=== PATIENT | female | born 1945 | race Caucasian/White ===

== ENCOUNTER → 2019-09-08 | Outpatient (CLI) | payer MEDICARE | END | disposition home or self-care (01) | LOC: PREOP 05:50 | PROVIDERS: ATTEND Specialist | DX: Z01.818 Encounter for other preprocedural examination (principal) ==

== ENCOUNTER 2019-11-08 09:44 | Outpatient (RCR) | payer MEDICARE ==
[~2019-11-08] VITALS: Ht 160 cm; Wt 72.0 kg
[~2019-11-08 09:44] MED LIST: ATOR10TA66 PO; BUDE10.2 IH; CITA10TA7 PO; RT-ALBUINH IH
== END 2019-11-08 15:09 | disposition home or self-care (01) ==
LOC: PREOP 09:44
PROVIDERS: ATTEND Specialist
DX: Z01.818 Encounter for other preprocedural examination (principal); Z11.59 Encounter for screening for other viral diseases
CPT/HCPCS: 87635

== ENCOUNTER → 2019-11-12 | Day surgery (SDC) | payer MEDICARE ==
[~2019-11-12] VITALS: Ht 160 cm; Wt 72.0 kg
[~2019-11-12] MED LIST changes: +LIDOCAINE PF 1% 2 ML VIAL IR PRN; +MIDAZOLAM 2 MG/2 ML (VERSED) VIAL ONE; +MOXIFLOXACIN OPHTH SOLN 5 MG/ML 0.3 ML SYRINGE OP ONE; +POVIDONE (BETADINE) OPHTH SOLN 5% 30 ML OP ONE; +TIMOLOL MALEATE 0.5% 5 ML (TIMOPTIC) BTL OU PRN; +acetaZOLAMIDE ER 500 MG CAP (DIAMOX SEQUELS) PO ONE
[2019-11-12] MEDS: TETRACAINE 0.5% OPHTH SOLN 4 ML BTL (SINGLE DOSE ONLY) OU PRN ×4 (09:20→09:46)
[2019-11-12 09:25] VITALS: BP 146/89
[2019-11-12] MEDS: CYCLOPENTOLATE 1% (CYCLOGYL) 2 ML DROPS OP SCH ×3 (09:33→09:49)
[2019-11-12] MEDS: PHENYLEPHRINE 10% OPHTH (NEO-SYN) 5 ML BTL OU SCH ×3 (09:33→09:49)
--- OUTSIDE RECORDS SUMMARY | 2019-11-12 09:59 | XMS REPORT | Continuity of Care Document ---
Author Organization Unknown Address Unknown Phone Unavailable Allergies Active Description Code Type Severity Reaction Onset Reported/Identified Relationship to Patient Clinical Status Yes PENICILLINS SEVERE DERMATOLOGICAL - HIV Yes PENICILLINS SEVERE SEVERE Yes Penicillins [id number] Drug Aller gy Mild HIVES 11/05/2019 Medications Medication Packaging Start Date St op Date Route Dosage Sig ALBUTEROL SVN 2.5MG/3CC LIQ 2.5 MG (PROVENTIL SHERRY 2.5MG/3CC) MG 08/07/2018 08/07/2018 ONCE&1055 METHYLPREDNISOLONE VIAL INJ 125 MG/2CC (SOLU-MEDROL VIAL) MG 08/07/2018 08/07/2018 ONCE&1055 CEFTRIAXONE PREMIX IV BAG IV 1 GM/50CC (ROCEPHIN PREMIX IV BAG) GM 08/07/2018 08/13/2018 Daily&1300 ALBUTEROL SVN 2.5MG/3CC LIQ 2.5 MG (PROVENTIL SHERRY 2.5MG/3CC) MG 08/07/2018 08/17/2018 PRN Q4H ALBUTEROL SVN 2.5MG/3CC LIQ 2.5 MG (PROVENTIL SHERRY 2.5MG/3CC) MG 08/07/2018 08/17/2018 QID&0600,1100,1600,2100 GUAIFENESIN TAB 600 MG (MUCINEX) MG 08/07/2018 08/14/2018 Q12H&0600,1800 BUDESONIDE/FORMOTEROL INH 16 0 /4.5MCG (SYMBICORT) PUFF 08/07/2018 08/14/2018 BID&0800,2000 PANTOPRAZOLE VIAL INJ 40 MG (PROTONIX IV) MG 08/07/2018 08/16/2018 Daily&2000 METHYLPREDNISOLONE VIAL INJ 125 MG/2CC (SOLU-MEDROL VIAL) MG 08/07/2018 08/12/2018 Q8H&0600,1400,2200 IPRATROPIUM/ALBUTEROL INH SO LN (DUO-NEB INH SOLN) MLS 08/08/2018 08/15/2018 QID&0600,1100,1600,2100 PREDNISONE TAB 20 MG (DELTASONE) MG 08/09/2018 08/09/2018 ONCE&1100 KETOROLAC VIAL INJ 15 MG/CC (TORADOL VIAL) MG 09/24/2018 09/24/2018 ONCE&2043 LORAZEPAM 1CC VIAL INJ 2 MG/CC (ATIVAN VIA L) MG 09/24/2018 09/24/2018 PRN ONCE Problems Date Dx Coded Attending Type Code Diagnosis Diagnosed By 05/22/1508 YAQUELIN MCKEON MD Ot Z01.818 ENCOUNTER FOR OTHER PREPROCEDURAL EXAMIN 05/22/1508 YAQUELIN MCKEON MD Ot Z11.59 ENCOUNTER FOR SCREENING FOR OTHER VIRAL 01/30/2017 Abi Crenshaw W 272.8 OTHER DISORDERS OF LIPOID METABOLISM 01/30/2017 Abi Crenshaw 311 DEPRESSIVE DISORDER, NOT ELSEWHERE CLASSIFIED 01/30/2017 Abi Crenshaw W 493 ASTHMA 01/30/2017 Abi Crenshaw E78.5 HYPERLIPIDEMIA, UNSPECIFIED 01/30/2017 Abi Crenshaw W F33.9 MAJOR DEPRESSIVE DISORDER, RECURRENT, UNSPECIFIED 01/30/2017 Abi Crenshaw W J45.909 UNSPECIFIED ASTHMA, UNCOMPLICATED 01/30/2017 W 272.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 01/30/2017 W 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, NOT ELSEWHERE CLASSIFIED 01/30/2017 W 493 ASTHMA 01/30/2017 W E78.5 HYPE RLIPIDEMIA, UNSPECIFIED 01/30/2017 W F33.9 VLAD R DEPRESSIVE DISORDER, RECURRENT, UNSPECIFIED 01/30/2017 W J45.909 UN SPECIFIED ASTHMA, UNCOMPLICATED 07/31/2017 Abi Crenshaw W 272.8 OTHER DISORDERS OF LIPOID METABOLISM 07/31/2017 Abi Crenshaw W 311 DEPRESSIVE DISORDER, NOT ELSEWHERE CLASSIFIED 07/31/2017 Abi Crenshaw E78.5 HYPERLIPIDEMIA, UNSPECIFIED 07/31/2017 Abi Crenshaw W F32.9 MAJOR DEPRESSIVE DISORDER, SINGLE EPISODE, UNSPECIFIED 07/31/2017 Abi Crenshaw W 272.8 OTHER DISORDERS OF LIPOID METABOLISM 07/31/2017 Abi Crenshaw W 305.1 07/31/2017 Abi Crenshaw W 311 DEPRESSIVE DISORDER, NOT ELSEWHERE CLASSIFIED 07/31/2017 Flower, Abi W 477.8 ALLERGIC RHINITIS DUE TO OTHER ALLERGEN 07/31/2017 Flower, Abi W 786.05 SHORTNESS OF BREATH 07/31/2017 Flower, Abi W E78.5 HYPERLIPIDEMIA, UNSPECIFIED 07/31/2017 Flower, Abi W F32.9 MAJOR DEPRESSIVE DISORDER, SINGLE EPISODE, UNSPECIFIED 07/31/2017 Flower, Abi W J30.2 OTHER SEASONAL ALLERGIC RHINITIS 07/31/2017 Flower, Abi W R06.02 SHORTNESS OF BREATH 07/31/2017 Flower, Abi W Z72.0 TOBACCO USE 07/31/2017 Flower, Abi W 272.8 OTHER DISORDERS OF LIPOID METABOLISM 07/31/2017 Flower, Abi W 305.1 07/31/2017 Flower, Abi W 311 DEPRESSIVE DISORDER, NOT ELSEWHERE CLASSIFIED 07/31/2017 Flower, Abi W 477.8 ALLERGIC RHINITIS DUE TO OTHER ALLERGEN 07/31/2017 Flower, Abi W 786.05 SHORTNESS OF BREATH 07/31/2017 Flower, Abi W E78.5 HYPERLIPIDEMIA, UNSPECIFIED 07/31/2017 Flower, Abi W F32.9 MAJOR DEPRESSIVE DISORDER, SINGLE EPISODE, UNSPECIFIED 07/31/2017 Flower, Abi W J30.2 OTHER SEASONAL ALLERGIC RHINITIS 07/31/2017 Flower, Abi W R06.02 SHORTNESS OF BREATH 07/31/2017 Flower, Abi W Z72.0 TOBACCO USE 07/31/2017 W 272.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 07/31/2017 W 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 07/31/2017 W 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, NOT ELSEWHERE CLASSIFIED 07/31/2017 W 477.8 STEVEN RGIC RHINITIS DUE TO OTHER ALLERGEN 07/31/2017 W 786.05 YARON RTNESS OF BREATH 07/31/2017 W E78.5 HYPE RLIPIDEMIA, UNSPECIFIED 07/31/2017 W F32.9 VLAD R DEPRESSIVE DISORDER, SINGLE EPISODE, UNSPECIFIED 07/31/2017 W J30.2 OTHE R SEASONAL ALLERGIC RHINITIS 07/31/2017 W R06.02 YARON RTNESS OF BREATH 07/31/2017 W Z72.0 TOBA C PYTHON DEVELOPER USE 09/18/2017 W 272.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 09/18/2017 W 296.30 MERCEDES OR DEPRESSIVE DISORDER, RECURRENT EPISODE, UNSPECIFIED DEGREE 09/18/2017 W 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 09/18/2017 W 496 CHRONI C AIRWAY OBSTRUCTION, NOT ELSEWHERE CLASSIFIED 09/18/2017 W 786.09 OTH ER DYSPNEA AND RESPIRATORY ABNORMALITY 09/18/2017 W E78.5 HYPE RLIPIDEMIA, UNSPECIFIED 09/18/2017 W F33.9 VLAD R DEPRESSIVE DISORDER, RECURRENT, UNSPECIFIED 09/18/2017 W J44.9 LAST CHALKER ANAHI OBSTRUCTIVE PULMONARY DISEASE, UNSPECIFIED 09/18/2017 W R06.02 YARON RTNESS OF BREATH 09/18/2017 W Z72.0 TOBA C PYTHON DEVELOPER USE 12/18/2017 Flower, Abi W 272.8 OTHER DISORDERS OF LIPOID METABOLISM 12/18/2017 Flower, Abi W 311 DEPRESSIVE DISORDER, NOT ELSEWHERE CLASSIFIED 12/18/2017 Flower, Abi W 496 CHRONIC AIRWAY OBSTRUCTION, NOT ELSEWHERE CLASSIFIED 12/18/2017 Flower, Abi W E78.5 HYPERLIPIDEMIA, UNSPECIFIED 12/18/2017 Flower, Abi W F32.9 MAJOR DEPRESSIVE DISORDER, SINGLE EPISODE, UNSPECIFIED 12/18/2017 Flower, Abi W J44.9 CHRONIC OBSTRUCTIVE PULMONARY DISEASE, UNSPECIFIED 12/18/2017 Flower, Abi W 272.8 OTHER DISORDERS OF LIPOID METABOLISM 12/18/2017 Flower, Abi W 278.00 OBESITY, UNSPECIFIED 12/18/2017 Flower, Abi W 305.1 TOBACCO USE DISORDER 12/18/2017 Flower, Abi W 311 DEPRESSIVE DISORDER, NOT ELSEWHERE CLASSIFIED 12/18/2017 Flower, Abi W 496 CHRONIC AIRWAY OBSTRUCTION, NOT ELSEWHERE CLASSIFIED 12/18/2017 Flower, Abi W E66.9 OBESITY, UNSPECIFIED 12/18/2017 Flower, Abi W E78.5 HYPERLIPIDEMIA, UNSPECIFIED 12/18/2017 Flower, Abi W F32.9 MAJOR DEPRESSIVE DISORDER, SINGLE EPISODE, UNSPECIFIED 12/18/2017 Folwer, Abi W J44.9 CHRONIC OBSTRUCTIVE PULMONARY DISEASE, UNSPECIFIED 12/18/2017 Flower, Abi W Z72.0 TOBACCO USE 12/18/2017 W 272.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 12/18/2017 W 278.00 OBE SITY, UNSPECIFIED 12/18/2017 W 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 12/18/2017 W 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, NOT ELSEWHERE CLASSIFIED 12/18/2017 W 496 CHRONI C AIRWAY OBSTRUCTION, NOT ELSEWHERE CLASSIFIED 12/18/2017 W E66.9 OBES ITY, UNSPECIFIED 12/18/2017 W E78.5 HYPE RLIPIDEMIA, UNSPECIFIED 12/18/2017 W F32.9 VLAD R DEPRESSIVE DISORDER, SINGLE EPISODE, UNSPECIFIED 12/18/2017 W J44.9 LAST CHALKER ANAHI OBSTRUCTIVE PULMONARY DISEASE, UNSPECIFIED 12/18/2017 W Z72.0 TOBA C PYTHON DEVELOPER USE 03/19/2018 W 272.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 03/19/2018 W 296.30 MERCEDES OR DEPRESSIVE DISORDER, RECURRENT EPISODE, UNSPECIFIED DEGREE 03/19/2018 W 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 03/19/2018 W 496 CHRONI C AIRWAY OBSTRUCTION, NOT ELSEWHERE CLASSIFIED 03/19/2018 W 786.09 OTH ER DYSPNEA AND RESPIRATORY ABNORMALITY 03/19/2018 W E78.5 HYPE RLIPIDEMIA, UNSPECIFIED 03/19/2018 W F33.9 VLAD R DEPRESSIVE DISORDER, RECURRENT, UNSPECIFIED 03/19/2018 W J44.9 LAST CHALKER ANAHI OBSTRUCTIVE PULMONARY DISEASE, UNSPECIFIED 03/19/2018 W R06.02 YARON RTNESS OF BREATH 03/19/2018 W Z72.0 TOBA C PYTHON DEVELOPER USE 07/02/2018 Flower Abi W 272.8 OTHER DISORDERS OF LIPOID METABOLISM 07/02/2018 Flower Abi W 296.30 MAJOR DEPRESSIVE DISORDER, RECURRENT EPISODE, UNSPECIFIED DEGREE 07/02/2018 Flower Abi W 496 CHRONIC AIRWAY OBSTRUCTION, NOT ELSEWHERE CLASSIFIED 07/02/2018 Flower Abi W 786.05 SHORTNESS OF BREATH 07/02/2018 Flower, Abi W E78.5 HYPERLIPIDEMIA, UNSPECIFIED 07/02/2018 Flower, Abi W F33.9 MAJOR DEPRESSIVE DISORDER, RECURRENT, UNSPECIFIED 07/02/2018 Flower Abi W J44.9 CHRONIC OBSTRUCTIVE PULMONARY DISEASE, UNSPECIFIED 07/02/2018 Flower Abi W R06.02 SHORTNESS OF BREATH 07/02/2018 Flower, Abi W 272.8 OTHER DISORDERS OF LIPOID METABOLISM 07/02/2018 Flower Abi W 296.30 MAJOR DEPRESSIVE DISORDER, RECURRENT EPISODE, UNSPECIFIED DEGREE 07/02/2018 Flower Abi W 496 CHRONIC AIRWAY OBSTRUCTION, NOT ELSEWHERE CLASSIFIED 07/02/2018 Abi Crenshaw W 786.05 SHORTNESS OF BREATH 07/02/2018 Abi Crenshaw W E78.5 HYPERLIPIDEMIA, UNSPECIFIED 07/02/2018 Abi Crenshaw W F33.9 MAJOR DEPRESSIVE DISORDER, RECURRENT, UNSPECIFIED 07/02/2018 Abi Crenshaw W J44.9 CHRONIC OBSTRUCTIVE PULMONARY DISEASE, UNSPECIFIED 07/02/2018 Abi Crenshaw W R06.02 SHORTNESS OF BREATH 07/02/2018 Abi Crenshaw W V69.8 OTHER PROBLEMS RELATED TO LIFESTYLE 07/02/2018 Abi Crenshaw W Z72.0 TOBACCO USE 07/02/2018 W 272.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 07/02/2018 W 296.30 MERCEDES OR DEPRESSIVE DISORDER, RECURRENT EPISODE, UNSPECIFIED DEGREE 07/02/2018 W 496 CHRONI C AIRWAY OBSTRUCTION, NOT ELSEWHERE CLASSIFIED 07/02/2018 W 786.05 YARON RTNESS OF BREATH 07/02/2018 W E78.5 HYPE RLIPIDEMIA, UNSPECIFIED 07/02/2018 W F33.9 VLAD R DEPRESSIVE DISORDER, RECURRENT, UNSPECIFIED 07/02/2018 W J44.9 LAST CHALKER ANAHI OBSTRUCTIVE PULMONARY DISEASE, UNSPECIFIED 07/02/2018 W R06.02 YARON RTNESS OF BREATH 07/02/2018 W V03.82 NEE D FOR PROPHYLACTIC VACCINATION AGAINST STREPTOCOCCUS PNEUMONIAE [PNEUMOCOCCUS] 07/02/2018 W V69.8 OTHE R PROBLEMS RELATED TO LIFESTYLE 07/02/[address] Z[address] E[address]OUN [address] FOR IMMUNIZATION 07/02/2018 W Z72.0 TOBA C PYTHON DEVELOPER USE 08/07/2018 Chris Dahl W 491.21 OBSTRUCTIVE CHRONIC BRONCHITIS WITH (ACUTE) EXACERBATION 08/07/2018 Chris Dahl W J44.1 CHRONIC OBSTRUCTIVE PULMONARY DISEASE WITH (ACUTE) EXACERBATION 08/07/2018 Chris Dahl W 491.21 OBSTRUCTIVE CHRONIC BRONCHITIS WITH (ACUTE) EXACERBATION 08/07/2018 Chris Dahl W 799.02 HYPOXEMIA 08/07/2018 Chris Dahl W J44.1 CHRONIC OBSTRUCTIVE PULMONARY DISEASE WITH (ACUTE) EXACERBATION 08/07/2018 Chris Dahl W R09.02 HYPOXEMIA 08/07/2018 W 491.21 OBS TRUCTIVE CHRONIC BRONCHITIS WITH (ACUTE) EXACERBATION 08/07/2018 W 780.79 OTH ER MALAISE AND FATIGUE 08/07/2018 W 786.05 YARON RTNESS OF BREATH 08/07/2018 W 787.91 STANLEY RRHEA 08/07/2018 W J44.1 LAST CHALKER ANAHI OBSTRUCTIVE PULMONARY DISEASE WITH (ACUTE) EXACERBATION 08/07/2018 W R06.02 YARON RTNESS OF BREATH 08/07/2018 W R19.7 DIAR LIAM, UNSPECIFIED 08/07/2018 W R53.1 WEAKNESS 08/09/2018 Brown, Chris W 491.21 OBSTRUCTIVE CHRONIC BRONCHITIS WITH (ACUTE) EXACERBATION 08/09/2018 Brown, Chris W 799.02 HYPOXEMIA 08/09/2018 Brown, Chris W J44.1 CHRONIC OBSTRUCTIVE PULMONARY DISEASE WITH (ACUTE) EXACERBATION 08/09/2018 Brown, Chris W R09.02 HYPOXEMIA 08/18/2018 W 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 08/18/2018 W 401.0 THOMPSON GNANT ESSENTIAL HYPERTENSION 08/18/2018 W 491.21 OBS TRUCTIVE CHRONIC BRONCHITIS WITH (ACUTE) EXACERBATION 08/18/2018 W 786.05 YARON RTNESS OF BREATH 08/18/2018 W I10 ESSENT IAL (PRIMARY) HYPERTENSION 08/18/2018 W J44.0 LAST CHALKER ANAHI OBSTRUCTIVE PULMONARY DISEASE WITH ACUTE LOWER RESPIRATORY INFECTION 08/18/2018 W R06.02 YARON RTNESS OF BREATH 08/18/2018 W Z72.0 TOBA C PYTHON DEVELOPER USE 09/24/2018 LEISURE, LYNIETA W 300.00 ANXIETY STATE, UNSPECIFIED 09/24/2018 LEISURE, LYNIETA W F41.9 ANXIETY DISORDER, UNSPECIFIED 09/24/2018 LEISURE, LYNIETA W 300.00 ANXIETY STATE, UNSPECIFIED 09/24/2018 LEISURE, LYNIETA W F41.9 ANXIETY DISORDER, UNSPECIFIED 09/24/2018 LEISURE, LYNIETA W 300.00 ANXIETY STATE, UNSPECIFIED 09/24/2018 LEISURE, LYNIETA W 786.59 OTHER CHEST PAIN 09/24/2018 LEISURE, LYNIETA W F41.9 ANXIETY DISORDER, UNSPECIFIED 09/24/2018 LEISURE, LYNIETA W R07.89 OTHER CHEST PAIN 09/24/2018 LEISURE, LYNIETA W 300.00 ANXIETY STATE, UNSPECIFIED 09/24/2018 LEISURE, LYNIETA W 786.59 OTHER CHEST PAIN 09/24/2018 LEISURE, LYNIETA W F41.9 ANXIETY DISORDER, UNSPECIFIED 09/24/2018 LEISURE, MIGUEL W R07.89 OTHER CHEST PAIN 10/01/2018 Flower, Abi W 272.4 OTHER AND UNSPECIFIED HYPERLIPIDEMIA 10/01/2018 Flower, Abi W 296.30 MAJOR DEPRESSIVE DISORDER, RECURRENT EPISODE, UNSPECIFIED DEGREE 10/01/2018 Flower, Abi W 491.20 OBSTRUCTIVE CHRONIC BRONCHITIS, WITHOUT EXACERBATION 10/01/2018 Flower, Abi W 786.05 SHORTNESS OF BREATH 10/01/2018 Flower, Abi W E78.5 HYPERLIPIDEMIA, UNSPECIFIED 10/01/2018 Flower, Abi W F33.9 MAJOR DEPRESSIVE DISORDER, RECURRENT, UNSPECIFIED 10/01/2018 Flower, Abi W J44.9 CHRONIC OBSTRUCTIVE PULMONARY DISEASE, UNSPECIFIED 10/01/2018 Flower, Abi W R06.02 SHORTNESS OF BREATH 10/01/2018 Flower, Abi W V69.8 OTHER PROBLEMS RELATED TO LIFESTYLE 10/01/2018 Abi Crenshaw W Z72.0 TOBACCO USE 10/01/2018 W 272.4 OTHE R AND UNSPECIFIED HYPERLIPIDEMIA 10/01/2018 W 296.30 MERCEDES OR DEPRESSIVE DISORDER, RECURRENT EPISODE, UNSPECIFIED DEGREE 10/01/2018 W 300.00 ANX IETY STATE, UNSPECIFIED 10/01/2018 W 491.20 OBS TRUCTIVE CHRONIC BRONCHITIS, WITHOUT EXACERBATION 10/01/2018 W 786.05 YARON RTNESS OF BREATH 10/01/2018 W E78.5 HYPE RLIPIDEMIA, UNSPECIFIED 10/01/2018 W F33.9 VLAD R DEPRESSIVE DISORDER, RECURRENT, UNSPECIFIED 10/01/2018 W F41.9 ANXI ETY DISORDER, UNSPECIFIED 10/01/2018 W J44.9 LAST CHALKER ANAHI OBSTRUCTIVE PULMONARY DISEASE, UNSPECIFIED 10/01/2018 W R06.02 YARON RTNESS OF BREATH 10/01/2018 W V69.8 OTHE R PROBLEMS RELATED TO LIFESTYLE 10/01/2018 W Z72.0 TOBA C PYTHON DEVELOPER USE 11/03/2018 W 300.00 ANX IETY STATE, UNSPECIFIED 11/03/2018 W 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, NOT ELSEWHERE CLASSIFIED 11/03/2018 W 496 CHRONI C AIRWAY OBSTRUCTION, NOT ELSEWHERE CLASSIFIED 11/03/2018 W F32.9 VLAD R DEPRESSIVE DISORDER, SINGLE EPISODE, UNSPECIFIED 11/03/2018 W F41.9 ANXI ETY DISORDER, UNSPECIFIED 11/03/2018 W J44.9 LAST CHALKER ANAHI OBSTRUCTIVE PULMONARY DISEASE, UNSPECIFIED 02/16/2019 Flower, Abi W 401.0 MALIGNANT ESSENTIAL HYPERTENSION 02/16/2019 Flower, Abi W I10 ESSENTIAL (PRIMARY) HYPERTENSION 02/16/2019 Flower, Abi W 272.4 OTHER AND UNSPECIFIED HYPERLIPIDEMIA 02/16/2019 Flower, Abi W 401.0 MALIGNANT ESSENTIAL HYPERTENSION 02/16/2019 Flower, Abi W 496 CHRONIC AIRWAY OBSTRUCTION, NOT ELSEWHERE CLASSIFIED 02/16/2019 Flower, Abi W E78.5 HYPERLIPIDEMIA, UNSPECIFIED 02/16/2019 Flower, Abi W I10 ESSENTIAL (PRIMARY) HYPERTENSION 02/16/2019 Flower, Abi W J44.9 CHRONIC OBSTRUCTIVE PULMONARY DISEASE, UNSPECIFIED 02/16/2019 Flower, Abi W 272.4 OTHER AND UNSPECIFIED HYPERLIPIDEMIA 02/16/2019 Flower, Abi W 296.20 MAJOR DEPRESSIVE DISORDER, SINGLE EPISODE, UNSPECIFIED DEGREE 02/16/2019 Flower, Abi W 401.0 MALIGNANT ESSENTIAL HYPERTENSION 02/16/2019 Flower, Abi W 496 CHRONIC AIRWAY OBSTRUCTION, NOT ELSEWHERE CLASSIFIED 02/16/2019 Flower, Abi W E78.5 HYPERLIPIDEMIA, UNSPECIFIED 02/16/2019 Flower, Abi W F32.9 MAJOR DEPRESSIVE DISORDER, SINGLE EPISODE, UNSPECIFIED 02/16/2019 Flower, Abi W I10 ESSENTIAL (PRIMARY) HYPERTENSION 02/16/2019 Flower, Abi W J44.9 CHRONIC OBSTRUCTIVE PULMONARY DISEASE, UNSPECIFIED 02/16/2019 Flower, Abi W 272.4 OTHER AND UNSPECIFIED HYPERLIPIDEMIA 02/16/2019 Flower, Abi W 296.20 MAJOR DEPRESSIVE DISORDER, SINGLE EPISODE, UNSPECIFIED DEGREE 02/16/2019 Flower, Abi W 300.00 ANXIETY STATE, UNSPECIFIED 02/16/2019 Flower, Abi W 401.0 MALIGNANT ESSENTIAL HYPERTENSION 02/16/2019 Flower, Abi W 496 CHRONIC AIRWAY OBSTRUCTION, NOT ELSEWHERE CLASSIFIED 02/16/2019 Flower, Abi W E78.5 HYPERLIPIDEMIA, UNSPECIFIED 02/16/2019 Flower, Abi W F32.9 MAJOR DEPRESSIVE DISORDER, SINGLE EPISODE, UNSPECIFIED 02/16/2019 Flower, Abi W F41.9 ANXIETY DISORDER, UNSPECIFIED 02/16/2019 Flower, Abi W I10 ESSENTIAL (PRIMARY) HYPERTENSION 02/16/2019 Flower, Abi W J44.9 CHRONIC OBSTRUCTIVE PULMONARY DISEASE, UNSPECIFIED 02/16/2019 Flower, Abi W V69.8 OTHER PROBLEMS RELATED TO LIFESTYLE 02/16/2019 Flower, Abi W Z72.0 TOBACCO USE 02/16/2019 Flower, Abi W 401.0 MALIGNANT ESSENTIAL HYPERTENSION 02/16/2019 Flower, Abi W I10 ESSENTIAL (PRIMARY) HYPERTENSION 02/16/2019 Flower, Abi W 272.4 OTHER AND UNSPECIFIED HYPERLIPIDEMIA 02/16/2019 Flower, Abi W 296.20 MAJOR DEPRESSIVE DISORDER, SINGLE EPISODE, UNSPECIFIED DEGREE 02/16/2019 Flower, Abi W 401.0 MALIGNANT ESSENTIAL HYPERTENSION 02/16/2019 Flower, Abi W 496 CHRONIC AIRWAY OBSTRUCTION, NOT ELSEWHERE CLASSIFIED 02/16/2019 Flower, Abi W E78.5 HYPERLIPIDEMIA, UNSPECIFIED 02/16/2019 Flower, Abi W F32.9 MAJOR DEPRESSIVE DISORDER, SINGLE EPISODE, UNSPECIFIED 02/16/2019 Flower, Abi W I10 ESSENTIAL (PRIMARY) HYPERTENSION 02/16/2019 Flower, Abi W J44.9 CHRONIC OBSTRUCTIVE PULMONARY DISEASE, UNSPECIFIED 02/16/2019 Flower, Abi W 272.4 OTHER AND UNSPECIFIED HYPERLIPIDEMIA 02/16/2019 Flower, Abi W 296.20 MAJOR DEPRESSIVE DISORDER, SINGLE EPISODE, UNSPECIFIED DEGREE 02/16/2019 Flower, Abi W 300.00 ANXIETY STATE, UNSPECIFIED 02/16/2019 Flower, Abi W 401.0 MALIGNANT ESSENTIAL HYPERTENSION 02/16/2019 Flower, Abi W 496 CHRONIC AIRWAY OBSTRUCTION, NOT ELSEWHERE CLASSIFIED 02/16/2019 Flower, Abi W E78.5 HYPERLIPIDEMIA, UNSPECIFIED 02/16/2019 Flower, Abi W F32.9 MAJOR DEPRESSIVE DISORDER, SINGLE EPISODE, UNSPECIFIED 02/16/2019 Flower, Abi W F41.9 ANXIETY DISORDER, UNSPECIFIED 02/16/2019 Flower, Abi W I10 ESSENTIAL (PRIMARY) HYPERTENSION 02/16/2019 Flower, Abi W J44.9 CHRONIC OBSTRUCTIVE PULMONARY DISEASE, UNSPECIFIED 02/16/2019 Flower, Abi W V69.8 OTHER PROBLEMS RELATED TO LIFESTYLE 02/16/2019 Flower, Abi W Z72.0 TOBACCO USE 02/16/2019 Flower, Abi W 272.4 OTHER AND UNSPECIFIED HYPERLIPIDEMIA 02/16/2019 Flower, Abi W 296.20 MAJOR DEPRESSIVE DISORDER, SINGLE EPISODE, UNSPECIFIED DEGREE 02/16/2019 Flower, Abi W 300.00 ANXIETY STATE, UNSPECIFIED 02/16/2019 Flower, Abi W 401.0 MALIGNANT ESSENTIAL HYPERTENSION 02/16/2019 Flower, Abi W 496 CHRONIC AIRWAY OBSTRUCTION, NOT ELSEWHERE CLASSIFIED 02/16/2019 Flower, Abi W E78.5 HYPERLIPIDEMIA, UNSPECIFIED 02/16/2019 Flower, Abi W F32.9 MAJOR DEPRESSIVE DISORDER, SINGLE EPISODE, UNSPECIFIED 02/16/2019 Flower, Abi W F41.9 ANXIETY DISORDER, UNSPECIFIED 02/16/2019 Flower, Abi W I10 ESSENTIAL (PRIMARY) HYPERTENSION 02/16/2019 Flower, Abi W J44.9 CHRONIC OBSTRUCTIVE PULMONARY DISEASE, UNSPECIFIED 02/16/2019 Flower, Abi W V69.8 OTHER PROBLEMS RELATED TO LIFESTYLE 02/16/2019 Flower, Abi W Z72.0 TOBACCO USE 02/16/2019 Flower, Abi W 272.4 OTHER AND UNSPECIFIED HYPERLIPIDEMIA 02/16/2019 Flower, Abi W 296.20 MAJOR DEPRESSIVE DISORDER, SINGLE EPISODE, UNSPECIFIED DEGREE 02/16/2019 Flower, Abi W 300.00 ANXIETY STATE, UNSPECIFIED 02/16/2019 Flower, Abi W 401.0 MALIGNANT ESSENTIAL HYPERTENSION 02/16/2019 Flower, Abi W 496 CHRONIC AIRWAY OBSTRUCTION, NOT ELSEWHERE CLASSIFIED 02/16/2019 Flower, Abi W E78.5 HYPERLIPIDEMIA, UNSPECIFIED 02/16/2019 Flower, Abi W F32.9 MAJOR DEPRESSIVE DISORDER, SINGLE EPISODE, UNSPECIFIED 02/16/2019 Flower, Abi W F41.9 ANXIETY DISORDER, UNSPECIFIED 02/16/2019 Flower, Abi W I10 ESSENTIAL (PRIMARY) HYPERTENSION 02/16/2019 Flower, Abi W J44.9 CHRONIC OBSTRUCTIVE PULMONARY DISEASE, UNSPECIFIED 02/16/2019 Flower, Abi W V69.8 OTHER PROBLEMS RELATED TO LIFESTYLE 02/16/2019 Flower, Abi W Z72.0 TOBACCO USE 03/17/2019 Flower, Abi W 477.8 ALLERGIC RHINITIS DUE TO OTHER ALLERGEN 03/17/2019 Flower, Abi W J30.2 OTHER SEASONAL ALLERGIC RHINITIS 03/17/2019 Flower, Abi W 477.8 ALLERGIC RHINITIS DUE TO OTHER ALLERGEN 03/17/2019 Flower, Abi W J30.2 OTHER SEASONAL ALLERGIC RHINITIS 03/17/2019 Flower, Abi W 477.8 ALLERGIC RHINITIS DUE TO OTHER ALLERGEN 03/17/2019 Flower, Abi W 478.19 OTHER DISEASE OF NASAL CAVITY AND SINUSES 03/17/2019 Flower, Abi W J30.2 OTHER SEASONAL ALLERGIC RHINITIS 03/17/2019 Flower, Abi W R09.81 NASAL CONGESTION 03/17/2019 Flower, Abi W 477.8 ALLERGIC RHINITIS DUE TO OTHER ALLERGEN 03/17/2019 Flower, Abi W 478.19 OTHER DISEASE OF NASAL CAVITY AND SINUSES 03/17/2019 Flower, Abi W 786.2 COUGH 03/17/2019 Flower, Abi W J30.2 OTHER SEASONAL ALLERGIC RHINITIS 03/17/2019 Flower, Abi W R05 COUGH 03/17/2019 Flower, Abi W R09.81 NASAL CONGESTION 03/17/2019 Flower, Abi W 477.8 ALLERGIC RHINITIS DUE TO OTHER ALLERGEN 03/17/2019 Flower, Abi W 478.19 OTHER DISEASE OF NASAL CAVITY AND SINUSES 03/17/2019 Flower, Abi W 786.2 COUGH 03/17/2019 Flower, Abi W J30.2 OTHER SEASONAL ALLERGIC RHINITIS 03/17/2019 Flower, Abi W R05 COUGH 03/17/2019 Flower, Abi W R09.81 NASAL CONGESTION 03/17/2019 Flower, Abi W 477.8 ALLERGIC RHINITIS DUE TO OTHER ALLERGEN 03/17/2019 Flower, Abi W 478.19 OTHER DISEASE OF NASAL CAVITY AND SINUSES 03/17/2019 Flower, Abi W 786.2 COUGH 03/17/2019 Flower, Abi W J30.2 OTHER SEASONAL ALLERGIC RHINITIS 03/17/2019 Flower, Abi W R05 COUGH 03/17/2019 Flower, Abi W R09.81 NASAL CONGESTION 09/10/2019 YQAUELIN MCKEON MD L Ot Z01.818 ENCOUNTER FOR OTHER PREPROCEDURAL EXAMIN 11/08/2019 YAQUELIN MCKEON MD L Ot Z01.818 ENCOUNTER FOR OTHER PREPROCEDURAL EXAMIN 11/08/2019 YAQUELIN MCKEON MD L Ot Z11.59 ENCOUNTER FOR SCREENING FOR OTHER VIRAL 11/12/2019 YAQUELIN MCKEON MD L Ot Z01.818 ENCOUNTER FOR OTHER PREPROCEDURAL EXAMIN Procedures There is no data. Results Test Result Range Mycoplasma - 05/29/16 10:42 Mycoplasma Negative Negative Lipid Panel - 07/31/16 09:00 C/HDL 4.5 3.7-6.7 Cholesterol 292 mg/dL 100-240 HDL 65 mg/dL 30 LDL-Calculated 176 mg/dL 0-100 Trig 253 mg/dL 35-160 VLDL 51 mg/dL 0-42 Comprehensive Metabolic Panel - 01/30/17 09:45 Albumin 4.6 g/dL 3.6-5.1 ALP 126 U/L 35-130 ALT 12 U/L 6-45 Anion Gap 18 6-14 AST 20 U/L 2-40 BUN 8 mg/dL 5-25 Calcium 10.0 mg/dL 8.3-10.4 Chloride 104 mmol/L 95-114 CO2 24 mEq/L 22-33 Creat 0.82 mg/dL 0.50-1.50 eGFR 69 mL/min/1.73m2 >59 Globulin 3.1 g/dL 2.3-3.5 Glucose 104 mg/dL 70-110 Osmo 290 280-295 Potassium 4.6 mmol/L 3.5-5.3 Sodium 141 mmol/L 134-148 TBil 0.6 mg/dL 0.2-1.2 TP 7.7 g/dL 6.0-8.3 Lipid Panel - 01/30/17 09:45 C/HDL 3.2 3.7-6.7 Cholesterol 225 mg/dL 100-240 HDL 70 mg/dL LDL-Calculated 121 mg/dL 0-100 Trig 171 mg/dL 35-160 VLDL 34 mg/dL 0-42 Thyroid Stimulating Hormone - 07/31/17 0 9:15 TSH 1.59 mIU/mL 0.32-5.00 Lipid Panel - 12/18/17 09:05 C/HDL 2.6 3.7-6.7 Cholesterol 193 mg/dL 100-240 HDL 73 mg/dL 85 LDL-Calculated 104 mg/dL 0-100 Trig 82 mg/dL 35-160 VLDL 16 mg/dL 0-42 Lipid Panel - 07/02/18 09:15 C/HDL 2.7 3.7-6.7 Cholesterol 193 mg/dL 100-240 HDL 71 mg/dL LDL-Calculated 86 mg/dL 0-100 Trig 180 mg/dL 35-160 VLDL 36 mg/dL 0-42 Arterial Blood Gas - 08/07/18 10:41 Base -1.00 mmol/L 1.80-4.20 HCO3 24 mmol/L 20-31 O2 Sat 89 room air % 95-100 pCO2 43 mm/Hg 35-45 pH 7.36 7.35-7.45 PO2 59 mm/Hg 80-95 Comprehensive Metabolic Panel - 08/07/18 10:46 Albumin 4.3 g/dL 3.6-5.1 ALP 91 U/L 35-130 ALT 14 U/L 6-45 Anion Gap 17 6-14 AST 36 U/L 2-40 BUN 9 mg/dL 5-25 Calcium 9.1 mg/dL 8.3-10.4 Chloride 99 mmol/L 95-114 CO2 23 mEq/L 22-33 Creat 0.77 mg/dL 0.50-1.50 eGFR 73 mL/min/1.73m2 >59 Globulin 3.0 g/dL 2.3-3.5 Glucose 138 mg/dL 70-110 Osmo 280 280-295 Potassium 3.7 mmol/L 3.5-5.3 Sodium 135 mmol/L 134-148 TBil 0.4 mg/dL 0.2-1.2 TP 7.3 g/dL 6.0-8.3 BMP - 08/09/18 07:00 Anion Gap 16 6-14 BUN 14 mg/dL 5-25 Calcium 9.2 mg/dL 8.3-10.4 Chloride 99 mmol/L 95-114 CO2 26 mEq/L 22-33 Creat 0.73 mg/dL 0.50-1.50 eGFR 78 mL/min/1.73m2 >59 Glucose 125 mg/dL 70-110 Osmo 285 280-295 Potassium 3.9 mmol/L 3.5-5.3 Sodium 137 mmol/L 134-148 Troponin I - 09/24/18 20:37 Troponin <0.020 ng/mL 0.0-0.4 Lipase - 09/24/18 20:37 Lipase 8 U/L 7-59 Free T3 - 10/01/18 09:00 Free T3 3.00 pg/ml 1.45-3.48 Lipid Panel - 02/16/19 09:35 C/HDL 3.1 3.7-6.7 Cholesterol 166 mg/dL 100-240 HDL 54 mg/dL 30-85 LDL-Calculated 87 mg/dL 0-100 Trig 126 mg/dL 35-160 VLDL 25 mg/dL 0-42 Comprehensive Metabolic Panel - 08/16/19 08:38 Albumin 4.7 g/dL 3.6-5.1 ALP 119 U/L 35-130 ALT 14 U/L 6-45 Anion Gap 15 6-14 AST 18 U/L 2-40 BUN 9 mg/dL 5-25 Calcium 9.6 mg/dL 8.3-10.4 Chloride 103 mmol/L 95-114 CO2 26 mEq/L 22-33 Creat 0.83 mg/dL 0.50-1.50 eGFR 67 mL/min/1.73m2 >59 Globulin 2.8 g/dL 2.3-3.5 Glucose 104 mg/dL 70-110 Osmo 288 280-295 Potassium 4.3 mmol/L 3.5-5.3 Sodium 140 mmol/L 134-148 TBil 0.5 mg/dL 0.2-1.2 TP 7.5 g/dL 6.0-8.3 Lipid Panel - 08/16/19 08:38 C/HDL 2.5 3.7-6.7 Cholesterol 201 mg/dL 100-240 HDL 81 mg/dL 30-85 LDL-Calculated 100 mg/dL 0-100 Trig 101 mg/dL 35-160 VLDL 20 mg/dL 0-42 Coronavirus SARS-CoV-2 SO 2018 0 13:35 Coronavirus Ab [Units/volume] in Serum Negative Negative Encounters ACCT No. Visit Date/Time Discharge Status Pt. Type Provider Facility Loc./Unit Complaint [id number] 08/16/2019 09:30:00 08/16/2019 23:59 :00 DIS Outpatient Flower Abi [id number] 08/16/2019 08:03:00 08/16/2019 23:59 :00 DIS Outpatient Abi Crenshaw [id number] 03/17/2019 14:37:00 03/17/2019 23:59: 00 DIS Outpatient bAi Crenshaw [id number] 02/16/2019 11:14:00 02/16/2019 23:59: 00 DIS Outpatient Abi Crenshaw [id number] 02/16/2019 08:52:00 02/16/2019 23:59: 00 DIS Outpatient Abi Crenshaw [id number] 10/01/2018 09:56:00 10/01/2018 23:59: 00 DIS Outpatient Flower, Abi [id number] 09/24/2018 20:28:00 09/24/2018 21:35: 00 DIS Outpatient LEISURE, MIGUEL Kelsea [facility] [id number] 08/07/2018 10:33:00 08/09/2018 10:55: 00 DIS Outpatient Chris Dahl [facility] MED-SURG [id number] 07/02/2018 10:48:00 07/02/2018 23:59: 00 DIS Outpatient Flower, Abi [id number] 12/18/2017 09:20:00 12/18/2017 23:59: 00 DIS Outpatient Flower, Abi [id number] 08/20/2017 12:23:00 08/20/2017 23:59: 00 DIS Outpatient Flower, Abi [id number] 07/31/2017 11:49:00 07/31/2017 23:59: 00 DIS Outpatient Flower, Abi [id number] 01/30/2017 10:25:00 01/30/2017 23:59: 00 DIS Outpatient Flower, Abi [id number] 07/31/2016 09:24:00 07/31/2016 23:59: 00 DIS Outpatient Flower, Abi [id number] 05/29/2016 10:48:00 05/29/2016 23:59: 00 DIS Outpatient Chris Dahl [id number] 11/03/2018 09:39:00 Document Registration [id number] 10/01/2018 08:13:00 Document Registration [id number] 08/18/2018 09:25:00 Document Registration [id number] 08/07/2018 10:57:06 Document Registration [id number] 08/07/2018 08:42:00 Document Registration [id number] 07/02/2018 08:46:00 Document Registration [id number] 03/19/2018 08:07:00 Document Registration [id number] 12/18/2017 08:25:00 Document Registration [id number] 09/18/2017 11:01:00 Document Registration [id number] 07/31/2017 08:24:00 Document Registration [id number] 01/30/2017 08:39:00 Document Registration [id number] 12/18/2017 09:20:00 Document Registration [id number] 11/08/2019 09:44:00 020 15:09:00 DIS Outpatient YAQUELIN MCKEON MD Via [facility] PREOP CATARACT RIGHT EYE [id number] 09/10/2019 12:45:00 23:59:59 CLS YAQUELIN Mcfadden MD Via [facility] CATARACT RIGHT EYE [id number] 09/08/2019 05:50:00 23:59:59 CLS Outpatient YAQUELIN MCKEON MD Via [facility] PREOP CATARACT RIGHT EYE [id number] 11/19/2019 08:30:00 P EN YAQUELIN Mcfadden MD Via [facility] CATARACT LEFT EYE [id number] 11/12/2019 08:10:[address] Outpatient YAQUELIN MCKEON MD Via [facility] RIGHT CATARACT
--- NOTE | 2019-11-12 10:15 | Ophthalmologist Pre-Op Note ---
Pre-Operative Progress Note H&P Reviewed The H&P was reviewed, patient examined and no changes noted. Date H&P Reviewed: November 12, 2019 Time H&P Reviewed: 10:14 Pre-Op Dx Cataract, Right Eye YAQUELIN MCKEON MD November 12, 2019 10:15
--- NOTE | 2019-11-12 10:39 | Ophthalmology Operative Report ---
Cataract removal/placement IOL PREOPERATIVE DIAGNOSIS: Cataract Right Eye POSTOPERATIVE DIAGNOSIS: Cataract Right Eye PROCEDURE: Cataract removal and placement of posterior chamber implant, right eye SURGEON: Alejandro Mckeon ANESTHESIA: Topical with sedation COMPLICATIONS: None ESTIMATED BLOOD LOSS: Minimal DESCRIPTION OF PROCEDURE: After proper informed consent was obtained, the patient, a 74 female, was taken to the Operating Room and the right eye was anesthetized with tetracaine. The right eye was then prepped and draped in the usual manner. A wire lid speculum was placed. A paracentesis was made at the left hand position. Preservative free lidocaine was injected into the anterior chamber followed by viscoelastic. A clear corneal incision was made in the temporal position. A capsulorrhexis was preformed and the central nuclear and cortical material were removed. The posterior capsule was polished and Doug 22.0 [id number] IOL was placed into the capsular bag. The residual viscoelastic was aspirated and balanced saline solution was injected into the anterior chamber. Moxifloxacin was injected into the anterior chamber. The wound was checked and found to be water tight. The patient tolerated the procedure well without complications. ALEJANDRO MCKEON MD November 12, 2019 10:39
[2019-11-12 10:47] VITALS: BP 142/86
--- NOTE | 2019-11-12 11:24 | Anesthesia-General Post-Op ---
MAC Patient Condition Mental Status/LOC: Same as Preop Cardiovascular: Satisfactory Nausea/Vomiting: Absent Respiratory: Satisfactory Pain: Controlled Complications: Absent Post Op Complications Complications None Follow Up Care/Instructions Patient Instructions None needed. Anesthesiology Discharge Order Discharge Order Patient is doing well, no complaints, stable vital signs, no apparent adverse anesthesia problems. No complications reported per nursing. MARIANO COTTON CRNA November 12, 2019 11:24
== END ==
LOC: SDC 08:10
PROVIDERS: ATTEND Specialist
DX: H25.11 Age-related nuclear cataract, right eye (principal); J44.9 Chronic obstructive pulmonary disease, unspecified; E78.5 Hyperlipidemia, unspecified; E78.00 Pure hypercholesterolemia, unspecified; M19.90 Unspecified osteoarthritis, unspecified site; F41.9 Anxiety disorder, unspecified; F17.200 Nicotine dependence, unspecified, uncomplicated; Z88.0 Allergy status to penicillin; Z90.710 Acquired absence of both cervix and uterus; Z79.899 Other long term (current) drug therapy; Z82.49 Family history of ischemic heart disease and other diseases of the circulatory system

== ENCOUNTER 2019-11-19 06:54 | Day surgery (SDC) | payer MEDICARE ==
[~2019-11-19] VITALS: Ht 160 cm; Wt 72.0 kg
[~2019-11-19 06:54] MED LIST changes: -LIDOCAINE PF 1% 2 ML VIAL IR PRN; -MIDAZOLAM 2 MG/2 ML (VERSED) VIAL ONE; -MOXIFLOXACIN OPHTH SOLN 5 MG/ML 0.3 ML SYRINGE OP ONE; -POVIDONE (BETADINE) OPHTH SOLN 5% 30 ML OP ONE; -TIMOLOL MALEATE 0.5% 5 ML (TIMOPTIC) BTL OU PRN; -acetaZOLAMIDE ER 500 MG CAP (DIAMOX SEQUELS) PO ONE
[2019-11-19 07:00] VITALS: BP 111/83
[2019-11-19] MEDS ORDERED: MOXIFLOXACIN OPHTH SOLN 5 MG/ML 0.3 ML SYRINGE OP ONE (07:00)
[2019-11-19] MEDS ORDERED: LIDOCAINE PF 1% 2 ML VIAL IR PRN (07:00)
[2019-11-19] MEDS ORDERED: POVIDONE (BETADINE) OPHTH SOLN 5% 30 ML OP ONE (07:00)
[2019-11-19] MEDS ORDERED: TIMOLOL MALEATE 0.5% 5 ML (TIMOPTIC) BTL OU PRN (07:00)
[2019-11-19] MEDS: TETRACAINE 0.5% OPHTH SOLN 4 ML BTL (SINGLE DOSE ONLY) OU PRN ×4 (07:07→07:26)
[2019-11-19] MEDS: CYCLOPENTOLATE 1% (CYCLOGYL) 2 ML DROPS OP SCH ×3 (07:16→07:26)
[2019-11-19] MEDS: PHENYLEPHRINE 10% OPHTH (NEO-SYN) 5 ML BTL OU SCH ×3 (07:16→07:26)
[2019-11-19] MEDS ORDERED: MIDAZOLAM 2 MG/2 ML (VERSED) VIAL ONE (08:09)
--- NOTE | 2019-11-19 08:22 | Ophthalmologist Pre-Op Note ---
Pre-Operative Progress Note H&P Reviewed The H&P was reviewed, patient examined and no changes noted. Date H&P Reviewed: November 19, 2019 Time H&P Reviewed: 08:22 Pre-Op Dx Cataract, Left Eye YAQUELIN MCKEON MD November 19, 2019 08:22
--- OUTSIDE RECORDS SUMMARY | 2019-11-19 08:43 | XMS REPORT | Continuity of Care Document ---
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, NOT ELSEWHERE CLASSIFIED 07/31/2017 W 477.8 STEVEN RGIC RHINITIS DUE TO OTHER ALLERGEN 07/31/2017 W 786.05 YARON RTNESS OF BREATH 07/31/2017 W E78.5 HYPE RLIPIDEMIA, UNSPECIFIED 07/31/2017 W F32.9 VLAD R DEPRESSIVE DISORDER, SINGLE EPISODE, UNSPECIFIED 07/31/2017 W J30.2 OTHE R SEASONAL ALLERGIC RHINITIS 07/31/2017 W R06.02 YARON RTNESS OF BREATH 07/31/2017 W Z72.0 TOBA PAD EXTRACTOR TENDER USE 09/18/2017 W 272.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 09/18/2017 W 296.30 MERCEDES OR DEPRESSIVE DISORDER, RECURRENT EPISODE, UNSPECIFIED DEGREE 09/18/2017 W 305.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 09/18/2017 W 496 CHRONI C AIRWAY OBSTRUCTION, NOT ELSEWHERE CLASSIFIED 09/18/2017 W 786.09 OTH ER DYSPNEA AND RESPIRATORY ABNORMALITY 09/18/2017 W E78.5 HYPE RLIPIDEMIA, UNSPECIFIED 09/18/2017 W F33.9 VLAD R DEPRESSIVE DISORDER, RECURRENT, UNSPECIFIED 09/18/2017 W J44.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, UNSPECIFIED 09/18/2017 W R06.02 YARON RTNESS OF BREATH 09/18/2017 W Z72.0 TOBA PAD EXTRACTOR TENDER USE 12/18/2017 Flower, Abi W 272.8 OTHER [...] OBE SITY, UNSPECIFIED 12/18/2017 W 305.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 12/18/2017 W 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, NOT ELSEWHERE CLASSIFIED 12/18/2017 W 496 CHRONI C AIRWAY OBSTRUCTION, NOT ELSEWHERE CLASSIFIED 12/18/2017 W E66.9 OBES ITY, UNSPECIFIED 12/18/2017 W E78.5 HYPE RLIPIDEMIA, UNSPECIFIED 12/18/2017 W F32.9 VLAD R DEPRESSIVE DISORDER, SINGLE EPISODE, UNSPECIFIED 12/18/2017 W J44.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, UNSPECIFIED 12/18/2017 W Z72.0 TOBA PAD EXTRACTOR TENDER USE 03/19/2018 W 272.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8 OTHER [...] DEPRESSIVE DISORDER, RECURRENT, UNSPECIFIED 07/02/2018 W J44.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, UNSPECIFIED 07/02/2018 W R06.02 YARON RTNESS OF BREATH 07/02/2018 W V03.82 NEE D FOR PROPHYLACTIC VACCINATION AGAINST STREPTOCOCCUS PNEUMONIAE [PNEUMOCOCCUS] 07/02/2018 W V69.8 OTHE R PROBLEMS RELATED TO LIFESTYLE 07/02/2018 W Z23 ENCOUN TER FOR IMMUNIZATION 07/02/2018 W Z72.0 TOBA PAD EXTRACTOR TENDER USE 08/07/2018 Chris Dahl W 491.21 OBSTRUCTIVE [...] W 787.91 STANLEY RRHEA 08/07/2018 W J44.1 TRIAL MGR ANAHI OBSTRUCTIVE PULMONARY DISEASE WITH (ACUTE) EXACERBATION 08/07/2018 W R06.02 YARON RTNESS OF BREATH 08/07/2018 W R19.7 DIAR LIAM, UNSPECIFIED 08/07/2018 W R53.1 WEAKNESS 08/09/2018 Brown, Chris W 491.21 OBSTRUCTIVE CHRONIC BRONCHITIS WITH (ACUTE) EXACERBATION 08/09/2018 Brown, Chris W 799.02 HYPOXEMIA 08/09/2018 Brown, Chris W J44.1 CHRONIC OBSTRUCTIVE PULMONARY DISEASE WITH (ACUTE) EXACERBATION 08/09/2018 Brown, Chris W R09.02 HYPOXEMIA 08/18/2018 W 305.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 08/18/2018 W 401.0 THOMPSON GNANT ESSENTIAL HYPERTENSION 08/18/2018 W 491.21 OBS TRUCTIVE CHRONIC BRONCHITIS WITH (ACUTE) EXACERBATION 08/18/2018 W 786.05 YARON RTNESS OF BREATH 08/18/2018 W I10 ESSENT IAL (PRIMARY) HYPERTENSION 08/18/2018 W J44.0 TRIAL MGR ANAHI OBSTRUCTIVE PULMONARY DISEASE WITH ACUTE LOWER RESPIRATORY INFECTION 08/18/2018 W R06.02 YARON RTNESS OF BREATH 08/18/2018 W Z72.0 TOBA PAD EXTRACTOR TENDER USE 09/24/2018 LEISURE, LYNIETA W 300.00 ANXIETY [...] ANXI ETY DISORDER, UNSPECIFIED 10/01/2018 W J44.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, UNSPECIFIED 10/01/2018 W R06.02 YARON RTNESS OF BREATH 10/01/2018 W V69.8 OTHE R PROBLEMS RELATED TO LIFESTYLE 10/01/2018 W Z72.0 TOBA PAD EXTRACTOR TENDER USE 11/03/2018 W 300.00 ANX IETY STATE, UNSPECIFIED 11/03/2018 W 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, NOT ELSEWHERE CLASSIFIED 11/03/2018 W 496 CHRONI C AIRWAY OBSTRUCTION, NOT ELSEWHERE CLASSIFIED 11/03/2018 W F32.9 VLAD R DEPRESSIVE DISORDER, SINGLE EPISODE, UNSPECIFIED 11/03/2018 W F41.9 ANXI ETY DISORDER, UNSPECIFIED 11/03/2018 W J44.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, UNSPECIFIED 02/16/2019 Flower, [...] Abi W 300.00 ANXIETY STATE, UNSPECIFIED 02/16/2019 Flwoer, Abi W 401.0 MALIGNANT ESSENTIAL HYPERTENSION 02/16/2019 [...] Flower, Abi W R09.81 NASAL CONGESTION 09/10/2019 YAQUELIN MCKEON MD L Ot Z01.818 ENCOUNTER FOR OTHER PREPROCEDURAL EXAMIN 11/08/2019 YAQUELIN MCKEON MD L Ot Z01.818 ENCOUNTER FOR OTHER PREPROCEDURAL EXAMIN 11/08/2019 YAQUELIN MCKEON MD L Ot Z11.59 ENCOUNTER FOR SCREENING FOR OTHER VIRAL 11/12/2019 YAQUELIN MCKEON MD L Ot Z01.818 ENCOUNTER FOR OTHER PREPROCEDURAL EXAMIN 11/17/2019 YAQUELIN MCKEON MD L Ot E78.00 PURE HYPERCHOLESTEROLEMIA, UNSPECIFIED 11/17/2019 YAQUELIN MCKEON MD Ot E78 .5 HYPERLIPIDEMIA, UNSPECIFIED 11/17/2019 YAQUELIN MCKEON MD Ot F17.200 NICOTINE DEPENDENCE, UNSPECIFIED, UNCOMP 11/17/2019 YAQUELIN MCKEON MD, Ot F41 .9 ANXIETY DISORDER, UNSPECIFIED 11/17/2019 YAQUELIN MCKEON MD Ot H25.11 AGE-RELATED NUCLEAR CATARACT, RIGHT EYE 11/17/2019 YAQUELIN MCKEON MD, Ot J44 .9 CHRONIC OBSTRUCTIVE PULMONARY DISEASE, U 11/17/2019 YAQUELIN MCKEON MD, Ot M19.90 UNSPECIFIED OSTEOARTHRITIS, UNSPECIFIED 11/17/2019 YAQUELIN MCKEON MD, Ot Z79.899 OTHER [facility] (CURRENT) DRUG THERAPY 11/17/2019 YAQUELIN MCKEON MD, Ot Z82.49 FAMILY HX OF ISCHEM HEART DIS AND OTH DI 11/17/2019 YAQUELIN MCKEON MD, Ot Z88 .0 ALLERGY STATUS TO PENICILLIN 11/17/2019 YAQUELIN MCKEON MD, Ot Z90.710 ACQUIRED ABSENCE OF BOTH CERVIX AND UTER Procedures There is no data. Results Test Result Range Mycoplasma - 05/29/16 10:42 Mycoplasma Negative Negative Lipid Panel - 07/31/16 09:00 C/HDL 4.5 3.7-6.7 Cholesterol 292 mg/dL 100-240 HDL 65 mg/dL 30-85 LDL-Calculated 176 mg/dL 0-100 Trig 253 mg/dL [...] Cholesterol 225 mg/dL 100-240 HDL 70 mg/dL -85 LDL-Calculated 121 mg/dL 0-100 Trig 171 mg/dL 35-160 VLDL 34 mg/dL 0-42 Thyroid Stimulating Hormone - 07/31/17 0 9:15 TSH 1.59 mIU/mL 0.32-5.00 Lipid Panel - 12/18/17 09:05 C/HDL 2.6 3.7-6.7 Cholesterol 193 mg/dL 100-240 HDL 73 mg/dL LDL-Calculated 104 mg/dL 0-100 Trig 82 mg/dL [...] 20 mg/dL 0-42 Coronavirus SARS-CoV-2 SO 2018 - 0 13:35 Coronavirus Ab [Units/volume] in Serum Negative Negative Encounters ACCT No. Visit Date/Time Discharge Status Pt. Type Provider Facility Loc./Unit Complaint [id number] 08/16/2019 09:30:00 08/16/2019 23:59 :00 DIS Outpatient Flower, Abi [id number] 08/16/2019 08:03:00 08/16/2019 23:59 :00 DIS Outpatient Flower, Abi [id number] 03/17/2019 14:37:00 03/17/2019 23:59: 00 DIS Outpatient Flower, Abi [id number] 02/16/2019 11:14:00 02/16/2019 23:59: 00 DIS Outpatient Flower, Abi [id number] 02/16/2019 08:52:00 02/16/2019 23:59: 00 DIS Outpatient Flower, Abi [id number] 10/01/2018 09:56:00 10/01/2018 23:59: 00 DIS Outpatient Flower, Abi [id number] 09/24/2018 20:28:00 09/24/2018 21:35: 00 [id number] 08/07/2018 10:33:00 08/09/2018 10:55: 00 DIS Outpatient Hesham [facility] MED-SURG [id number] 07/02/2018 10:48:00 07/02/2018 23:59: 00 DIS Outpatient Flower, Abi [id number] 12/18/2017 09:20:00 12/18/2017 23:59: 00 DIS Outpatient Flower, Abi [id number] 08/20/2017 12:23:00 08/20/2017 23:59: 00 DIS Outpatient Flower, Abi [id number] 07/31/2017 11:49:00 07/31/2017 23:59: 00 DIS Outpatient Flower, Abi [id number] 01/30/2017 10:25:00 01/30/2017 23:59: 00 DIS Outpatient Flower, Abi [id number] 07/31/2016 09:24:00 07/31/2016 23:59: 00 DIS Outpatient Abi Crenshaw [id number] 05/29/2016 10:48:00 05/29/2016 23:59: 00 DIS Outpatient Chris Dahl [id number] 11/03/2018 09:39:00 Document Registration [id number] 10/01/2018 08:13:00 Document Registration [id number] 08/18/2018 09:25:00 Document Registration [id number] 08/07/2018 10:57:06 Document Registration [id number] 08/07/2018 08:42:00 Document Registration [id number] 07/02/2018 08:46:00 Document Registration [id number] 03/19/2018 08:07:00 Document Registration [id number] 12/18/2017 08:25:00 Document Registration [id number] 09/18/2017 11:01:00 Document Registration [id number] 07/31/2017 08:24:00 Document Registration [id number] 01/30/2017 08:39:00 Document Registration [id number] 12/18/2017 09:20:00 Document Registration [id number] 11/12/2019 08:10:00 23:59:59 CLS Outpatient YAQUELIN MCKEON MD Via [facility] RIGHT CATARACT [id number] 11/08/2019 09:44:00 15:09:00 DIS Outpatient YAQUELIN MCKEON MD Via [facility] PREOP CATARACT RIGHT EYE [id number] 09/10/2019 12:45:00 23:59:59 CLS Preadmit YAQUELIN MCKEON MD Via [facility] CATARACT RIGHT EYE [id number] 09/08/2019 05:50:00 23:59:59 CLS Outpatient YAQUELIN MCKEON MD Via [facility] PREOP CATARACT RIGHT EYE [id number] 11/19/2019 08:30:00 P EN YAQUELIN Mcfadden MD Via [facility] CATARACT LEFT EYE
--- NOTE | 2019-11-19 08:47 | Ophthalmology Operative Report ---
Cataract removal/placement IOL PREOPERATIVE DIAGNOSIS: Cataract Left Eye POSTOPERATIVE DIAGNOSIS: Cataract Left Eye PROCEDURE: Cataract removal and placement of posterior chamber implant, left eye SURGEON: Alejandro Mckeon ANESTHESIA: Topical with sedation COMPLICATIONS: None ESTIMATED BLOOD LOSS: Minimal DESCRIPTION OF PROCEDURE: After proper informed consent was obtained, the patient, a 74 female, was taken to the Operating Room and the left eye was anesthetized with tetracaine. The left eye was then prepped and draped in the usual manner. A wire lid speculum was placed. A paracentesis was made at the left hand position. Preservative free lidocaine was injected into the anterior chamber followed by viscoelastic. A clear corneal incision was made in the temporal position. A capsulorrhexis was preformed and the central nuclear and cortical material were removed. The posterior capsule was polished and an Doug 22.0 [id number] was placed into the capsular bag. The residual viscoelastic was aspirated and balanced saline solution was injected into the anterior chamber. Moxifloxacin was injected into the anterior chamber. The wound was checked and found to be water tight. The patient tolerated the procedure well without complications. ALEJANDRO MCKEON MD November 19, 2019 08:47
[2019-11-19 08:50] VITALS: BP 121/73
[2019-11-19] MEDS ORDERED: acetaZOLAMIDE ER 500 MG CAP (DIAMOX SEQUELS) PO ONE (09:30)
--- NOTE | 2019-11-19 12:38 | Anesthesia-General Post-Op ---
MAC Patient Condition Mental Status/LOC: Same as Preop Cardiovascular: Satisfactory Nausea/Vomiting: Absent Respiratory: Satisfactory Pain: Controlled Complications: Absent Post Op Complications Complications None Follow Up Care/Instructions Patient Instructions None needed. Anesthesiology Discharge Order Discharge Order Patient is doing well, no complaints, stable vital signs, no apparent adverse anesthesia problems. No complications reported per nursing. DAY STEVE CRNA November 19, 2019 12:38
== END 2019-11-19 08:50 | disposition home or self-care (01) ==
LOC: SDC 06:54
PROVIDERS: ATTEND Specialist
DX: H25.12 Age-related nuclear cataract, left eye (principal); E78.5 Hyperlipidemia, unspecified; J44.9 Chronic obstructive pulmonary disease, unspecified; M19.90 Unspecified osteoarthritis, unspecified site; E78.00 Pure hypercholesterolemia, unspecified; F32.9 Major depressive disorder, single episode, unspecified; F17.200 Nicotine dependence, unspecified, uncomplicated; Z90.710 Acquired absence of both cervix and uterus; Z88.0 Allergy status to penicillin; Z79.899 Other long term (current) drug therapy; Z82.49 Family history of ischemic heart disease and other diseases of the circulatory system

== ENCOUNTER 2021-05-07 18:14 | Inpatient (IN) | payer MEDICARE ==
[~2021-05-07] VITALS: Ht 162 cm; Wt 53.2 kg
[~2021-05-07 18:14] MED LIST changes: -CITA10TA7 PO; +CITA10TA9 PO
--- NOTE | 2021-05-07 18:50 | History & Physical ---
History of Present Illness HPI/Chief Complaint CC: Acute respiratory failure intubated in ER at [facility] HPI: This is a 75yoWF clinic patient of Abi Crenshaw NP at [facility] who presented to the ER after son found her down at home. Labs were essentially stable except Mycoplasma was +. Patient has been falling at home a lot. Failure to thrive was the diagnosis and patient was prepared for admit and given Cefepime 1 gram IV and when only 10cc were given she abruptly decompensated and required intubation. CT scans revealed widespread metastatic lesions. Son aware of the presumptive dx of widespread cancer. To note she had iron deficiency recently corrected with iron infusions set up in ER. Seen at [facility] ER Date Seen 05/07/21 Time Seen by a Provider: 19:00 Attending Physician Racquel Herbert DO PCP Referring Physician Date of Admission Home Medications & Allergies Home Medications Reviewed patient Home Medication Reconciliation performed by pharmacy medication reconciliations planning technician and/or nursing. Patients Allergies have been reviewed. Allergies Allergies Coded Allergies Penicillins (Verified Allergy, Mild, HIVES, 11/05/19) Past Orqlxfc-Fvzhtg-Ukslwh Hx Past Med/Social Hx: Reviewed Nursing Past Med/Soc Hx, Reviewed and Corrections made Patient Social History Marrital Status: single Employed/Student: retired Review of Systems ROS-Unable to Obtain: Intubation Constitutional: see HPI Physical Exam Physical Exam Vital Signs Vital Signs - First Documented 05/07/21 05/07/21 05/07/21 23:19 23:30 23:38 Temp 36.3 Pulse 79 Resp 16 Pulse Ox 100 O2 Delivery Mechanical Ventilator O2 Flow Rate 30.00 FiO2 30 Capillary Refill : Height, Weight, BMI Height: '" Weight: lbs. oz. kg; BMI Method: General Appearance: No Apparent Distress, WD/WN, Chronically ill, Thin, Other (Sedated and intubated) Respiratory: Lungs Clear, Normal Breath Sounds, Decreased Breath Sounds Cardiovascular: Regular Rate, Rhythm Results Results/Procedures Labs Laboratory Tests 05/08/21 00:15 05/08/21 04:30 Patient resulted labs reviewed. Assessment/Plan Admission Diagnosis Assessment: Acute respiratory failure of uncertain origin CT scan showing multiple metastatic lesions Found down on floor Mycoplasma positive Plan: Vent management Supportive care Needs tissue biopsy Admission Status: Inpatient Order (span 2 midnights) Reason for Inpatient Admission: Respiratory failure RACQUEL HERBERT DO May 07, 2021 18:50
[2021-05-07 23:19] VITALS: BP 180/78
[2021-05-07] MEDS ORDERED: LORazepam INJECTION FOR DRIP 20 MG in NS (IVPB) 90 ML IV SCH (23:30)
[2021-05-07] MEDS ORDERED: fentaNYL DRIP PRE-MIX 250 ML IV SCH (23:30)
[2021-05-08] VITALS (7 sets, daily range): BP systolic 96–111; BP diastolic 55–83
[2021-05-08] MEDS: PROPOFOL DRIP (ICU) 100 ML IV SCH ×2 (00:01→13:26)
[2021-05-08] MEDS: NS IV 1000 ML 1,000 ML IV SCH ×3 (00:01→22:11)
--- NOTE | 2021-05-08 00:04 | Tele-ICU Consult ---
History of Present Illness History of Present Illness Date Seen by Provider: May 07, 2021 Time Seen by Provider: 23:19 Date of Admission This virtual visit was conducted using real time audio/video. Thank you for asking us to see this patient for respiratory insufficiency due to anaphylactic reaction to Cefipime. Pt intubated and per RN has a UTI. CT scans reportedly consistent w met cancer. Recent falls at home. PMH: Fe deficiency. SH: smoking history unknown. FH: Unknown. ROS: limited by patient's clinical condition. PE: VSS. HR 85 NSR 170/80 O2 sat 97% sedated on vent. HEENT: No obvious masses, adenopathy or JVD. Chest: clear to auscultation. CV: RRR S1 S2 No murmur or added sounds. Abd: Non-tender. Bowel sounds Y. : Unremarkable. Maria Y. BODS DEVELOPER/psychiatric: Grossly intact. No obvious focal findings. Extremities: edema. Capillary refill < 3 seconds. Skin: unremarkable. Results: Covid neg. All others pending. Available chart/ vitals / labs / images reviewed. Video assessment done using teleICU camera, rest of exam as per RN. A/P: Respiratory insufficiency: Continue present management with Propofol, fentanyl. Monitor for increasing oxygenation needs. Reassess for extubation later this AM. Critical Care: critically ill patient. Cont. Lovenox, PPI, PRN steroids/epi/benadryl. Discussed with MINDY Armenta. Asked RN to reach out to eICU if any questions or concerns later. Time spent with patient/coordination of care with other health professionals (mins): 25 Allergies and Home Medications Allergies Coded Allergies: Penicillins (Verified Allergy, Mild, HIVES, 11/05/19) Home Medications Albuterol Sulfate 1 Puff Puff, 2 PUFF IH Q4H PRN for COUGH, (Reported) 1 PUFF = 90 MCG Atorvastatin Calcium 10 Mg Tablet, 10 MG PO HS, (Reported) Budesonide/Formoterol Fumarate 10.2 Gm Hfa.aer.ad, 2 PUFF IH BID, (Reported) Citalopram Hydrobromide 10 Mg Tablet, 10 MG PO DAILY, (Reported) Review of Systems Constitutional: see HPI EENTM: see HPI Respiratory: see HPI Cardiovascular: see HPI Genitourinary: see HPI Musculoskeletal: see HPI Skin: see HPI Psychiatric/Neurological: See HPI All Other Systems Reviewed Negative Unless Noted: Yes Sepsis Event Evaluation Height, Weight, BMI Height: '" Weight: lbs. oz. kg; BMI Method: Exam Exam Patient acknowledged, consented, and participated in this virtual visit which was conducted using real time audio/video Vital Signs Date Time Temp Pulse Resp B/P (MAP) Pulse Ox O2 Delivery O2 Flow Rate FiO2 05/07/21 23:38 81 16 100 Mechanical Ventilator 30.00 05/07/21 23:36 92 Height & Weight Height: '" Weight: lbs. oz. kg; BMI Method: General Appearance: Chronically ill, Cachetic Peripheral Pulses: 1+ Dorsalis Pedis (R), 1+ Left Dors-Pedis (L) Assessment/Plan Assessment/Plan See free text. Critical Care: Ventilator Management LOULOU RODAS MD May 08, 2021 00:04
[2021-05-08] MEDS ORDERED: RT-ALBUTEROL/IPRATROPIUM 3 ML (DUONEB) VIAL INH PRN (00:15)
[2021-05-08 00:27] LABS: BASOPHILS % (AUTO) 0 % (0-10); EOSINOPHILS % (AUTO) 0 % (0-10); HEMATOCRIT 42 % (35-52); LYMPHOCYTES # (AUTO) 0.4 10^3/uL (1.0-4.0); LYMPHOCYTES % (AUTO) 3 % (12-44); MEAN CORPUSCULAR HEMOGLOBIN 28 pg (25-34); MEAN CORPUSCULAR HGB CONC 33 g/dL (32-36); MEAN CORPUSCULAR VOLUME 84 fL (80-99); MEAN PLATELET VOLUME 10.9 fL (9.0-12.2); MONOCYTES # (AUTO) 0.2 10^3/uL (0.0-1.0); MONOCYTES % (AUTO) 2 % (0-12); NEUTROPHILS # (AUTO) 12.1 10^3/uL (1.8-7.8); NEUTROPHILS % (AUTO) 95 % (42-75); PLATELET COUNT 210 10^3/uL (130-400); WHITE BLOOD COUNT 12.7 10^3/uL (4.3-11.0)
[2021-05-08 00:42] LABS: ALBUMIN 3.3 GM/DL (3.2-4.5); POTASSIUM 3.4 MMOL/L (3.6-5.0)
[2021-05-08 00:44] LABS: CALCIUM 8.3 MG/DL (8.5-10.1)
[2021-05-08 00:45] LABS: TOTAL PROTEIN 6.3 GM/DL (6.4-8.2)
[2021-05-08 00:47] LABS: BILIRUBIN,TOTAL 0.9 MG/DL (0.1-1.0)
[2021-05-08 00:48] LABS: CREATININE SERUM 0.74 MG/DL (0.60-1.30)
[2021-05-08 01:05] LABS: BAND NEUTROPHILS 3 %; LYMPHOCYTES % (MANUAL) 2 %; MONOCYTES % (MANUAL) 2 %; NEUTROPHILS % (MANUAL) 93 %; RBC MORPH NORMAL
[2021-05-08] MEDS: RT-ALBUTEROL/IPRATROPIUM 3 ML (DUONEB) VIAL INH SCH ×6 (02:29→21:55)
[2021-05-08 04:41] LABS: BASOPHILS % (AUTO) 0 % (0-10); EOSINOPHILS % (AUTO) 0 % (0-10); HEMATOCRIT 41 % (35-52); HEMOGLOBIN 13.5 g/dL (11.5-16.0); LYMPHOCYTES # (AUTO) 0.5 10^3/uL (1.0-4.0); LYMPHOCYTES % (AUTO) 6 % (12-44); MEAN CORPUSCULAR HEMOGLOBIN 28 pg (25-34); MEAN CORPUSCULAR HGB CONC 33 g/dL (32-36); MEAN CORPUSCULAR VOLUME 84 fL (80-99); MEAN PLATELET VOLUME 11.3 fL (9.0-12.2); MONOCYTES # (AUTO) 0.2 10^3/uL (0.0-1.0); MONOCYTES % (AUTO) 3 % (0-12); NEUTROPHILS # (AUTO) 7.9 10^3/uL (1.8-7.8); NEUTROPHILS % (AUTO) 91 % (42-75); PLATELET COUNT 189 10^3/uL (130-400); WHITE BLOOD COUNT 8.6 10^3/uL (4.3-11.0)
[2021-05-08 04:42] LABS: ABG BASE EXCESS -1.8 MMOL/L (-2.5-2.5); ABG OXYGEN SATURATION 97 % (94-100); ABG PCO2 37 MMHG (35-45); ABG PH 7.39 (7.37-7.43); ABG PO2 88 MMHG (79-93); ABG TCO2 23.6 MMOL/L (21.0-31.0)
[2021-05-08 04:43] LABS: ALLENS TEST YES-POS; INSPIRED O2 30%; PATIENT TEMP 36.6; VENTILATOR YES
[2021-05-08 04:50] LABS: ALBUMIN 3.2 GM/DL (3.2-4.5); POTASSIUM 3.5 MMOL/L (3.6-5.0)
[2021-05-08 04:51] LABS: CALCIUM 8.4 MG/DL (8.5-10.1)
[2021-05-08 04:52] LABS: TOTAL PROTEIN 6.1 GM/DL (6.4-8.2)
[2021-05-08 04:54] LABS: BILIRUBIN,TOTAL 0.6 MG/DL (0.1-1.0)
[2021-05-08 04:56] LABS: CREATININE SERUM 0.73 MG/DL (0.60-1.30)
[2021-05-08 04:59] LABS: MAGNESIUM 1.7 MG/DL (1.6-2.4)
--- NOTE | 2021-05-08 06:26 | Diagnostic Imaging Report ---
INDICATION: Mechanical ventilation. TECHNIQUE: Single view chest 12:24 AM. CORRELATION STUDY: None FINDINGS: Endotracheal tube tip projects over the trachea approximately the level of the aortic arch. Gastric tube passes below the left hemidiaphragm with tip in the body of the stomach. Right IJ central line tip at the low SVC. Heart size and mediastinum are within normal limits. No consolidating infiltrate. Mildly prominent interstitial markings. No significant effusion or pneumothorax. IMPRESSION: 1. Support lines and tubes appearing to be in satisfactory position. Dictated by: Dictated on workstation # [id number]
[2021-05-08] MEDS ORDERED: POTASSIUM CL 10MEQ/50ML IVPB 100 ML IV ONE (06:42)
--- NOTE | 2021-05-08 06:44 | Occ Therapy Progress Note ---
Therapy Progress Note Pt currently intubated. OT will continue to monitor pt's status and initiate treatment when pt is medically stable and able to actively participate in skilled therapy. CAT PHILLIPS May 08, 2021 06:44
[2021-05-08] MEDS: POTASSIUM CL 10MEQ/50ML IVPB 50 ML IV SCH ×2 (06:53→08:39)
--- NOTE | 2021-05-08 07:19 | Physical Therapy Progress Note ---
Therapy Progress Note Patient currently sedated and intubated. PT will monitor patient status and initiate treatment when patient is medically stable and able to actively participate with skilled PT. LLOYD FLOYD PT May 08, 2021 07:19
[2021-05-08] MEDS: PANTOPRAZOLE 40 MG (PROTONIX) VIAL IV SCH (08:38)
[2021-05-08] MEDS ORDERED: ENOXAPARIN 40 MG/0.4 ML (LOVENOX) SYR SC SCH (09:00)
[2021-05-08] MEDS: methylPREDNISolone 40 MG/ML (Solu-MEDROL) VIAL IV SCH ×2 (09:45→17:45)
--- NOTE | 2021-05-08 09:49 | Tele-ICU Progress Note ---
Subjective Date Seen by a Provider: May 08, 2021 Time Seen by a Provider: 09:49 Sepsis Event Evaluation Height, Weight, BMI Height: '" Weight: lbs. oz. kg; 22.13 BMI Method: Exam Exam Patient acknowledged, consented, and participated in this virtual visit which was conducted using real time audio/video Vital Signs Date Time Temp Pulse Resp B/P (MAP) Pulse Ox O2 Delivery O2 Flow Rate FiO2 05/08/21 09:42 93 17 92 05/08/21 08:36 36.4 05/08/21 08:00 87 13 103/83 93 Mechanical Ventilator 30.00 05/08/21 07:45 80 16 92 05/08/21 07:30 74 16 94 05/08/21 07:20 95 Mechanical Ventilator 30 05/08/21 07:15 77 16 93 05/08/21 07:00 77 05/08/21 07:00 74 16 93 Mechanical Ventilator 30.00 05/08/21 06:46 75 16 93 30 05/08/21 06:45 75 16 93 05/08/21 06:30 74 16 93 05/08/21 06:15 74 16 93 05/08/21 06:00 78 16 93 Mechanical Ventilator 30.00 05/08/21 05:12 86 22 93 05/08/21 05:00 79 16 93 Mechanical Ventilator 30.00 05/08/21 04:00 77 16 93 Mechanical Ventilator 30.00 05/08/21 03:30 95 Mechanical Ventilator 30 05/08/21 03:00 78 16 92 Mechanical Ventilator 30.00 05/08/21 02:47 36.5 Mechanical Ventilator 30.00 05/08/21 02:29 72 16 96 30 05/08/21 02:00 73 6 96 Mechanical Ventilator 30.00 05/08/21 01:07 78 05/08/21 01:00 79 13 94 Mechanical Ventilator 30.00 05/08/21 00:09 81 100 30 05/08/21 00:01 84 05/08/21 00:00 85 28 97 Mechanical Ventilator 30.00 05/07/21 23:38 81 16 100 Mechanical Ventilator 30.00 05/07/21 23:36 92 05/07/21 23:30 96 Mechanical Ventilator 30 05/07/21 23:30 36.3 05/07/21 23:19 79 16 100 30 I & O 05/08/21 07:00 Intake Total 200 ml Output Total 650 ml Balance -450 ml Height & Weight Height: '" Weight: lbs. oz. kg; 22.13 BMI Method: General Appearance: No Apparent Distress, WD/WN, Chronically ill, Thin, Other (Sedated and intubated) Respiratory: Lungs Clear, Normal Breath Sounds, Decreased Breath Sounds Cardiovascular: Regular Rate, Rhythm Capillary Refill: Less Than 3 Seconds Peripheral Pulses: 1+ Dorsalis Pedis (R), 1+ Left Dors-Pedis (L) Results Lab Laboratory Tests 05/08/21 00:15 05/08/21 04:30 Assessment/Plan Assessment/Plan (Tele-ICU Physician , Progress Note ) Available chart/ vitals / labs / Images reviewed Video assessment done using teleICU camera, rest of exam as per RN Discussed with RN , EXAM PER RN Events overnight : Afebrile FiO2 - I/O = pos 200 Drips: Pressors: , hemodynamically stable Sedation gtt: ( RASS -1 ) -propofol 35 VENT SETTINGS and ABG reviewed Not candidate for SBT today REVIEWED Cardiovascular Stability / Sedation Score / FI02/PEEP / ABG / CXR Consultants: Hospital course: 05/07- intubated after cefepime started 05/08- NO CUFF LEAK - ETT #8 AC 16 30% =5 450 A/P Acute resp failure after receiving ABX - suspected anaphylaxis - no visual evidence of edema , but NO cuff leak today ( observed by me with RT via camera ) - may be due to laryngeal edema, stenosis, or just a large ETT within a relatively small larynx. 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 potental allergy - as per PCP - cx and UA in [place] ? CT scan showing multiple metastatic lesions as per notes - no records here - as per PCP s/p falls at home - as per PCP Lines : (Central Line Necessity Reviewed) Maria: + OG: + Nutrition: to start if not etubated Analgesia: Anxiety/ delirium VTE Prophylaxis: loven 40 Stress Ulcer Prophylaxis: ppi Glycemic Control: Plans in collaboration with bedside consultants and IM MDs. Discussed with RN to reach out if any questions or concerns A total of 40 minutes of critical care time was devoted to this patient today, required to treat and/or prevent further deterioration of critical care condition ( as above) . KRIS RAGLAND MD May 08, 2021 09:49
--- NOTE | 2021-05-08 10:00 | Progress Note ---
Subjective Date Seen by a Provider: May 08, 2021 Time Seen by a Provider: 09:30 Subjective/Events-last exam Pt still intubated Awake and alert Family at the bedside CT will be clouded for Dr. Herron to review for biopsy Solumedrol was started CPAP trial to try to extubate Objective Exam Last Set of Vital Signs Vital Signs Date Time Temp Pulse Resp B/P (MAP) Pulse Ox O2 Delivery O2 Flow Rate FiO2 05/08/21 09:42 93 17 92 05/08/21 08:36 36.4 05/08/21 08:00 103/83 Mechanical Ventilator 30.00 05/08/21 07:20 30 Capillary Refill : Less Than 3 Seconds I&O Intake and Output 05/08/21 00:00 Intake Total 200 ml Balance 200 ml IV Total 200 ml General: Alert, Other (Still intubated) Lungs: Clear to Auscultation, Normal Air Movement Heart: Regular Rate Results Lab Laboratory Tests 05/08/21 00:15: White Blood Count 12.7H, Red Blood Count 5.01, Hemoglobin 14.0, Hematocrit 42, Mean Corpuscular Volume 84, Mean Corpuscular Hemoglobin 28, Mean Corpuscular Hemoglobin Concent 33, Red Cell Distribution Width 13.9, Platelet Count 210, Mean Platelet Volume 10.9, Immature Granulocyte % (Auto) 1, Neutrophils (%) (Auto) 95H, Lymphocytes (%) (Auto) 3L, Monocytes (%) (Auto) 2, Eosinophils (%) (Auto) 0, Basophils (%) (Auto) 0, Neutrophils # (Auto) 12.1H, Lymphocytes # (Auto) 0.4L, Monocytes # (Auto) 0.2, Eosinophils # (Auto) 0.0, Basophils # (Auto) 0.0, Immature Granulocyte # (Auto) 0.1, Neutrophils % (Manual) 93, Lymphocytes % (Manual) 2, Monocytes % (Manual) 2, Band Neutrophils 3, Blood Morphology Comment NORMAL, Sodium Level 133L, Potassium Level 3.4L, Chloride Level 100, Carbon Dioxide Level 16L, Anion Gap 17H, Blood Urea Nitrogen 13, Creatinine 0.74, Estimat Glomerular Filtration Rate 77, BUN/Creatinine Ratio 18, Glucose Level 190H, Calcium Level 8.3L, Corrected Calcium 8.9, Total Bilirubin 0.9, Aspartate Amino Transf (AST/SGOT) 53H, Alanine Aminotransferase (ALT/SGPT) 43, Alkaline Phosphatase 138H, Total Protein 6.3L, Albumin 3.3 05/08/21 04:30: White Blood Count 8.6, Red Blood Count 4.82, Hemoglobin 13.5, Hematocrit 41, Mean Corpuscular Volume 84, Mean Corpuscular Hemoglobin 28, Mean Corpuscular Hemoglobin Concent 33, Red Cell Distribution Width 13.9, Platelet Count 189, Mean Platelet Volume 11.3, Immature Granulocyte % (Auto) 0, Neutrophils (%) (Auto) 91H, Lymphocytes (%) (Auto) 6L, Monocytes (%) (Auto) 3, Eosinophils (%) (Auto) 0, Basophils (%) (Auto) 0, Neutrophils # (Auto) 7.9H, Lymphocytes # (Auto) 0.5L, Monocytes # (Auto) 0.2, Eosinophils # (Auto) 0.0, Basophils # (Auto) 0.0, Immature Granulocyte # (Auto) 0.0, Sodium Level 135, Potassium Level 3.5L, Chloride Level 100, Carbon Dioxide Level 18L, Anion Gap 17H, Blood Urea Nitrogen 12, Creatinine 0.73, Estimat Glomerular Filtration Rate 78, BUN/Creatinine Ratio 16, Glucose Level 169H, Calcium Level 8.4L, Corrected Calcium 9.0, Total Bilirubin 0.6, Aspartate Amino Transf (AST/SGOT) 50H, Alanine Aminotransferase (ALT/SGPT) 40, Alkaline Phosphatase 131, Total Protein 6.1L, Albumin 3.2, Blood Gas Puncture Site RIGHT RADIAL, Blood Gas Patient Temperature 36.6, Arterial Blood pH 7.39, Arterial Blood Partial Pressure CO2 37, Arterial Blood Partial Pressure O2 88, Arterial Blood HCO3 23, Arterial Blood Total CO2 23.6, Arterial Blood Oxygen Saturation 97, Arterial Blood Base Excess -1.8, Keith Test YES-POS, Blood Gas Ventilator Setting YES, Blood Gas Inspired Oxygen 30%, Magnesium Level 1.7 Assessment/Plan Assessment/Plan Assess & Plan/Chief Complaint Assessment: Acute respiratory failure of uncertain origin CT scan showing multiple metastatic lesions Found down on floor Mycoplasma positive Plan: Vent management Supportive care Needs tissue biopsy 05/08/2021: eICU appreciated for vent management IV steroids Dr. Herron to perform biopsy tomorrow KATHERINE CHICAS DO May 08, 2021 10:00
[2021-05-08] MEDS ORDERED: guaiFENesin/DM (ROBITUSSIN DM) 10 ML UDC PO PRN (13:45)
[2021-05-08] MEDS ORDERED: RT-ALBUTEROL/IPRATROPIUM 3 ML (DUONEB) VIAL INH SCH (14:00)
[2021-05-08] MEDS ORDERED: LORazepam INJ 2 MG/ML (ATIVAN) VIAL IVP PRN (15:15)
[2021-05-08] MEDS ORDERED: ATOR40TA70 PO (15:30)
[2021-05-08] MEDS ORDERED: FAMO20TA3 PO (15:30)
[2021-05-08] MEDS ORDERED: FERR-84 PO (15:30)
[2021-05-08] MEDS ORDERED: NS (IVPB) 250 ML IV ONE (18:00)
[2021-05-08 18:43] LABS: CALCIUM 8.3 MG/DL (8.5-10.1)
[2021-05-08 18:47] LABS: CREATININE SERUM 0.69 MG/DL (0.60-1.30)
[2021-05-08] MEDS ORDERED: NS IV 1000 ML 1,000 ML IV SCH (19:15)
[2021-05-09 02:33] VITALS: BP 106/42
[2021-05-09] MEDS: RT-ALBUTEROL/IPRATROPIUM 3 ML (DUONEB) VIAL INH SCH ×6 (02:33→22:29)
[2021-05-09] MEDS: methylPREDNISolone 40 MG/ML (Solu-MEDROL) VIAL IV SCH ×3 (02:38→17:22)
--- NOTE | 2021-05-09 03:08 | Progress Note ---
Standard Progress Note Progress Notes/Assess & Plan Date Seen by a Provider: May 09, 2021 Time Seen by a Provider: 03:07 Final Diagnosis called for oliguria 75 mL over last 4 hours, will give fluid bolus and repeat if needed Focused Exam Lactate Level 05/08/21 18:15: Lactic Acid Level 2.48*H 05/08/21 21:50: Lactic Acid Level 1.58 MAHSA DUNN MD May 09, 2021 03:08
[2021-05-09] MEDS: NS IV 500 ML 500 ML IV SCH ×2 (03:57→05:13)
[2021-05-09 04:10] LABS: ABG BASE EXCESS -1.3 MMOL/L (-2.5-2.5); ABG OXYGEN SATURATION 97 % (94-100); ABG PCO2 40 MMHG (35-45); ABG PH 7.38 (7.37-7.43); ABG PO2 94 MMHG (79-93); ABG TCO2 24.4 MMOL/L (21.0-31.0); BASOPHILS % (AUTO) 0 % (0-10); EOSINOPHILS % (AUTO) 0 % (0-10); HEMATOCRIT 34 % (35-52); HEMOGLOBIN 11.1 g/dL (11.5-16.0); LYMPHOCYTES # (AUTO) 0.4 10^3/uL (1.0-4.0); LYMPHOCYTES % (AUTO) 3 % (12-44); MEAN CORPUSCULAR HEMOGLOBIN 28 pg (25-34); MEAN CORPUSCULAR HGB CONC 33 g/dL (32-36); MEAN CORPUSCULAR VOLUME 85 fL (80-99); MEAN PLATELET VOLUME 11.3 fL (9.0-12.2); MONOCYTES # (AUTO) 0.9 10^3/uL (0.0-1.0); MONOCYTES % (AUTO) 7 % (0-12); NEUTROPHILS # (AUTO) 11.1 10^3/uL (1.8-7.8); NEUTROPHILS % (AUTO) 89 % (42-75); PLATELET COUNT 151 10^3/uL (130-400); WHITE BLOOD COUNT 12.5 10^3/uL (4.3-11.0)
[2021-05-09 04:11] LABS: ALLENS TEST ART LINE; INSPIRED O2 30%; PATIENT TEMP 36.6; VENTILATOR YES
[2021-05-09 04:20] LABS: INR 1.1 (0.8-1.4); PROTHROMBIN TIME PATIENT 14.3 SEC (12.2-14.7)
[2021-05-09 04:21] LABS: POTASSIUM 2.6 MMOL/L (3.6-5.0)
[2021-05-09 04:22] LABS: CALCIUM 7.9 MG/DL (8.5-10.1)
[2021-05-09 04:26] LABS: CREATININE SERUM 0.61 MG/DL (0.60-1.30); PHOSPHORUS 1.8 MG/DL (2.3-4.7)
[2021-05-09 04:29] LABS: MAGNESIUM 1.5 MG/DL (1.6-2.4)
[2021-05-09] MEDS: MAGNESIUM 1 GM/100 ML IVPB 100 ML IV SCH ×3 (05:00→05:27)
[2021-05-09] MEDS: POTASSIUM CL 10MEQ/50ML IVPB 50 ML IV SCH ×8 (05:00→12:45)
[2021-05-09] MEDS: KCL 20 MEQ TAB (K-DUR) PO SCH (05:00)
[2021-05-09] MEDS ORDERED: POTASSIUM CL 10MEQ/50ML IVPB 50 ML IV SCH (05:00)
[2021-05-09] MEDS: PROPOFOL DRIP (ICU) 100 ML IV SCH (05:13)
[2021-05-09 06:49] VITALS: BP 89/71
--- NOTE | 2021-05-09 06:49 | Occ Therapy Progress Note ---
Therapy Progress Note Pt currently intubated. OT will continue to monitor pt's status and initiate treatment when pt is medically stable and able to actively participate in skilled therapy. CAT PHILLIPS May 09, 2021 06:49
--- NOTE | 2021-05-09 07:12 | Diagnostic Imaging Report ---
Indication: Intubation Portable chest shows normal heart size and vascularity. There is an abnormal density seen in the left upper lobe lateral to the hilum which is a change from 05/08/2021 study. This most likely represents artifact on the patient rather than a cavitary lesion. The lungs are otherwise clear. The ET tube is in good position. An OG tube is in the stomach. IJ line tip is in the SVC. IMPRESSION: Probable artifact in the left midlung otherwise stable chest compared to 05/08/2021. Dictated by: Dictated on workstation # [id number]
[2021-05-09] MEDS: PANTOPRAZOLE 40 MG (PROTONIX) VIAL IV SCH (08:55)
[2021-05-09] MEDS ORDERED: LIDOCAINE 1% INJ 20 ML 20 ML VIAL INJ ONE (09:00)
[2021-05-09] MEDS ORDERED: fentaNYL INJ 100 MCG/2 ML AMP IVP ONE (09:00)
[2021-05-09] MEDS ORDERED: MIDAZOLAM 2 MG/2 ML (VERSED) VIAL IVP ONE (09:00)
[2021-05-09 09:32] VITALS: BP 113/53
--- NOTE | 2021-05-09 09:42 | Progress Note - Hospitalist ---
Subjective HPI/CC On Admission Date Seen by Provider: May 09, 2021 Time Seen by Provider: 09:40 CC: Acute respiratory failure intubated in ER at [facility] HPI: This is a 75yoWF clinic patient of Abi Crenshaw NP at [facility] who presented to the ER after son found her down at home. Labs were essentially stable except Mycoplasma was +. Patient has been falling at home a lot. Failure to thrive was the diagnosis and patient was prepared for admit and given Cefepime 1 gram IV and when only 10cc were given she abruptly decompensated and required intubation. CT scans revealed widespread metastatic lesions. Son aware of the presumptive dx of widespread cancer. To note she had iron deficiency recently corrected with iron infusions set up in ER. Seen at [facility] ER Subjective/Events-last exam Pt still intubated CT guided biopsy will be performed by Dr. Herron Extubation this afternoon Updated family at bedside She will go home with them Review of Systems General: Fatigue Focused Exam Lactate Level 05/08/21 18:15: Lactic Acid Level 2.48*H 05/08/21 21:50: Lactic Acid Level 1.58 Objective Exam Vital Signs Vital Signs Date Time Temp Pulse Resp B/P (MAP) Pulse Ox O2 Delivery O2 Flow Rate FiO2 05/10/21 02:23 96 High Flow N/C 3.00 05/10/21 01:00 80 05/10/21 00:00 13 124/72 05/09/21 19:51 36.9 05/09/21 13:47 30 Capillary Refill : Less Than 3 Seconds General Appearance: No Apparent Distress, WD/WN, Chronically ill, Thin, Other (Intubated) Respiratory: No Accessory Muscle Use, Accessory Muscle Use, Decreased Breath Sounds Cardiovascular: Regular Rate, Rhythm Neurologic/Psychiatric: Alert Results/Procedures Lab Laboratory Tests 05/09/21 10:22 Patient resulted labs reviewed. Assessment/Plan Assessment and Plan Assess & Plan/Chief Complaint Assessment: Acute respiratory failure of uncertain origin CT scan showing multiple metastatic lesions Found down on floor Mycoplasma positive Plan: Vent management Supportive care Needs tissue biopsy 05/08/2021: eICU appreciated for vent management IV steroids Dr. Herron to perform biopsy tomorrow 05/09/2021: CT-guided biopsy tomorrow of liver lesion Extubation tomorrow afternoon Critical Care Ventilator Management KATHERINE CHICAS DO May 09, 2021 09:42
--- NOTE | 2021-05-09 10:03 | Tele-ICU Progress Note ---
Subjective Date Seen by a Provider: May 09, 2021 Time Seen by a Provider: 10:02 Sepsis Event Evaluation Height, Weight, BMI Height: '" Weight: lbs. oz. kg; 22.13 BMI Method: Focused Exam Lactate Level 05/08/21 18:15: Lactic Acid Level 2.48*H 05/08/21 21:50: Lactic Acid Level 1.58 Exam Exam Patient acknowledged, consented, and participated in this virtual visit which was conducted using real time audio/video Vital Signs Date Time Temp Pulse Resp B/P (MAP) Pulse Ox O2 Delivery O2 Flow Rate FiO2 05/09/21 09:32 93 17 90 30 05/09/21 08:00 92 15 119/69 93 Mechanical Ventilator 35.00 05/09/21 07:49 36.4 05/09/21 07:45 93 16 93 05/09/21 07:30 86 16 93 05/09/21 07:20 92 Mechanical Ventilator 30 05/09/21 07:15 87 16 92 05/09/21 07:00 89 05/09/21 07:00 89 16 92 Mechanical Ventilator 35.00 05/09/21 06:49 92 17 93 30 05/09/21 06:45 87 16 92 05/09/21 06:30 92 15 92 05/09/21 06:00 98 16 123/69 93 Mechanical Ventilator 35.00 05/09/21 05:13 105 105/67 05/09/21 05:00 94 16 92 Mechanical Ventilator 35.00 05/09/21 04:00 96 23 117/67 97 Mechanical Ventilator 35.00 05/09/21 03:20 92 Mechanical Ventilator 30 05/09/21 03:00 96 16 93 Mechanical Ventilator 35.00 05/09/21 02:33 99 18 94 35 05/09/21 02:00 118 16 117/63 93 Mechanical Ventilator 35.00 05/09/21 01:00 93 05/09/21 01:00 93 16 106/66 92 Mechanical Ventilator 35.00 05/09/21 00:00 92 Mechanical Ventilator 30 05/09/21 00:00 99 16 106/66 92 Mechanical Ventilator 35.00 05/08/21 23:00 100 16 92 Mechanical Ventilator 35.00 05/08/21 22:00 80 16 102/64 91 Mechanical Ventilator 35.00 05/08/21 21:54 85 24 91 35 05/08/21 21:00 86 16 92 Mechanical Ventilator 35.00 05/08/21 20:00 96 16 97/59 89 Mechanical Ventilator 35.00 05/08/21 20:00 36.8 05/08/21 20:00 92 Mechanical Ventilator 30 05/08/21 19:08 100 05/08/21 19:00 95 17 90 Mechanical Ventilator 35.00 05/08/21 18:39 93 22 92 35 05/08/21 18:00 102 18 99/62 89 Mechanical Ventilator 35.00 05/08/21 17:45 104 19 88 05/08/21 17:40 Mechanical Ventilator 35.00 05/08/21 17:30 105 32 85/62 88 05/08/21 17:15 100 23 91 05/08/21 17:00 97 13 95 Mechanical Ventilator 30.00 05/08/21 16:45 97 31 93 05/08/21 16:30 99 15 93 05/08/21 16:15 98 15 93 05/08/21 16:00 98 17 91/63 94 Mechanical Ventilator 30.00 05/08/21 16:00 36.2 05/08/21 15:45 96 16 93 05/08/21 15:30 98 12 93 05/08/21 15:20 95 Mechanical Ventilator 30 05/08/21 15:15 103 36 92 05/08/21 15:00 105 18 94 Mechanical Ventilator 30.00 05/08/21 14:45 97 18 94 05/08/21 14:30 89 16 92 05/08/21 14:15 92 16 93 05/08/21 14:02 90 16 93 30 05/08/21 14:00 87 16 99/58 93 Mechanical Ventilator 30.00 05/08/21 13:45 91 16 92 05/08/21 13:30 90 16 94 05/08/21 13:26 90 105/51 05/08/21 13:15 95 16 93 05/08/21 13:00 101 16 93 Mechanical Ventilator 30.00 05/08/21 12:23 108 05/08/21 12:00 108 17 104/63 92 Mechanical Ventilator 30.00 05/08/21 11:45 107 19 91 05/08/21 11:40 36.5 05/08/21 11:30 107 22 92 05/08/21 11:20 95 Mechanical Ventilator 30 05/08/21 11:15 109 14 92 05/08/21 11:00 108 18 91 Mechanical Ventilator 30.00 05/08/21 10:45 102 21 94 05/08/21 10:30 101 15 94 05/08/21 10:20 91 19 94 30 05/08/21 10:15 94 15 93 I & O 05/09/21 07:00 Intake Total 1600 ml Output Total 595 ml Balance 1005 ml Height & Weight Height: '" Weight: lbs. oz. kg; 22.13 BMI Method: General Appearance: No Apparent Distress, WD/WN, Chronically ill, Thin, Other (Sedated and intubated) Respiratory: Lungs Clear, Normal Breath Sounds, Decreased Breath Sounds Cardiovascular: Regular Rate, Rhythm Capillary Refill: Less Than 3 Seconds Peripheral Pulses: 1+ Dorsalis Pedis (R), 1+ Left Dors-Pedis (L) Results Lab Laboratory Tests 05/08/21 00:15 05/08/21 04:30 05/08/21 18:15 05/09/21 04:02 Assessment/Plan Assessment/Plan (Tele-ICU Physician , Progress Note ) Available chart/ vitals / labs / Images reviewed Video assessment done using teleICU camera, rest of exam as per RN Discussed with RN , EXAM PER RN Events overnight : Afebrile FiO2 - I/O = pos 200 Drips: Pressors: , hemodynamically stable Sedation gtt: ( RASS -1 ) -propofol 35 VENT SETTINGS and ABG reviewed Not candidate for SBT today REVIEWED Cardiovascular Stability / Sedation Score / FI02/PEEP / ABG / CXR Consultants: Hospital course: 05/07- intubated after cefepime started 05/08- NO CUFF LEAK - ETT #8 AC 16 30% =5 450 - steroids started , levofloxcin started 05/09- cuff leak is intermittent , little less then 100 cc A/P Acute resp failure after receiving ABX - suspected anaphylaxis - no visual evidence of edema -cuff leak is intermittent , little less then 100 cc ( observed by me with RT via camera ) - may be due to laryngeal edema, stenosis, or just a large ETT within a relatively small larynx --> She is @ increased risk for postextubation stridor - will cont steroids for possible edema tody -- SBT today -discussed with anaestesiology plans for possible extubation/exchange ETT for smaller one latter today -plan with anaestesiology for potential difficulty with reintubation- will need appropriate equipment and personnel available 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 potental allergy - HYPOTENSIVE and elev lactate 05/08 - levofloxacin started -- cx and UA in [place] ? CT scan showing multiple metastatic lesions as per notes - no records here , plans for liver Bx today s/p falls at home - as per PCP Lines : (Central Line Necessity Reviewed) Maria: + OG: + Nutrition: to start if not etubated Analgesia: Anxiety/ delirium VTE Prophylaxis: loven 40 Stress Ulcer Prophylaxis: ppi Glycemic Control: Plans in collaboration with bedside consultants and IM MDs. Discussed with RN to reach out if any questions or concerns A total of 40 minutes of critical care time was devoted to this patient today, required to treat and/or prevent further deterioration of critical care condition ( as above) . KRIS RAGLAND MD May 09, 2021 10:02
--- NOTE | 2021-05-09 10:08 | Physical Therapy Progress Note ---
Therapy Progress Note Patient currently sedated and intubated. PT will monitor patient status and initiate treatment when patient is medically stable and able to actively participate with skilled PT. ELINA JOHNSON PT May 09, 2021 10:08
[2021-05-09] MEDS: NS IV 1000 ML 1,000 ML IV SCH ×2 (10:28→21:07)
[2021-05-09 10:43] LABS: POTASSIUM 3.4 MMOL/L (3.6-5.0)
[2021-05-09 10:48] LABS: CREATININE SERUM 0.6 MG/DL (0.60-1.30)
[2021-05-09] MEDS ORDERED: fentaNYL INJ 100 MCG/2 ML AMP ONE (11:24)
[2021-05-09] MEDS ORDERED: MIDAZOLAM 2 MG/2 ML (VERSED) VIAL ONE (11:24)
--- NOTE | 2021-05-09 13:23 | Diagnostic Imaging Report ---
INDICATION: Liver lesions. TECHNIQUE: All CT scans use one or more of the following dose optimizing techniques: automated exposure control, MA and/or KvP adjustment based on patient size and exam type or iterative reconstruction. DETAILS OF THE PROCEDURE: The patient was brought to the CT suite and placed on the table in the supine position. Axial imaging through the abdomen was performed to evaluate for an appropriate entry site. The right abdomen was prepped and draped in the usual sterile fashion. A small amount of 1% lidocaine was utilized for local anesthesia. The procedure was performed with Respiratory Therapy and Radiology nursing present. The patient's ICU nurse was present as well. An 18-gauge coaxial Temno needle was advanced into the area of low density in the anterior right lobe of the liver. Three core biopsies were obtained. A blood patch was injected during needle removal. Followup imaging shows no complicating features. IMPRESSION: Successful CT-guided core biopsy of a right lobe liver mass. Pathology results are currently pending. Dictated by: Dictated on workstation # [id number]
--- NOTE | 2021-05-09 15:07 | ST Dysphagia Evaluation ---
Speech Evaluation-General Medical Diagnosis Metastatic CA, Failure to Thrive Onset Date: May 09, 2021 Therapy Diagnosis Therapy Diagnosis: Oropharyngeal Dysphagia Precautions Precautions: Aspiration Referral Referring Physician: Dr. Herbert Medical History Reviewed History: Yes Speech PLF/Current-Dysphagia Prior Level of Function Patient independent with most of her daily needs with family support as needed. Subjective Patient was pleasant and cooperative with the Bedside Dysphagia Evaluation. Oral Motor Skills Dentition: Natural, Tumbled Oral Expression Ability: No Impairment Voice Voice Phonatory-Based Quality: Normal Voice Pitch: Normal Voice Loudness: Normal Face Facial Symmetry: Symmetrical Oral-Facial Assessment Oral-Facial Dentition: Normal Labial Seal Description: Normal Smile: Normal Lingual Protrusion: Normal Lingual ROM: Normal Lingual Strength: Normal Pharynx Velopharyngeal Move.: Normal Volitional Dry Swallow: Yes Voluntary Cough: Yes Can Clear Throat Volitionally: Yes Dysphagia Evaluation Consistencies Presented: Regular, Thin Liquid, Mechanical Soft, Pureed Oral phase is within normal range of function for all consistencies. Pharyngeal phase is within normal range of function for all consistencies. Dietary Recommendations: Regular Liquid Recommendations: Thin Swallowing Precautions: Alternate Liquids/Solids, Liquids from Cup, Liquids from Straw, Small Bites and Sips, Sitting Upright 90 Degrees, Sitting 90 Degrees 30 Post Intake Dysphagia Evaluation Summary Patient is a pleasant 75 y/o female who was admitted to the hospital after being found at home by her son. She is reported to have been having multiple falls at home. She currently has metastatic cancer and is debilitated. The patient decompensated post medication administration and immediately was intubated. She was extubated this afternoon with BDE ordered. BDE was completed with presentations of thin liquids at 1/2 tsp x2 and small sips via straw x2 without difficulty. The patient was presented 1/2 tsp of puree, mechanical soft and regular without difficulty noted. The patient is recommended for a regular diet consistency and thin liquids. This information was provided to her nurse. Barriers to Learning Patient's failure to thrive and current health situation Speech-Plan Patient/Family Goals Patient/Family Goals: Patient's discharge plan is unknown at this time. Treatment Plan Speech Therapy Treatment Plan: Discontinue ST Treatment Duration: May 09, 2021 Frequency: 1 time per week Estimated Hrs Per Day: .25 hour per day Rehab Potential: Fair Barriers to Learning: Patient's failure to thrive and current health situation Pt/Family Agrees to Plan: Yes Safety Risks/Education Teaching Recipient: Patient, Family Teaching Methods: Demonstration, Discussion Response to Teaching: Verbalize Understanding, Return Demonstration Education Topics Provided: Safety strategies for oral intake, diet level Time Speech Therapy Time In: 14:45 Speech Therapy Time Out: 15:00 Total Billed Time: 15 Billed Treatment Time 1, CHAVO THOMPSON [address] May 09, 2021 15:07
--- NOTE | 2021-05-09 15:23 | Tele-ICU Progress Note ---
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 oz. kg; 22.13 BMI Method: KRIS RAGLAND MD May 09, 2021 15:22
--- NOTE | 2021-05-09 15:40 | Pre-Procedure Progress Note ---
Pre-Procedure Progress Note H&P Reviewed The H&P was reviewed, patient examined and no changes noted. Date H&P Reviewed: May 09, 2021 Time H&P Reviewed: 11:00 Pre-Procedure Diagnosis: liver mass MEY GUILLERMO MD May 09, 2021 15:40
[2021-05-10] MEDS: RT-ALBUTEROL/IPRATROPIUM 3 ML (DUONEB) VIAL INH SCH ×5 (02:23→22:37)
[2021-05-10] MEDS: methylPREDNISolone 40 MG/ML (Solu-MEDROL) VIAL IV SCH ×2 (02:38→08:11)
[2021-05-10 05:31] LABS: BASOPHILS % (AUTO) 0 % (0-10); EOSINOPHILS % (AUTO) 0 % (0-10); HEMATOCRIT 36 % (35-52); HEMOGLOBIN 11.6 g/dL (11.5-16.0); LYMPHOCYTES # (AUTO) 0.3 10^3/uL (1.0-4.0); LYMPHOCYTES % (AUTO) 2 % (12-44); MEAN CORPUSCULAR HEMOGLOBIN 28 pg (25-34); MEAN CORPUSCULAR HGB CONC 32 g/dL (32-36); MEAN CORPUSCULAR VOLUME 86 fL (80-99); MEAN PLATELET VOLUME 12.3 fL (9.0-12.2); MONOCYTES # (AUTO) 0.8 10^3/uL (0.0-1.0); MONOCYTES % (AUTO) 5 % (0-12); NEUTROPHILS # (AUTO) 12.7 10^3/uL (1.8-7.8); NEUTROPHILS % (AUTO) 91 % (42-75); PLATELET COUNT 151 10^3/uL (130-400); WHITE BLOOD COUNT 13.9 10^3/uL (4.3-11.0)
[2021-05-10 05:39] LABS: POTASSIUM 3.5 MMOL/L (3.6-5.0)
[2021-05-10 05:44] LABS: PHOSPHORUS 1.8 MG/DL (2.3-4.7)
[2021-05-10 05:45] LABS: CREATININE SERUM 0.63 MG/DL (0.60-1.30)
[2021-05-10 05:47] LABS: MAGNESIUM 1.9 MG/DL (1.6-2.4)
[2021-05-10] MEDS: MAGNESIUM 1 GM/100 ML IVPB 100 ML IV SCH (06:33)
[2021-05-10] MEDS: KCL 20 MEQ TAB (K-DUR) PO SCH (06:33)
[2021-05-10] MEDS: POTASSIUM CL 10MEQ/50ML IVPB 50 ML IV SCH (06:33)
--- NOTE | 2021-05-10 06:39 | Diagnostic Imaging Report ---
Indication: Respiratory failure. Comparisons: 05/09/2021 FINDINGS: Single frontal radiograph view the chest was obtained and demonstrates interval extubation and removal of gastric tube. Right internal jugular central venous catheter is again seen with tip in the low SVC. Lungs show interval increase in patchy and hazy opacities in the left base partially obscuring the left hemidiaphragm. Right lung is relatively clear. There is no large effusion on the right. No pneumothorax is seen on either side. Cardiac silhouette and pulmonary vasculature are within normal limits. Osseous structures show no gross acute abnormalities. IMPRESSION: 1. New patchy and hazy opacity within the left base suspicious for enlarging effusion with associated atelectasis and/or infiltrate. 2. Lines and tubes as above. Dictated by: Dictated on workstation # [id number]
[2021-05-10] MEDS: PANTOPRAZOLE 40 MG (PROTONIX) VIAL IV SCH (08:11)
[2021-05-10] MEDS: NS IV 1000 ML 1,000 ML IV SCH (08:32)
[2021-05-10] MEDS ORDERED: LIDOCAINE 1% INJ 20 ML 20 ML VIAL INJ ONE (08:45)
[2021-05-10] MEDS ORDERED: KCL 20 MEQ TAB (K-DUR) PO ONE (09:00)
--- NOTE | 2021-05-10 10:19 | Tele-ICU Progress Note ---
Subjective Date Seen by a Provider: May 10, 2021 Time Seen by a Provider: 10:19 Sepsis Event Evaluation Height, Weight, BMI Height: '" Weight: lbs. oz. kg; 22.13 BMI Method: Focused Exam Lactate Level 05/08/21 18:15: Lactic Acid Level 2.48*H 05/08/21 21:50: Lactic Acid Level 1.58 Exam Exam Patient acknowledged, consented, and participated in this virtual visit which was conducted using real time audio/video Vital Signs Date Time Temp Pulse Resp B/P (MAP) Pulse Ox O2 Delivery O2 Flow Rate FiO2 05/10/21 09:00 93 18 135/80 94 Nasal Cannula 3.00 05/10/21 08:25 36.3 05/10/21 08:20 High Flow N/C 3.00 05/10/21 08:00 92 19 124/74 92 Nasal Cannula 3.00 05/10/21 07:23 95 High Flow N/C 3.00 05/10/21 07:00 74 13 143/79 93 Nasal Cannula 3.00 05/10/21 07:00 74 05/10/21 06:00 68 12 159/82 94 Nasal Cannula 3.00 05/10/21 05:00 73 12 140/83 93 Nasal Cannula 3.00 05/10/21 04:00 79 15 118/77 92 Nasal Cannula 3.00 05/10/21 03:20 High Flow N/C 3.00 05/10/21 03:00 89 20 120/79 90 Nasal Cannula 3.00 05/10/21 02:23 96 High Flow N/C 3.00 05/10/21 02:00 75 12 139/76 96 Nasal Cannula 3.00 05/10/21 01:00 80 12 123/71 94 Nasal Cannula 3.00 05/10/21 01:00 80 05/10/21 00:00 87 13 124/72 96 Nasal Cannula 3.00 05/09/21 23:23 High Flow N/C 3.00 05/09/21 23:00 89 19 118/65 94 Nasal Cannula 3.00 05/09/21 22:30 95 High Flow N/C 3.00 05/09/21 22:00 83 15 125/69 94 Nasal Cannula 3.00 05/09/21 21:00 88 18 116/70 94 Nasal Cannula 3.00 05/09/21 20:00 95 23 123/74 94 Nasal Cannula 3.00 05/09/21 19:51 36.9 05/09/21 19:20 High Flow N/C 3.00 05/09/21 19:00 89 18 98 Nasal Cannula 3.00 05/09/21 19:00 89 05/09/21 18:58 96 High Flow N/C 3.00 05/09/21 17:00 90 16 122/71 95 Nasal Cannula 3.00 05/09/21 16:00 94 15 121/80 93 Nasal Cannula 3.00 05/09/21 16:00 37.1 05/09/21 15:20 High Flow N/C 3.00 05/09/21 15:00 101 32 129/81 94 Nasal Cannula 3.00 05/09/21 14:02 Nasal Cannula 3.00 05/09/21 14:00 116 22 92 Nasal Cannula 3.00 05/09/21 13:47 13 94 30 05/09/21 13:30 94 22 93 Mechanical Ventilator 35.00 05/09/21 13:15 101 14 92 Mechanical Ventilator 35.00 05/09/21 13:05 13 94 30 05/09/21 13:00 101 14 Mechanical Ventilator 35.00 05/09/21 13:00 96 05/09/21 12:25 104 16 95 Mechanical Ventilator 35.00 05/09/21 12:20 105 20 95 Mechanical Ventilator 35.00 05/09/21 12:15 105 14 93 Mechanical Ventilator 35.00 05/09/21 11:56 92 Mechanical Ventilator 30 05/09/21 11:00 105 21 91 Mechanical Ventilator 35.00 05/09/21 10:45 98 21 93 05/09/21 10:30 92 28 92 I & O 05/10/21 07:00 Intake Total 2240 ml Output Total 865 ml Balance 1375 ml Height & Weight Height: '" Weight: lbs. oz. kg; 22.13 BMI Method: General Appearance: No Apparent Distress, WD/WN, Chronically ill, Thin, Other (Intubated) Respiratory: No Accessory Muscle Use, Accessory Muscle Use, Decreased Breath Sounds Cardiovascular: Regular Rate, Rhythm Capillary Refill: Less Than 3 Seconds Peripheral Pulses: 1+ Dorsalis Pedis (R), 1+ Left Dors-Pedis (L) Neurologic/Psychiatric: Alert Results Lab Laboratory Tests 11/16/21 18:15 05/09/21 04:02 05/09/21 10:22 05/10/21 05:28 Assessment/Plan Assessment/Plan (Tele-ICU Physician , Progress Note ) Available chart/ vitals / labs / Images reviewed Video assessment done using teleICU camera, rest of exam as per RN Discussed with RN , EXAM PER RN Events overnight : Afebrile FiO2 - 3l I/O = pos 1700 Drips: Hospital course: 05/07- intubated after cefepime started 05/08- NO CUFF LEAK - ETT #8 AC 16 30% =5 450 - steroids started , levofloxcin started 05/09- cuff leak is intermittent , little less then 100 cc - EXTUBATED , no stidor or edema - steroids stopped 05/10 05/09 - liver bx A/P Acute resp failure after receiving ABX - suspected anaphylaxis - 05/09 -EXTUBATED , no stidor or edema - steroids stopped 05/10 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 potental allergy - HYPOTENSIVE and elev lactate 05/08 - levofloxacin started -- cx and UA in [place] ? CT scan showing multiple metastatic lesions as per notes - no records here , plans for liver Bx 05/09 s/p falls at home - as per PCP swallow eval Lines : (Central Line Necessity Reviewed) Maria: + - to remove today OG: + Nutrition: to start if not etubated Analgesia: Anxiety/ delirium VTE Prophylaxis: loven 40 - resume today Stress Ulcer Prophylaxis: ppi Glycemic Control: Plans in collaboration with bedside consultants and IM MDs. Discussed with RN to reach out if any questions or concerns A total of 32 minutes of critical care time was devoted to this patient today, required to treat and/or prevent further deterioration of critical care condition ( as above) . KRIS RAGLAND MD May 10, 2021 10:19
[2021-05-10] MEDS ORDERED: HYDROcodone/APAP 5 MG/325 MG (LORTAB) TAB PO PRN (11:45)
[2021-05-10] MEDS ORDERED: CALCIUM CARBONATE 500 MG (TUMS) TAB.CHEW PO PRN (11:45)
[2021-05-10] MEDS ORDERED: MELATONIN 3 MG TABLET PO PRN (11:45)
[2021-05-10] MEDS ORDERED: diphenhydrAMINE 25 MG TAB (BENADRYL) PO PRN (11:45)
[2021-05-10] MEDS ORDERED: LOPERAMIDE 2 MG (IMODIUM) TABLET PO PRN (11:45)
[2021-05-10] MEDS ORDERED: DOCUSATE SODIUM 100 MG (COLACE) CAP PO PRN (11:45)
[2021-05-10] MEDS ORDERED: RT-ALBUTEROL SULF 2.5 MG/3 ML PRE-MIX VIAL IH PRN (11:45)
[2021-05-10] MEDS ORDERED: ACETAMINOPHEN 325 MG TABLET PO PRN (12:00)
--- NOTE | 2021-05-10 12:01 | Physical Therapy Evaluation ---
PT Evaluation-General Medical Diagnosis Admission Date May 07, 2021 at 23:19 Medical Diagnosis: Metastatic CA, Failure to Thrive Onset Date: May 09, 2021 Therapy Diagnosis Therapy Diagnosis: generalized weakness/debility Precautions Precautions/Isolations: Fall Prevention, Standard Precautions Referral Physician: Piedad Reason for Referral: Evaluation/Treatment Medical History Additional Medical History metastatic cancer Current [place] [facility] [place]son found patient on floor unresponsive Reviewed History: Yes Social History Home: Single Level Prior Prior Level of Function SCALE: Activities may be completed with or without assistive devices. 5-Shqkpwdgob-bnrlrwr completes the activity by him/herself with no assistance from a helper. 5-Set-up or Clean-up Assistance-helper sets up or cleans up; patient completes activity. [place] assists only prior to or following the activity. 4-Supervision or Touching Assistance-helper provides verbal cues and/or touching/steadying and/or contact guard assistance as patient completes activity. Assistance may be provided throughout the activity or intermittently. 3-Partial/Moderate Assistance-helper does LESS THAN HALF the effort. [place] lifts, holds or supports trunk or limbs, but provides less than half the effort. 2-Substantial/Maximal Assistance-helper does MORE THAN HALF the effort. [place] lifts or holds trunk or limbs and provides more than half the effort. 8-Fsyxmciud-vckgrx does ALL the effort. Patient does none of the effort to complete the activity. Or, the assistance of 2 or more helpers is required for the patient to complete the activity. If activity was not attempted, code reason: 7-Patient Refused. 9-Not Applicable-not attempted and the patient did not perform the activity be fore the current illness, exacerbation or injury. 10-Not Attempted due to Environmental Limitations-(lack of equipment, weather restraints, etc.). 88-Not Attempted due to Medical Conditions or Safety Concerns. Bed Mobility: 6 Transfers (B,C,W/C): 6 Gait: 6 Indoor Mobility (Ambulation): Independent Prior Devices Use: None PT Evaluation-Current Subjective Patient in bed with family present. AGrees to PT. Noted left lean in supine. Objective Patient Orientation: Confused Attachments: Oxygen, Maria Catheter, IV ROM/Strength ROM Lower Extremities bilateral LE WFL Strength Lower Extremities 3-/5 grossly bilateral LE with no formal testing due to patient confusion Integumentary/Posture Bowel Incontinence: Yes Bladder Incontinence: Maria Cath Posture WFL Neuromuscular (Tone, Coordination, Reflexes) severely diminished coordination with noted left lean in supine, sit and stand with PT correct Sensory Vision: Functional Hearing: Functional Transfers Roll Left to Right (QC): 2 Sit to Lying (QC): 2 Lying to Sitting/Side of Bed(Q: 2 Sit to Stand (QC): 2 Chair/Ijw-kf-Whhzm Xfer(QC): 2 sit to stand to FWW x 2 sets max assist with patient able to stand and look side to side/mild retropulsion due to weakness Gait Does the Patient Walk?: No and Walking Goal IS indicated Balance Sitting Static: Fair Sitting Dynamic: Fair Standing Static: Poor Standing Dynamic: Poor Assessment/Needs 75 y.o. female, will benefit from skilled PT to address functional strength and mobility to improve current LOF. Patient presents with mild right neglect and left lean. Nursing notified. 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 Time Frame: Jun 02, 2021 Roll Left & Right (QC): 4 Sit to Lying (QC): 4 Lying-Sitting on Side/Bed(QC): 4 Sit to Stand (QC): 4 Chair/Txa-gp-Gefhw Xfer(QC): 4 Toilet Transfer (QC): 4 Walk 10 feet (QC): 4 Walk 50ft with 2 Turns (QC): 4 PT Plan Problem List Problem List: Activity Tolerance, Functional Strength, Safety, Balance, Gait, Transfer, Bed Mobility Treatment/Plan Treatment Plan: Continue Plan of Care Treatment Plan: Bed Mobility, Education, Functional Activity Velasquez, Functional Strength, Gait, Safety, Therapeutic Exercise, Transfers Treatment Duration: Jun 02, 2021 Frequency: 6 times per week Estimated Hrs Per Day: .25 hour per day Patient and/or Family Agrees t: Yes Time/GCodes Time In: 1048 Time Out: 1100 Total Billed Treatment Time: 12 Total Billed Treatment [address] [facility] 12 min LLOYD FLOYD PT May 10, 2021 12:01
--- NOTE | 2021-05-10 13:02 | Occupational Therapy Eval ---
OT Evaluation-General/PLF Medical Diagnosis Admission Date May 07, 2021 at 23:19 Medical Diagnosis: Metastatic CA, Failure to Thrive Onset Date: May 09, 2021 Therapy Diagnosis Therapy Diagnosis: Impaired adls, balance, endurance Precautions Precautions/Isolations: Fall Prevention, Standard Precautions Referral Physician: Piedad Moon Reason: Evaluation/Treatment Medical History Additional Medical History metastatic cancer Current History Per chart, pt's son found her unresponsive on the floor. She has had multiple falls recently. CT showing multiple metastatic lesions. Per patient, she lives alone in a single story home. Her daughter states that she will be discharging to her daughters home (pt's granddaughter) and that she will be coming by aruna schmidt to help. Prior to admission, pt was indep with adls. Her daughter states that no one was doing IADLs and that laundry and cleaning has just piled up within the home. She was receiving meals on wheels and would drive self to convenient store for snacks. She was not using any AD prior to admission. Social History Home: Single Level Current Living Status: Alone ADL-Prior Level of Function SCALE: Activities may be completed with or without assistive devices. 4-Jcvipdmnyb-chgmtje completes the activity by him/herself with no assistance from a helper. 5-Set-up or Clean-up Assistance-helper sets up or cleans up; patient completes activity. [place] assists only prior to or following the activity. 4-Supervision or Touching Assistance-helper provides verbal cues and/or touching/steadying and/or contact guard assistance as patient completes activity. Assistance may be provided throughout the activity or intermittently. 3-Partial/Moderate Assistance-helper does LESS THAN HALF the effort. [place] lifts, holds or supports trunk or limbs, but provides less than half the effort. 2-Substantial/Maximal Assistance-helper does MORE THAN HALF the effort. [place] lifts or holds trunk or limbs and provides more than half the effort. 0-Eihdkrmud-bjintg does ALL the effort. Patient does none of the effort to complete the activity. Or, the assistance of 2 or more helpers is required for the patient to complete the activity. If activity was not attempted, code reason: 7-Patient Refused. 9-Not Applicable-not attempted and the patient did not perform the activity before the current illness, exacerbation or injury. 10-Not Attempted due to Environmental Limitations-(lack of equipment, weather restraints, etc.). 88-Not Attempted due to Medical Conditions or Safety Concerns. Self Care: Independent Functional Cognition: Needed Some Help DME/Equipment: Tub/Shower Drive Self: Yes OT Current Status Subjective Sitting in chair, agreeable to eval. Appearance Left sitting in chair, all needs within reach, daughter in room. Mental Status/Objective Patient Orientation: Person, Confused Attachments: Maria Catheter, IV, Oxygen, Telemetry Current Upper Extremity ROM Impaired R wrist Flexion/extension (baseline). Pt reports history of carpal tunnel surgery. Unable to make fist or complete finger opposition. [facility] ADL-Treatment Lower Body Dressing (QC): 1 On/Off Footwear (QC): 2 Toileting Hygiene (QC): 1 Pt sitting in chair at OT arrival. Slight lateral lean to left. Min a to reposition in chair. Assist needed to don/doff bilateral socks secondary to impaired coordination/ROM of R hand. When bending at waist, pt also demonstrates increased lean to left. MAX A to stand, retropulsive. At this time, pt would require a second person to assist with clothing management and corry care due to impaired balance in standing. Education OT Patient Education: Correct positioning, Progress toward Goal/Update tx plan, Purpose of tx/functional activities, Rehab process, Safety issues, Transfer techniques Teaching Recipient: Patient, Family Teaching Methods: Discussion Response to Teaching: Reinforcement Needed OT Clinical Physician Assistant Goals Half-Way Goals Time Frame: Jun 04, 2021 Oral Hygiene (QC): 4 Toileting Hygiene (QC): 4 Shower/Bathe Self (QC): 4 Upper Body Dressing (QC): 4 Lower Body Dressing (QC): 4 On/Off Footwear (QC): 4 1=Demonstrate adherence to instructed precautions during ADL tasks. 2=Patient will verbalize/demonstrate understanding of assistive devices/modifications for ADL. 3=Patient will improve strength/tolerance for activity to enable patient to perform ADL's. OT Education/Plan Problem List/Assessment Assessment: Decreased Activ Tolerance, Decreased Safety Aware, Decreased UE Strength, Dependent Transfers, Impaired Cognition, Impaired Coordination, Impaired Funct Balance, Impaired I ADL's, Impaired Self-Care Skills, Restricted Funct UE ROM Discharge Recommendations Plan/Recommendations: Continue POC Therapy Discharge Recommendati: Post Acute OT Comment ongoing assessment. Treatment Plan/Plan of Care Treatment,Training & Education: Yes Patient would benefit from OT for education, treatment and training to promote independence in ADL's, mobility, safety and/or upper extremity function for ADL's. Plan of Care: ADL Retraining, Caregiver Training, Functional Mobility, Group Exercise/Act as Ind, UE Funct Exercise/Act Treatment Duration: Jun 04, 2021 Frequency: 4 times per week (4-5 x/week) Rehab Potential: Guarded Time/GCodes Start Time: 11:54 Stop Time: 12:06 Total Time Billed (hr/min): 12 Billed Treatment Time 1, Diamond Pressley OT May 10, 2021 13:02
--- NOTE | 2021-05-10 15:42 | Progress Note - Hospitalist ---
ADIEL ROGERS 05/10/21 1542: Subjective HPI/CC On Admission Date Seen by Provider: May 10, 2021 Time Seen by Provider: 09:59 Subjective/Events-last exam When if visited the pt today she was resting comfortably in bed, just finishing breakfast, with her daughter at bedside. Pt is in good spirits and is having no trouble breathing and reports no significant pain. She states she is tired of being "tied up with all these tubes". Review of Systems General: No Chills, No Night Sweats; Fatigue, Appetite HEENT: No Head Aches, No Visual Changes, No Dysphasia, No Sore Throat Pulmonary: No Dyspnea, No Cough, No Pleuritic Chest Pain Cardiovascular: No: Chest Pain, Palpitations, Edema, Lt Headedness Gastrointestinal: No: Nausea, Vomiting, Abdominal Pain, Diarrhea, Constipation, Melena, Hematochezia Genitourinary: No Dysuria, No Frequency, No Incontinence Musculoskeletal: No: neck pain, shoulder pain, arm pain, back pain, hand pain Neurological: No: Weakness, Numbness, Change in speech, Confusion, Seizures Focused Exam Lactate Level 05/08/21 18:15: Lactic Acid Level 2.48*H 05/08/21 21:50: Lactic Acid Level 1.58 Objective Exam Vital Signs Vital Signs Date Time Temp Pulse Resp B/P (MAP) Pulse Ox O2 Delivery O2 Flow Rate FiO2 05/10/21 12:00 37.6 05/10/21 10:38 95 High Flow N/C 3.00 05/10/21 09:00 93 18 135/80 05/09/21 13:47 30 Capillary Refill : Less Than 3 Seconds General Appearance: No Apparent Distress, WD/WN HEENT: PERRL/EOMI, Pharynx Normal Neck: Full Range of Motion, Non Tender, Supple Respiratory: Chest Non Tender, Normal Breath Sounds, No Accessory Muscle Use, No Respiratory Distress, Crackles ( - Left lower lobe), Expiration, Inspiration Cardiovascular: Regular Rate, Rhythm, No Edema, No Gallop, No Murmur, Normal Peripheral Pulses Gastrointestinal: Normal Bowel Sounds, No Organomegaly, No Pulsatile Mass, Non Tender, Soft Rectal: Deferred Back: No CVA Tenderness, No Vertebral Tenderness Extremity: Normal Capillary Refill, Normal Range of Motion, Non Tender, No Calf Tenderness, No Pedal Edema Neurologic/Psychiatric: Alert, Oriented x3, No Motor/Sensory Deficits, Normal Mood/Affect, burn nurse II-XII Norm as Tested Skin: Normal Color, Warm/Dry Lymphatic: No Adenopathy (cervical and axillary) Results/Procedures Lab Laboratory Tests 05/10/21 05:28 Patient resulted labs reviewed. 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 Herron to perform biopsy tomorrow 05/09/2021: CT-guided biopsy tomorrow of liver lesion Extubation tomorrow afternoon 05/10/2021 Move to medical floor Supportive care PT and OT Bedside ICS RACQUEL CHICAS DO 05/11/21 0556: Subjective Subjective/Events-last exam Patient doing well No pain is reported PT and OT ordered Moved to fourth floor Review of Systems General: Fatigue Objective Exam General Appearance: No Apparent Distress, WD/WN, Chronically ill, Thin Respiratory: Crackles ( - Left lower lobe), Decreased Breath Sounds Cardiovascular: Regular Rate, Rhythm Assessment/Plan Assessment and Plan Assess & Plan/Chief Complaint Moved to fourth floor PT and OT Supervisory-Addendum Brief Verification & Attestation Participated in pt care: history, MDM, physical Personally performed: exam, history, MDM, supervision of care Care discussed with: Medical Student Procedures: n/a Results interpretation: Verified all documentation Verification and Attestation of Medical Student E/M Service A medical student performed and documented this service in my presence. I reviewed and verified all information documented by the medical student and made modifications to such information, when appropriate. I personally performed the physical exam and medical decision making. Racquel Chicas May 11, 2021,05:56 ADIEL ROGERS May 10, 2021 15:42 RACQUEL CHICAS DO May 11, 2021 05:56
[2021-05-10] MEDS: RT--FLUTICASONE/SALMETEROL 232-14 (AIRDUO RespiCLICK) IH SCH (18:30)
[2021-05-10] MEDS: FERROUS SULF 325 MG (IRON) TAB PO SCH (19:52)
[2021-05-10] MEDS: SENNA W/DOCUSATE (SENOKOT S) TABLET PO SCH (19:53)
[2021-05-11] MEDS: RT-ALBUTEROL/IPRATROPIUM 3 ML (DUONEB) VIAL INH SCH ×5 (02:41→21:12)
[2021-05-11 05:55] LABS: MEAN CORPUSCULAR VOLUME 85 fL (80-99); NEUTROPHILS % (AUTO) 76 % (42-75)
[2021-05-11 05:57] LABS: BASOPHILS % (AUTO) 0 % (0-10); EOSINOPHILS % (AUTO) 0 % (0-10); HEMATOCRIT 36 % (35-52); HEMOGLOBIN 11.9 g/dL (11.5-16.0); LYMPHOCYTES # (AUTO) 1.6 10^3/uL (1.0-4.0); LYMPHOCYTES % (AUTO) 14 % (12-44); MEAN CORPUSCULAR HEMOGLOBIN 28 pg (25-34); MEAN CORPUSCULAR HGB CONC 33 g/dL (32-36); MEAN PLATELET VOLUME 12.2 fL (9.0-12.2); MONOCYTES % (AUTO) 9 % (0-12); NEUTROPHILS # (AUTO) 8.9 10^3/uL (1.8-7.8); PLATELET COUNT 137 10^3/uL (130-400); WHITE BLOOD COUNT 11.7 10^3/uL (4.3-11.0)
[2021-05-11 06:14] LABS: ALBUMIN 2.8 GM/DL (3.2-4.5); POTASSIUM 3.3 MMOL/L (3.6-5.0)
[2021-05-11 06:16] LABS: CALCIUM 7.8 MG/DL (8.5-10.1)
[2021-05-11 06:17] LABS: TOTAL PROTEIN 4.9 GM/DL (6.4-8.2)
[2021-05-11 06:18] LABS: BILIRUBIN,TOTAL 0.5 MG/DL (0.1-1.0)
[2021-05-11 06:21] LABS: CREATININE SERUM 0.57 MG/DL (0.60-1.30)
[2021-05-11] MEDS ORDERED: KCL 20 MEQ TAB (K-DUR) PO ONE (07:00)
[2021-05-11] MEDS: RT--FLUTICASONE/SALMETEROL 232-14 (AIRDUO RespiCLICK) IH SCH ×2 (07:37→21:11)
[2021-05-11] MEDS: SENNA W/DOCUSATE (SENOKOT S) TABLET PO SCH ×2 (08:45→20:47)
[2021-05-11] MEDS: FERROUS SULF 325 MG (IRON) TAB PO SCH ×2 (08:45→20:47)
[2021-05-11] MEDS: PANTOPRAZOLE 40 MG (PROTONIX) TAB PO SCH (08:45)
[2021-05-11] MEDS: FAMOTIDINE 20 MG (PEPCID) TABLET PO SCH (08:45)
[2021-05-11] MEDS: ONDANSETRON 4 MG/2 ML (SDV) Z0FRAN IVP PRN (09:06)
[2021-05-11 09:25] VITALS: BP 132/80
--- NOTE | 2021-05-11 10:17 | Physical Therapy Daily Note ---
PT Daily Note-Current Subjective Patient agrees to PT. Family present. Mental Status Patient Orientation: Normal For Age Attachments: Oxygen Transfers SCALE: Activities may be completed with or without assistive devices. 0-Qzpnzkhswi-olspeik completes the activity by him/herself with no assistance from a helper. 5-Set-up or Clean-up Assistance-helper sets up or cleans up; patient completes activity. [place] assists only prior to or following the activity. 4-Supervision or Touching Assistance-helper provides verbal cues and/or touching/steadying and/or contact guard assistance as patient completes activity. Assistance may be provided throughout the activity or intermittently. 3-Partial/Moderate Assistance-helper does LESS THAN HALF the effort. [place] lifts, holds or supports trunk or limbs, but provides less than half the effort. 2-Substantial/Maximal Assistance-helper does MORE THAN HALF the effort. [place] lifts or holds trunk or limbs and provides more than half the effort. 4-Ndtqqivcq-eacaxn does ALL the effort. Patient does none of the effort to complete the activity. Or, the assistance of 2 or more helpers is required for the patient to complete the activity. If activity was not attempted, code reason: 7-Patient Refused. 9-Not Applicable-not attempted and the patient did not perform the activity before the current illness, exacerbation or injury. 10-Not Attempted due to Environmental Limitations-(lack of equipment, weather restraints, etc.). 88-Not Attempted due to Medical Conditions or Safety Concerns. Sit to Stand (QC): 4 (SBA) Gait Training Does the Patient Walk?: Yes Distance: 50' Walk 10 feet (QC): 4 (SBA) Walk 50 ft with 2 Turns(QC): 4 (SBA) Gait Assistive Device: FWW very slow, functional gait sequence with FWW Exercises Seated Therapy Exercises: Ankle pumps, Long arc quads, Hip flexion Seated Reps: 15 Assessment Patient tolerated increase in activity. PT to continue to increase activity as tolerated by patient. PT Usp Goals Cyber Workforce Developer And Manager Goals PT Cyber Workforce Developer And Manager Goals Time Frame: Jun 02, 2021 Roll Left & Right (QC): 4 Sit to Lying (QC): 4 Lying-Sitting on Side/Bed(QC): 4 Sit to Stand (QC): 4 Chair/Mpw-fm-Gxwuo Xfer(QC): 4 Toilet Transfer (QC): 4 Walk 10 feet (QC): 4 Walk 50ft with 2 Turns (QC): 4 PT Plan Treatment/Plan Treatment Plan: Continue Plan of Care Treatment Plan: Bed Mobility, Education, Functional Activity Velasquez, Functional Strength, Gait, Safety, Therapeutic Exercise, Transfers Treatment Duration: Jun 02, 2021 Frequency: 6 times per week Estimated Hrs Per Day: .25 hour per day Patient and/or Family Agrees t: Yes Time/GCodes Time In: 1001 Time Out: 1011 Total Billed Treatment Time: 10 Total Billed Treatment 1 visit FA 10 min LLOYD FLOYD PT May 11, 2021 10:17
[2021-05-11] MEDS: ENOXAPARIN 40 MG/0.4 ML (LOVENOX) SYR SC SCH (11:13)
[2021-05-11 11:45] VITALS: BP 125/67
[2021-05-11] MEDS: methylPREDNISolone 40 MG/ML (Solu-MEDROL) VIAL IV SCH ×2 (11:57→18:31)
--- NOTE | 2021-05-11 13:13 | Progress Note - Hospitalist ---
ADIEL ROGERS 05/11/21 1313: Subjective HPI/CC On Admission Date Seen by Provider: May 11, 2021 Time Seen by Provider: 08:19 Subjective/Events-last exam Today when I visited the Pt she was resting comfortably in the chair. She states that she is feeling much stronger and is able to ambulate to the bathroom. She appears stronger overall and is only on 2L O2, and her lung sounds are improved compared with yesterday. She is currently drinking fluids without issue, but does not have a strong appe tite & having some nausea. Review of Systems General: No Chills, No Night Sweats; Fatigue; No Appetite HEENT: No Visual Changes, No Dysphasia, No Sore Throat Pulmonary: No Dyspnea, No Cough Cardiovascular: No: Chest Pain, Palpitations, Edema, Lt Headedness Gastrointestinal: Nausea; No: Diarrhea, Constipation Genitourinary: No Dysuria, No Frequency, No Incontinence Musculoskeletal: No: neck pain, shoulder pain, back pain, leg pain Neurological: No: Weakness, Numbness, Confusion Focused Exam Lactate Level 05/08/21 18:15: Lactic Acid Level 2.48*H 05/08/21 21:50: Lactic Acid Level 1.58 Objective Exam Vital Signs Vital Signs Date Time Temp Pulse Resp B/P (MAP) Pulse Ox O2 Delivery O2 Flow Rate FiO2 05/11/21 11:45 36.8 82 20 125/67 (86) 93 Room Air 05/11/21 08:00 2.00 05/09/21 13:47 30 Capillary Refill : Less Than 3 Seconds General Appearance: No Apparent Distress, WD/WN, Chronically ill HEENT: PERRL/EOMI, Pharynx Normal Neck: Full Range of Motion, Non Tender, Supple Respiratory: Chest Non Tender, Lungs Clear, Normal Breath Sounds, No Accessory Muscle Use, No Respiratory Distress Cardiovascular: Regular Rate, Rhythm, No Edema, No Gallop, No Murmur, Normal Peripheral Pulses Gastrointestinal: Normal Bowel Sounds, No Organomegaly, No Pulsatile Mass, Non Tender, Soft Rectal: Deferred Extremity: Normal Capillary Refill, Normal Inspection, Normal Range of Motion, Non Tender, No Calf Tenderness Neurologic/Psychiatric: Alert, Oriented x3, No Motor/Sensory Deficits, Normal Mood/Affect, director of audiology II-XII Norm as Tested Skin: Normal Color, Warm/Dry Lymphatic: No Adenopathy (cervical and axillary) Results/Procedures Lab Laboratory Tests 05/11/21 05:32 Patient resulted labs reviewed. 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 Herron to perform biopsy tomorrow 05/09/2021: CT-guided biopsy tomorrow of liver lesion Extubation tomorrow afternoon 05/10/2021 Move to medical floor Supportive care PT and OT Bedside ICS 05/11/2021 Supportive care PT and OT Bedside ICS Restart Lovenox and steroid breathing treatments RACQUEL CHICAS DO 05/11/21 2100: Subjective Subjective/Events-last exam Patient doing better Daughter at bedside Nausea noted PT OT ordered Pathology pending Review of Systems General: Fatigue Gastrointestinal: Nausea Objective Exam General Appearance: No Apparent Distress, WD/WN, Chronically ill Respiratory: Lungs Clear, Decreased Breath Sounds Cardiovascular: Regular Rate, Rhythm Neurologic/Psychiatric: Alert, Oriented x3, No Motor/Sensory Deficits, Normal Mood/Affect Assessment/Plan Assessment and Plan Assess & Plan/Chief Complaint Add Solumedrol Nebs O2 Supervisory-Addendum Brief Verification & Attestation Participated in pt care: history, MDM, physical Personally performed: exam, history, MDM, supervision of care Care discussed with: Medical Student Procedures: n/a Results interpretation: Verified all documentation Verification and Attestation of Medical Student E/M Service A medical student performed and documented this service in my presence. I reviewed and verified all information documented by the medical student and made modifications to such information, when appropriate. I personally performed the physical exam and medical decision making. Racquel Chicas, May 11, 2021,21:00 ADIEL ROGERS May 11, 2021 13:13 RACQUEL CHICAS DO May 11, 2021 21:00
--- NOTE | 2021-05-11 13:43 | Occupational Ther Daily Note ---
OT Current Status-Daily Note Subjective Pt denies pain, reports feeling better today. Appearance Returned to supine, all needs within reach. Mental Status/Objective Attachments: IV, Oxygen ADL-Treatment Therapy Code Descriptions/Definitions Functional [place] Measure: 0=Not Assessed/NA 4=Minimal Assistance 1=Total Assistance 5=Supervision or Setup 2=Maximal Assistance 6=Modified [place] 3=Moderate Assistance 7=Complete IndependenceSCALE: Activities may be completed with or without assistive devices. 6-Asdlocbnnb-xjxkwmo completes the activity by him/herself with no assistance from a helper. 5-Set-up or Clean-up Assistance-helper sets up or cleans up; patient completes activity. [place] assists only prior to or following the activity. 4-Supervision or Touching Assistance-helper provides verbal cues and/or touching/steadying and/or contact guard assistance as patient completes activity. Assistance may be provided throughout the activity or intermittently. 3-Partial/Moderate Assistance-helper does LESS THAN HALF the effort. [place] lifts, holds or supports trunk or limbs, but provides less than half the effort. 2-Substantial/Maximal Assistance-helper does MORE THAN HALF the effort. [place] lifts or holds trunk or limbs and provides more than half the effort. 1-Ntzrnswag-hjqzif does ALL the effort. Patient does none of the effort to complete the activity. Or, the assistance of 2 or more helpers is required for the patient to complete the activity. If activity was not attempted, code reason: 7-Patient Refused. 9-Not Applicable-not attempted and the patient did not perform the activity before the current illness, exacerbation or injury. 10-Not Attempted due to Environmental Limitations-(lack of equipment, weather restraints, etc.). 88-Not Attempted due to Medical Conditions or Safety Concerns. On/Off Footwear: 3 Toileting Hygiene (QC): 4 Toilet Transfer (QC): 3 Pt eating lunch at OT arrival. Able to sit EOB with SBA. Initial listing L but able to self correct this date. Sit<>stand: CGA. She ambulated to/from bathroom with use of walker and CGA. Mild unsteadiness but no significant LOB. Min a for lifting boost from toilet. [place] care completed in standing with steadying assist. No clothing management performed due to only wearing gown. Min cues for walker management within bathroom. She declined sitting in chair to finish meal despite encouragement/education. Returned to sitting upright in bed with SBA. Education OT Patient Education: Correct positioning, Energy conservation, Modified ADL techniques, Progress toward Goal/Update tx plan, Purpose of tx/functional activities, Safety issues, Transfer techniques, Use of adapted equipment Teaching Recipient: Patient Teaching Methods: Demonstration, Discussion Response to Teaching: Verbalize Understanding, Reinforcement Needed OT [facility] Goals Project Lead Goals Time Frame: Jun 04, 2021 Oral Hygiene (QC): 4 Toileting Hygiene (QC): 4 Shower/Bathe Self (QC): 4 Upper Body Dressing (QC): 4 Lower Body Dressing (QC): 4 On/Off Footwear (QC): 4 1=Demonstrate adherence to instructed precautions during ADL tasks. 2=Patient will verbalize/demonstrate understanding of assistive devices/modifications for ADL. 3=Patient will improve strength/tolerance for activity to enable patient to perf orm ADL's. OT Education/Plan Problem List/Assessment Assessment: Decreased Activ Tolerance, Decreased Safety Aware, Decreased UE Strength, Impaired Coordination, Impaired Funct Balance, Impaired I ADL's, Impaired Self-Care Skills, Restricted Funct UE ROM Discharge Recommendations Plan/Recommendations: Continue POC Treatment Plan/Plan of Care Treatment,Training & Education: Yes Patient would benefit from OT for education, treatment and training to promote independence in ADL's, mobility, safety and/or upper extremity function for ADL's. Plan of Care: ADL Retraining, Caregiver Training, Functional Mobility, Group Exercise/Act as Ind, UE Funct Exercise/Act Treatment Duration: Jun 04, 2021 Frequency: 4 times per week (4-5 x/week) Rehab Potential: Guarded Time/GCodes Start Time: 13:12 Stop Time: 13:24 Total Time Billed (hr/min): 12 Billed Treatment Time 1 visit ADL Diamond Ferrell OT May 11, 2021 13:43
[2021-05-11 15:44] VITALS: BP 127/74
[2021-05-11 20:00] VITALS: BP 141/78
[2021-05-12] MEDS: methylPREDNISolone 40 MG/ML (Solu-MEDROL) VIAL IV SCH ×3 (00:06→21:36)
[2021-05-12 00:09] VITALS: BP 130/77
[2021-05-12] MEDS: RT-ALBUTEROL/IPRATROPIUM 3 ML (DUONEB) VIAL INH SCH ×6 (02:54→21:02)
[2021-05-12 03:46] VITALS: BP 133/75
[2021-05-12 06:52] LABS: BASOPHILS % (AUTO) 0 % (0-10); EOSINOPHILS % (AUTO) 0 % (0-10); HEMOGLOBIN 12.8 g/dL (11.5-16.0); MEAN CORPUSCULAR HEMOGLOBIN 28 pg (25-34)
[2021-05-12 06:54] LABS: HEMATOCRIT 39 % (35-52); LYMPHOCYTES # (AUTO) 0.9 10^3/uL (1.0-4.0); LYMPHOCYTES % (AUTO) 10 % (12-44); MEAN CORPUSCULAR HGB CONC 33 g/dL (32-36); MEAN CORPUSCULAR VOLUME 84 fL (80-99); MEAN PLATELET VOLUME 12.4 fL (9.0-12.2); MONOCYTES # (AUTO) 0.5 10^3/uL (0.0-1.0); MONOCYTES % (AUTO) 5 % (0-12); NEUTROPHILS # (AUTO) 7.7 10^3/uL (1.8-7.8); NEUTROPHILS % (AUTO) 83 % (42-75); PLATELET COUNT 136 10^3/uL (130-400); WHITE BLOOD COUNT 9.2 10^3/uL (4.3-11.0)
[2021-05-12 07:02] LABS: POTASSIUM 3.9 MMOL/L (3.6-5.0)
[2021-05-12 07:03] LABS: CALCIUM 8.1 MG/DL (8.5-10.1)
[2021-05-12 07:04] LABS: TOTAL PROTEIN 5.9 GM/DL (6.4-8.2)
[2021-05-12 07:06] LABS: BILIRUBIN,TOTAL 0.6 MG/DL (0.1-1.0)
[2021-05-12 07:08] LABS: CREATININE SERUM 0.57 MG/DL (0.60-1.30)
[2021-05-12 08:00] VITALS: BP 150/75
[2021-05-12] MEDS: ENOXAPARIN 40 MG/0.4 ML (LOVENOX) SYR SC SCH (09:39)
[2021-05-12] MEDS: FAMOTIDINE 20 MG (PEPCID) TABLET PO SCH (09:39)
[2021-05-12] MEDS: PANTOPRAZOLE 40 MG (PROTONIX) TAB PO SCH (09:40)
[2021-05-12] MEDS: SENNA W/DOCUSATE (SENOKOT S) TABLET PO SCH ×3 (09:40→23:25)
[2021-05-12] MEDS: FERROUS SULF 325 MG (IRON) TAB PO SCH ×2 (09:40→23:25)
--- NOTE | 2021-05-12 10:18 | Physical Therapy Progress Note ---
Therapy Progress Note Pt up in chair, declined PT this date. Agreeable to ambulate with nursing later this date. KYLE GRAY DPCesar May 12, 2021 10:18
[2021-05-12] MEDS: RT--FLUTICASONE/SALMETEROL 232-14 (AIRDUO RespiCLICK) IH SCH ×2 (10:28→21:02)
--- NOTE | 2021-05-12 11:01 | Progress Note - Hospitalist ---
Subjective HPI/CC On Admission Date Seen by Provider: May 12, 2021 Time Seen by Provider: 11:00 Subjective/Events-last exam Patient doing much better Just about to get into the shower Breathing much better Adjusting Solu-Medrol down to twice a day No bowels moving yet so will give meds Weaning off oxygen Review of Systems General: Fatigue, Malaise Objective Exam Vital Signs Vital Signs Date Time Temp Pulse Resp B/P (MAP) Pulse Ox O2 Delivery O2 Flow Rate FiO2 05/13/21 03:42 36.2 90 19 131/79 (96) 94 Nasal Cannula 1.00 05/09/21 13:47 30 Capillary Refill : Less Than 3 Seconds General Appearance: No Apparent Distress, WD/WN, Chronically ill Respiratory: Lungs Clear, Normal Breath Sounds, Decreased Breath Sounds Cardiovascular: Regular Rate, Rhythm Neurologic/Psychiatric: Alert, Oriented x3, No Motor/Sensory Deficits, Normal Mood/Affect Results/Procedures Lab Laboratory Tests 05/12/21 06:46 Patient resulted labs reviewed. 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 Herron to perform biopsy tomorrow 05/09/2021: CT-guided biopsy tomorrow of liver lesion Extubation tomorrow afternoon 05/10/2021 Move to medical floor Supportive care PT and OT Bedside ICS 05/11/2021 Supportive care PT and OT Bedside ICS Restart Lovenox and steroid breathing treatments 05/12/2021: Decrease Solu-Medrol Wean oxygen Critical Care Ventilator Management KATHERINE CHICAS DO May 12, 2021 11:01
[2021-05-12 11:05] VITALS: BP 127/69
[2021-05-12] MEDS ORDERED: LACTULOSE SYRUP 10GM/15ML (ENULOSE) 30ML UDC ONE (14:37)
[2021-05-12 15:47] VITALS: BP 111/75
[2021-05-12 20:06] VITALS: BP 141/88
[2021-05-12] MEDS ORDERED: LACTULOSE SYRUP 10GM/15ML (ENULOSE) 30ML UDC PO ONE (21:00)
[2021-05-12] MEDS: ONDANSETRON 4 MG/2 ML (SDV) Z0FRAN IVP PRN (21:36)
[2021-05-13] VITALS (7 sets, daily range): BP systolic 111–135; BP diastolic 64–81
[2021-05-13] MEDS: RT-ALBUTEROL/IPRATROPIUM 3 ML (DUONEB) VIAL INH SCH ×4 (02:17→21:15)
[2021-05-13 07:46] LABS: BASOPHILS % (AUTO) 0 % (0-10); EOSINOPHILS % (AUTO) 0 % (0-10); HEMATOCRIT 44 % (35-52); HEMOGLOBIN 14.8 g/dL (11.5-16.0); LYMPHOCYTES # (AUTO) 1.2 10^3/uL (1.0-4.0); LYMPHOCYTES % (AUTO) 7 % (12-44); MEAN CORPUSCULAR HEMOGLOBIN 28 pg (25-34); MEAN CORPUSCULAR HGB CONC 33 g/dL (32-36); MEAN CORPUSCULAR VOLUME 83 fL (80-99); MEAN PLATELET VOLUME 12.4 fL (9.0-12.2); MONOCYTES # (AUTO) 1.2 10^3/uL (0.0-1.0); MONOCYTES % (AUTO) 7 % (0-12); NEUTROPHILS # (AUTO) 14.1 10^3/uL (1.8-7.8); NEUTROPHILS % (AUTO) 85 % (42-75); PLATELET COUNT 193 10^3/uL (130-400); WHITE BLOOD COUNT 16.6 10^3/uL (4.3-11.0)
[2021-05-13 08:01] LABS: ALBUMIN 3.4 GM/DL (3.2-4.5)
[2021-05-13 08:02] LABS: POTASSIUM 3.8 MMOL/L (3.6-5.0)
[2021-05-13 08:03] LABS: CALCIUM 8.5 MG/DL (8.5-10.1)
[2021-05-13 08:04] LABS: TOTAL PROTEIN 6.2 GM/DL (6.4-8.2)
[2021-05-13 08:06] LABS: BILIRUBIN,TOTAL 0.7 MG/DL (0.1-1.0)
[2021-05-13 08:08] LABS: CREATININE SERUM 0.62 MG/DL (0.60-1.30)
[2021-05-13 08:17] LABS: BAND NEUTROPHILS 0 %; BASOPHILS % (MANUAL) 0 %; EOSINOPHILS % (MANUAL) 0 %; LYMPHOCYTES % (MANUAL) 8 %; MONOCYTES % (MANUAL) 6 %; NEUTROPHILS % (MANUAL) 86 %; RBC MORPH NORMAL
[2021-05-13] MEDS: methylPREDNISolone 40 MG/ML (Solu-MEDROL) VIAL IV SCH ×2 (08:39→20:58)
[2021-05-13] MEDS: PANTOPRAZOLE 40 MG (PROTONIX) TAB PO SCH (08:39)
[2021-05-13] MEDS: FAMOTIDINE 20 MG (PEPCID) TABLET PO SCH (08:39)
[2021-05-13] MEDS: ENOXAPARIN 40 MG/0.4 ML (LOVENOX) SYR SC SCH (08:39)
[2021-05-13] MEDS: FERROUS SULF 325 MG (IRON) TAB PO SCH ×2 (08:39→20:58)
[2021-05-13] MEDS: SENNA W/DOCUSATE (SENOKOT S) TABLET PO SCH ×2 (08:40→20:07)
[2021-05-13] MEDS ORDERED: BISACODYL 10 MG SUPP (DULCOLAX) PR ONE (09:00)
[2021-05-13] MEDS: RT--FLUTICASONE/SALMETEROL 232-14 (AIRDUO RespiCLICK) IH SCH ×2 (10:07→21:15)
--- NOTE | 2021-05-13 11:24 | Progress Note - Hospitalist ---
Subjective HPI/CC On Admission Date Seen by Provider: May 13, 2021 Time Seen by Provider: 11:00 Subjective/Events-last exam Patient having nausea and vomiting Plan for discharge tomorrow with social work care Poor prognosis remains Pathology pending Review of Systems General: Fatigue Objective Exam Vital Signs Vital Signs Date Time Temp Pulse Resp B/P (MAP) Pulse Ox O2 Delivery O2 Flow Rate FiO2 05/13/21 19:25 36.8 95 20 119/72 (88) 92 Nasal Cannula 1.00 05/09/21 13:47 30 Capillary Refill : Less Than 3 Seconds General Appearance: No Apparent Distress, WD/WN, Chronically ill Respiratory: Lungs Clear, Normal Breath Sounds Cardiovascular: Regular Rate, Rhythm Neurologic/Psychiatric: Alert, Oriented x3, No Motor/Sensory Deficits, Normal Mood/Affect Results/Procedures Lab Laboratory Tests 05/13/21 07:30 Patient resulted labs reviewed. 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 Herron to perform biopsy tomorrow 05/09/2021: CT-guided biopsy tomorrow of liver lesion Extubation tomorrow afternoon 05/10/2021 Move to medical floor Supportive care PT and OT Bedside ICS 05/11/2021 Supportive care PT and OT Bedside ICS Restart Lovenox and steroid breathing treatments 05/12/2021: Decrease Solu-Medrol Wean oxygen 05/13/2021: Supportive care Discharge tomorrow Critical Care Ventilator Management KATHERINE CHICAS DO May 13, 2021 11:24
[2021-05-14] MEDS: RT-ALBUTEROL/IPRATROPIUM 3 ML (DUONEB) VIAL INH SCH ×2 (02:57→07:38)
[2021-05-14 04:11] VITALS: BP 124/74
[2021-05-14 06:21] LABS: BASOPHILS % (AUTO) 0 % (0-10); EOSINOPHILS % (AUTO) 0 % (0-10); HEMATOCRIT 41 % (35-52); HEMOGLOBIN 13.3 g/dL (11.5-16.0); LYMPHOCYTES # (AUTO) 0.9 10^3/uL (1.0-4.0); LYMPHOCYTES % (AUTO) 6 % (12-44); MEAN CORPUSCULAR HEMOGLOBIN 28 pg (25-34); MEAN CORPUSCULAR HGB CONC 33 g/dL (32-36); MEAN CORPUSCULAR VOLUME 84 fL (80-99); MEAN PLATELET VOLUME 12.6 fL (9.0-12.2); MONOCYTES # (AUTO) 1.5 10^3/uL (0.0-1.0); MONOCYTES % (AUTO) 11 % (0-12); NEUTROPHILS # (AUTO) 11.7 10^3/uL (1.8-7.8); NEUTROPHILS % (AUTO) 83 % (42-75); PLATELET COUNT 172 10^3/uL (130-400); WHITE BLOOD COUNT 14.2 10^3/uL (4.3-11.0)
[2021-05-14 06:45] LABS: ALBUMIN 2.9 GM/DL (3.2-4.5); BILIRUBIN,TOTAL 0.6 MG/DL (0.1-1.0); CALCIUM 8.3 MG/DL (8.5-10.1); CREATININE SERUM 0.61 MG/DL (0.60-1.30); POTASSIUM 3.4 MMOL/L (3.6-5.0); TOTAL PROTEIN 5.5 GM/DL (6.4-8.2)
[2021-05-14] MEDS: RT--FLUTICASONE/SALMETEROL 232-14 (AIRDUO RespiCLICK) IH SCH (07:38)
[2021-05-14 08:00] VITALS: BP 139/78
--- NOTE | 2021-05-14 08:31 | Occupational Ther Daily Note ---
OT Current Status-Daily Note Subjective Denies pain, agreeable to treatment. Appearance Left sitting in chair, all needs within reach. Mental Status/Objective Attachments: IV, Oxygen ADL-Treatment Therapy Code Descriptions/Definitions Functional [place] Measure: 0=Not Assessed/NA 4=Minimal Assistance 1=Total Assistance 5=Supervision or Setup 2=Maximal Assistance 6=Modified [place] 3=Moderate Assistance 7=Complete IndependenceSCALE: Activities may be completed with or without assistive devices. 1-Qzswvgfalv-sozwsvk completes the activity by him/herself with no assistance from a helper. 5-Set-up or Clean-up Assistance-helper sets up or cleans up; patient completes activity. [place] assists only prior to or following the activity. 4-Supervision or Touching Assistance-helper provides verbal cues and/or touching/steadying and/or contact guard assistance as patient completes activity. Assistance may be provided throughout the activity or intermittently. 3-Partial/Moderate Assistance-helper does LESS THAN HALF the effort. [place] lifts, holds or supports trunk or limbs, but provides less than half the effort. 2-Substantial/Maximal Assistance-helper does MORE THAN HALF the effort. [place] lifts or holds trunk or limbs and provides more than half the effort. 8-Tjheadcmt-zlhkmm does ALL the effort. Patient does none of the effort to complete the activity. Or, the assistance of 2 or more helpers is required for the patient to complete the activity. If activity was not attempted, code reason: 7-Patient Refused. 9-Not Applicable-not attempted and the patient did not perform the activity before the current illness, exacerbation or injury. 10-Not Attempted due to Environmental Limitations-(lack of equipment, weather restraints, etc.). 88-Not Attempted due to Medical Conditions or Safety Concerns. Toileting Hygiene (QC): 4 Toilet Transfer (QC): 4 Pt supine in bed at OT arrival, agreeable to treatment. Supine>sit: SBA. Pt stood and ambulated to/from bathroom with SBA and use of walker. Cues needed for attention/awareness to O2 tubing. Able to perform all steps of toileting with SBA-CGA for safety. She sat in chair to wash face and comb hair with set up only. Fatigues quickly. Education OT Patient Education: Correct positioning, Energy conservation, Progress toward Goal/Update tx plan, Purpose of tx/functional activities, Safety issues Teaching Recipient: Patient Teaching Methods: Discussion Response to Teaching: Verbalize Understanding OT Senior Living Goals Senior Living Goals Time Frame: Jun 04, 2021 Oral Hygiene (QC): 4 Toileting Hygiene (QC): 4 Shower/Bathe Self (QC): 4 Upper Body Dressing (QC): 4 Lower Body Dressing (QC): 4 On/Off Footwear (QC): 4 1=Demonstrate adherence to instructed precautions during ADL tasks. 2=Patient will verbalize/demonstrate understanding of assistive devices/modifications for ADL. 3=Patient will improve strength/tolerance for activity to enable patient to perform ADL's. OT Education/Plan Problem List/Assessment Assessment: Decreased Activ Tolerance, Decreased Safety Aware, Impaired I ADL's, Impaired Self-Care Skills Discharge Recommendations Plan/Recommendations: Continue POC Therapy Discharge Recommendati: Homemaker Support Target Placement Home health with family support. Treatment Plan/Plan of Care Treatment,Training & Education: Yes Patient would benefit from OT for education, treatment and training to promote independence in ADL's, mobility, safety and/or upper extremity function for ADL's. Plan of Care: ADL Retraining, Caregiver Training, Functional Mobility, Group Exercise/Act as Ind, UE Funct Exercise/Act Treatment Duration: Jun 04, 2021 Frequency: 4 times per week (4-5 x/week) Rehab Potential: Guarded Time/GCodes Start Time: 08:04 Stop Time: 08:15 Total Time Billed (hr/min): 11 Billed Treatment Time 1 visit ADL Diamond Ferrell OT May 14, 2021 08:31
[2021-05-14] MEDS: SENNA W/DOCUSATE (SENOKOT S) TABLET PO SCH (09:00)
[2021-05-14] MEDS: FAMOTIDINE 20 MG (PEPCID) TABLET PO SCH (10:24)
[2021-05-14] MEDS: FERROUS SULF 325 MG (IRON) TAB PO SCH (10:24)
[2021-05-14] MEDS: methylPREDNISolone 40 MG/ML (Solu-MEDROL) VIAL IV SCH (10:24)
[2021-05-14] MEDS: ENOXAPARIN 40 MG/0.4 ML (LOVENOX) SYR SC SCH (10:24)
[2021-05-14] MEDS: PANTOPRAZOLE 40 MG (PROTONIX) TAB PO SCH (10:24)
[2021-05-14] MEDS ORDERED: PANT40TA52 PO (10:28)
[2021-05-14] MEDS ORDERED: IPRA3AMP31 INH (10:28)
[2021-05-14] MEDS ORDERED: ACHD5005 PO (10:28)
[2021-05-14] MEDS ORDERED: ONDA8TAB13 PO (10:28)
[2021-05-14] MEDS ORDERED: PRED10TA22 PO (10:28)
--- NOTE | 2021-05-14 10:29 | Discharge Summary ---
Diagnosis/Chief Complaint Date of Admission May 07, 2021 at 23:19 Date of Discharge Discharge Date: May 14, 2021 Discharge Diagnosis Assessment: Acute respiratory failure due to status asthmaticus CT scan showing multiple metastatic lesions Found down on floor Mycoplasma positive Left plural effusion Plan: Vent management Supportive care Needs tissue biopsy 05/08/2021: eICU appreciated for vent management IV steroids Dr. Herron to perform biopsy tomorrow 05/09/2021: CT-guided biopsy tomorrow of liver lesion Extubation tomorrow afternoon 05/10/2021 Move to medical floor Supportive care PT and OT Bedside ICS 05/11/2021 Supportive care PT and OT Bedside ICS Restart Lovenox and steroid breathing treatments 05/12/2021: Decrease Solu-Medrol Wean oxygen 05/13/2021: Supportive care Discharge tomorrow Discharge Summary Discharge Physical Examination Allergies: Coded Allergies: cefepime (Unverified Allergy, Severe, Shortness of Breath, 05/09/21) Patient received medication at [facility], 3 minutes after recieving patient had an impending doom feeling. Penicillins (Verified Allergy, Mild, HIVES, 11/05/19) Vitals & I&Os Vital Signs Date Time Temp Pulse Resp B/P (MAP) Pulse Ox O2 Delivery O2 Flow Rate FiO2 05/14/21 16:45 36.6 93 18 120/73 91 High Flow N/C 1.00 05/09/21 13:47 30 General Appearance: Alert, Oriented X3, Cooperative Respiratory: Clear to Auscultation Cardiovascular: Regular Rate Psych/Mental Status: Mental Status NL Hospital Course Was the Problem List Reviewed?: Yes Hospital course: Patient had a standard hospital course after she was moved from [facility] due to critical illness needing higher level of care with pulmonology after she was intubated. Patient has a history of asthma. After everything resolved and she had status asthmaticus from mycoplasma. Levaquin was initiated by eICU. She was ultimately extubated without event. CT scan at [facility] before intubation revealed multiple nodules and liver consistent with subsequent metastatic cancer. CT-guided liver biopsy performed by Dr. Herron pathology pending. Patient ultimately responded to IV steroids and nebulizer treatments with good results. Patient was deemed stable for discharge. No home oxygen needed. Labs (last 24 hrs) Laboratory Tests 05/08/21 00:15: White Blood Count 12.7H, Red Blood Count 5.01, Hemoglobin 14.0, Hematocrit 42, Mean Corpuscular Volume 84, Mean Corpuscular Hemoglobin 28, Mean Corpuscular Hemoglobin Concent 33, Red Cell Distribution Width 13.9, Platelet Count 210, Mean Platelet Volume 10.9, Immature Granulocyte % (Auto) 1, Neutrophils (%) (Auto) 95H, Lymphocytes (%) (Auto) 3L, Monocytes (%) (Auto) 2, Eosinophils (%) (Auto) 0, Basophils (%) (Auto) 0, Neutrophils # (Auto) 12.1H, Lymphocytes # (Auto) 0.4L, Monocytes # (Auto) 0.2, Eosinophils # (Auto) 0.0, Basophils # (Auto) 0.0, Immature Granulocyte # (Auto) 0.1, Neutrophils % (Manual) 93, Lymphocytes % (Manual) 2, Monocytes % (Manual) 2, Band Neutrophils 3, Blood Morphology Comment NORMAL, Sodium Level 133L, Potassium Level 3.4L, Chloride Level 100, Carbon Dioxide Level 16L, Anion Gap 17H, Blood Urea Nitrogen 13, Creatinine 0.74, Estimat Glomerular Filtration Rate 77, BUN/Creatinine Ratio 18, Glucose Level 190H, Calcium Level 8.3L, Corrected Calcium 8.9, Total Bilirubin 0.9, Aspartate Amino Transf (AST/SGOT) 53H, Alanine Aminotransferase (ALT/SGPT) 43, Alkaline Phosphatase 138H, Total Protein 6.3L, Albumin 3.3 05/08/21 04:30: White Blood Count 8.6, Red Blood Count 4.82, Hemoglobin 13.5, Hematocrit 41, Mean Corpuscular Volume 84, Mean Corpuscular Hemoglobin 28, Mean Corpuscular Hemoglobin Concent 33, Red Cell Distribution Width 13.9, Platelet Count 189, Mean Platelet Volume 11.3, Immature Granulocyte % (Auto) 0, Neutrophils (%) (Auto) 91H, Lymphocytes (%) (Auto) 6L, Monocytes (%) (Auto) 3, Eosinophils (%) (Auto) 0, Basophils (%) (Auto) 0, Neutrophils # (Auto) 7.9H, Lymphocytes # (Auto) 0.5L, Monocytes # (Auto) 0.2, Eosinophils # (Auto) 0.0, Basophils # (Auto) 0.0, Immature Granulocyte # (Auto) 0.0, Sodium Level 135, Potassium Level 3.5L, Chloride Level 100, Carbon Dioxide Level 18L, Anion Gap 17H, Blood Urea Nitrogen 12, Creatinine 0.73, Estimat Glomerular Filtration Rate 78, BUN/Creatinine Ratio 16, Glucose Level 169H, Calcium Level 8.4L, Corrected Calcium 9.0, Total Bilirubin 0.6, Aspartate Amino Transf (AST/SGOT) 50H, Alanine Aminotransferase (ALT/SGPT) 40, Alkaline Phosphatase 131, Total Protein 6.1L, Albumin 3.2, Blood Gas Puncture Site RIGHT RADIAL, Blood Gas Patient Temperature 36.6, Arterial Blood pH 7.39, Arterial Blood Partial Pressure CO2 37, Arterial Blood Partial Pressure O2 88, Arterial Blood HCO3 23, Arterial Blood Total CO2 23.6, Arterial Blood Oxygen Saturation 97, Arterial Blood Base Excess -1.8, Keith Test YES-POS, Blood Gas Ventilator Setting YES, Blood Gas Inspired Oxygen 30%, Magnesium Level 1.7 05/08/21 11:31: Glucometer 157H 05/08/21 11:35: Activated Partial Thromboplast Time 37H 05/08/21 18:04: Glucometer 178H 05/08/21 18:15: Sodium Level 136, Potassium Level 3.0L, Chloride Level 103, Carbon Dioxide Level 20L, Anion Gap 13, Blood Urea Nitrogen 11, Creatinine 0.69, Estimat Glomerular Filtration Rate 83, BUN/Creatinine Ratio 16, Glucose Level 177H, Lactic Acid Level 2.48*H, Calcium Level 8.3L, Procalcitonin 4.08H 05/08/21 21:50: Lactic Acid Level 1.58 05/09/21 02:05: Glucometer 146H 05/09/21 04:02: White Blood Count 12.5H, Red Blood Count 3.97, Hemoglobin 11.1L, Hematocrit 34L, Mean Corpuscular Volume 85, Mean Corpuscular Hemoglobin 28, Mean Corpuscular Hemoglobin Concent 33, Red Cell Distribution Width 14.4, Platelet Count 151, Mean Platelet Volume 11.3, Immature Granulocyte % (Auto) 1, Neutrophils (%) (Auto) 89H, Lymphocytes (%) (Auto) 3L, Monocytes (%) (Auto) 7, Eosinophils (%) (Auto) 0, Basophils (%) (Auto) 0, Neutrophils # (Auto) 11.1H, Lymphocytes # (Auto) 0.4L, Monocytes # (Auto) 0.9, Eosinophils # (Auto) 0.0, Basophils # (Auto) 0.0, Immature Granulocyte # (Auto) 0.1, Prothrombin Time 14.3, INR Comment 1.1, Blood Gas Puncture Site ART LINE, Blood Gas Patient Temperature 36.6, Arterial Blood pH 7.38, Arterial Blood Partial Pressure CO2 40, Arterial Blood Partial Pressure O2 94H, Arterial Blood HCO3 23, Arterial Blood Total CO2 24.4, Arterial Blood Oxygen Saturation 97, Arterial Blood Base Excess -1.3, Keith Test ART LINE, Blood Gas Ventilator Setting YES, Blood Gas Inspired Oxygen 30%, Sodium Level 138, Potassium Level 2.6L, Chloride Level 107, Carbon Dioxide Level 19L, Anion Gap 12, Blood Urea Nitrogen 10, Creatinine 0.61, Estimat Glomerular Filtration Rate 96, BUN/Creatinine Ratio 16, Glucose Level 143H, Calcium Level 7.9L, Phosphorus Level 1.8L, Magnesium Level 1.5L, Total Creatine Kinase 72 05/09/21 10:22: Sodium Level 139, Potassium Level 3.4L, Chloride Level 108H, Carbon Dioxide Level 19L, Anion Gap 12, Blood Urea Nitrogen 9, Creatinine 0.60, Estimat Glomerular Filtration Rate 97, BUN/Creatinine Ratio 15, Glucose Level 128H, Calcium Level 8.0L, Magnesium Level 2.0 05/09/21 11:48: Glucometer 134H 05/09/21 18:18: Glucometer 122H 05/10/21 05:28: White Blood Count 13.9H, Red Blood Count 4.18, Hemoglobin 11.6, Hematocrit 36, Mean Corpuscular Volume 86, Mean Corpuscular Hemoglobin 28, Mean Corpuscular Hemoglobin Concent 32, Red Cell Distribution Width 15.0H, Platelet Count 151, Mean Platelet Volume 12.3H, Immature Granulocyte % (Auto) 1, Neutrophils (%) (Auto) 91H, Lymphocytes (%) (Auto) 2L, Monocytes (%) (Auto) 5, Eosinophils (%) (Auto) 0, Basophils (%) (Auto) 0, Neutrophils # (Auto) 12.7H, Lymphocytes # (Auto) 0.3L, Monocytes # (Auto) 0.8, Eosinophils # (Auto) 0.0, Basophils # (Auto) 0.0, Immature Granulocyte # (Auto) 0.1, Sodium Level 140, Potassium Level 3.5L, Chloride Level 109H, Carbon Dioxide Level 21, Anion Gap 10, Blood Urea Nitrogen 10, Creatinine 0.63, Estimat Glomerular Filtration Rate 92, BUN/Creatinine Ratio 16, Glucose Level 129H, Calcium Level 8.0L, Phosphorus Level 1.8L, Magnesium Level 1.9 05/11/21 05:32: White Blood Count 11.7H, Red Blood Count 4.24, Hemoglobin 11.9, Hematocrit 36, Mean Corpuscular Volume 85, Mean Corpuscular Hemoglobin 28, Mean Corpuscular Hemoglobin Concent 33, Red Cell Distribution Width 15.1H, Platelet Count 137, Mean Platelet Volume 12.2, Immature Granulocyte % (Auto) 1, Neutrophils (%) (Auto) 76H, Lymphocytes (%) (Auto) 14, Monocytes (%) (Auto) 9, Eosinophils (%) (Auto) 0, Basophils (%) (Auto) 0, Neutrophils # (Auto) 8.9H, Lymphocytes # (Auto) 1.6, Monocytes # (Auto) 1.0, Eosinophils # (Auto) 0.0, Basophils # (Auto) 0.0, Immature Granulocyte # (Auto) 0.1, Sodium Level 138, Potassium Level 3.3L, Chloride Level 104, Carbon Dioxide Level 24, Anion Gap 10, Blood Urea Nitrogen 9, Creatinine 0.57L, Estimat Glomerular Filtration Rate 103, BUN/Creatinine Ratio 16, Glucose Level 72, Calcium Level 7.8L, Percent Immature Platelet Fraction 9.7H, Corrected Calcium 8.8, Total Bilirubin 0.5, Aspartate Amino Transf (AST/SGOT) 70H, Alanine Aminotransferase (ALT/SGPT) 52, Alkaline Phosphatase 112, Total Protein 4.9L, Albumin 2.8L 05/12/21 06:46: White Blood Count 9.2, Red Blood Count 4.60, Hemoglobin 12.8, Hematocrit 39, Mean Corpuscular Volume 84, Mean Corpuscular Hemoglobin 28, Mean Corpuscular Hemoglobin Concent 33, Red Cell Distribution Width 14.9H, Platelet Count 136, Mean Platelet Volume 12.4H, Immature Granulocyte % (Auto) 1, Neutrophils (%) (Auto) 83H, Lymphocytes (%) (Auto) 10L, Monocytes (%) (Auto) 5, Eosinophils (%) (Auto) 0, Basophils (%) (Auto) 0, Neutrophils # (Auto) 7.7, Lymphocytes # (Auto) 0.9L, Monocytes # (Auto) 0.5, Eosinophils # (Auto) 0.0, Basophils # (Auto) 0.0, Immature Granulocyte # (Auto) 0.1, Sodium Level 135, Potassium Level 3.9, Chloride Level 98, Carbon Dioxide Level 25, Anion Gap 12, Blood Urea Nitrogen 8, Creatinine 0.57L, Estimat Glomerular Filtration Rate 103, BUN/Creatinine Ratio 14, Glucose Level 138H, Calcium Level 8.1L, Percent Immature Platelet Fraction 9.8H, Corrected Calcium 8.9, Total Bilirubin 0.6, Aspartate Amino Transf (AST/SGOT) 70H, Alanine Aminotransferase (ALT/SGPT) 60H, Alkaline Phosphatase 121, Total Protein 5.9L, Albumin 3.0L 05/13/21 07:30: White Blood Count 16.6H, Red Blood Count 5.33H, Hemoglobin 14.8, Hematocrit 44, Mean Corpuscular Volume 83, Mean Corpuscular Hemoglobin 28, Mean Corpuscular Hemoglobin Concent 33, Red Cell Distribution Width 14.8H, Platelet Count 193, Mean Platelet Volume 12.4H, Immature Granulocyte % (Auto) 1, Neutrophils (%) (Auto) 85H, Lymphocytes (%) (Auto) 7L, Monocytes (%) (Auto) 7, Eosinophils (%) (Auto) 0, Basophils (%) (Auto) 0, Neutrophils # (Auto) 14.1H, Lymphocytes # (Auto) 1.2, Monocytes # (Auto) 1.2H, Eosinophils # (Auto) 0.0, Basophils # (Auto) 0.0, Immature Granulocyte # (Auto) 0.1, Sodium Level 132L, Potassium Level 3.8, Chloride Level 93L, Carbon Dioxide Level 25, Anion Gap 14, Blood Urea Nitrogen 9, Creatinine 0.62, Estimat Glomerular Filtration Rate 94, BUN/Creatinine Ratio 15, Glucose Level 126H, Calcium Level 8.5, Corrected Calcium 9.0, Total Bilirubin 0.7, Aspartate Amino Transf (AST/SGOT) 67H, Alanine Aminotransferase (ALT/SGPT) 61H, Alkaline Phosphatase 151H, Total Protein 6.2L, Albumin 3.4, Neutrophils % (Manual) 86, Lymphocytes % (Manual) 8, Monocytes % (Manual) 6, Eosinophils % (Manual) 0, Basophils % (Manual) 0, Band Neutrophils 0, Blood Morphology Comment NORMAL 05/14/21 05:15: White Blood Count 14.2H, Red Blood Count 4.82, Hemoglobin 13.3, Hematocrit 41, Mean Corpuscular Volume 84, Mean Corpuscular Hemoglobin 28, Mean Corpuscular Hemoglobin Concent 33, Red Cell Distribution Width 15.4H, Platelet Count 172, Mean Platelet Volume 12.6H, Immature Granulocyte % (Auto) 1, Neutrophils (%) (Au to) 83H, Lymphocytes (%) (Auto) 6L, Monocytes (%) (Auto) 11, Eosinophils (%) (Auto) 0, Basophils (%) (Auto) 0, Neutrophils # (Auto) 11.7H, Lymphocytes # (Auto) 0.9L, Monocytes # (Auto) 1.5H, Eosinophils # (Auto) 0.0, Basophils # (Auto) 0.0, Immature Granulocyte # (Auto) 0.1, Sodium Level 135, Potassium Level 3.4L, Chloride Level 94L, Carbon Dioxide Level 27, Anion Gap 14, Blood Urea Nitrogen 11, Creatinine 0.61, Estimat Glomerular Filtration Rate 96, BUN/Creatinine Ratio 18, Glucose Level 92, Calcium Level 8.3L, Corrected Calcium 9.2, Total Bilirubin 0.6, Aspartate Amino Transf (AST/SGOT) 68H, Alanine Aminotransferase (ALT/SGPT) 56H, Alkaline Phosphatase 114, Total Protein 5.5L, Albumin 2.9L Microbiology 05/08/21 Gram Stain - Final, Complete 05/08/21 Sputum Culture - Final, Complete Usual upper respiratory clint Pending Labs Microbiology Date/Time Source Procedure Growth Status 05/08/21 00:21 Sputum Endotracheal Gram Stain - Final Complete 05/08/21 00:21 Sputum Culture - Final Usual upper respiratory clint Complete 05/07/21 23:57 Nasal MRSA Screen - Final MRSA not isolated Complete Laboratory Tests 05/08/21 00:15: White Blood Count 12.7, Red Blood Count 5.01, Hemoglobin 14.0, Hematocrit 42, Mean Corpuscular Volume 84, Mean Corpuscular Hemoglobin 28, Mean Corpuscular Hemoglobin Concent 33, Red Cell Distribution Width 13.9, Platelet Count 210, Mean Platelet Volume 10.9, Immature Granulocyte % (Auto) 1, Neutrophils (%) (Auto) 95, Lymphocytes (%) (Auto) 3, Monocytes (%) (Auto) 2, Eosinophils (%) (Auto) 0, Basophils (%) (Auto) 0, Neutrophils # (Auto) 12.1, Lymphocytes # (Auto) 0.4, Monocytes # (Auto) 0.2, Eosinophils # (Auto) 0.0, Basophils # (Auto) 0.0, Immature Granulocyte # (Auto) 0.1, Neutrophils % (Manual) 93, Lymphocytes % (Manual) 2, Monocytes % (Manual) 2, Band Neutrophils 3, Blood Morphology Comment NORMAL, Sodium Level 133, Potassium Level 3.4, Chloride Level 100, Carbon Dioxide Level 16, Anion Gap 17, Blood Urea Nitrogen 13, Creatinine 0.74, Estimat Glomerular Filtration Rate 77, BUN/Creatinine Ratio 18, Glucose Level 190, C alcium Level 8.3, Corrected Calcium 8.9, Total Bilirubin 0.9, Aspartate Amino Transf (AST/SGOT) 53, Alanine Aminotransferase (ALT/SGPT) 43, Alkaline Phosphatase 138, Total Protein 6.3, Albumin 3.3 05/08/21 04:30: White Blood Count 8.6, Red Blood Count 4.82, Hemoglobin 13.5, Hematocrit 41, Mean Corpuscular Volume 84, Mean Corpuscular Hemoglobin 28, Mean Corpuscular Hemoglobin Concent 33, Red Cell Distribution Width 13.9, Platelet Count 189, Mean Platelet Volume 11.3, Immature Granulocyte % (Auto) 0, Neutrophils (%) (Auto) 91, Lymphocytes (%) (Auto) 6, Monocytes (%) (Auto) 3, Eosinophils (%) (Auto) 0, Basophils (%) (Auto) 0, Neutrophils # (Auto) 7.9, Lymphocytes # (Auto) 0.5, Monocytes # (Auto) 0.2, Eosinophils # (Auto) 0.0, Basophils # (Auto) 0.0, Immature Granulocyte # (Auto) 0.0, Sodium Level 135, Potassium Level 3.5, Chloride Level 100, Carbon Dioxide Level 18, Anion Gap 17, Blood Urea Nitrogen 12, Creatinine 0.73, Estimat Glomerular Filtration Rate 78, BUN/Creatinine Ratio 16, Glucose Level 169, Calcium Level 8.4, Corrected Calcium 9.0, Total Bilirubin 0.6, Aspartate Amino Transf (AST/SGOT) 50, Alanine Aminotransferase (ALT/SGPT) 40, Alkaline Phosphatase 131, Total Protein 6.1, Albumin 3.2, Blood Gas Puncture Site RIGHT RADIAL, Blood Gas Patient Temperature 36.6, Arterial Blood pH 7.39, Arterial Blood Partial Pressure CO2 37, Arterial Blood Partial Pressure O2 88, Arterial Blood HCO3 23, Arterial Blood Total CO2 23.6, Arterial Blood Oxygen Saturation 97, Arterial Blood Base Excess -1.8, Keith Test YES-POS, Blood Gas Ventilator Setting YES, Blood Gas Inspired Oxygen 30%, Magnesium Level 1.7 05/08/21 11:31: Glucometer 157 05/08/21 11:35: Activated Partial Thromboplast Time 37 05/08/21 18:04: Glucometer 178 05/08/21 18:15: Sodium Level 136, Potassium Level 3.0, Chloride Level 103, Carbon Dioxide Level 20, Anion Gap 13, Blood Urea Nitrogen 11, Creatinine 0.69, Estimat Glomerular Filtration Rate 83, BUN/Creatinine Ratio 16, Glucose Level 177, Lactic Acid Level 2.48, Calcium Level 8.3, Procalcitonin 4.08 05/08/21 21:50: Lactic Acid Level 1.58 05/09/21 02:05: Glucometer 146 05/09/21 04:02: White Blood Count 12.5, Red Blood Count 3.97, Hemoglobin 11.1, Hematocrit 34, Mean Corpuscular Volume 85, Mean Corpuscular Hemoglobin 28, Mean Corpuscular Hemoglobin Concent 33, Red Cell Distribution Width 14.4, Platelet Count 151, Mean Platelet Volume 11.3, Immature Granulocyte % (Auto) 1, Neutrophils (%) (Auto) 89, Lymphocytes (%) (Auto) 3, Monocytes (%) (Auto) 7, Eosinophils (%) (Auto) 0, Basophils (%) (Auto) 0, Neutrophils # (Auto) 11.1, Lymphocytes # (Auto) 0.4, Monocytes # (Auto) 0.9, Eosinophils # (Auto) 0.0, Basophils # (Auto) 0.0, Immature Granulocyte # (Auto) 0.1, Prothrombin Time 14.3, INR Comment 1.1, Blood Gas Puncture Site ART LINE, Blood Gas Patient Temperature 36.6, Arterial Blood pH 7.38, Arterial Blood Partial Pressure CO2 40, Arterial Blood Partial Pressure O2 94, Arterial Blood HCO3 23, Arterial Blood Total CO2 24.4, Arterial Blood Oxygen Saturation 97, Arterial Blood Base Excess -1.3, Keith Test ART LINE, Blood Gas Ventilator Setting YES, Blood Gas Inspired Oxygen 30%, Sodium Level 138, Potassium Level 2.6, Chloride Level 107, Carbon Dioxide Level 19, Anion Gap 12, Blood Urea Nitrogen 10, Creatinine 0.61, Estimat Glomerular Filtration Rate 96, BUN/Creatinine Ratio 16, Glucose Level 143, Calcium Level 7.9, Phosphorus Level 1.8, Magnesium Level 1.5, Total Creatine Kinase 72 05/09/21 10:22: Sodium Level 139, Potassium Level 3.4, Chloride Level 108, Carbon Dioxide Level 19, Anion Gap 12, Blood Urea Nitrogen 9, Creatinine 0.60, Estimat Glomerular Filtration Rate 97, BUN/Creatinine Ratio 15, Glucose Level 128, Calcium Level 8.0, Magnesium Level 2.0 05/09/21 11:48: Glucometer 134 05/09/21 18:18: Glucometer 122 05/10/21 05:28: White Blood Count 13.9, Red Blood Count 4.18, Hemoglobin 11.6, Hematocrit 36, Mean Corpuscular Volume 86, Mean Corpuscular Hemoglobin 28, Mean Corpuscular Hemoglobin Concent 32, Red Cell Distribution Width 15.0, Platelet Count 151, Mean Platelet Volume 12.3, Immature Granulocyte % (Auto) 1, Neutrophils (%) (Auto) 91, Lymphocytes (%) (Auto) 2, Monocytes (%) (Auto) 5, Eosinophils (%) (Auto) 0, Basophils (%) (Auto) 0, Neutrophils # (Auto) 12.7, Lymphocytes # (Auto) 0.3, Monocytes # (Auto) 0.8, Eosinophils # (Auto) 0.0, Basophils # (Auto) 0.0, Immature Granulocyte # (Auto) 0.1, Sodium Level 140, Potassium Level 3.5, Chloride Level 109, Carbon Dioxide Level 21, Anion Gap 10, Blood Urea Nitrogen 10, Creatinine 0.63, Estimat Glomerular Filtration Rate 92, BUN/Creatinine Ratio 16, Glucose Level 129, Calcium Level 8.0, Phosphorus Level 1.8, Magnesium Level 1.9 05/11/21 05:32: White Blood Count 11.7, Red Blood Count 4.24, Hemoglobin 11.9, Hematocrit 36, Mean Corpuscular Volume 85, Mean Corpuscular Hemoglobin 28, Mean Corpuscular Hemoglobin Concent 33, Red Cell Distribution Width 15.1, Platelet Count 137, Mean Platelet Volume 12.2, Immature Granulocyte % (Auto) 1, Neutrophils (%) (Auto) 76, Lymphocytes (%) (Auto) 14, Monocytes (%) (Auto) 9, Eosinophils (%) (Auto) 0, Basophils (%) (Auto) 0, Neutrophils # (Auto) 8.9, Lymphocytes # (Auto) 1.6, Monocytes # (Auto) 1.0, Eosinophils # (Auto) 0.0, Basophils # (Auto) 0.0, Immature Granulocyte # (Auto) 0.1, Sodium Level 138, Potassium Level 3.3, Chloride Level 104, Carbon Dioxide Level 24, Anion Gap 10, Blood Urea Nitrogen 9, Creatinine 0.57, Estimat Glomerular Filtration Rate 103, BUN/Creatinine Ratio 16, Glucose Level 72, Calcium Level 7.8, Percent Immature Platelet Fraction 9.7, Corrected Calcium 8.8, Total Bilirubin 0.5, Aspartate Amino Transf (AST/SGOT) 70, Alanine Aminotransferase (ALT/SGPT) 52, Alkaline Phosphatase 112, Total Protein 4.9, Albumin 2.8 05/12/21 06:46: White Blood Count 9.2, Red Blood Count 4.60, Hemoglobin 12.8, Hematocrit 39, Mean Corpuscular Volume 84, Mean Corpuscular Hemoglobin 28, Mean Corpuscular Hemoglobin Concent 33, Red Cell Distribution Width 14.9, Platelet Count 136, Mean Platelet Volume 12.4, Immature Granulocyte % (Auto) 1, Neutrophils (%) (Auto) 83, Lymphocytes (%) (Auto) 10, Monocytes (%) (Auto) 5, Eosinophils (%) (Auto) 0, Basophils (%) (Auto) 0, Neutrophils # (Auto) 7.7, Lymphocytes # (Auto) 0.9, Monocytes # (Auto) 0.5, Eosinophils # (Auto) 0.0, Basophils # (Auto) 0.0, Immature Granulocyte # (Auto) 0.1, Sodium Level 135, Potassium Level 3.9, Chloride Level 98, Carbon Dioxide Level 25, Anion Gap 12, Blood Urea Nitrogen 8, Creatinine 0.57, Estimat Glomerular Filtration Rate 103, BUN/Creatinine Ratio 14, Glucose Level 138, Calcium Level 8.1, Percent Immature Platelet Fraction 9.8, Corrected Calcium 8.9, Total Bilirubin 0.6, Aspartate Amino Transf (AST/SGOT) 70, Alanine Aminotransferase (ALT/SGPT) 60, Alkaline Phosphatase 121, Total Protein 5.9, Albumin 3.0 05/13/21 07:30: White Blood Count 16.6, Red Blood Count 5.33, Hemoglobin 14.8, Hematocrit 44, Mean Corpuscular Volume 83, Mean Corpuscular Hemoglobin 28, Mean Corpuscular Hemoglobin Concent 33, Red Cell Distribution Width 14.8, Platelet Count 193, Mean Platelet Volume 12.4, Immature Granulocyte % (Auto) 1, Neutrophils (%) (Auto) 85, Lymphocytes (%) (Auto) 7, Monocytes (%) (Auto) 7, Eosinophils (%) (Auto) 0, Basophils (%) (Auto) 0, Neutrophils # (Auto) 14.1, Lymphocytes # (Auto) 1.2, Monocytes # (Auto) 1.2, Eosinophils # (Auto) 0.0, Basophils # (Auto) 0.0, Immature Granulocyte # (Auto) 0.1, Sodium Level 132, Potassium Level 3.8, Chloride Level 93, Carbon Dioxide Level 25, Anion Gap 14, Blood Urea Nitrogen 9, Creatinine 0.62, Estimat Glomerular Filtration Rate 94, BUN/Creatinine Ratio 15, Glucose Level 126, Calcium Level 8.5, Corrected Calcium 9.0, Total Bilirubin 0.7, Aspartate Amino Transf (AST/SGOT) 67, Alanine Aminotransferase (ALT/SGPT) 61, Alkaline Phosphatase 151, Total Protein 6.2, Albumin 3.4, Neutrophils % (Manual) 86, Lymphocytes % (Manual) 8, Monocytes % (Manual) 6, Eosinophils % (Manual) 0, Basophils % (Manual) 0, Band Neutrophils 0, Blood Morphology Comment NORMAL 05/14/21 05:15: White Blood Count 14.2, Red Blood Count 4.82, Hemoglobin 13.3, Hematocrit 41, Mean Corpuscular Volume 84, Mean Corpuscular Hemoglobin 28, Mean Corpuscular Hemoglobin Concent 33, Red Cell Distribution Width 15.4, Platelet Count 172, Mean Platelet Volume 12.6, Immature Granulocyte % (Auto) 1, Neutrophils (%) (Auto) 83, Lymphocytes (%) (Auto) 6, Monocytes (%) (Auto) 11, Eosinophils (%) (Auto) 0, Basophils (%) (Auto) 0, Neutrophils # (Auto) 11.7, Lymphocytes # (Auto) 0.9, Monocytes # (Auto) 1.5, Eosinophils # (Auto) 0.0, Basophils # (Auto) 0.0, Immature Granulocyte # (Auto) 0.1, Sodium Level 135, Potassium Level 3.4, Chloride Level 94, Carbon Dioxide Level 27, Anion Gap 14, Blood Urea Nitrogen 11, Creatinine 0.61, Estimat Glomerular Filtration Rate 96, BUN/Creatinine Ratio 18, Glucose Level 92, Calcium Level 8.3, Corrected Calcium 9.2, Total Bilirubin 0.6, Aspartate Amino Transf (AST/SGOT) 68, Alanine Aminotransferase (ALT/SGPT) 56, Alkaline Phosphatase 114, Total Protein 5.5, Albumin 2.9 Discharge Home Medications: Active Scripts Active Ondansetron Odt (Ondansetron) 8 Mg Tab.rapdis 8 Mg PO Q6H Prednisone 10 Mg Tab.ds.pk 10 Mg PO DAILY Take 4 tabs(40mg) once daily,decrease by 1 tab(10MG)daily. Pantoprazole Sodium 40 Mg Tablet.dr 40 Mg PO DAILY HYDROcodone/APAP 5 MG/325 MG TAB (Acetaminophen/Hydrocodone Bitart) 1 Tab Tab 1 Ea PO Q4H PRN Iprat-Albut 0.5-3(2.5) mg/3 ml (Ipratropium/Albuterol Sulfate) 3 Ml Ampul.neb 3 Ml INH [id number] Reported Acid Body Technician (FAMOTIDINE) (Famotidine) 20 Mg Tablet 20 Mg PO DAILY Iron (Ferrous Sulfate) 325 Mg Tablet 325 Mg PO BID Symbicort 160-4.5 Mcg Inhaler (Budesonide/Formoterol Fumarate) 10.2 Gm Hfa.aer.ad 2 Puff IH BID Citalopram HBr (Citalopram Hydrobromide) 10 Mg Tablet 30 Mg PO HS TAKES 1 & (20MG) TABS Proair Hfa (Albuterol Sulfate) 1 Puff Puff 2 Puff IH Q4H PRN Instructions to patient/family Please see electronic discharge instructions given to patient. KATHERINE CHICAS DO May 14, 2021 10:29
--- NOTE | 2021-05-14 10:29 | D/C HH Face to Face Order ---
D/C Face to Face Orders Reconcile Patient Problems Problems Reviewed?: Yes Instructions for Patient [facility], Patient Instructions/FollowUp: PCP 1 week Physician to follow Patient: PCP Discharge Diet for Home: No Restrictions Patient Problems: Abdominal masses Patient Data-Allergies,Ht & Wt Patient Allergies: Coded Allergies: cefepime (Unverified Allergy, Severe, Shortness of Breath, 05/09/21) Patient received medication at [facility], 3 minutes after recieving patient had an impending doom feeling. Penicillins (Verified Allergy, Mild, HIVES, 11/05/19) Home Health Need/Face to Face Date of Face to Face: May 14, 2021 Clinical Findings: Instability, Muscle weakness I have seen Pt [id number]: Yes Discharged To: Home Diagnosis/Conditions: Abdominal masses Patient is Homebound due to: Muscle weakness Homebound Status Due to the above stated illness, injury or surgical procedure (medical condition or diagnosis) and associated clinical findings, the patient is home bound because of his/her inability to leave home except with aid of a supportive device and/or person AND leaving the home requires a considerable and taxing effort or is medically contraindicated. Pt req the following assistanc: [facility] Nursing Orders Home Health Services Order: Nursing Services, [place] [facility]-Evaluate & Treat, Physical Therapy-Evaluate & Treat Home Health Infusion Therapy Line Start Date: May 07, 2021 Certify Stmt I certify that this patient is under my care and that I, a nurse practitioner or a physician; a hospital medical assistant working with me, had a face to face encounter that - meets the physician face to face encounter requirements with this patient as dated. KATHERINE CHICAS DO May 14, 2021 10:29
[2021-05-14 12:00] VITALS: BP 120/73
--- NOTE | 2021-05-14 12:21 | Progress Note ---
ADIEL ROGERS 05/14/21 1221: Progress Note This 75yoWF clinic [place] Abi [place] [facility] [place] on 05/07/2021 after her son found her down at home. Labs were essentially stable except Mycoplasma was +. Patient had been falling at home a lot and failure to thrive was the diagnosis and patient was prepared for admit and given Cefepime 1 gram IV and when only 10cc were given she abruptly decompensated and required intubation. CT scans also revealed widespread metastatic lesions. Son is aware of the presumptive dx of widespread cancer. Additionally she had iron deficiency recently corrected with iron infusions set up in ER. Pt was transported and admited to ICU floor here at [facility] in the evening o f 05/07/2021 for intensive supportive care. Pt improved quickly facilitating extubation late 05/08/2021. Additionally a biopsy of liver mass was taken on 05/09/2021 to further confirm or R/O the presumptive CA dx. Pt was moved to medical floor for on 05/10/2021 for continued supportive therapy including PT&OT. On 05/14/2021 pt was DC to home with family to assist in care. RACQUEL CHICAS DO 05/15/21 0544: Supervisory-Addendum Brief Verification & Attestation Participated in pt care: history, MDM, physical Personally performed: exam, history, MDM, supervision of care Care discussed with: Medical Student Procedures: n/a Results interpretation: Verified all documentation Verification and Attestation of Medical Student E/M Service A medical student performed and documented this service in my presence. I reviewed and verified all information documented by the medical student and made modifications to such information, when appropriate. I personally performed the physical exam and medical decision making. Racquel Chicas, May 15, 2021,05:44 ADIEL ROGERS May 14, 2021 12:21 RACQUEL CHICAS DO May 15, 2021 05:44
[2021-05-14 16:45] VITALS: BP 120/73
--- NOTE | 2021-05-21 09:07 | Physician Query Clarification ---
PQ-Link Path Diagnosis Admission/Discharge Admission Date: May 07, 2021 at 23:19 Discharge Date: May 14, 2021 at 16:10 Dr. 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 CT scan shows lungs show interval increase in patchy and hazy opacities in the left base partially obscuring the left hemidiaphragm. Right lung is relatively clear. Question: Do you agree with the pathology report findings of liver mets with LT lung primary? Please document a response in Progress Notes or Discharge Summary. 1. Agree with pathological diagnosis of liver mets with LT lung primary 2. No - Do not agree with pathology findings of liver mets with LT lung primary. 3. Other, with explanation of the clinical findings. 4. Clinically undetermined, no explanation for the clinical findings. Is is appropriate for a provider to add additional documentation (addenda) to the record to explain the evaluation & care up to 30 days post-discharge. See [facility] and Patient Record Guidelines below. The [facility] Chapter Record of Care, Standard; [id number].01.03.01EP 1: "The hospital has a written policy that required timely entry of information into the medical record." According to [facility] Patient Record Guidelines, ARTICLE XXI. CORRECTIONS AND ADDENDA, Modifications (addenda amendments, corrections and retractions) should be made timely and no later than regulatory requirements for record completion (i.e. 30 days post discharge). Official coding guidelines require coders to query the physician for agreement with pathology findings that occur during the encounter. Coders are not allowed to pull information directly from the path reports. PHYSICIAN RESPONSE Pathology Report Findings: Yes,agree w/path dx as documented Please remember a lack of response to the above will prompt a phone page by CDI/Coding staff. In responding to this query, please exercise your independent professional judgment. The purpose of this communication is to more accurately reflect the complexity of your patients condition. The fact that a question is asked does not imply that any particular answer is desired or expected. Thank you for your timely response to this clarification. Requestors name: Jovita THIS PHYSICIAN QUERY FORM IS A PERMANENT PART OF THE MEDICAL RECORD JOVITA ROBLERO May 21, 2021 09:07 KATHERINE HERBERT DO May 21, 2021 11:31
--- NOTE | 2021-05-21 09:15 | Physician Query Clarification ---
PQ-Further Specificity Admission/Discharge Admission Date: May 07, 2021 at 23:19 Discharge Date: May 14, 2021 at 16:10 Dr. Herbert, The medical record reflects the following clinical scenario: History/Risk Factors: acute respiratory failure, status asthmaticus, mycoplasma + Clinical Findings: lab - mycoplasma + Treatment: IV Solumedrol, IV Levofloxacin, mechanical ventilation, HFNC Question: Can you further specify the underlying condition due to mycoplasma + per the clinical indicators above? Please document a response in the Progress Notes or Discharge Summary. 1. mycoplasma pneumonia 2. mycoplasma acute bronchitis 3. mycoplasma acute bronchiolitis 4. Other, with explanation of the clinical findings. 5. Clinically undetermined, no explanation for the clinical findings. PHYSICIAN RESPONSE Can you specify per above: 1 Please remember a lack of response to the above will prompt a phone page by CDI/Coding staff. In responding to this query, please exercise your independent professional judgment. The purpose of this communication is to more accurately reflect the complexity of your patients condition. The fact that a question is asked does not imply that any particular answer is desired or expected. Thank you for your timely response to this clarification. Requestors name: Jovita THIS PHYSICIAN QUERY FORM IS A PERMANENT PART OF THE MEDICAL RECORD JOVITA ROBLERO May 21, 2021 09:15 KATHERINE HERBERT DO May 21, 2021 11:31
== END 2021-05-14 16:10 | disposition home health service (06) | DRG 208 ==
LOC: ICU 23:19 → 4TH 05-10 14:45
PROVIDERS: ADMIT Internal Medicine; ATTEND Internal Medicine
PROC: 5A1945Z Respiratory Ventilation, 24-96 Consecutive Hours (ICD-10-PCS; principal; 2021-05-07)
PROC: 5A0955A Assistance with Respiratory Ventilation, Greater than 96 Consecutive Hours, High Flow/Velocity Cannula (ICD-10-PCS; 2021-05-09)
PROC: 0FB13ZX Excision of Right Lobe Liver, Percutaneous Approach, Diagnostic (ICD-10-PCS; 2021-05-09)
DX: J96.00 Acute respiratory failure, unspecified whether with hypoxia or hypercapnia (principal); J15.7 Pneumonia due to Mycoplasma pneumoniae; J45.902 Unspecified asthma with status asthmaticus; J90 Pleural effusion, not elsewhere classified; C78.7 Secondary malignant neoplasm of liver and intrahepatic bile duct; C34.92 Malignant neoplasm of unspecified part of left bronchus or lung; R34 Anuria and oliguria; Z91.81 History of falling; Z88.0 Allergy status to penicillin
CPT/HCPCS: 36415; 71045; 77012; 80048; 80053; 82550; 82805; 82947; 83605; 83735; 84100; 84145; 85007; 85025; 85027; 85610; 85730; 87070; 87081; 87205; 88307; 88341; 88342; 88344; 94002; 94003; 94640; 94760; 94761; 94799

== ENCOUNTER 2021-05-21 17:43 | Inpatient (IN) | payer MEDICARE ==
[~2021-05-21] VITALS: Ht 162.6 cm; Wt 57.4 kg
[~2021-05-21 17:43] MED LIST changes: +ACHD5005 PO; +ATOR40TA70 PO; +FAMO20TA3 PO; +FERR-84 PO; +IPRA3AMP31 INH; +ONDA8TAB13 PO; +PANT40TA52 PO; +PRED10TA22 PO
[2021-05-21] MEDS ORDERED: HYDROcodone/APAP 5 MG/325 MG (LORTAB) TAB PO PRN (18:15)
[2021-05-21] MEDS ORDERED: ALPRAZolam 0.25 MG (XANAX) TAB PO PRN (18:15)
[2021-05-21] MEDS ORDERED: morphine INJ 10 MG/ML 1ML (SYR OR VIAL) IVP PRN (18:15)
[2021-05-21] MEDS ORDERED: CALCIUM CARBONATE 500 MG (TUMS) TAB.CHEW PO PRN (18:15)
[2021-05-21] MEDS ORDERED: MELATONIN 3 MG TABLET PO PRN (18:15)
[2021-05-21] MEDS ORDERED: ONDANSETRON 4 MG (ZOFRAN) ORAL DISSOLVE TAB PO PRN (18:15)
[2021-05-21] MEDS ORDERED: LOPERAMIDE 2 MG (IMODIUM) TABLET PO PRN (18:15)
[2021-05-21] MEDS ORDERED: diphenhydrAMINE 25 MG TAB (BENADRYL) PO PRN (18:15)
[2021-05-21] MEDS ORDERED: DOCUSATE SODIUM 100 MG (COLACE) CAP PO PRN (18:15)
[2021-05-21] MEDS ORDERED: ACETAMINOPHEN 325 MG TABLET PO PRN (19:00)
[2021-05-21] MEDS: ENOXAPARIN 40 MG/0.4 ML (LOVENOX) SYR SC SCH (19:45)
[2021-05-21] MEDS: NS IV 1000 ML 1,000 ML IV SCH (19:51)
[2021-05-21 19:57] LABS: BASOPHILS % (AUTO) 0 % (0-10); EOSINOPHILS % (AUTO) 0 % (0-10); HEMATOCRIT 40 % (35-52); HEMOGLOBIN 13.5 g/dL (11.5-16.0); LYMPHOCYTES # (AUTO) 0.8 10^3/uL (1.0-4.0); LYMPHOCYTES % (AUTO) 5 % (12-44); MEAN CORPUSCULAR HEMOGLOBIN 28 pg (25-34); MEAN CORPUSCULAR HGB CONC 33 g/dL (32-36); MEAN CORPUSCULAR VOLUME 84 fL (80-99); MONOCYTES # (AUTO) 1.4 10^3/uL (0.0-1.0); MONOCYTES % (AUTO) 8 % (0-12); NEUTROPHILS # (AUTO) 15.1 10^3/uL (1.8-7.8); NEUTROPHILS % (AUTO) 87 % (42-75); PLATELET COUNT 205 10^3/uL (130-400); WHITE BLOOD COUNT 17.5 10^3/uL (4.3-11.0)
[2021-05-21 20:00] VITALS: BP 107/63
[2021-05-21 20:03] LABS: ALBUMIN 2.9 GM/DL (3.2-4.5)
[2021-05-21 20:05] LABS: CALCIUM 8.7 MG/DL (8.5-10.1)
[2021-05-21 20:06] LABS: TOTAL PROTEIN 5.8 GM/DL (6.4-8.2)
[2021-05-21 20:09] LABS: CREATININE SERUM 0.59 MG/DL (0.60-1.30)
[2021-05-21 20:11] LABS: POTASSIUM 2.4 MMOL/L (3.6-5.0)
[2021-05-21 20:33] LABS: LYMPHOCYTES % (MANUAL) 7 %; MONOCYTES % (MANUAL) 5 %; NEUTROPHILS % (MANUAL) 88 %; RBC MORPH NORMAL
[2021-05-21 20:41] LABS: MAGNESIUM 1.9 MG/DL (1.6-2.4)
--- NOTE | 2021-05-21 20:42 | Diagnostic Imaging Report ---
INDICATION: Weakness, lung cancer EXAM: Portable chest at 8:24 PM FINDINGS: Heart size and pulmonary vascularity are normal. Lungs are clear. There are no effusions or pneumothoraces. IMPRESSION: No acute abnormalities in the chest. Dictated by: Dictated on workstation # [id number]
[2021-05-21] MEDS ORDERED: MAGNESIUM 1 GM/100 ML IVPB 100 ML IV ONE (21:30)
[2021-05-21] MEDS: methylPREDNISolone 40 MG/ML (Solu-MEDROL) VIAL IV SCH (21:39)
[2021-05-21] MEDS: polyethylene glycoL POWDER 17 GM (MIRALAX) PACK PO SCH (21:43)
[2021-05-21] MEDS: SENNA W/DOCUSATE (SENOKOT S) TABLET PO SCH (21:43)
[2021-05-21] MEDS: POTASSIUM CL 10MEQ/50ML IVPB 50 ML IV SCH ×2 (22:43→23:50)
[2021-05-21] MEDS: RT-ALBUTEROL/IPRATROPIUM 3 ML (DUONEB) VIAL INH SCH (23:47)
[2021-05-21] MEDS: ONDANSETRON 4 MG/2 ML (SDV) Z0FRAN IVP PRN (23:56)
[2021-05-22] VITALS: BP 143/82
[2021-05-22] MEDS: POTASSIUM CL 10MEQ/50ML IVPB 50 ML IV SCH ×7 (00:37→07:38)
[2021-05-22] MEDS: RT-ALBUTEROL/IPRATROPIUM 3 ML (DUONEB) VIAL INH SCH ×2 (02:25→09:27)
[2021-05-22] MEDS: NS IV 1000 ML 1,000 ML IV SCH ×4 (02:50→21:15)
[2021-05-22 04:55] VITALS: BP 135/76
[2021-05-22 04:56] LABS: CLARITY,URINE CLEAR; COLOR,URINE YELLOW; GLUCOSE, URINE (UA) TRACE (NEGATIVE); KETONES,URINE 1+ (NEGATIVE); LEUKOCYTE ESTERASE ,URINE NEGATIVE (NEGATIVE); NITRITE,URINE NEGATIVE (NEGATIVE); PH,URINE 6.5 (5-9); PROTEIN,URINE TRACE (NEGATIVE)
[2021-05-22 05:04] LABS: BACTERIA,URINE TRACE /HPF; BILIRUBIN,URINE 1+ (NEGATIVE); RBC,URINE RARE /HPF
--- NOTE | 2021-05-22 06:07 | Diagnostic Imaging Report ---
HISTORY: Pneumonia COMPARISON: 05/21/2021 TECHNIQUE: Frontal view of the chest FINDINGS: Lung volumes are mildly large. No consolidation is seen. There is no pleural effusion or pneumothorax. The cardiac silhouette is normal in size. IMPRESSION: 1. No acute pulmonary abnormality seen. Dictated by: Dictated on workstation # [id number]
[2021-05-22 06:09] LABS: BASOPHILS % (AUTO) 0 % (0-10); EOSINOPHILS % (AUTO) 0 % (0-10); HEMATOCRIT 36 % (35-52); HEMOGLOBIN 12.5 g/dL (11.5-16.0); LYMPHOCYTES # (AUTO) 0.5 10^3/uL (1.0-4.0); LYMPHOCYTES % (AUTO) 4 % (12-44); MEAN CORPUSCULAR HEMOGLOBIN 29 pg (25-34); MEAN CORPUSCULAR HGB CONC 34 g/dL (32-36); MEAN CORPUSCULAR VOLUME 84 fL (80-99); MEAN PLATELET VOLUME 11.2 fL (9.0-12.2); MONOCYTES # (AUTO) 0.9 10^3/uL (0.0-1.0); MONOCYTES % (AUTO) 7 % (0-12); NEUTROPHILS # (AUTO) 11.8 10^3/uL (1.8-7.8); NEUTROPHILS % (AUTO) 89 % (42-75); PLATELET COUNT 169 10^3/uL (130-400); WHITE BLOOD COUNT 13.3 10^3/uL (4.3-11.0)
[2021-05-22 06:21] LABS: ALBUMIN 2.7 GM/DL (3.2-4.5); POTASSIUM 3.7 MMOL/L (3.6-5.0)
[2021-05-22 06:22] LABS: CALCIUM 8.1 MG/DL (8.5-10.1)
[2021-05-22 06:23] LABS: TOTAL PROTEIN 5.4 GM/DL (6.4-8.2)
[2021-05-22 06:25] LABS: BILIRUBIN,TOTAL 0.8 MG/DL (0.1-1.0)
[2021-05-22 06:27] LABS: CREATININE SERUM 0.5 MG/DL (0.60-1.30)
[2021-05-22] MEDS ORDERED: FLU QUAD HIGH DOSE 240 MCG/0.7 ML 2021-22 (FLUZONE) IM ONE (07:15)
[2021-05-22 07:40] VITALS: BP 124/55
[2021-05-22] MEDS: SENNA W/DOCUSATE (SENOKOT S) TABLET PO SCH ×2 (09:00→20:18)
[2021-05-22] MEDS: polyethylene glycoL POWDER 17 GM (MIRALAX) PACK PO SCH ×2 (09:00→20:18)
[2021-05-22] MEDS: methylPREDNISolone 40 MG/ML (Solu-MEDROL) VIAL IV SCH ×2 (10:22→20:47)
[2021-05-22] MEDS ORDERED: PANT40TA52 PO (10:32)
[2021-05-22] MEDS ORDERED: IPRA3AMP31 IH (10:32)
[2021-05-22] MEDS ORDERED: ONDA8TAB13 PO (10:32)
[2021-05-22] MEDS ORDERED: BISA-10 PO (10:32)
[2021-05-22] MEDS ORDERED: IBUP-2473 PO (10:32)
[2021-05-22] MEDS ORDERED: ACHD5005 PO (10:32)
[2021-05-22] MEDS: RT-ALBUTEROL SULF 2.5 MG/3 ML PRE-MIX VIAL INH SCH ×3 (11:43→21:08)
[2021-05-22 11:50] VITALS: BP 140/64
--- NOTE | 2021-05-22 11:52 | Oncology Consultation ---
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 Interval History Ms. Wiggins is a 75 years old white female admitted for pneumonia and respiratory failure. CT scan showed multiple lesions in the lung and liver. 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 Dr. Herbert called me for management. I discussed with patient and her daughter today about the diagnosis, prognosis and treatment options of the chemotherapy. Patient initial response was NO chemotherapy. But she wants to have more time to think about it. She wants to discuss with her family member and then decide if she wants to have chemotherapy and comfort care with hospice. I gave her my card for her to call if she has more questions and also to let me know her decision after discussion with her family. She is off the vent and O2, but she is still quite weak in general. I consulted the patient on: 05/22/21 11:44 Time Seen by Provider: 11:30 Review of Systems Constitutional: see HPI Health Status Allergies Coded Allergies: cefepime (Unverified Allergy, Severe, Shortness of Breath, 05/09/21) Patient received medication at [facility], 3 minutes after recieving patient had an impending doom feeling. Penicillins (Verified Allergy, Mild, HIVES, 11/05/19) Home Medications Bisacodyl (Laxative) 5 Mg Tablet.dr, 5 MG PO BID PRN for CONSTIPATION-4TH LINE, (Reported) Famotidine (Acid Contract Administration Specialist (FAMOTIDINE)) 20 Mg Tablet, 20 MG PO DAILY, (Reported) Ferrous Sulfate (Iron) 325 Mg Tablet, 325 MG PO BID, (Reported) Hydrocodone/Acetaminophen (Hydrocodone-Acetamin 5-325 mg) 1 Each Tablet, 1 EA PO Q4H PRN for PAIN-MODERATE (5-7), (Reported) Ibuprofen (Ibuprofen) 200 Mg Tablet, 400-600 MG PO Q8H PRN for PAIN-MILD (1-4), (Reported) Ipratropium/Albuterol Sulfate (Iprat-Albut 0.5-3(2.5) mg/3 ml) 3 Ml Ampul.neb, 3 ML IH Q6H PRN for SHORTNESS OF BREATH, (Reported) Ondansetron (Ondansetron Odt) 8 Mg Tab.rapdis, 8 MG PO Q6H PRN for NAUSEA/VOMITING-1ST LINE, (Reported) Pantoprazole Sodium (Pantoprazole Sodium) 40 Mg Tablet.dr, 40 MG PO DAILY, (Reported) QFH-Ogpcji-Cxxtwl Hx Patient Social History Smoking Status: Former Smoker Alcohol Use?: No Have you traveled recently?: No Physical Exam Vital Signs Vital Signs - First Documented 05/21/21 05/21/21 19:15 20:00 Temp 36.8 Pulse 93 Resp 18 B/P (MAP) 107/63 (78) Pulse Ox 92 O2 Delivery Room Air Capillary Refill : Height, Weight, BMI Height: '" Weight: lbs. oz. kg; 20.72 BMI Method: General Appearance: No Apparent Distress HEENT: PERRL/EOMI Respiratory: No Accessory Muscle Use, No Respiratory Distress Gastrointestinal: Non Tender, Soft Extremity: Non Tender, No Calf Tenderness, No Pedal Edema Neurologic/Psychiatric: Alert, Oriented x3 Data Review Labs Laboratory Tests 05/23/21 05:20 Laboratory Tests 05/21/21 19:50: White Blood Count 17.5H, Red Cell Distribution Width 15.7H, Neutrophils (%) (Auto) 87H, Lymphocytes (%) (Auto) 5L, Neutrophils # (Auto) 15.1H, Lymphocytes # (Auto) 0.8L, Monocytes # (Auto) 1.4H, Sodium Level 134L, Potassium Level 2.4*L, Chloride Level 91L, Creatinine 0.59L, Glucose Level 144H, Aspartate Amino Transf (AST/SGOT) 70H, Alanine Aminotransferase (ALT/SGPT) 56H, Alkaline Phosphatase 150H, Total Protein 5.8L, Albumin 2.9L, Procalcitonin 6.73H 05/21/21 20:48: 05/22/21 04:40: Urine Specific Goff 1.025H, Urine Protein TRACEH, Urine Glucose (UA) TRACEH, Urine Ketones 1+H, Urine Bilirubin 1+H, Urine Mucus SMALLH 05/22/21 05:51: White Blood Count 13.3H, Red Cell Distribution Width 15.9H, Neutrophils (%) (Auto) 89H, Lymphocytes (%) (Auto) 4L, Neutrophils # (Auto) 11.8H, Lymphocytes # (Auto) 0.5L, Sodium Level 132L, Chloride Level 95L, Creatinine 0.50L, Glucose Level 110H, Aspartate Amino Transf (AST/SGOT) 64H, Alkaline Phosphatase 144H, Total Protein 5.4L, Albumin 2.7L, Procalcitonin 6.27H, Calcium Level 8.1L 05/23/21 05:20: White Blood Count 11.3H, Red Cell Distribution Width 16.5H, Platelet Count 125L, Neutrophils (%) (Auto) 87H, Lymphocytes (%) (Auto) 5L, Neutrophils # (Auto) 9.8H , Lymphocytes # (Auto) 0.6L, Percent Immature Platelet Fraction 10.3H, Sodium Level 134L, Creatinine 0.49L, Glucose Level 109H, Calcium Level 8.2L, Aspartate Amino Transf (AST/SGOT) 68H, Alkaline Phosphatase 158H, Total Protein 5.4L, Albumin 2.6L Impression & Plan Impression & Plan A/P: 1. Small cell lung cancer extensive disease, multiple liver mets. Recent respiratory failure and off vent now. Pt have all the information of the diagnosis, treatment options and prognosis. She will discuss with her family and tell me her decision about the chemotherapy. I would hold off the port placement for now until we know she wants to have chemotherapy. 2. PT and daughter have my number to call. 3. I mentioned the hospice care if she decides not to take chemo. 4. Dr. Herbert to decide the discharge plan. Thank you for the consultation. BRITTANY JOE MD May 22, 2021 11:52
--- NOTE | 2021-05-22 12:00 | History & Physical-Hospitalist ---
SUEADIEL 05/22/21 1200: History of Present Illness HPI/Chief Complaint CC: Debility associated with lung CA HPI: Pt is 75yoWF who is known to this hospital. She presents with weakness and malaise which is likely associated with her small cell carcinoma of the lung and its systemic effects. She denies any nausea or vomiting, urinary and bowel functions are also intact at this time. She also denies any chest pain or difficulty breathing. CXR is currently clear of effusions or infiltrates, however her procalcitonin remains elevated suggesting a likely bacterial infection, although this may also be related to her cancer. She was started on empiric abx. She was also hypokalemic and has received potassium, which has improved her strength somewhat. Her mentation is slightly diminished, as in she does not fully understand the everything that is going on around her, nor the seriousness and frailty of her current condition. Her daughter is also in the room assisting with the hx. Dr. Longoria is expected to visit the pt today and discuss the nature and expected course of her SCC diagnosis. She will likely be a hospice candidate. Source: patient, family Exam Limitations: clinical condition Date Seen 05/22/21 Time Seen by a Provider: 08:21 Attending Physician Racquel Herbert DO PCP No,Local Physician Referring Physician Date of Admission May 21, 2021 at 18:45 Home Medications & Allergies Home Medications Reviewed patient Home Medication Reconciliation performed by pharmacy medication reconciliations non destructive testing technician and/or nursing. Patients Allergies have been reviewed. Allergies Allergies Coded Allergies cefepime (Unverified Allergy, Severe, Shortness of Breath, 05/09/21) Patient received medication at [facility], 3 minutes after recieving patient had an impending doom feeling. Penicillins (Verified Allergy, Mild, HIVES, 11/05/19) Past Cismvwe-Zmeioc-Mchdwt Hx Patient Social History Tobacco Use?: Yes Tobacco type used: Cigarettes Smoking Status: Former Smoker Smokeless Tobacco Frequency: Never a User Use of E-Cig and/or Vaping dev: No Substance use?: No Alcohol Use?: No Pt feels they are or have been: No Current Status status: No status: No Advance Directives: Unable to obtain Advance Directive Location: Family to bring in copy Communicates: Verbally Primary Language: Algerian Preferred Spoken Language: Algerian Is interpretation needed?: No Implanted or Applied Medical D: None Past Medical History COPD, Emphysema Lung (SCC) Family Medical History Heart Disease, COPD Review of Systems Constitutional: No chills, No dizziness, No fever; malaise, weakness EENTM: No hearing loss, No double vision, No vision loss, No hoarseness, No throat pain Respiratory: No cough; dyspnea on exertion; No hemoptysis, No orthopnea, No phlegm, No wheezing Cardiovascular: No chest pain, No edema, No palpitations Gastrointestinal: No diarrhea, No dysphagia, No melena, No nausea, No vomiting Genitourinary: No decreased output, No discharge, No dysuria, No hematuria Musculoskeletal: No back pain, No joint pain, No muscle pain, No neck pain Skin: No change in color, No change in hair/nails, No dryness, No pruritus, No rash Psychiatric/Neurological: Denies Headache, Denies Numbness, Denies Tremors, Denies Weakness Physical Exam Physical Exam Vital Signs Vital Signs - First Documented 05/21/21 05/21/21 19:15 20:00 Temp 36.8 Pulse 93 Resp 18 B/P (MAP) 107/63 (78) Pulse Ox 92 O2 Delivery Room Air Capillary Refill : Height, Weight, BMI Height: '" Weight: lbs. oz. kg; 20.72 BMI Method: General Appearance: No Apparent Distress, WD/WN, Chronically ill Eyes: Bilateral Eye PERRL, Bilateral Eye EOMI HEENT: PERRL/EOMI, Pharynx Normal Neck: Full Range of Motion, Non Tender, Supple Respiratory: Chest Non Tender, Lungs Clear, Normal Breath Sounds, No Accessory Muscle Use, No Respiratory Distress Cardiovascular: Regular Rate, Rhythm, No Edema, No Gallop, No Murmur, Normal Peripheral Pulses Gastrointestinal: Normal Bowel Sounds, No Organomegaly, No Pulsatile Mass, Non Tender, Soft Rectal: Deferred Back: No CVA Tenderness, No Vertebral Tenderness Extremity: Normal Capillary Refill, Normal Range of Motion, Non Tender, No Calf Tenderness, No Pedal Edema Neurologic/Psychiatric: Alert, No Motor/Sensory Deficits, Normal Mood/Affect, registered nurse practitioner II-XII Norm as Tested Skin: Normal Color, Warm/Dry Lymphatic: No Adenopathy (Cervical & axillary) Results Results/Procedures Labs Laboratory Tests 05/21/21 19:50 05/22/21 05:51 Patient resulted labs reviewed. Imaging: Reviewed Imaging Films, Reviewed Imaging Report Assessment/Plan Assessment and Plan Lung CA - SCC Debility Hypokalemia Plan: Potassium Supportive care PT & OT Consult oncology RACQUEL HERBERT DO 05/23/21 0600: History of Present Illness HPI/Chief Complaint CC: Debillity HPI: This is a 75yoWF clinic Pt of mine who I admitted as a direct admission from my office due to dehydration and diarrhea. 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 Longoria will be consulted to build plan. Overall she is very weak and we will continue IV antibiotics empirically for eleven Procalcitonin and elevated WBC but UA and CXR showed no acute abno rmality. Will monitor Pt closely in the meantime. Source: patient, family Exam Limitations: clinical condition Past Tajtzxx-Cgulqz-Giqilo Hx Patient Social History Marrital Status: single Employed/Student: retired Past Medical History Asthma, COPD, Emphysema High Cholesterol, Hypertension Lung (SCC) Did You Recieve Any Treatments: No Review of Systems Constitutional: see HPI EENTM: no symptoms reported Respiratory: dyspnea on exertion, short of breath Cardiovascular: no symptoms reported Gastrointestinal: no symptoms reported Genitourinary: no symptoms reported Musculoskeletal: no symptoms reported Skin: no symptoms reported Psychiatric/Neurological: Depressed All Other Systems Reviewed Negative Unless Noted: Yes Physical Exam Physical Exam General Appearance: No Apparent Distress, Chronically ill, Thin Eyes: Right Eye Normal Inspection, Right Eye PERRL HEENT: PERRL/EOMI, Normal ENT Inspection, Pharynx Normal, Moist Mucous Membranes Neck: Full Range of Motion, Normal Inspection, Non Tender Respiratory: Chest Non Tender, Lungs Clear, No Accessory Muscle Use, No Respiratory Distress, Decreased Breath Sounds Cardiovascular: Regular Rate, Rhythm, No Edema, No Gallop, No JVD, No Murmur, Normal Peripheral Pulses Gastrointestinal: Normal Bowel Sounds, No Organomegaly, No Pulsatile Mass, Non Tender, Soft Back: Normal Inspection, No CVA Tenderness, No Vertebral Tenderness Extremity: Normal Capillary Refill, Normal Inspection, Normal Range of Motion, Non Tender, No Calf Tenderness, No Pedal Edema Neurologic/Psychiatric: Alert, Oriented x3, Abnormal Gait (Unable to ambulate), Depressed Affect, Motor Weakness (Generalized) Skin: Normal Color, Warm/Dry Lymphatic: No Adenopathy Assessment/Plan Admission Diagnosis Assessment: Decline of status unable to ambulate Small cell lung cancer with widespread metastasis Severe hypokalemia Dehydration Recent severe constipation resolution with fecal incontinence Asthma Plan: Replace potassium Oncology consultation In my medical opinion patient needs hospice Admission Status: Inpatient Order (span 2 midnights) Reason for Inpatient Admission: Small cell lung cancer with dehydration and confusion Supervisory-Addendum Brief Verification & Attestation Participated in pt care: history, MDM, physical Personally performed: exam, history, MDM, supervision of care Care discussed with: Medical Student Procedures: n/a Results interpretation: Verified all documentation Verification and Attestation of Medical Student E/M Service A medical student performed and documented this service in my presence. I reviewed and verified all information documented by the medical student and made modifications to such information, when appropriate. I personally performed the physical exam and medical decision making. Racquel Herbert, May 23, 2021,06:00 ADIEL ROGERS May 22, 2021 12:00 RACQUEL HERBERT DO May 23, 2021 06:00
[2021-05-22 15:38] VITALS: BP 120/72
[2021-05-22] MEDS: ENOXAPARIN 40 MG/0.4 ML (LOVENOX) SYR SC SCH (18:43)
[2021-05-22 20:00] VITALS: BP 109/65
[2021-05-23] VITALS: BP 119/67
[2021-05-23 04:06] VITALS: BP 131/76
[2021-05-23 06:33] LABS: BASOPHILS % (AUTO) 0 % (0-10); EOSINOPHILS % (AUTO) 0 % (0-10); HEMOGLOBIN 11.8 g/dL (11.5-16.0)
[2021-05-23 06:34] LABS: HEMATOCRIT 37 % (35-52); LYMPHOCYTES # (AUTO) 0.6 10^3/uL (1.0-4.0); LYMPHOCYTES % (AUTO) 5 % (12-44); MEAN CORPUSCULAR HEMOGLOBIN 28 pg (25-34); MEAN CORPUSCULAR HGB CONC 32 g/dL (32-36); MEAN CORPUSCULAR VOLUME 87 fL (80-99); MEAN PLATELET VOLUME 12.1 fL (9.0-12.2); MONOCYTES # (AUTO) 0.8 10^3/uL (0.0-1.0); MONOCYTES % (AUTO) 7 % (0-12); NEUTROPHILS # (AUTO) 9.8 10^3/uL (1.8-7.8); NEUTROPHILS % (AUTO) 87 % (42-75); PLATELET COUNT 125 10^3/uL (130-400); WHITE BLOOD COUNT 11.3 10^3/uL (4.3-11.0)
[2021-05-23 06:39] LABS: ALBUMIN 2.6 GM/DL (3.2-4.5); POTASSIUM 3.6 MMOL/L (3.6-5.0)
[2021-05-23 06:41] LABS: CALCIUM 8.2 MG/DL (8.5-10.1)
[2021-05-23 06:42] LABS: TOTAL PROTEIN 5.4 GM/DL (6.4-8.2)
[2021-05-23 06:44] LABS: BILIRUBIN,TOTAL 0.7 MG/DL (0.1-1.0)
[2021-05-23 06:45] LABS: CREATININE SERUM 0.49 MG/DL (0.60-1.30)
[2021-05-23] MEDS: RT-ALBUTEROL SULF 2.5 MG/3 ML PRE-MIX VIAL INH SCH (07:50)
[2021-05-23 08:00] VITALS: BP 137/69
[2021-05-23] MEDS: methylPREDNISolone 40 MG/ML (Solu-MEDROL) VIAL IV SCH ×2 (08:25→21:05)
[2021-05-23] MEDS: polyethylene glycoL POWDER 17 GM (MIRALAX) PACK PO SCH ×2 (08:25→20:41)
[2021-05-23] MEDS: SENNA W/DOCUSATE (SENOKOT S) TABLET PO SCH ×2 (08:26→20:42)
[2021-05-23 12:00] VITALS: BP 130/69
--- NOTE | 2021-05-23 12:35 | Progress Note - Hospitalist ---
YIFAN HAAS 05/23/21 1235: Subjective HPI/CC On Admission Date Seen by Provider: May 23, 2021 Time Seen by Provider: 07:35 CC: Debillity HPI: This is a 75yoWF clinic Pt of mine who I admitted as a direct admission from my office due to dehydration and diarrhea. 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 Longoria will be consulted to build plan. Overall she is very weak and we will continue IV antibiotics empirically for eleven Procalcitonin and elevated WBC but UA and CXR showed no acute abnormality. Will monitor Pt closely in the meantime. Subjective/Events-last exam Patient is feeling better today, as far as her dehydration and diarrhea go. She had two episodes of soft, loose stool yesterday and one episode today, but she states this is an improvement. She is also having some N/V when she sits up too quickly and after she takes her albuterol inhaler. Patient is beginning to have more concerns and worries about her cancer diagnosis and her treatment options. She is having conflicting opinions given to her by her kids and it is causing her a lot of stress. She would like to speak to Dr. Longoria again, with her family present, to go over her different treatment options and side effects of said treatments. Dr. Longoria will be in to see them today at 4. Patient otherwise denies SOB, dysuria, fever. Focused Exam Lactate Level 05/21/21 20:48: Lactic Acid Level 1.84 Objective Exam Vital Signs Vital Signs Date Time Temp Pulse Resp B/P (MAP) Pulse Ox O2 Delivery O2 Flow Rate FiO2 05/23/21 08:00 36.2 60 16 137/69 (91) 90 Room Air 05/23/21 08:00 1.00 Capillary Refill : General Appearance: WD/WN, Anxious (concern over cancer diagnosis and tx options) HEENT: PERRL/EOMI, Moist Mucous Membranes Neck: Normal Inspection, Supple Respiratory: Chest Non Tender, No Accessory Muscle Use, No Respiratory Distress Cardiovascular: Regular Rate, Rhythm, No Edema, Normal Peripheral Pulses Gastrointestinal: Non Tender, Soft Rectal: Deferred Extremity: Non Tender, No Calf Tenderness, No Pedal Edema Neurologic/Psychiatric: Alert, Oriented x3, Normal Mood/Affect Results/Procedures Lab Laboratory Tests 05/23/21 05:20 Patient resulted labs reviewed. 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 Longoria will discuss treatment options with patient and family at 1600. RACQUEL CHICAS DO 05/24/21 0556: Subjective Subjective/Events-last exam Pt still nauseated Very weak Bed-bound mostly Will DC nebulizers since that makes her sick Checked meds and labs Dr. Longoria will meet with her and family at 4:00 to make some decisions Objective Exam General Appearance: Anxious (concern over cancer diagnosis and tx options), Chronically ill, Thin Respiratory: Lungs Clear, Normal Breath Sounds Cardiovascular: Regular Rate, Rhythm Assessment/Plan Assessment and Plan Assess & Plan/Chief Complaint Appreciate Oncology Supervisory-Addendum Brief Verification & Attestation Participated in pt care: history, MDM, physical Personally performed: exam, history, MDM, supervision of care Care discussed with: Medical Student Procedures: n/a Results interpretation: Verified all documentation Verification and Attestation of Medical Student E/M Service A medical student performed and documented this service in my presence. I reviewed and verified all information documented by the medical student and made modifications to such information, when appropriate. I personally performed the physical exam and medical decision making. Racquel Chicas, May 24, 2021,05:56 YIFAN HAAS May 23, 2021 12:35 RACQUEL CHICAS DO May 24, 2021 05:56
[2021-05-23] MEDS: NS IV 1000 ML 1,000 ML IV SCH ×2 (12:40→21:05)
[2021-05-23 16:00] VITALS: BP 112/68
--- NOTE | 2021-05-23 17:19 | Oncology Progress Note ---
Subjective Date Seen by a Provider: May 23, 2021 Time Seen by a Provider: 16:00 Subjective/Events-last exam No major changes since last visit. Pt wanted to have a family conference about her chemotherapy. She then decided to go for chemotherapy. Data Review Labs Laboratory Tests 05/24/21 05:21 Laboratory Tests 05/21/21 19:50: White Blood Count 17.5H, Red Cell Distribution Width 15.7H, Neutrophils (%) (Auto) 87H, Lymphocytes (%) (Auto) 5L, Neutrophils # (Auto) 15.1H, Lymphocytes # (Auto) 0.8L, Monocytes # (Auto) 1.4H, Sodium Level 134L, Potassium Level 2.4*L, Chloride Level 91L, Creatinine 0.59L, Glucose Level 144H, Aspartate Amino Transf (AST/SGOT) 70H, Alanine Aminotransferase (ALT/SGPT) 56H, Alkaline Phosphatase 150H, Total Protein 5.8L, Albumin 2.9L, Procalcitonin 6.73H 05/21/21 20:48: 05/22/21 04:40: Urine Specific [place] 1.025H, Urine Protein TRACEH, Urine Glucose (UA) TRACEH, Urine Ketones 1+H, Urine Bilirubin 1+H, Urine Mucus SMALLH 05/22/21 05:51: White Blood Count 13.3H, Red Cell Distribution Width 15.9H, Neutrophils (%) (Auto) 89H, Lymphocytes (%) (Auto) 4L, Neutrophils # (Auto) 11.8H, Lymphocytes # (Auto) 0.5L, Sodium Level 132L, Chloride Level 95L, Creatinine 0.50L, Glucose Level 110H, Aspartate Amino Transf (AST/SGOT) 64H, Alkaline Phosphatase 144H, Total Protein 5.4L, Albumin 2.7L, Procalcitonin 6.27H, Calcium Level 8.1L 05/23/21 05:20: White Blood Count 11.3H, Red Cell Distribution Width 16.5H, Platelet Count 125L, Neutrophils (%) (Auto) 87H, Lymphocytes (%) (Auto) 5L, Neutrophils # (Auto) 9.8H , Lymphocytes # (Auto) 0.6L, Percent Immature Platelet Fraction 10.3H, Sodium Level 134L, Creatinine 0.49L, Glucose Level 109H, Calcium Level 8.2L, Aspartate Amino Transf (AST/SGOT) 68H, Alkaline Phosphatase 158H, Total Protein 5.4L, Albumin 2.6L 05/24/21 05:21: Red Cell Distribution Width 16.6H, Neutrophils (%) (Auto) 87H, Lymphocytes (%) (Auto) 5L, Neutrophils # (Auto) 9.6H, Lymphocytes # (Auto) 0.6L, Creatinine 0.53L, Calcium Level 8.1L, Aspartate Amino Transf (AST/SGOT) 73H, Alkaline Phosphatase 163H, Total Protein 5.3L, Albumin 2.7L, Potassium Level 3.3L Physical Exam Vital Signs Vital Signs - First Documented 05/21/21 05/21/21 19:15 20:00 Temp 36.8 Pulse 93 Resp 18 B/P (MAP) 107/63 (78) Pulse Ox 92 O2 Delivery Room Air Capillary Refill : Height, Weight, BMI Height: '" Weight: lbs. oz. kg; 20.72 BMI Method: General Appearance: No Apparent Distress, Chronically ill Respiratory: No Accessory Muscle Use, No Respiratory Distress Cardiovascular: Regular Rate, Rhythm Gastrointestinal: Non Tender, Soft Neurologic/Psychiatric: Alert, Oriented x3 Focused Exam Lactate Level 05/21/21 20:48: Lactic Acid Level 1.84 Impression & Plan Impression & Plan A/P: 1. Small cell lung cancer extensive disease, multiple liver mets. Recent respiratory failure and off vent now. Pt had all the information of the diagnosis, treatment options and prognosis. We had long discussion again with her and her family members. Pt decided to go for chemotherapy which will be carbo+VP16 day 1-3 and repeat every 3-4 weeks. I would recommend a port placement for chemotherapy and swing bed evaluation to receive the first cycle of chemo since she is still very weak. 2. Patient can stop chemotherapy any time if she does not want to continue. 3. I will set up for chemo teaching tomorrow. BRITTANY JOE MD May 23, 2021 17:19
[2021-05-23] MEDS: ENOXAPARIN 40 MG/0.4 ML (LOVENOX) SYR SC SCH (19:07)
[2021-05-23 20:10] VITALS: BP 140/65
[2021-05-24] VITALS: BP 132/66
[2021-05-24 04:47] VITALS: BP 144/77
[2021-05-24 06:05] LABS: BASOPHILS % (AUTO) 0 % (0-10); EOSINOPHILS % (AUTO) 0 % (0-10); HEMATOCRIT 36 % (35-52); HEMOGLOBIN 11.9 g/dL (11.5-16.0); LYMPHOCYTES # (AUTO) 0.6 10^3/uL (1.0-4.0); LYMPHOCYTES % (AUTO) 5 % (12-44); MEAN CORPUSCULAR HEMOGLOBIN 28 pg (25-34); MEAN CORPUSCULAR HGB CONC 33 g/dL (32-36); MEAN CORPUSCULAR VOLUME 86 fL (80-99); MEAN PLATELET VOLUME 11.4 fL (9.0-12.2); MONOCYTES # (AUTO) 0.8 10^3/uL (0.0-1.0); MONOCYTES % (AUTO) 7 % (0-12); NEUTROPHILS # (AUTO) 9.6 10^3/uL (1.8-7.8); NEUTROPHILS % (AUTO) 87 % (42-75); PLATELET COUNT 185 10^3/uL (130-400)
[2021-05-24 06:21] LABS: ALBUMIN 2.7 GM/DL (3.2-4.5)
[2021-05-24 06:22] LABS: POTASSIUM 3.3 MMOL/L (3.6-5.0)
[2021-05-24 06:23] LABS: CALCIUM 8.1 MG/DL (8.5-10.1)
[2021-05-24 06:24] LABS: TOTAL PROTEIN 5.3 GM/DL (6.4-8.2)
[2021-05-24 06:26] LABS: BILIRUBIN,TOTAL 0.7 MG/DL (0.1-1.0)
[2021-05-24 06:28] LABS: CREATININE SERUM 0.53 MG/DL (0.60-1.30)
[2021-05-24 07:30] VITALS: BP 147/79
[2021-05-24] MEDS: polyethylene glycoL POWDER 17 GM (MIRALAX) PACK PO SCH ×2 (09:07→19:50)
[2021-05-24] MEDS: methylPREDNISolone 40 MG/ML (Solu-MEDROL) VIAL IV SCH ×2 (09:12→20:20)
[2021-05-24] MEDS: SENNA W/DOCUSATE (SENOKOT S) TABLET PO SCH ×2 (09:12→20:21)
--- NOTE | 2021-05-24 10:18 | Oncology Progress Note ---
Subjective Date Seen by a Provider: May 24, 2021 Time Seen by a Provider: 10:10 Subjective/Events-last exam I have set up patient for chemo infusion next Fri05/29/2021 at 1pm. Patient will have chemo teaching by cancer center before the infusion. Please get a port placement and swing bed transfer by next Friday. Data Review Labs Laboratory Tests 05/24/21 05:21 Laboratory Tests 05/21/21 19:50: White Blood Count 17.5H, Red Cell Distribution Width 15.7H, Neutrophils (%) (Auto) 87H, Lymphocytes (%) (Auto) 5L, Neutrophils # (Auto) 15.1H, Lymphocytes # (Auto) 0.8L, Monocytes # (Auto) 1.4H, Sodium Level 134L, Potassium Level 2.4*L, Chloride Level 91L, Creatinine 0.59L, Glucose Level 144H, Aspartate Amino Transf (AST/SGOT) 70H, Alanine Aminotransferase (ALT/SGPT) 56H, Alkaline Phosphatase 1 50H, Total Protein 5.8L, Albumin 2.9L, Procalcitonin 6.73H 05/21/21 20:48: 05/22/21 04:40: Urine Specific [place] 1.025H, Urine Protein TRACEH, Urine Glucose (UA) TRACEH, Urine Ketones 1+H, Urine Bilirubin 1+H, Urine Mucus SMALLH 05/22/21 05:51: White Blood Count 13.3H, Red Cell Distribution Width 15.9H, Neutrophils (%) (Auto) 89H, Lymphocytes (%) (Auto) 4L, Neutrophils # (Auto) 11.8H, Lymphocytes # (Auto) 0.5L, Sodium Level 132L, Chloride Level 95L, Creatinine 0.50L, Glucose Level 110H, Aspartate Amino Transf (AST/SGOT) 64H, Alkaline Phosphatase 144H, Total Protein 5.4L, Albumin 2.7L, Procalcitonin 6.27H, Calcium Level 8.1L 05/23/21 05:20: White Blood Count 11.3H, Red Cell Distribution Width 16.5H, Platelet Count 125L, Neutrophils (%) (Auto) 87H, Lymphocytes (%) (Auto) 5L, Neutrophils # (Auto) 9.8H , Lymphocytes # (Auto) 0.6L, Percent Immature Platelet Fraction 10.3H, Sodium Level 134L, Creatinine 0.49L, Glucose Level 109H, Calcium Level 8.2L, Aspartate Amino Transf (AST/SGOT) 68H, Alkaline Phosphatase 158H, Total Protein 5.4L, Albumin 2.6L 05/24/21 05:21: Red Cell Distribution Width 16.6H, Neutrophils (%) (Auto) 87H, Lymphocytes (%) (Auto) 5L, Neutrophils # (Auto) 9.6H, Lymphocytes # (Auto) 0.6L, Creatinine 0.53L, Calcium Level 8.1L, Aspartate Amino Transf (AST/SGOT) 73H, Alkaline Phosphatase 163H, Total Protein 5.3L, Albumin 2.7L, Potassium Level 3.3L Physical Exam Vital Signs Vital Signs - First Documented 05/21/21 05/21/21 19:15 20:00 Temp 36.8 Pulse 93 Resp 18 B/P (MAP) 107/63 (78) Pulse Ox 92 O2 Delivery Room Air Capillary Refill : Height, Weight, BMI Height: '" Weight: lbs. oz. kg; 20.72 BMI Method: General Appearance: No Apparent Distress Respiratory: No Accessory Muscle Use, No Respiratory Distress Focused Exam Lactate Level 05/21/21 20:48: Lactic Acid Level 1.84 Impression & Plan Impression & Plan A/P: 1. Small cell lung cancer extensive disease, multiple liver mets. Recent respiratory failure and off vent now. Pt had all the information of the diagnosis, treatment options and prognosis. We had long discussion again with her and her family members. Pt decided to go for chemotherapy which will be carbo+VP16 day 1-3 and repeat every 3-4 weeks. Pt needs port placement for chemotherapy and swing bed evaluation to receive the first cycle of chemo since she is still very weak. 2. Patient can stop chemotherapy any time if she does not want to continue. 3. I will set up for chemo teaching before the chemo infusion. 4. She will need MRI of the head at some point but this can be done as out-pt. BRITTANY JOE MD May 24, 2021 10:18
[2021-05-24 12:05] VITALS: BP 150/74
--- NOTE | 2021-05-24 13:56 | Progress Note - Hospitalist ---
YIFAN HAAS 05/24/21 1356: Subjective HPI/CC On Admission Date Seen by Provider: May 24, 2021 Time Seen by Provider: 08:30 CC: Debillity HPI: This is a 75yoWF clinic Pt of mine who I admitted as a direct admission from my office due to dehydration and diarrhea. 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 Longoria will be consulted to build plan. Overall she is very weak and we will continue IV antibiotics empirically for eleven Procalcitonin and elevated WBC but UA and CXR showed no acute abnormality. Will monitor Pt closely in the meantime. Subjective/Events-last exam Patient states she is feeling a little bit better today, but still has overall weakness. Patient did have a freeman with some emesis in it at bedside. Does still have some N/V, but states her diarrhea is better. Patient decided to move forward with chemotherapy after meeting with Dr. Longoria and family. Dr. Mendes will be inserting a port. Dr. Longoria has scheduled patient to start chemotherapy next 06/18/2021. Patient will have a chemotherapy teaching session tomorrow. Dr. Longoria recommends a swing bed evaluation for patient during first cycle of chemo due to patient's weakness. Focused Exam Lactate Level 05/21/21 20:48: Lactic Acid Level 1.84 Objective Exam Vital Signs Vital Signs Date Time Temp Pulse Resp B/P (MAP) Pulse Ox O2 Delivery O2 Flow Rate FiO2 05/24/21 12:05 36.5 67 22 150/74 (99) 94 Room Air 05/23/21 20:34 1.00 Capillary Refill : General Appearance: No Apparent Distress, WD/WN HEENT: PERRL/EOMI, Moist Mucous Membranes Respiratory: Chest Non Tender, Lungs Clear, Normal Breath Sounds, No Accessory Muscle Use, No Respiratory Distress Cardiovascular: Regular Rate, Rhythm, No Murmur, Normal Peripheral Pulses Gastrointestinal: Non Tender, Soft Rectal: Deferred Extremity: No Calf Tenderness, No Pedal Edema Neurologic/Psychiatric: Alert, Oriented x3, Normal Mood/Affect Skin: Normal Color, Warm/Dry Results/Procedures Lab Laboratory Tests 05/24/21 05:21 Patient resulted labs reviewed. 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 Longoria will discuss treatment options with patient and family at 1600. RACQUEL CHICAS DO 05/25/21 0517: Subjective Subjective/Events-last exam Pt doing well Needs a Groshong port Dr. Mendes will place Chemotherapy will be started on Friday Very weak Emesis is frequent Review of Systems General: Fatigue, Malaise Objective Exam General Appearance: No Apparent Distress, WD/WN, Chronically ill, Thin Respiratory: Lungs Clear, Normal Breath Sounds Cardiovascular: Regular Rate, Rhythm Neurologic/Psychiatric: Alert, Oriented x3 Assessment/Plan Assessment and Plan Assess & Plan/Chief Complaint Port placement Supervisory-Addendum Brief Verification & Attestation Participated in pt care: history, MDM, physical Personally performed: exam, history, MDM, supervision of care Care discussed with: Medical Student Procedures: n/a Results interpretation: Verified all documentation Verification and Attestation of Medical Student E/M Service A medical student performed and documented this service in my presence. I reviewed and verified all information documented by the medical student and made modifications to such information, when appropriate. I personally performed the physical exam and medical decision making. Racquel Chicas May 25, 2021,05:16 YIFAN HAAS May 24, 2021 13:56 RACQUEL CHICAS DO May 25, 2021 05:17
[2021-05-24 15:50] VITALS: BP 163/85
--- NOTE | 2021-05-24 16:01 | Progress Note-Pre Operative ---
Pre-Operative Progress Note H&P Reviewed The H&P was reviewed, patient examined and no changes noted. Date Seen by Provider: May 24, 2021 Time Seen by Provider: 16:00 Date H&P Reviewed: May 24, 2021 Time H&P Reviewed: 16:00 Pre-Operative Diagnosis: metastatic small cell lung ca NOHEMI BROOKS MD May 24, 2021 16:01
[2021-05-24] MEDS: ENOXAPARIN 40 MG/0.4 ML (LOVENOX) SYR SC SCH (18:45)
[2021-05-24] MEDS: NS IV 1000 ML 1,000 ML IV SCH (18:45)
--- NOTE | 2021-05-24 19:19 | CONSULTATION REPORT ---
DATE OF SERVICE: ATTENDING PRIMARY CARE PHYSICIAN: Racquel Herbert DO HISTORY OF PRESENT ILLNESS: The patient is a 75-year-old female who was recently diagnosed with metastatic small cell carcinoma of the lung. She reports she was recently in the hospital at [facility] for what sounds to be pneumonia, which had progressed to respiratory failure. She reports that during that time, she did undergo a CT scan and reports that there were multiple lesions of the lung and liver noted. She then underwent a CT-guided liver biopsy and the pathology was consistent with small cell carcinoma of lung origin. She was then seen by oncology and it was decided that she would want to proceed with chemotherapy and will need a port and thus, we were consulted. PAST MEDICAL HISTORY: COPD, emphysema, small cell lung cancer, gastroesophageal reflux disease. PAST SURGICAL HISTORY: Complete hysterectomy, bilateral carpal tunnel release. ALLERGIES: PENICILLIN, CEFEPIME. MEDICATIONS: Bisacodyl 5 mg b.i.d. p.r.n., famotidine 20 mg daily, ferrous sulfate 325 mg b.i.d., hydrocodone 5/325 mg 1 q.4 hours p.r.n., ibuprofen 200 mg 2 to 3 tablets by mouth q.8 hours p.r.n., ipratropium-albuterol nebulizer solution 3 mL q.6 hours p.r.n., Zofran 8 mg q.6 hours p.r.n., Protonix 40 mg daily. VITAL SIGNS: Blood pressure is 150/74, respirations 22, pulse 67, pulse ox 94% on room air, temperature 36.5 degrees Celsius. REVIEW OF SYSTEMS: This is a well-nourished female, in no acute distress. She is not experiencing any shortness of breath or difficulty breathing. No chest pain, palpitations or diaphoresis. No nausea, vomiting or abdominal pain. No diarrhea, but does report history of constipation. No red blood per rectum. No dark tarry stools. No fever or chills. No recent inadvertent weight loss. All other review of systems negative. PHYSICAL EXAMINATION: CHEST: Clear. Good breath sounds bilaterally. HEART: Regular, no murmurs. EXTREMITIES: No lower extremity edema. Negative Homans sign. HEENT: No scleral icterus. NECK: No cervical lymphadenopathy. ABDOMEN: Soft, nontender, nondistended. SKIN: Warm, dry and pink. NEUROLOGIC: She is awake, alert and oriented x3. SOCIAL HISTORY: Previous for tobacco smoke 1 pack per day for 60 years. Negative for alcohol. FAMILY HISTORY: Noncontributory. ASSESSMENT AND PLAN: A 75-year-old female with metastatic small cell lung carcinoma. At this time, she has elected to undergo chemotherapy and thus, will need a Groshong implantable port, which we will proceed with scheduling in the operating room. Risks and benefits of the procedure as well as the procedure and home care instructions were explained to the patient. She verbalized understanding of instructions and agrees to proceed as planned. At this time, we will proceed with scheduling her for placement of a Groshong implantable port. Job ID: [id number] DocumentID: [id number] Dictated Date: 05/24/2021 15:34:07 Berry Picker Date: 05/24/2021 17:25:32 Dictated By: GREGG CHOI APRN
[2021-05-24 19:35] VITALS: BP 128/61
[2021-05-25] VITALS (8 sets, daily range): BP systolic 74–148; BP diastolic 55–74
[2021-05-25] MEDS: ONDANSETRON 4 MG/2 ML (SDV) Z0FRAN IVP PRN (05:10)
[2021-05-25 06:39] LABS: BASOPHILS % (AUTO) 0 % (0-10); EOSINOPHILS % (AUTO) 0 % (0-10); HEMATOCRIT 39 % (35-52); HEMOGLOBIN 12.9 g/dL (11.5-16.0); LYMPHOCYTES % (AUTO) 8 % (12-44); MEAN CORPUSCULAR HEMOGLOBIN 28 pg (25-34); MEAN CORPUSCULAR HGB CONC 33 g/dL (32-36); MEAN CORPUSCULAR VOLUME 85 fL (80-99); MEAN PLATELET VOLUME 11.3 fL (9.0-12.2); MONOCYTES % (AUTO) 8 % (0-12); NEUTROPHILS % (AUTO) 84 % (42-75); PLATELET COUNT 197 10^3/uL (130-400)
[2021-05-25 06:53] LABS: ALBUMIN 2.7 GM/DL (3.2-4.5); POTASSIUM 2.8 MMOL/L (3.6-5.0)
[2021-05-25 06:55] LABS: TOTAL PROTEIN 5.4 GM/DL (6.4-8.2)
[2021-05-25 06:57] LABS: BILIRUBIN,TOTAL 0.7 MG/DL (0.1-1.0)
[2021-05-25 06:59] LABS: CREATININE SERUM 0.49 MG/DL (0.60-1.30)
[2021-05-25] MEDS: methylPREDNISolone 40 MG/ML (Solu-MEDROL) VIAL IV SCH ×2 (08:27→19:53)
[2021-05-25] MEDS: SENNA W/DOCUSATE (SENOKOT S) TABLET PO SCH ×2 (08:29→19:54)
[2021-05-25] MEDS: polyethylene glycoL POWDER 17 GM (MIRALAX) PACK PO SCH ×2 (08:29→19:54)
[2021-05-25] MEDS: NS IV 1000 ML 1,000 ML IV SCH (08:30)
[2021-05-25] MEDS ORDERED: LIDOCAINE/EPI 1%-1:100,000 (XYLOCAINE) 20ML ONE (08:38)
[2021-05-25] MEDS ORDERED: HEParin (CENTRAL IV FLUSH) 500 UNIT/5 ML SYR ONE (08:38)
[2021-05-25] MEDS ORDERED: 0.9% SODIUM CHLORIDE PF INJ 20 ML VIAL ONE (08:43)
[2021-05-25] MEDS ORDERED: CLINDAMYCIN 600 MG/50 ML IVPB 50 ML IV ONE (10:15)
[2021-05-25] MEDS ORDERED: CLINDAMYCIN 600 MG/4ML (CLEOCIN) VIAL ONE (10:16)
[2021-05-25] MEDS ORDERED: NS (IVPB) 50 ML ONE (10:18)
[2021-05-25] MEDS ORDERED: LACTATED RINGERS 1,000 ML IV PRN (10:30)
--- NOTE | 2021-05-25 10:48 | Progress Note-Post Operative ---
Post-Operative Progess Note Surgeon (s)/Electric Blanket Wirer (s) Surgeon NOHEMI BROOKS MD Electric Blanket Wirer: none Pre-Operative Diagnosis metastatic small cell lung ca Post-Operative Diagnosis same Procedure & Operative Findings Date of Procedure 05/25/21 Procedure Performed/Findings left subclavian groshong catheter under flouroscopy. Anesthesia Type mac with local Estimated Blood Loss Estimated blood loss (mL): minimal Specimens/Packing Specimens Removed none NOHEMI BROOKS MD May 25, 2021 10:48
--- NOTE | 2021-05-25 10:59 | Anesthesia-General Post-Op ---
MAC Patient Condition Mental Status/LOC: Same as Preop Cardiovascular: Satisfactory Nausea/Vomiting: Absent Respiratory: Satisfactory Pain: Controlled Complications: Absent Post Op Complications Complications None Follow Up Care/Instructions Patient Instructions None needed. Anesthesiology Discharge Order Discharge Order Patient is doing well, no complaints, stable vital signs, no apparent adverse anesthesia problems. No complications reported per nursing. BIA LARIOS CRNA May 25, 2021 10:59
[2021-05-25] MEDS ORDERED: PROMETHAZINE INJ 25 MG/ML (PHENERGAN) AMP IVP ONE (11:00)
[2021-05-25] MEDS ORDERED: MEPERIDINE (DEMEROL) INJ 50 MG/ML IVP ONE (11:00)
[2021-05-25] MEDS ORDERED: ONDANSETRON 4 MG/2 ML (SDV) Z0FRAN IVP PRN (11:00)
[2021-05-25] MEDS ORDERED: fentaNYL INJ 100 MCG/2 ML AMP IVP ONE (11:00)
[2021-05-25] MEDS ORDERED: morphine INJ 10 MG/ML 1ML (SYR OR VIAL) IVP ONE (11:00)
--- NOTE | 2021-05-25 11:16 | Progress Note - Hospitalist ---
Subjective HPI/CC On Admission Date Seen by Provider: May 25, 2021 Time Seen by Provider: 11:00 CC: Debillity HPI: This is a 75yoWF clinic Pt of mine who I admitted as a direct admission from my office due to dehydration and diarrhea. 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 Longoria will be consulted to build plan. Overall she is very weak and we will continue IV antibiotics empirically for eleven Procalcitonin and elevated WBC but UA and CXR showed no acute abnormality. Will monitor Pt closely in the meantime. Subjective/Events-last exam Pt heading down for port placement Claritin and Singulair will be given for congestion PT and OT ordered after she returns Review of Systems General: Fatigue, Malaise Pulmonary: Cough Objective Exam Vital Signs Vital Signs Date Time Temp Pulse Resp B/P (MAP) Pulse Ox O2 Delivery O2 Flow Rate FiO2 05/26/21 04:00 36.5 68 18 138/67 (90) 90 Room Air 05/25/21 11:00 10 Capillary Refill : General Appearance: No Apparent Distress, WD/WN, Chronically ill, Thin Respiratory: No Accessory Muscle Use, No Respiratory Distress, Decreased Breath Sounds Cardiovascular: Regular Rate, Rhythm Neurologic/Psychiatric: Alert, Oriented x3 Results/Procedures Lab Laboratory Tests 05/25/21 06:13 Patient resulted labs reviewed. Imaging: Reviewed Imaging Films, Reviewed Imaging Report Assessment/Plan Assessment and Plan Assess & Plan/Chief Complaint Assessment: Dehydration Bacterial bronchitis Asthma Small cell carcinoma of the lung with widespread metastasis starting chemotherapy on Friday Groshong port placement today Plan: IV fluids Groshong port Chemotherapy on Friday KATHERINE CHICAS DO May 25, 2021 11:16
--- NOTE | 2021-05-25 11:16 | Diagnostic Imaging Report ---
EXAMINATION: Chest 1 view HISTORY: Catheter placement. COMPARISON: 05/22/2021. FINDINGS: A left-sided port is visualized with the tip overlying the cavoatrial juncture. The lung volumes are normal. No focal consolidation is seen. No large pleural effusion or pneumothorax is seen. The cardiomediastinal silhouette is normal in size and contour. There is calcified aortic atherosclerotic plaque. No acute osseous abnormality is seen. IMPRESSION: 1. Interval placement of a left port with the tip overlying the cavoatrial juncture. Dictated by: Dictated on workstation # [id number]
[2021-05-25] MEDS ORDERED: LORATADINE (CLARITIN) 10 MG TAB PO ONE (11:30)
--- NOTE | 2021-05-25 11:31 | Diagnostic Imaging Report ---
INDICATION: Fluoroscopy for port placement. Fluoroscopy was provided in the OR during port placement. 4 seconds of fluoroscopic time was utilized. A signal image was obtained demonstrating left-sided port with tip overlying SVC. IMPRESSION: Fluoroscopy for port placement. Dictated by: Dictated on workstation # [id number]
--- NOTE | 2021-05-25 13:45 | Physical Therapy Progress Note ---
Therapy Progress Note Patient declined PT this p.m. stating she was too tired. PT will attempt in a.m. 1 ref LLOYD FLOYD PT May 25, 2021 13:45
--- NOTE | 2021-05-25 14:18 | Occupational Therapy Eval ---
OT Evaluation-General/PLF Medical Diagnosis Admission Date May 21, 2021 at 18:45 Medical Diagnosis: Lung cancer Onset Date: May 21, 2021 Therapy Diagnosis Therapy Diagnosis: decreased ADL status, weakness Precautions Precautions/Isolations: Standard Precautions Referral Physician: Piedad Moon Reason: Evaluation/Treatment Medical History Pertinent Medical History: COPD, GERD Additional Medical History empysema, small cell lung cancer, Bilateral carpal tunnel. Social History Current Living Status: Other Family ADL-Prior Level of Function SCALE: Activities may be completed with or without assistive devices. 3-Glbrwrouga-leebfcu completes the activity by him/herself with no assistance from a helper. 5-Set-up or Clean-up Assistance-helper sets up or cleans up; patient completes activity. [place] assists only prior to or following the activity. 4-Supervision or Touching Assistance-helper provides verbal cues and/or touching/steadying and/or contact guard assistance as patient completes activity. Assistance may be provided throughout the activity or intermittently. 3-Partial/Moderate Assistance-helper does LESS THAN HALF the effort. [place] lifts, holds or supports trunk or limbs, but provides less than half the effort. 2-Substantial/Maximal Assistance-helper does MORE THAN HALF the effort. [place] lifts or holds trunk or limbs and provides more than half the effort. 5-Ojapvjbcv-faduel does ALL the effort. Patient does none of the effort to complete the activity. Or, the assistance of 2 or more helpers is required for the patient to complete the activity. If activity was not attempted, code reason: 7-Patient Refused. 9-Not Applicable-not attempted and the patient did not perform the activity before the current illness, exacerbation or injury. 10-Not Attempted due to Environmental Limitations-(lack of equipment, weather restraints, etc.). 88-Not Attempted due to Medical Conditions or Safety Concerns. ADL PLOF Comments Pt reports requiring assistance with all ADLs for the past few months as she became sicker/weaker. Prior to initial hospitalizations/sickness, she was independent with all ADLs and functional mobility (~4 months ago). Pt is currently living with her granddaughter, has good family support that assist with bathing/dressing/toileting. The house she is currently in has a tub/shower with sliding glass doors, she has been completing sponge baths as she hasn't been able to get into the tub. Pt's daughter's house has a walk in shower that pt could use once pt is strong enough to get out of the house and into her daughters house. Self Care: Needed Some Help Functional Cognition: Independent DME/Equipment: Tub/Shower DME/Equipment Comments 4[facility] OT Current Status Subjective Pt laying in bed, daughter present. Pt agreeable to OT evaluation, but declines OOB activities on this date. Pt just had a port placed today. Mental Status/Objective Patient Orientation: Person, Place, Situation Current Upper Extremity ROM Unable to formally test due to recent port placement, WFL at el bows/wrists/hands. Upper Extremity Strength not formally tested due to port placement today. Based on clinical judgment, 2/5 BUEs. ADL-Treatment Eating (QC): 3 (Per daughter/pt report, assist with meals today due to port placement and pain. ) Shower/Bathe Self (QC): 88 Upper Body Dressing (QC): 88 Lower Body Dressing (QC): 88 On/Off Footwear (QC): 88 Other Treatments Pt in bed, agreeable to OT evaluation. Pt declined OOB activities on this date as she is tired and just had a port placed today. Pt and daughter provided information about PLOF and home set up, and participated in UE Screen. Pt compl eted x3 reps each of the following BUE exercises: shoulder flexion/extension, wrist flexion/extension and finger flexion/extension. Pt instructed to increase reps as tolerated and incorporate shoulder exercises as pain allows. Pt verbalized understanding. OT edcuated pt on OT POC while she is in the hospital with focus on increasing BUE strength and activity tolerance, and increasing safety and independence with ADLs and functional mobility. Post tx, pt laying in bed, call light in reach and all needs met. Education OT Patient Education: Correct positioning, Modified ADL techniques, Progress toward Goal/Update tx plan, Purpose of tx/functional activities, Rehab process Teaching Recipient: Patient, Family Teaching Methods: Discussion Response to Teaching: Verbalize Understanding OT Longterm Goals Longterm Goals Time Frame: Jun 15, 2021 Eating (QC): 5 Oral Hygiene (QC): 5 Toileting Hygiene (QC): 4 Shower/Bathe Self (QC): 3 Upper Body Dressing (QC): 5 Lower Body Dressing (QC): 3 On/Off Footwear (QC): 3 Additional Goals: 1-Demonstrate ADL Tasks, 2-Verbalize Understanding, 3- ImproveStrength/Velasquez 1=Demonstrate adherence to instructed precautions during ADL tasks. 2=Patient will verbalize/demonstrate understanding of assistive devices/modifications for ADL. 3=Patient will improve strength/tolerance for activity to enable patient to perform ADL's. OT Education/Plan Problem List/Assessment Assessment: Decreased Activ Tolerance, Decreased UE Strength, Impaired Funct Balance, Impaired I ADL's, Impaired Self-Care Skills, Restricted Funct UE ROM Discharge Recommendations Plan/Recommendations: Continue POC Treatment Plan/Plan of Care Patient would benefit from OT for education, treatment and training to promote independence in ADL's, mobility, safety and/or upper extremity function for ADL's. Plan of Care: ADL Retraining, Functional Mobility, UE Funct Exercise/Act Treatment Duration: Jun 15, 2021 Frequency: 3 times per week (3-5 times per week) Estimated Hrs Per Day: .25 hour per day Rehab Potential: Guarded Time/GCodes Start Time: 13:49 Stop Time: 14:00 Total Time Billed (hr/min): 11 Billed Treatment Time 1, MAYRA PERDOMO OT May 25, 2021 14:18
[2021-05-25] MEDS: ENOXAPARIN 40 MG/0.4 ML (LOVENOX) SYR SC SCH (18:33)
[2021-05-25] MEDS: MONTELUKAST 10 MG (SINGULAIR) TAB PO SCH (19:53)
[2021-05-26] VITALS (7 sets, daily range): BP systolic 135–162; BP diastolic 67–82
[2021-05-26 06:37] LABS: BASOPHILS % (AUTO) 0 % (0-10); EOSINOPHILS % (AUTO) 0 % (0-10); HEMATOCRIT 39 % (35-52); HEMOGLOBIN 12.6 g/dL (11.5-16.0); LYMPHOCYTES # (AUTO) 1.2 10^3/uL (1.0-4.0); LYMPHOCYTES % (AUTO) 9 % (12-44); MEAN CORPUSCULAR HEMOGLOBIN 28 pg (25-34); MEAN CORPUSCULAR HGB CONC 33 g/dL (32-36); MEAN CORPUSCULAR VOLUME 87 fL (80-99); MEAN PLATELET VOLUME 10.6 fL (9.0-12.2); MONOCYTES % (AUTO) 8 % (0-12); NEUTROPHILS # (AUTO) 10.8 10^3/uL (1.8-7.8); NEUTROPHILS % (AUTO) 83 % (42-75); PLATELET COUNT 172 10^3/uL (130-400); WHITE BLOOD COUNT 13.1 10^3/uL (4.3-11.0)
[2021-05-26 06:50] LABS: ALBUMIN 2.5 GM/DL (3.2-4.5)
[2021-05-26 06:51] LABS: POTASSIUM 3.1 MMOL/L (3.6-5.0)
[2021-05-26 06:53] LABS: TOTAL PROTEIN 5.1 GM/DL (6.4-8.2)
[2021-05-26 06:55] LABS: BILIRUBIN,TOTAL 0.7 MG/DL (0.1-1.0)
[2021-05-26 06:57] LABS: CREATININE SERUM 0.5 MG/DL (0.60-1.30)
[2021-05-26] MEDS: methylPREDNISolone 40 MG/ML (Solu-MEDROL) VIAL IV SCH ×2 (08:36→19:30)
[2021-05-26] MEDS: LORATADINE (CLARITIN) 10 MG TAB PO SCH (08:37)
[2021-05-26] MEDS: NS IV 1000 ML 1,000 ML IV SCH ×3 (08:56→23:09)
--- NOTE | 2021-05-26 09:10 | Progress Note - Hospitalist ---
Subjective HPI/CC On Admission Date Seen by Provider: May 26, 2021 Time Seen by Provider: 11:00 CC: Debillity HPI: This is a 75yoWF clinic Pt of [employer] who I admitted as a direct admission from my office due to dehydration and diarrhea. 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 Longoria will be consulted to build plan. Overall she is very weak and we will continue IV antibiotics empirically for eleven Procalcitonin and elevated WBC but UA and CXR showed no acute abnormality. Will monitor Pt closely in the meantime. Subjective/Events-last exam Patient doing well Son at bedside Potassium 3.1 giving supplement PT and OT working with her No emesis today Port was placed yesterday and doing well Review of Systems General: Fatigue, Malaise Objective Exam Vital Signs Vital Signs Date Time Temp Pulse Resp B/P (MAP) Pulse Ox O2 Delivery O2 Flow Rate FiO2 05/26/21 23:00 36.6 70 20 162/71 (101) 91 Room Air 05/25/21 11:00 10 Capillary Refill : General Appearance: No Apparent Distress, WD/WN, Chronically ill Respiratory: Lungs Clear, Normal Breath Sounds Cardiovascular: Regular Rate, Rhythm Neurologic/Psychiatric: Alert, Oriented x3 Results/Procedures Lab Laboratory Tests 05/27/21 05:45 Patient resulted labs reviewed. Imaging: Reviewed Imaging Films, Reviewed Imaging Report Assessment/Plan Assessment and Plan Assess & Plan/Chief Complaint Assessment: Dehydration Bacterial bronchitis Asthma Small cell carcinoma of the lung with widespread metastasis starting chemotherapy on Friday Groshong port placement today Plan: IV fluids Groshong port Chemotherapy on Friday05/26/2021: Supportive care Supplement potassium PT and OT KATHERINE CHICAS DO May 26, 2021 09:10
[2021-05-26] MEDS: POTASSIUM CL 10MEQ/50ML IVPB 50 ML IV SCH ×4 (09:41→11:53)
[2021-05-26] MEDS: polyethylene glycoL POWDER 17 GM (MIRALAX) PACK PO SCH ×2 (09:58→19:30)
[2021-05-26] MEDS: SENNA W/DOCUSATE (SENOKOT S) TABLET PO SCH ×2 (09:59→19:30)
--- NOTE | 2021-05-26 10:18 | Physical Therapy Evaluation ---
PT Evaluation-General Medical Diagnosis Admission Date May 21, 2021 at 18:45 Medical Diagnosis: Lung cancer Onset Date: May 21, 2021 Therapy Diagnosis Therapy Diagnosis: generalized weakness/debility Precautions Precautions/Isolations: Fall Prevention, Standard Precautions Referral Physician: Piedad Reason for Referral: Evaluation/Treatment Medical History Pertinent Medical History: COPD, GERD, Smoking Additional Medical History Metastatic lung cancer Current History Admit secondary to weakness/malaise Reviewed History: Yes Social History Current Living Status: Other Family Prior Prior Level of Function SCALE: Activities may be completed with or without assistive devices. 3-Fbshocckds-vyszdln completes the activity by him/herself with no assistance from a helper. 5-Set-up or Clean-up Assistance-helper sets up or cleans up; patient completes activity. [place] assists only prior to or following the activity. 4-Supervision or Touching Assistance-helper provides verbal cues and/or touching/steadying and/or contact guard assistance as patient completes activity. Assistance may be provided throughout the activity or intermittently. 3-Partial/Moderate Assistance-helper does LESS THAN HALF the effort. [place] lifts, holds or supports trunk or limbs, but provides less than half the effort. 2-Substantial/Maximal Assistance-helper does MORE THAN HALF the effort. [place] lifts or holds trunk or limbs and provides more than half the effort. 6-Vcelupluy-mhrghn does ALL the effort. Patient does none of the effort to complete the activity. Or, the assistance of 2 or more helpers is required for the patient to complete the activity. If activity was not attempted, code reason: 7-Patient Refused. 9-Not Applicable-not attempted and the patient did not perform the activity before the current illness, exacerbation or injury. 10-Not Attempted due to Environmental Limitations-(lack of equipment, weather restraints, etc.). 88-Not Attempted due to Medical Conditions or Safety Concerns. Unable to attain due to patient's confusion PT Evaluation-Current Subjective Patient is in bed and reluctantly agrees to PT. Objective Patient Orientation: Confused ROM/Strength ROM Lower Extremities bilateral LE WFL Strength Lower Extremities 2+/5 grossly bilateral LE (unable to formally test due to patient's inability to follow simple direction) Integumentary/Posture Bladder Incontinence: Yes Posture WFL Neuromuscular (Tone, Coordination, Reflexes) severely diminished coordination with lean to left and unable to self correct Sensory Vision: Functional Hearing: Functional Transfers Roll Left to Right (QC): 1 Lying to Sitting/Side of Bed(Q: 1 Sit to Stand (QC): 1 Chair/Ssj-ls-Mdslw Xfer(QC): 1 Patient severely resistive and unable to follow direction to perform task requiring PT to perform dependently Gait Does the Patient Walk?: No and Walking Goal IS indicated Balance Sitting Static: Poor Sitting Dynamic: Poor Standing Static: Poor Standing Dynamic: Poor Assessment/Needs 75 y.o. female, will benefit from skilled PT to address functional strength and mobility to improve current LOF. Noted severe lean to left with inability to self correct. Confusion noted as well. Rehab Potential: Guarded PT Boat Outboard Engine Mechanic Goals Boat Outboard Engine Mechanic Goals PT Boat Outboard Engine Mechanic Goals Time Frame: Jun 16, 2021 Roll Left & Right (QC): 3 Sit to Lying (QC): 3 Lying-Sitting on Side/Bed(QC): 3 Sit to Stand (QC): 3 Chair/Sxb-rz-Pszwv Xfer(QC): 3 Walk 10 feet (QC): 3 PT Plan Problem List Problem List: Activity Tolerance, Functional Strength, Safety, Balance, Gait, Transfer, Bed Mobility Treatment/Plan Treatment Plan: Continue Plan of Care Treatment Plan: Bed Mobility, Education, Functional Activity Velasquez, Functional Strength, Gait, Safety, Therapeutic Exercise, Transfers Treatment Duration: Jun 16, 2021 Frequency: 6 times per week Estimated Hrs Per Day: .25 hour per day Time/GCodes Time In: 855 Time Out: 906 Total Billed Treatment Time: 11 Total Billed Treatment 1 visit [facility] 11 min LLOYD FLOYD PT May 26, 2021 10:18
[2021-05-26] MEDS: ENOXAPARIN 40 MG/0.4 ML (LOVENOX) SYR SC SCH (18:48)
[2021-05-26] MEDS: MONTELUKAST 10 MG (SINGULAIR) TAB PO SCH (19:30)
[2021-05-27] MEDS: ONDANSETRON 4 MG/2 ML (SDV) Z0FRAN IVP PRN (05:12)
[2021-05-27 05:56] LABS: BASOPHILS % (AUTO) 0 % (0-10); EOSINOPHILS % (AUTO) 0 % (0-10); HEMATOCRIT 40 % (35-52); HEMOGLOBIN 13.2 g/dL (11.5-16.0); LYMPHOCYTES # (AUTO) 0.9 10^3/uL (1.0-4.0); LYMPHOCYTES % (AUTO) 8 % (12-44); MEAN CORPUSCULAR HEMOGLOBIN 28 pg (25-34); MEAN CORPUSCULAR HGB CONC 33 g/dL (32-36); MEAN CORPUSCULAR VOLUME 85 fL (80-99); MEAN PLATELET VOLUME 10.7 fL (9.0-12.2); MONOCYTES % (AUTO) 8 % (0-12); NEUTROPHILS # (AUTO) 10.1 10^3/uL (1.8-7.8); NEUTROPHILS % (AUTO) 84 % (42-75); PLATELET COUNT 191 10^3/uL (130-400); WHITE BLOOD COUNT 12.1 10^3/uL (4.3-11.0)
[2021-05-27 06:02] LABS: ALBUMIN 2.7 GM/DL (3.2-4.5); POTASSIUM 3.3 MMOL/L (3.6-5.0)
[2021-05-27 06:03] LABS: CALCIUM 8.1 MG/DL (8.5-10.1)
[2021-05-27 06:05] LABS: TOTAL PROTEIN 5.4 GM/DL (6.4-8.2)
[2021-05-27 06:06] LABS: BILIRUBIN,TOTAL 0.9 MG/DL (0.1-1.0)
[2021-05-27 06:08] LABS: CREATININE SERUM 0.49 MG/DL (0.60-1.30)
[2021-05-27 07:52] VITALS: BP 157/80
[2021-05-27] MEDS: methylPREDNISolone 40 MG/ML (Solu-MEDROL) VIAL IV SCH ×2 (08:15→19:17)
[2021-05-27] MEDS: LORATADINE (CLARITIN) 10 MG TAB PO SCH (08:16)
[2021-05-27] MEDS: POTASSIUM CL 10MEQ/50ML IVPB 50 ML IV SCH ×4 (08:18→11:59)
[2021-05-27] MEDS: SENNA W/DOCUSATE (SENOKOT S) TABLET PO SCH ×2 (09:41→19:09)
[2021-05-27] MEDS: polyethylene glycoL POWDER 17 GM (MIRALAX) PACK PO SCH ×2 (09:41→19:09)
--- NOTE | 2021-05-27 12:14 | Progress Note - Hospitalist ---
Subjective HPI/CC On Admission Date Seen by Provider: May 27, 2021 Time Seen by Provider: 11:00 CC: Debillity HPI: This is a 75yoWF clinic Pt of mine who I admitted as a direct admission from my office due to dehydration and diarrhea. 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 Longoria will be consulted to build plan. Overall she is very weak and we will continue IV antibiotics empirically for eleven Procalcitonin and elevated WBC but UA and CXR showed no acute abnormality. Will monitor Pt closely in the meantime. Subjective/Events-last exam Patient doing really well Sleeping currently Awakens easily Potassium supplement will be ordered Review of Systems General: Fatigue, Malaise Objective Exam Vital Signs Vital Signs Date Time Temp Pulse Resp B/P (MAP) Pulse Ox O2 Delivery O2 Flow Rate FiO2 05/27/21 16:19 36.8 87 20 128/85 (99) 92 Room Air 05/25/21 11:00 10 Capillary Refill : General Appearance: No Apparent Distress, WD/WN, Chronically ill Respiratory: Lungs Clear, Normal Breath Sounds Cardiovascular: Regular Rate, Rhythm Neurologic/Psychiatric: Alert, Oriented x3, No Motor/Sensory Deficits, Normal Mood/Affect Results/Procedures Lab Laboratory Tests 05/27/21 05:45 Patient resulted labs reviewed. Imaging: Reviewed Imaging Films, Reviewed Imaging Report Assessment/Plan Assessment and Plan Assess & Plan/Chief Complaint Assessment: Dehydration Bacterial bronchitis Asthma Small cell carcinoma of the lung with widespread metastasis starting ch emotherapy on Friday Groshong port placement today Plan: IV fluids Gro[place]ong port Chemotherapy on Friday05/26/2021: Supportive care Supplement potassium PT and OT 05/27/2021: Patient ready for chemo on Friday KATHERINE CHICAS DO May 27, 2021 12:14
[2021-05-27 12:18] VITALS: BP 152/84
[2021-05-27] MEDS: NS IV 1000 ML 1,000 ML IV SCH (14:14)
[2021-05-27 16:19] VITALS: BP 128/85
[2021-05-27] MEDS: ENOXAPARIN 40 MG/0.4 ML (LOVENOX) SYR SC SCH (18:38)
[2021-05-27 19:15] VITALS: BP 132/83
[2021-05-27] MEDS: MONTELUKAST 10 MG (SINGULAIR) TAB PO SCH (19:17)
[2021-05-27 23:00] VITALS: BP 136/82
[2021-05-28 06:56] LABS: BASOPHILS % (AUTO) 0 % (0-10); EOSINOPHILS % (AUTO) 0 % (0-10); HEMATOCRIT 40 % (35-52); LYMPHOCYTES # (AUTO) 1.1 10^3/uL (1.0-4.0); LYMPHOCYTES % (AUTO) 10 % (12-44); MEAN CORPUSCULAR HEMOGLOBIN 28 pg (25-34); MEAN CORPUSCULAR HGB CONC 33 g/dL (32-36); MEAN CORPUSCULAR VOLUME 86 fL (80-99); MEAN PLATELET VOLUME 10.4 fL (9.0-12.2); MONOCYTES # (AUTO) 1.1 10^3/uL (0.0-1.0); MONOCYTES % (AUTO) 10 % (0-12); NEUTROPHILS # (AUTO) 8.8 10^3/uL (1.8-7.8); NEUTROPHILS % (AUTO) 80 % (42-75); PLATELET COUNT 188 10^3/uL (130-400)
[2021-05-28 07:00] LABS: ALBUMIN 2.6 GM/DL (3.2-4.5); POTASSIUM 3.6 MMOL/L (3.6-5.0)
[2021-05-28 07:02] LABS: CALCIUM 8.1 MG/DL (8.5-10.1)
[2021-05-28 07:03] LABS: TOTAL PROTEIN 5.2 GM/DL (6.4-8.2)
[2021-05-28 07:05] LABS: BILIRUBIN,TOTAL 0.8 MG/DL (0.1-1.0)
[2021-05-28 07:06] LABS: CREATININE SERUM 0.48 MG/DL (0.60-1.30)
[2021-05-28 07:30] VITALS: BP 157/71
[2021-05-28] MEDS: LORATADINE (CLARITIN) 10 MG TAB PO SCH (07:53)
[2021-05-28] MEDS: SENNA W/DOCUSATE (SENOKOT S) TABLET PO SCH (07:53)
[2021-05-28] MEDS: methylPREDNISolone 40 MG/ML (Solu-MEDROL) VIAL IV SCH (07:55)
[2021-05-28] MEDS: polyethylene glycoL POWDER 17 GM (MIRALAX) PACK PO SCH (09:19)
--- NOTE | 2021-05-28 10:27 | Physical Therapy Daily Note ---
PT Daily Note-Current Subjective Patient reluctantly agrees to PT. Mental Status Patient Orientation: Person, Time, Situation Attachments: IV Transfers SCALE: Activities may be completed with or without assistive devices. 6-Fpxduslgjw-sheefpn completes the activity by him/herself with no assistance from a helper. 5-Set-up or Clean-up Assistance-helper sets up or cleans up; patient completes activity. [place] assists only prior to or following the activity. 4-Supervision or Touching Assistance-helper provides verbal cues and/or touching/steadying and/or contact guard assistance as patient completes activity. Assistance may be provided throughout the activity or intermittently. 3-Partial/Moderate Assistance-helper does LESS THAN HALF the effort. [place] lifts, holds or supports trunk or limbs, but provides less than half the effort. 2-Substantial/Maximal Assistance-helper does MORE THAN HALF the effort. [place] lifts or holds trunk or limbs and provides more than half the effort. 0-Vbvcghebd-maslbq does ALL the effort. Patient does none of the effort to complete the activity. Or, the assistance of 2 or more helpers is required for the patient to complete the activity. If activity was not attempted, code reason: 7-Patient Refused. 9-Not Applicable-not attempted and the patient did not perform the activity before the current illness, exacerbation or injury. 10-Not Attempted due to Environmental Limitations-(lack of equipment, weather restraints, etc.). 88-Not Attempted due to Medical Conditions or Safety Concerns. Sit to Stand (QC): 2 (x 4 sets to FWW) Exercises Supine Ex: Ankle pumps, Quad Set, Heel Slides, Straight leg raise Supine Reps: 10 (AAROM) Seated Therapy Exercises: Ankle pumps, Long arc quads, Hip flexion Seated Reps: 10 Standing: Sit to Stand (x 4 reps) Assessment Patient continues to severely lean to left with VC's to correct. Patient tolerates minimal activity and remains up in recliner. PT Campus Supervisor Goals Campus Supervisor Goals PT Campus Supervisor Goals Time Frame: Jun 16, 2021 Roll Left & Right (QC): 3 Sit to Lying (QC): 3 Lying-Sitting on Side/Bed(QC): 3 Sit to Stand (QC): 3 Chair/Zbd-wl-Dngte Xfer(QC): 3 Walk 10 feet (QC): 3 PT Plan Treatment/Plan Treatment Plan: Continue Plan of Care Treatment Plan: Bed Mobility, Education, Functional Activity Velasquez, Functional Strength, Gait, Safety, Therapeutic Exercise, Transfers Treatment Duration: Jun 16, 2021 Frequency: 6 times per week Estimated Hrs Per Day: .25 hour per day Time/GCodes Time In: 904 Time Out: 921 Total Billed Treatment Time: 17 Total Billed Treatment 1 visit EX 17 min LLOYD FLOYD PT May 28, 2021 10:26
--- NOTE | 2021-05-28 11:06 | Progress Note ---
YIFAN HAAS 05/28/21 1106: Subjective Date Seen by a Provider: May 28, 2021 Time Seen by a Provider: 08:00 Subjective/Events-last exam Patient was sitting up in her chair preparing to eat breakfast when I came in to see her. States she is doing well. She still feels weak and nauseous sometimes, but she is working with PT/OT and is happy to be doing so. She begins chemotherapy tomorrow and is nervous about that. She has her Chemo education session with her family and Dr. Longoria today. No fever, SOB, dizziness, dysuria, constipation, diarrhea. Objective Exam Last Set of Vital Signs Vital Signs Date Time Temp Pulse Resp B/P (MAP) Pulse Ox O2 Delivery O2 Flow Rate FiO2 05/28/21 08:33 Room Air 0.00 05/28/21 07:30 36.8 78 18 157/71 (99) 94 Capillary Refill : I&O Intake and Output 05/28/21 00:00 Intake Total 850 ml Output Total 1500 ml Balance -650 ml Intake Oral 850 ml Output Urine Total 1500 ml # Voids 1 # Bowel Movements 2 General: Alert, Oriented X3, No Acute Distress HEENT: PERRLA, EOMI Neck: Supple Lungs: Clear to Auscultation Heart: Regular Rate, No Murmurs Abdomen: Soft, No Tenderness Extremities: No Edema, Normal Pulses Results Lab Laboratory Tests 05/28/21 06:51: White Blood Count 11.0, Red Blood Count 4.61, Hemoglobin 13.0, Hematocrit 40, Mean Corpuscular Volume 86, Mean Corpuscular Hemoglobin 28, Mean Corpuscular Hemoglobin Concent 33, Red Cell Distribution Width 17.2H, Platelet Count 188, Mean Platelet Volume 10.4, Immature Granulocyte % (Auto) 1, Neutrophils (%) (Auto) 80H, Lymphocytes (%) (Auto) 10L, Monocytes (%) (Auto) 10, Eosinophils (%) (Auto) 0, Basophils (%) (Auto) 0, Neutrophils # (Auto) 8.8H, Lymphocytes # (Auto) 1.1, Monocytes # (Auto) 1.1H, Eosinophils # (Auto) 0.0, Basophils # (Auto) 0.0, Immature Granulocyte # (Auto) 0.1, Sodium Level 138, Potassium Level 3.6, Chloride Level 99, Carbon Dioxide Level 28, Anion Gap 11, Blood Urea Nitrogen 10, Creatinine 0.48L, Estimat Glomerular Filtration Rate 126, BUN/Creatinine Ratio 21, Glucose Level 87, Calcium Level 8.1L, Corrected Calcium 9.2, Total Bilirubin 0.8, Aspartate Amino Transf (AST/SGOT) 78H, Alanine Aminotransferase (ALT/SGPT) 55, Alkaline Phosphatase 184H, Total Protein 5.2L, Albumin 2.6L Microbiology 05/24/21 MRSA Screen - Final, Complete MRSA not isolated 05/21/21 Blood Culture - Final, Complete No growth Assessment/Plan Assessment/Plan Assess & Plan/Chief Complaint Assessment: Dehydration Bacterial bronchitis Asthma Small cell carcinoma of the lung with widespread metastasis starting chemotherapy on Friday post-Groshong port placement Plan: IV fluids Incentive Spirometry Continue medical management Chemotherapy tomorrow RACQUEL CHICAS DO 05/29/21 0526: Subjective Subjective/Events-last exam Pt still pretty weak Overall doing well Checked meds and labs Did peer to peer with insurance medical artist for swing bed status Set for chemotherapy to start tomorrow Review of Systems General: Fatigue, Malaise Objective Exam General: Alert, Oriented X3, Cooperative, No Acute Distress Lungs: Clear to Auscultation Heart: Regular Rate Psych/Mental Status: Mental Status NL, Mood NL Assessment/Plan Assessment/Plan Assess & Plan/Chief Complaint Swing bed Supervisory-Addendum Brief Verification & Attestation Participated in pt care: history, MDM, physical Personally performed: exam, history, MDM, supervision of care Care discussed with: Medical Student Procedures: n/a Results interpretation: Verified all documentation Verification and Attestation of Medical Student E/M Service A medical student performed and documented this service in my presence. I reviewed and verified all information documented by the medical student and made modifications to such information, when appropriate. I personally performed the physical exam and medical decision making. Racquel Chicas May 29, 2021,05:25 YIFAN HAAS May 28, 2021 11:06 RACQUEL CHICAS DO May 29, 2021 05:26
--- NOTE | 2021-05-28 11:19 | Occupational Ther Daily Note ---
OT Current Status-Daily Note Subjective Pt up in recliner, requests OT to return this afternoon as she is very tired. OT educated pt on importance and benefit of OT, pt required moderate encouragement to participate. Mental Status/Objective Patient Orientation: Person, Place, Situation ADL-Treatment Therapy Code Descriptions/Definitions Functional [place] Measure: 0=Not Assessed/NA 4=Minimal Assistance 1=Total Assistance 5=Supervision or Setup 2=Maximal Assistance 6=Modified [place] 3=Moderate Assistance 7=Complete IndependenceSCALE: Activities may be completed with or without assistive devices. 1-Hhurqquggr-zrvrspc completes the activity by him/herself with no assistance from a helper. 5-Set-up or Clean-up Assistance-helper sets up or cleans up; patient completes activity. [place] assists only prior to or following the activity. 4-Supervision or Touching Assistance-helper provides verbal cues and/or touching/steadying and/or contact guard assistance as patient completes activity. Assistance may be provided throughout the activity or intermittently. 3-Partial/Moderate Assistance-helper does LESS THAN HALF the effort. [place] lifts, holds or supports trunk or limbs, but provides less than half the effort. 2-Substantial/Maximal Assistance-helper does MORE THAN HALF the effort. [place] lifts or holds trunk or limbs and provides more than half the effort. 4-Jgtxvguuh-jwxkji does ALL the effort. Patient does none of the effort to complete the activity. Or, the assistance of 2 or more helpers is required for the patient to complete the activity. If activity was not attempted, code reason: 7-Patient Refused. 9-Not Applicable-not attempted and the patient did not perform the activity before the current illness, exacerbation or injury. 10-Not Attempted due to Environmental Limitations-(lack of equipment, weather restraints, etc.). 88-Not Attempted due to Medical Conditions or Safety Concerns. Eating (QC): 3 (Per pt report, assist with feeding as pt fatigues.) Oral Hygiene (QC): 4 (SBA, pt required encouragement to attempt to complete task herself.) Shower/Bathe Self (QC): 88 (not medically appropriate at this time. ) Upper Body Dressing (QC): 7 Lower Body Dressing (QC): 88 (not medically appropriate at this time. ) On/Off Footwear: 88 (not medically appropriate at this time. ) Toileting Hygiene (QC): 7 Toilet Transfer (QC): 7 Other Treatment Pt in recliner, agreeable to OT Tx after encouragement. Pt states she is very tired at this time. Pt agreeable to OT Tx with focus on oral care and face washing. After OT gathers supplies, pt requests for task to be complete after lunch. OT again explained the benefit of OT, and importance of participating in order to gain strength and increase independence with ADLs. Pt agreeable. OT set up oral care supplies at her tray table, and placed toothpaste onto the toothbrush for pt. Pt able to use LUE to brush her teeth. Pt requests for OT to hand her the water cup. OT encouraged pt to reach for the cup with LUE in order to increase independence, pt able to reach forward with L hand, grasp cup, and rinse her mouth. OT handed pt wash cloth, and she washed her face after set up assistance. Pt declined other ADLs at this time. Post tx, pt in recliner, call light in reach and all needs met. Pt tolerated minimal activity on this date. Education OT Patient Education: Correct positioning, Energy conservation, Exercise prog fadumo, Modified ADL techniques, Progress toward Goal/Update tx plan, Purpose of tx/functional activities, Rehab process Teaching Recipient: Patient Teaching Methods: Discussion Response to Teaching: Verbalize Understanding OT Filter Assembler Goals Filter Assembler Goals Time Frame: Jun 15, 2021 Eating (QC): 5 Oral Hygiene (QC): 5 Toileting Hygiene (QC): 4 Shower/Bathe Self (QC): 3 Upper Body Dressing (QC): 5 Lower Body Dressing (QC): 3 On/Off Footwear (QC): 3 Additional Goals: 1-Demonstrate ADL Tasks, 2-Verbalize Understanding, 3- ImproveStrength/[place] 1=Demonstrate adherence to instructed precautions during ADL tasks. 2=Patient will verbalize/demonstrate understanding of assistive devices/modifications for ADL. 3=Patient will improve strength/tolerance for activity to enable patient to perform ADL's. OT Education/Plan Problem List/Assessment Assessment: Decreased Activ Tolerance, Decreased UE Strength, Impaired I ADL's, Impaired Self-Care Skills, Restricted Funct UE ROM Discharge Recommendations Plan/Recommendations: Continue POC Treatment Plan/Plan of Care Patient would benefit from OT for education, treatment and training to promote independence in ADL's, mobility, safety and/or upper extremity function for ADL's. Plan of Care: ADL Retraining, Functional Mobility, UE Funct Exercise/Act Treatment Duration: Jun 15, 2021 Frequency: 3 times per week (3-5 times per week) Estimated Hrs Per Day: .25 hour per day Rehab Potential: Guarded Time/GCodes Start Time: 11:00 Stop Time: 11:10 Total Time Billed (hr/min): 10 Billed Treatment Time 1, ADL MAYRA GUZMAN OT May 28, 2021 11:19
--- NOTE | 2021-05-28 14:40 | Discharge Summary ---
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 Penicillins (Verified Allergy, Mild, HIVES, 11/05/19) Vitals & I&Os Vital Signs Date Time Temp Pulse Resp B/P (MAP) Pulse Ox O2 Delivery O2 Flow Rate FiO2 05/28/21 08:33 Room Air 0.00 05/28/21 07:30 36.8 78 18 157/71 (99) 94 General Appearance: Alert, Oriented X3, Other (Frail, thin) Respiratory: Clear to Auscultation Cardiovascular: Regular Rate Psych/Mental Status: Mental Status NL Hospital Course Was the Problem List Reviewed?: Yes Patient presented to [facility] on 05/22 for direct admit from Dr. 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 Initial CXR and UA were negative, but patient had elevated WBC and procalcitonin so was empirically started on IV antibiotics, fluids, and potassium. Dr. Longoria was also consulted to discuss a plan of care with patient for her cancer status. Patient initially declined chemotherapy, but had second thoughts and decided to talk with Dr. Longoria again and proceed with chemotherapy. Dr. Mendes placed a groshong port on 05/25. Patient is to start chemotherapy on 05/29. On 05/26 patient began working with PT and OT, which she enjoyed. On 05/28 a peer to peer was done with patients insurance to approve swing bed status, this was approved. Patient was discharged to swing bed on 05/28 to begin chemotherapy on 05/29. [facility] (last 24 hrs) Laboratory Tests 05/21/21 19:50: White Blood Count 17.5H, Red Blood Count 4.83, Hemoglobin 13.5, Hematocrit 40, Mean Corpuscular Volume 84, Mean Corpuscular Hemoglobin 28, Mean Corpuscular Hemoglobin Concent 33, Red Cell Distribution Width 15.7H, Platelet Count 205, Mean Platelet Volume 11.0, Immature Granulocyte % (Auto) 1, Neutrophils (%) (Auto) 87H, Lymphocytes (%) (Auto) 5L, Monocytes (%) (Auto) 8, Eosinophils (%) (Auto) 0, Basophils (%) (Auto) 0, Neutrophils # (Auto) 15.1H, Lymphocytes # (Auto) 0.8L, Monocytes # (Auto) 1.4H, Eosinophils # (Auto) 0.0, Basophils # (Auto) 0.0, Immature Granulocyte # (Auto) 0.1, Neutrophils % (Manual) 88, Lym phocytes % (Manual) 7, Monocytes % (Manual) 5, Blood Morphology Comment NORMAL, Sodium Level 134L, Potassium Level 2.4*L, Chloride Level 91L, Carbon Dioxide Level 30, Anion Gap 13, Blood Urea Nitrogen 17, Creatinine 0.59L, Estimat Glomerular Filtration Rate 99, BUN/Creatinine Ratio 29, Glucose Level 144H, Calcium Level 8.7, Corrected Calcium 9.6, Magnesium Level 1.9, Total Bilirubin 1.0, Aspartate Amino Transf (AST/SGOT) 70H, Alanine Aminotransferase (ALT/SGPT) 56H, Alkaline Phosphatase 150H, Total Protein 5.8L, Albumin 2.9L, Procalcitonin 6.73H 05/21/21 20:48: Lactic Acid Level 1.84 05/22/21 04:40: Urine Color YELLOW, Urine Clarity CLEAR, Urine pH 6.5, Urine Specific [place] 1.025H, Urine Protein TRACEH, Urine Glucose (UA) TRACEH, Urine Ketones 1+H, Urine Nitrite NEGATIVE, Urine Bilirubin 1+H, Urine Urobilinogen 2.0, Urine Leukocyte Esterase NEGATIVE, Urine RBC (Auto) NEGATIVE, Urine RBC RARE, Urine WBC NONE, Urine Squamous Epithelial Cells 2-5, Urine Crystals NONE, Urine Bacteria TRACE, Urine Casts NONE, Urine Mucus SMALLH, Urine Culture Indicated NO 05/22/21 05:51: White Blood Count 13.3H, Red Blood Count 4.35, Hemoglobin 12.5, Hematocrit 36, Mean Corpuscular Volume 84, Mean Corpuscular Hemoglobin 29, Mean Corpuscular Hemoglobin Concent 34, Red Cell Distribution Width 15.9H, Platelet Count 169, Mean Platelet Volume 11.2, Immature Granulocyte % (Auto) 1, Neutrophils (%) (Auto) 89H, Lymphocytes (%) (Auto) 4L, Monocytes (%) (Auto) 7, Eosinophils (%) (Auto) 0, Basophils (%) (Auto) 0, Neutrophils # (Auto) 11.8H, Lymphocytes # (A uto) 0.5L, Monocytes # (Auto) 0.9, Eosinophils # (Auto) 0.0, Basophils # (Auto) 0.0, Immature Granulocyte # (Auto) 0.1, Sodium Level 132L, Potassium Level 3.7, Chloride Level 95L, Carbon Dioxide Level 27, Anion Gap 10, Blood Urea Nitrogen 11, Creatinine 0.50L, Estimat Glomerular Filtration Rate 120, BUN/Creatinine Ratio 22, Glucose Level 110H, Calcium Level 8.1L, Corrected Calcium 9.1, Total Bilirubin 0.8, Aspartate Amino Transf (AST/SGOT) 64H, Alanine Aminotransferase (ALT/SGPT) 49, Alkaline Phosphatase 144H, Total Protein 5.4L, Albumin 2.7L, Procalcitonin 6.27H 05/23/21 05:20: White Blood Count 11.3H, Red Blood Count 4.21, Hemoglobin 11.8, Hematocrit 37, Mean Corpuscular Volume 87, Mean Corpuscular Hemoglobin 28, Mean Corpuscular Hemoglobin Concent 32, Red Cell Distribution Width 16.5H, Platelet Count 125L, Mean Platelet Volume 12.1, Immature Granulocyte % (Auto) 1, Neutrophils (%) (Auto) 87H, Lymphocytes (%) (Auto) 5L, Monocytes (%) (Auto) 7, Eosinophils (%) (Auto) 0, Basophils (%) (Auto) 0, Neutrophils # (Auto) 9.8H, Lymphocytes # (Auto) 0.6L, Monocytes # (Auto) 0.8, Eosinophils # (Auto) 0.0, Basophils # (Auto) 0.0, Immature Granulocyte # (Auto) 0.1, Percent Immature Platelet Fraction 10.3H, Sodium Level 134L, Potassium Level 3.6, Chloride Level 99, Ca rbon Dioxide Level 24, Anion Gap 11, Blood Urea Nitrogen 8, Creatinine 0.49L, Estimat Glomerular Filtration Rate 123, BUN/Creatinine Ratio 16, Glucose Level 109H, Calcium Level 8.2L, Corrected Calcium 9.3, Total Bilirubin 0.7, Aspartate Amino Transf (AST/SGOT) 68H, Alanine Aminotransferase (ALT/SGPT) 46, Alkaline Phosphatase 158H, Total Protein 5.4L, Albumin 2.6L 05/24/21 05:21: White Blood Count 11.0, Red Blood Count 4.24, Hemoglobin 11.9, Hematocrit 36, Mean Corpuscular Volume 86, Mean Corpuscular Hemoglobin 28, Mean Corpuscular Hemoglobin Concent 33, Red Cell Distribution Width 16.6H, Platelet Count 185, Mean Platelet Volume 11.4, Immature Granulocyte % (Auto) 1, Neutrophils (%) (Auto) 87H, Lymphocytes (%) (Auto) 5L, Monocytes (%) (Auto) 7, Eosinophils (%) (Auto) 0, Basophils (%) (Auto) 0, Neutrophils # (Auto) 9.6H, Lymphocytes # (Auto) 0.6L, Monocytes # (Auto) 0.8, Eosinophils # (Auto) 0.0, Basophils # (Auto) 0.0, Immature Granulocyte # (Auto) 0.1, Sodium Level 135, Potassium Level 3.3L, Chloride Level 101, Carbon Dioxide Level 24, Anion Gap 10, Blood Urea Nitrogen 8, Creatinine 0.53L, Estimat Glomerular Filtration Rate 112, BUN/Creatinine Ratio 15, Glucose Level 105, Calcium Level 8.1L, Corrected Calcium 9.1, Total Bilirubin 0.7, Aspartate Amino Transf (AST/SGOT) 73H, Alanine Aminotransferase (ALT/SGPT) 54, Alkaline Phosphatase 163H, Total Protein 5.3L, Albumin 2.7L 05/25/21 06:13: White Blood Count 13.0H, Red Blood Count 4.57, Hemoglobin 12.9, Hematocrit 39, Mean Corpuscular Volume 85, Mean Corpuscular Hemoglobin 28, Mean Corpuscular Hemoglobin Concent 33, Red Cell Distribution Width 16.4H, Platelet Count 197, Mean Platelet Volume 11.3, Immature Granulocyte % (Auto) 1, Neutrophils (%) (Auto) 84H, Lymphocytes (%) (Auto) 8L, Monocytes (%) (Auto) 8, Eosinophils (%) (Auto) 0, Basophils (%) (Auto) 0, Neutrophils # (Auto) 11.0H, Lymphocytes # (Auto) 1.0, Monocytes # (Auto) 1.0, Eosinophils # (Auto) 0.0, Basophils # (Auto) 0.0, Immature Granulocyte # (Auto) 0.1, Sodium Level 138, Potassium Level 2.8L, Chloride Level 100, Carbon Dioxide Level 27, Anion Gap 11, Blood Urea Nitrogen 7, Creatinine 0.49L, Estimat Glomerular Filtration Rate 123, BUN/Creatinine Ratio 14, Glucose Level 85, Calcium Level 8.0L, Corrected Calcium 9.0, Total Bi lirubin 0.7, Aspartate Amino Transf (AST/SGOT) 74H, Alanine Aminotransferase (ALT/SGPT) 58H, Alkaline Phosphatase 168H, Total Protein 5.4L, Albumin 2.7L 05/26/21 06:20: White Blood Count 13.1H, Red Blood Count 4.44, Hemoglobin 12.6, Hematocrit 39, Mean Corpuscular Volume 87, Mean Corpuscular Hemoglobin 28, Mean Corpuscular Hemoglobin Concent 33, Red Cell Distribution Width 17.0H, Platelet Count 172, Mean Platelet Volume 10.6, Immature Granulocyte % (Auto) 1, Neutrophils (%) (Auto) 83H, Lymphocytes (%) (Auto) 9L, Monocytes (%) (Auto) 8, Eosinophils (%) (Auto) 0, Basophils (%) (Auto) 0, Neutrophils # (Auto) 10.8H, Lymphocytes # (Auto) 1.2, Monocytes # (Auto) 1.0, Eosinophils # (Auto) 0.0, Basophils # (Auto) 0.0, Immature Granulocyte # (Auto) 0.1, Sodium Level 136, Potassium Level 3.1L, Chloride Level 99, Carbon Dioxide Level 27, Anion Gap 10, Blood Urea Nitrogen 8, Creatinine 0.50L, Estimat Glomerular Filtration Rate 120, BUN/Creatinine Ratio 16, Glucose Level 79, Calcium Level 8.0L, Corrected Calcium 9.2, Total Bilirubin 0.7, Aspartate Amino Transf (AST/SGOT) 68H, Alanine Aminotransferase (ALT/SGPT) 49, Alkaline Phosphatase 156H, Total Protein 5.1L, Albumin 2.5L 05/27/21 05:45: White Blood Count 12.1H, Red Blood Count 4.72, Hemoglobin 13.2, Hematocrit 40, Mean Corpuscular Volume 85, Mean Corpuscular Hemoglobin 28, Mean Corpuscular Hemoglobin Concent 33, Red Cell Distribution Width 17.0H, Platelet Count 191, Mean Platelet Volume 10.7, Immature Granulocyte % (Auto) 1, Neutrophils (%) (Auto) 84H, Lymphocytes (%) (Auto) 8L, Monocytes (%) (Auto) 8, Eosinophils (%) (Auto) 0, Basophils (%) (Auto) 0, Neutrophils # (Auto) 10.1H, Lymphocytes # (Auto) 0.9L, Monocytes # (Auto) 1.0, Eosinophils # (Auto) 0.0, Basophils # (Auto) 0.0, Immature Granulocyte # (Auto) 0.1, Sodium Level 136, Potassium Level 3.3L, Chloride Level 98, Carbon Dioxide Level 27, Anion Gap 11, Blood Urea Nitrogen 9, Creatinine 0.49L, Estimat Glomerular Filtration Rate 123, BUN/Creatinine Ratio 18, Glucose Level 89, Calcium Level 8.1L, Corrected Calcium 9.1, Total Bilirubin 0.9, Aspartate Amino Transf (AST/SGOT) 73H, Alanine Aminotransferase (ALT/SGPT) 52, Alkaline Phosphatase 163H, Total Protein 5.4L, Albumin 2.7L 05/28/21 06:51: White Blood Count 11.0, Red Blood Count 4.61, Hemoglobin 13.0, Hematocrit 40, Mean Corpuscular Volume 86, Mean Corpuscular Hemoglobin 28, Mean Corpuscular Hemoglobin Concent 33, Red Cell Distribution Width 17.2H, Platelet Count 188, Mean Platelet Volume 10.4, Immature Granulocyte % (Auto) 1, Neutrophils (%) (Auto) 80H, Lymphocytes (%) (Auto) 10L, Monocytes (%) (Auto) 10, Eosinophils (%) (Auto) 0, Basophils (%) (Auto) 0, Neutrophils # (Auto) 8.8H, Lymphocytes # (Auto) 1.1, Monocytes # (Auto) 1.1H, Eosinophils # (Auto) 0.0, Basophils # (Auto) 0.0, Immature Granulocyte # (Auto) 0.1, Sodium Level 138, Potassium Level 3.6, Chloride Level 99, Carbon Dioxide Level 28, Anion Gap 11, Blood Urea Nitrogen 10, Creatinine 0.48L, Estimat Glomerular Filtration Rate 126, BUN/Crea tinine Ratio 21, Glucose Level 87, Calcium Level 8.1L, Corrected Calcium 9.2, Total Bilirubin 0.8, Aspartate Amino Transf (AST/SGOT) 78H, Alanine Aminotransferase (ALT/SGPT) 55, Alkaline Phosphatase 184H, Total Protein 5.2L, Albumin 2.6L Microbiology 05/24/21 MRSA Screen - Final, Complete MRSA not isolated 05/21/21 Blood Culture - Final, Complete No growth Pending Labs Microbiology Date/Time Source Procedure Growth Status 05/24/21 15:49 Nasal MRSA Screen - Final MRSA not isolated Complete 05/21/21 20:48 Peripheral Rt Ac Blood Culture - Final No growth Complete 05/21/21 20:42 Peripheral Lt Hand Blood Culture - Final No growth Complete Laboratory Tests 05/21/21 19:50: White Blood Count 17.5, Red Blood Count 4.83, Hemoglobin 13.5, Hematocrit 40, Mean Corpuscular Volume 84, Mean Corpuscular Hemoglobin 28, Mean Corpuscular Hemoglobin Concent 33, Red Cell Distribution Width 15.7, Platelet Count 205, Mean Platelet Volume 11.0, Immature Granulocyte % (Auto) 1, Neutrophils (%) (Auto) 87, Lymphocytes (%) (Auto) 5, Monocytes (%) (Auto) 8, Eosinophils (%) (Auto) 0, Basophils (%) (Auto) 0, Neutrophils # (Auto) 15.1, Lymphocytes # (Auto) 0.8, Monocytes # (Auto) 1.4, Eosinophils # (Auto) 0.0, Basophils # (Auto) 0.0, Immature Granulocyte # (Auto) 0.1, Neutrophils % (Manual) 88, Lymphocytes % (Manual) 7, Monocytes % (Manual) 5, Blood Morphology Comment NORMAL, Sodium Level 134, Potassium Level 2.4, Chloride Level 91, Carbon Dioxide Level 30, Anion Gap 13, Blood Urea Nitrogen 17, Creatinine 0.59, Estimat Glomerular Filtration Rate 99, BUN/Creatinine Ratio 29, Glucose Level 144, Calcium Level 8.7, Corrected Calcium 9.6, Magnesium Level 1.9, Total Bilirubin 1.0, Aspartate Amino Transf (AST/SGOT) 70, Alanine Aminotransferase (ALT/SGPT) 56, Alkaline Phosphatase 150, Total Protein 5.8, Albumin 2.9, Procalcitonin 6.73 05/21/21 20:48: Lactic Acid Level 1.84 05/22/21 04:40: Urine Color YELLOW, Urine Clarity CLEAR, Urine pH 6.5, Urine Specific [place] 1.025, Urine Protein TRACE, Urine Glucose (UA) TRACE, Urine Ketones 1+, Urine Nitrite NEGATIVE, Urine Bilirubin 1+, Urine Urobilinogen 2.0, Urine Leukocyte Esterase NEGATIVE, Urine RBC (Auto) NEGATIVE, Urine RBC RARE, Urine WBC NONE, Urine Squamous Epithelial Cells 2-5, Urine Crystals NONE, Urine Bacteria TRACE, Urine Casts NONE, Urine Mucus SMALL, Urine Culture Indicated NO 05/22/21 05:51: White Blood Count 13.3, Red Blood Count 4.35, Hemoglobin 12.5, Hematocrit 36, Mean Corpuscular Volume 84, Mean Corpuscular Hemoglobin 29, Mean Corpuscular Hemoglobin Concent 34, Red Cell Distribution Width 15.9, Platelet Count 169, Mean Platelet Volume 11.2, Immature Granulocyte % (Auto) 1, Neutrophils (%) (Auto) 89, Lymphocytes (%) (Auto) 4, Monocytes (%) (Auto) 7, Eosinophils (%) (Auto) 0, Basophils (%) (Auto) 0, Neutrophils # (Auto) 11.8, Lymphocytes # (Auto) 0.5, Monocytes # (Auto) 0.9, Eosinophils # (Auto) 0.0, Basophils # (Auto) 0.0, Immature Granulocyte # (Auto) 0.1, Sodium Level 132, Potassium Level 3.7, Chloride Level 95, Carbon Dioxide Level 27, Anion Gap 10, Blood Urea Nitrogen 11, Creatinine 0.50, Estimat Glomerular Filtration Rate 120, BUN/Creatinine Ratio 22, Glucose Level 110, Calcium Level 8.1, Corrected Calcium 9.1, Total Bilirubin 0.8, Aspartate Amino Transf (AST/SGOT) 64, Alanine Aminotransferase (ALT/SGPT) 49, Alkaline Phosphatase 144, Total Protein 5.4, Albumin 2.7, Procalcitonin 6.27 05/23/21 05:20: White Blood Count 11.3, Red Blood Count 4.21, Hemoglobin 11.8, Hematocrit 37, Mean Corpuscular Volume 87, Mean Corpuscular Hemoglobin 28, Mean Corpuscular Hemoglobin Concent 32, Red Cell Distribution Width 16.5, Platelet Count 125, Mean Platelet Volume 12.1, Immature Granulocyte % (Auto) 1, Neutrophils (%) (Auto) 87, Lymphocytes (%) (Auto) 5, Monocytes (%) (Auto) 7, Eosinophils (%) (Auto) 0, Basophils (%) (Auto) 0, Neutrophils # (Auto) 9.8, Lymphocytes # (Auto) 0.6, Monocytes # (Auto) 0.8, Eosinophils # (Auto) 0.0, Basophils # (Auto) 0.0, Immature Granulocyte # (Auto) 0.1, Percent Immature Platelet Fraction 10.3, Sodium Level 134, Potassium Level 3.6, Chloride Level 99, Carbon Dioxide Level 24, Anion Gap 11, Blood Urea Nitrogen 8, Creatinine 0.49, Estimat Glomerular F iltration Rate 123, BUN/Creatinine Ratio 16, Glucose Level 109, Calcium Level 8.2, Corrected Calcium 9.3, Total Bilirubin 0.7, Aspartate Amino Transf (AST/SGOT) 68, Alanine Aminotransferase (ALT/SGPT) 46, Alkaline Phosphatase 158, Total Protein 5.4, Albumin 2.6 05/24/21 05:21: White Blood Count 11.0, Red Blood Count 4.24, Hemoglobin 11.9, Hematocrit 36, Mean Corpuscular Volume 86, Mean Corpuscular Hemoglobin 28, Mean Corpuscular Hemoglobin Concent 33, Red Cell Distribution Width 16.6, Platelet Count 185, Mean Platelet Volume 11.4, Immature Granulocyte % (Auto) 1, Neutrophils (%) (Auto) 87, Lymphocytes (%) (Auto) 5, Monocytes (%) (Auto) 7, Eosinophils (%) (Auto) 0, Basophils (%) (Auto) 0, Neutrophils # (Auto) 9.6, Lymphocytes # (Auto) 0.6, Monocytes # (Auto) 0.8, Eosinophils # (Auto) 0.0, Basophils # (Auto) 0.0, Immature Granulocyte # (Auto) 0.1, Sodium Level 135, Potassium Level 3.3, Chloride Level 101, Carbon Dioxide Level 24, Anion Gap 10, Blood Urea Nitrogen 8, Creatinine 0.53, Estimat Glomerular Filtration Rate 112, BUN/Creatinine Ratio 15, Glucose Level 105, Calcium Level 8.1, Corrected Calcium 9.1, Total Bilirubin 0.7, Aspartate Amino Transf (AST/SGOT) 73, Alanine Aminotransferase (ALT/SGPT) 54, Alkaline Phosphatase 163, Total Protein 5.3, Albumin 2.7 05/25/21 06:13: White Blood Count 13.0, Red Blood Count 4.57, Hemoglobin 12.9, Hematocrit 39, Mean Corpuscular Volume 85, Mean Corpuscular Hemoglobin 28, Mean Corpuscular Hemoglobin Concent 33, Red Cell Distribution Width 16.4, Platelet Count 197, Mean Platelet Volume 11.3, Immature Granulocyte % (Auto) 1, Neutrophils (%) (Auto) 84, Lymphocytes (%) (Auto) 8, Monocytes (%) (Auto) 8, Eosinophils (%) (Auto) 0, Basophils (%) (Auto) 0, Neutrophils # (Auto) 11.0, Lymphocytes # (Auto) 1.0, Monocytes # (Auto) 1.0, Eosinophils # (Auto) 0.0, Basophils # (Auto) 0.0, Immature Granulocyte # (Auto) 0.1, Sodium Level 138, Potassium Level 2.8, Chloride Level 100, Carbon Dioxide Level 27, Anion Gap 11, Blood Urea Nitrogen 7, Creatinine 0.49, Estimat Glomerular Filtration Rate 123, BUN/Creatinine Ratio 14, Glucose Level 85, Calcium Level 8.0, Corrected Calcium 9.0, Total Bilirubin 0.7, Aspartate Amino Transf (AST/SGOT) 74, Alanine Aminotransferase (ALT/SGPT) 58, Alkaline Phosphatase 168, Total Protein 5.4, Albumin 2.7 05/26/21 06:20: White Blood Count 13.1, Red Blood Count 4.44, Hemoglobin 12.6, Hematocrit 39, Mean Corpuscular Volume 87, Mean Corpuscular Hemoglobin 28, Mean Corpuscular Hemoglobin Concent 33, Red Cell Distribution Width 17.0, Platelet Count 172, Mean Platelet Volume 10.6, Immature Granulocyte % (Auto) 1, Neutrophils (%) (Auto) 83, Lymphocytes (%) (Auto) 9, Monocytes (%) (Auto) 8, Eosinophils (%) (Auto) 0, Basophils (%) (Auto) 0, Neutrophils # (Auto) 10.8, Lymphocytes # (Auto) 1.2, Monocytes # (Auto) 1.0, Eosinophils # (Auto) 0.0, Basophils # (Auto) 0.0, Immature Granulocyte # (Auto) 0.1, Sodium Level 136, Potassium Level 3.1, Chloride Level 99, Carbon Dioxide Level 27, Anion Gap 10, Blood Urea Nitrogen 8, Creatinine 0.50, Estimat Glomerular Filtration Rate 120, BUN/Creatinine Ratio 16, Glucose Level 79, Calcium Level 8.0, Corrected Calcium 9.2, Total Bilirubin 0.7, Aspartate Amino Transf (AST/SGOT) 68, Alanine Aminotransferase (ALT/SGPT) 49, Alkaline Phosphatase 156, Total Protein 5.1, Albumin 2.5 05/27/21 05:45: White Blood Count 12.1, Red Blood Count 4.72, Hemoglobin 13.2, Hematocrit 40, Mean Corpuscular Volume 85, Mean Corpuscular Hemoglobin 28, Mean Corpuscular Hemoglobin Concent 33, Red Cell Distribution Width 17.0, Platelet Count 191, Mean Platelet Volume 10.7, Immature Granulocyte % (Auto) 1, Neutrophils (%) (Auto) 84, Lymphocytes (%) (Auto) 8, Monocytes (%) (Auto) 8, Eosinophils (%) (Auto) 0, Basophils (%) (Auto) 0, Neutrophils # (Auto) 10.1, Lymphocytes # (Auto) 0.9, Monocytes # (Auto) 1.0, Eosinophils # (Auto) 0.0, Basophils # (Auto) 0.0, Immature Granulocyte # (Auto) 0.1, Sodium Level 136, Potassium Level 3.3, Chloride Level 98, Carbon Dioxide Level 27, Anion Gap 11, Blood Urea Nitrogen 9, Creatinine 0.49, Estimat Glomerular Filtration Rate 123, BUN/Creatinine Ratio 18, Glucose Level 89, Calcium Level 8.1, Corrected Calcium 9.1, Total Bilirubin 0.9, Aspartate Amino Transf (AST/SGOT) 73, Alanine Aminotransferase (ALT/SGPT) 52, Alkaline Phosphatase 163, Total Protein 5.4, Albumin 2.7 05/28/21 06:51: White Blood Count 11.0, Red Blood Count 4.61, Hemoglobin 13.0, Hematocrit 40, Mean Corpuscular Volume 86, Mean Corpuscular Hemoglobin 28, Mean Corpuscular Hemoglobin Concent 33, Red Cell Distribution Width 17.2, Platelet Count 188, Mean Platelet Volume 10.4, Immature Granulocyte % (Auto) 1, Neutrophils (%) (Auto) 80, Lymphocytes (%) (Auto) 10, Monocytes (%) (Auto) 10, Eosinophils (%) (Auto) 0, Basophils (%) (Auto) 0, Neutrophils # (Auto) 8.8, Lymphocytes # (Auto) 1.1, Monocytes # (Auto) 1.1, Eosinophils # (Auto) 0.0, Basophils # (Auto) 0.0, Immature Granulocyte # (Auto) 0.1, Sodium Level 138, Potassium Level 3.6, Chloride Level 99, Carbon Dioxide Level 28, Anion Gap 11, Blood Urea Nitrogen 10, Creatinine 0.48, Estimat Glomerular Filtration Rate 126, BUN/Creatinine Ratio 21, Glucose Level 87, Calcium Level 8.1, Corrected Calcium 9.2, Total Bilirubin 0.8, Aspartate Amino Transf (AST/SGOT) 78, Alanine Aminotransferase (A LT/SGPT) 55, Alkaline Phosphatase 184, Total Protein 5.2, Albumin 2.6 Discharge Home Medications: Active Scripts Active Reported Ibuprofen 200 Mg Tablet 400-600 Mg PO Q8H PRN Laxative (Bisacodyl) 5 Mg Tablet.dr 5 Mg PO BID PRN Iprat-Albut 0.5-3(2.5) mg/3 ml (Ipratropium/Albuterol Sulfate) 3 Ml Ampul.neb 3 Ml IH Q6H PRN Ondansetron Odt (Ondansetron) 8 Mg Tab.rapdis 8 Mg PO Q6H PRN Pantoprazole Sodium 40 Mg Tablet.dr 40 Mg PO DAILY Hydrocodone-Acetamin 5-325 mg (Hydrocodone/Acetaminophen) 1 Each Tablet 1 Ea PO Q4H PRN Acid Knife Changer (FAMOTIDINE) (Famotidine) 20 Mg Tablet 20 Mg PO DAILY Iron (Ferrous Sulfate) 325 Mg Tablet 325 Mg PO BID Instructions to patient/family Please see electronic discharge instructions given to patient. KATHERINE CHICAS DO May 28, 2021 14:40
--- NOTE | 2021-05-29 11:18 | Progress Note ---
YIFAN HAAS 05/29/21 1118: Progress Note Patient presented to [facility] on 05/22 for direct admit from Dr. 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 Initial CXR and UA were negative, but patient had elevated WBC and procalcitonin so was empirically started on IV antibiotics, fluids, and potassium. Dr. Longoria was also consulted to discuss a plan of care with patient for her cancer status. Patient initially declined chemotherapy, but had second thoughts and decided to talk with Dr. Longoria again and proceed with chemotherapy. Dr. Mendes placed a groshong port on 05/25. Patient is to start chemotherapy on 05/29. On 05/26 patient began working with PT and OT, which she enjoyed. On 05/28 a peer to peer was done with patients insurance to approve swing bed status, this was approved. Patient was discharged to swing bed on 05/28 to begin chemotherapy on 05/29. RACQUEL CHICAS DO 05/30/21 0515: Supervisory-Addendum Brief Verification & Attestation Participated in pt care: history, MDM, physical Personally performed: exam, history, MDM, supervision of care Care discussed with: Medical Student Procedures: n/a Results interpretation: Verified all documentation Verification and Attestation of Medical Student E/M Service A medical student performed and documented this service in my presence. I reviewed and verified all information documented by the medical student and made modifications to such information, when appropriate. I personally performed the physical exam and medical decision making. Racquel Chicas, May 30, 2021,05:15 YIFAN HAAS May 29, 2021 11:18 RACQUEL CHICAS DO May 30, 2021 05:15
--- NOTE | 2021-06-06 01:41 | OPERATIVE REPORT ---
DATE OF SERVICE: 05/25/2021 ATTENDING FOOD SERVICE HOTEL RUNNER: Kayla MUNIZ ADMITTING PHYSICIAN: Dr. Herbert. PREOPERATIVE DIAGNOSIS: Metastatic small cell lung cancer. POSTOPERATIVE DIAGNOSIS: Metastatic small cell lung cancer. PROCEDURE: Placement of left subclavian Groshong implantable catheter under fluoroscopy. SURGEON: Nohemi Brooks MD ANESTHESIA: Monitored anesthesia care with local. ESTIMATED BLOOD LOSS: Minimal. FINDINGS: Catheter tip at the superior vena caval -- right atrial junction. DISPOSITION: The patient tolerated the procedure well. INDICATIONS: The patient is a 75-year-old female recently diagnosed with metastatic small cell lung cancer. She was recently hospitalized at [facility] for pneumonia and then this progressed to respiratory failure. During that time, she underwent a CT scan and multiple lesions were identified bilateral lungs as well as the liver and a CT scan was performed of the liver, which was consistent with a metastatic small cell lung cancer. She did opt for chemotherapy. DESCRIPTION OF PROCEDURE: The patient was brought to the operating room, laid supine on the table. After adequate IV pain and sedative medications and monitored anesthesia care, the chest and neck were prepped and draped in standard surgical fashion. A 1% lidocaine with epinephrine was then used to anesthetize overlying skin in the left subclavian region and the left subclavian vein was then cannulated with drawing of venous blood. The guidewire was then inserted under fluoroscopy. The cannulating needle removed, and a skin incision made using 15-blade. A dilator and sheath were then placed over the guidewire. The dilator and guidewire were then removed and the Groshong catheter was placed until the tip of the catheter was at the superior vena caval - right atrial junction. The sheath was then removed. The inner wire within the catheter was then removed and the catheter cut down to size and port placed onto the catheter. The chest reservoir was then created by extending the skin incision laterally and a plane created between the subcutaneous fat and the anterior pectoralis fascia using blunt dissection as well as electrocautery with visualization of good hemostasis. The port was then placed into the reservoir and sutured to the anterior pectoralis fascia using interrupted 3-0 Vicryl sutures. The subcutaneous tissue was then reapproximated using 3-0 Vicryl interrupted sutures and the skin was closed using 4-0 Monocryl running subcuticular suture. Wound was then cleaned and covered with Dermabond. The port was also accessed for immediate use. The patient tolerated the procedure well. We will get a post-procedure chest x-ray. Job ID: [id number] DocumentID: [id number] Dictated Date: 06/05/2021 16:51:20 Hardwood Floor Layer Date: 06/06/2021 01:40:07 Dictated By: NOHEMI BROOKS MD
== END 2021-05-28 14:49 | disposition swing bed (61) | DRG 167 ==
LOC: 4TH 18:45
PROVIDERS: ADMIT Internal Medicine; ATTEND Internal Medicine
PROC: 0JH60WZ Insertion of Totally Implantable Vascular Access Device into Chest Subcutaneous Tissue and Fascia, Open Approach (ICD-10-PCS; 2021-05-25)
PROC: 02HV33Z Insertion of Infusion Device into Superior Vena Cava, Percutaneous Approach (ICD-10-PCS; principal; 2021-05-25 10:14)
DX: J40 Bronchitis, not specified as acute or chronic (principal); C34.90 Malignant neoplasm of unspecified part of unspecified bronchus or lung; C78.7 Secondary malignant neoplasm of liver and intrahepatic bile duct; C78.00 Secondary malignant neoplasm of unspecified lung; E86.0 Dehydration; J43.9 Emphysema, unspecified; R19.7 Diarrhea, unspecified; E87.6 Hypokalemia; E78.00 Pure hypercholesterolemia, unspecified; I10 Essential (primary) hypertension; F32.A Depression, unspecified; K21.9 Gastro-esophageal reflux disease without esophagitis; Z87.891 Personal history of nicotine dependence; Z88.1 Allergy status to other antibiotic agents; Z88.0 Allergy status to penicillin
CPT/HCPCS: 36415; 71045; 76000; 80053; 81000; 83605; 83735; 84145; 85007; 85025; 85027; 87040; 87081; 94640; 94760

== ENCOUNTER 2021-05-28 14:49 | Inpatient (IN) | payer MEDICARE ==
[~2021-05-28] VITALS: Ht 162.6 cm; Wt 57.4 kg
[~2021-05-28 14:49] MED LIST changes: +BISA-10 PO; +IBUP-2473 PO; +IPRA3AMP31 IH
[2021-05-28] MEDS ORDERED: LACTATED RINGERS 1,000 ML IV PRN (15:15)
[2021-05-28] MEDS ORDERED: ONDANSETRON 4 MG (ZOFRAN) ORAL DISSOLVE TAB PO PRN (15:15)
[2021-05-28] MEDS ORDERED: ALPRAZolam 0.25 MG (XANAX) TAB PO PRN (15:15)
[2021-05-28] MEDS ORDERED: HYDROcodone/APAP 5 MG/325 MG (LORTAB) TAB PO PRN (15:15)
[2021-05-28] MEDS ORDERED: DOCUSATE SODIUM 100 MG (COLACE) CAP PO PRN (15:15)
[2021-05-28] MEDS ORDERED: MELATONIN 3 MG TABLET PO PRN (15:15)
[2021-05-28] MEDS ORDERED: LOPERAMIDE 2 MG (IMODIUM) TABLET PO PRN (15:15)
[2021-05-28] MEDS ORDERED: morphine INJ 10 MG/ML 1ML (SYR OR VIAL) IVP PRN (15:15)
[2021-05-28] MEDS ORDERED: diphenhydrAMINE 25 MG TAB (BENADRYL) PO PRN (15:15)
[2021-05-28] MEDS ORDERED: morphine INJ 4 MG/ML 1 ML (VIAL/SYRINGE) IV PRN (15:45)
[2021-05-28 18:00] VITALS: BP 137/79
[2021-05-28] MEDS: ENOXAPARIN 40 MG/0.4 ML (LOVENOX) SYR SC SCH (18:13)
[2021-05-28] MEDS: SENNA W/DOCUSATE (SENOKOT S) TABLET PO SCH (21:07)
[2021-05-28] MEDS: MONTELUKAST 10 MG (SINGULAIR) TAB PO SCH (21:07)
[2021-05-28] MEDS: polyethylene glycoL POWDER 17 GM (MIRALAX) PACK PO SCH (21:08)
[2021-05-29] MEDS: CALCIUM CARBONATE 500 MG (TUMS) TAB.CHEW PO PRN (05:24)
[2021-05-29 05:25] VITALS: BP 130/74
[2021-05-29] MEDS: ONDANSETRON 4 MG/2 ML (SDV) Z0FRAN IVP PRN (08:37)
[2021-05-29] MEDS: LORATADINE (CLARITIN) 10 MG TAB PO SCH (08:40)
[2021-05-29] MEDS: SENNA W/DOCUSATE (SENOKOT S) TABLET PO SCH ×2 (09:52→21:31)
[2021-05-29] MEDS: polyethylene glycoL POWDER 17 GM (MIRALAX) PACK PO SCH ×2 (09:52→21:31)
--- NOTE | 2021-05-29 10:29 | Physical Therapy Evaluation ---
PT Evaluation-General Medical Diagnosis Admission Date May 28, 2021 at 15:03 Medical Diagnosis: small cell lung cancer Onset Date: May 23, 2021 Therapy Diagnosis Therapy Diagnosis: generalized weakness/debility Precautions Precautions/Isolations: Fall Prevention, Standard Precautions Referral Physician: Piedad Reason for Referral: Evaluation/Treatment Medical History Pertinent Medical History: COPD, GERD, Smoking Current History SWB status due to weakness malaise Reviewed History: Yes Social History Home: Single Level Current Living Status: Other Family Prior Prior Level of Function SCALE: Activities may be completed with or without assistive devices. 9-Lizzngkphu-mrjeucd completes the activity by him/herself with no assistance from a helper. 5-Set-up or Clean-up Assistance-helper sets up or cleans up; patient completes activity. [place] assists only prior to or following the activity. 4-Supervision or Touching Assistance-helper provides verbal cues and/or touching/steadying and/or contact guard assistance as patient completes activity. Assistance may be provided throughout the activity or intermittently. 3-Partial/Moderate Assistance-helper does LESS THAN HALF the effort. [place] lifts, holds or supports trunk or limbs, but provides less than half the effort. 2-Substantial/Maximal Assistance-helper does MORE THAN HALF the effort. [place] lifts or holds trunk or limbs and provides more than half the effort. 3-Nvjsknhvz-yzqynr does ALL the effort. Patient does none of the effort to complete the activity. Or, the assistance of 2 or more helpers is required for the patient to complete the activity. If activity was not attempted, code reason: 7-Patient Refused. 9-Not Applicable-not attempted and the patient did not perform the activity before the current illness, exacerbation or injury. 10-Not Attempted due to Environmental Limitations-(lack of equipment, weather restraints, etc.). 88-Not Attempted due to Medical Conditions or Safety Concerns. Bed Mobility: 6 Transfers (B,C,W/C): 6 Gait: 6 Indoor Mobility (Ambulation): Independent Prior Devices Use: Walker PT Evaluation-Current Subjective Patient agrees to PT. C/o nausea and is having dry heaves. Pain Numeric Pain Scale: 0-No Pain Location: No Pain Reported Objective Patient Orientation: Person, Time, Situation ROM/Strength ROM Lower Extremities bilateral LE WFL Strength Lower Extremities 3-/5 grossly bilateral LE Integumentary/Posture Integumentary refer to nursing notes Bowel Incontinence: No Bladder Incontinence: No Posture severe lean to left with forward head posture Neuromuscular (Tone, Coordination, Reflexes) diminished coordination due to weakness with severe lean to left with difficulty correcting. Sensory Vision: Functional Hearing: Functional Transfers Roll Left & Right (QC): 2 Sit to Lying (QC): 2 Lying to Sitting/Side of Bed(Q: 2 Sit to Stand (QC): 1 (patient did perform sit to stand to FWW x 2 sets with max assist with SBA to CGA of another) Chair/Gth-hj-Pisht Xfer(QC): 1 Toilet Transfer (QC): 88 Car Transfer (QC): 88 Gait Does the Patient Walk?: No and Walking Goal IS indicated Walk 10 feet (QC): 88 Walk 50 ft with 2 Turns(QC): 88 Walk 150 ft (QC): 88 Walking 10ft/uneven surface-QC: 88 Wheelchair Training Wheel 50 ft with 2 turns (QC): 88 Wheel 150 ft (QC): 88 Stairs 1 Step (curb) (QC): 88 4 Steps (QC): 88 12 Steps (QC): 88 Balance Sitting Static: Fair Sitting Dynamic: Fair Standing Static: Poor Standing Dynamic: Poor Picking up an Object (QC): 8 Treatment Patient performed sit to stand x 2 sets with max assist x 2 and VC's due to leaning to left with difficulty with correcting. Patient requires time to complete all functional tasks. bilateral LE 10 reps AP/LAQ Assessment/Needs 75 y.o. female, will benefit from skilled PT to address functional strength and mobility to improve current LOF. Patient is severely limited due to weakness, severe left lean and impaired mobility. Rehab Potential: Guarded PT Prison Goals Prison Goals PT Blueprint Developer Goals Time Frame: Jun 30, 2021 Roll Left & Right (QC): 4 Sit to Lying (QC): 4 Lying-Sitting on Side/Bed(QC): 4 Sit to Stand (QC): 4 Chair/Grw-hv-Kdmrh Xfer(QC): 4 Toilet Transfer (QC): 4 Car Transfer (QC): 4 Does the Patient Walk: Yes Walk 10 feet (QC): 4 Walk 50ft with 2 Turns (QC): 88 Walk 150 ft (QC): 88 Walking 10ft on Uneven Surface: 88 1 Step (curb) (QC): 88 4 Steps (QC): 9 12 Steps (QC): 9 Picking up an Object (QC): 9 Wheel 50 feet with 2 turns (QC: 3 Type: Manual Wheel 150 feet: 9 PT Plan Problem List Problem List: Activity Tolerance, Functional Strength, Safety, Balance, Gait, Transfer, Bed Mobility Treatment/Plan Treatment Plan: Continue Plan of Care Treatment Plan: Bed Mobility, Education, Functional Activity Velasquez, Functional Strength, Gait, Safety, Therapeutic Exercise, Transfers Treatment Duration: Jun 30, 2021 Frequency: 6 times per week Estimated Hrs Per Day: .5 hour per day Patient and/or Family Agrees t: Yes Safety Risks/Education Patient Education: Transfer Techniques, Safety Issues Time/GCodes Time In: 815 Time Out: 848 Total Billed Treatment Time: 33 Total Billed Treatment 1 visit EVModC 15 min FA 18 min LLOYD FLOYD PT May 29, 2021 10:29
--- NOTE | 2021-05-29 11:25 | Progress Note ---
YIFAN HAAS 05/29/21 1125: Subjective Date Seen by a Provider: May 29, 2021 Time Seen by a Provider: 09:00 Subjective/Events-last exam Patient was sitting up in bed when I came in to visit her. She states she is still feeling the same. She has been enjoying exercising with PT and OT. She still has nausea. Patient was concerned because she didn't hear from Dr. Longoria yesterday about starting chemotherapy today. Patient is leaning to the left more today than she has been, daughter states it has been getting worse. Will order a CT head and spine w/o contrast. Patient also has complaints of right hand spasms, states they are not new and occurred at an accident at work. Patient also needed help from SS with living will info and help. Patient denies vomiting, dysuria, constipation, diarrhea, and SOB. Patient does have slight wheeze on expiration today. Objective Exam Last Set of Vital Signs Vital Signs Date Time Temp Pulse Resp B/P (MAP) Pulse Ox O2 Delivery O2 Flow Rate FiO2 05/29/21 05:25 37.0 87 20 130/74 (92) 92 Room Air Capillary Refill : I&O Intake and Output 05/29/21 00:00 Intake Total 500 ml Output Total 200 ml Balance 300 ml Intake Oral 500 ml Output Urine Total 200 ml General: Alert, Oriented X3 HEENT: EOMI, Mucous Memb Moist/[place] Neck: Supple Lungs: Other (clear on inspiration, slight wheeze at end of expiration) Heart: Regular Rate, No Murmurs Abdomen: Soft, No Tenderness Extremities: No Clubbing, No Edema, Normal Pulses Neuro: Other (patient preferring leaning to the left, also complaints of right hand spasms. ) Assessment/Plan Assessment/Plan Assess & Plan/Chief Complaint Assessment SCC of lungs with liver mets Post-Groshrong port placement Abnormal posture- patient prefer leaning to the left Dehydration Bacterial bronchitis Asthma Plan Chemotherapy to begin as soon as possible CT head and spine without contrast Continue medical management Continue PT/OT Continue IS RACQUEL CHICAS DO 05/30/21 0518: Subjective Subjective/Events-last exam Patient doing well except for leaning over the left Cervical spine and CT scan of the brain indicated due to suspicion for small cell lung cancer metastasized to cervical spine and brain Set for chemotherapy tomorrow Review of Systems General: Fatigue, Malaise Objective Exam General: Alert, Oriented X3 Lungs: Clear to Auscultation Heart: Regular Rate Neuro: Other (patient preferring leaning to the left, also complaints of right hand spasms. ) Psych/Mental Status: Mental Status NL Assessment/Plan Assessment/Plan Assess & Plan/Chief Complaint CT brain CT cervical spine Chemotherapy start tomorrow Supervisory-Addendum Brief Verification & Attestation Participated in pt care: history, MDM, physical Personally performed: exam, history, MDM, supervision of care Care discussed with: Medical Student Procedures: n/a Results interpretation: Verified all documentation Verification and Attestation of Medical Student E/M Service A medical student performed and documented this service in my presence. I reviewed and verified all information documented by the medical student and made modifications to such information, when appropriate. I personally performed the physical exam and medical decision making. Racquel Chicas May 30, 2021,05:15 YIFAN HAAS May 29, 2021 11:25 RACQUEL CHICAS DO May 30, 2021 05:18
--- NOTE | 2021-05-29 11:53 | Diagnostic Imaging Report ---
PROCEDURE: CT head and CT cervical spine without contrast. TECHNIQUE: Multiple contiguous axial images were obtained through the brain and cervical spine without the use of intravenous contrast. Sagittal and coronal reformations through the cervical spine were then performed. Auto Exposure Controls were utilized during the CT exam to meet ALARA standards for radiation dose reduction. INDICATION: Patient is currently on cancer treatment. Small cell lung cancer. Patient leans to the left now. FINDINGS: CT HEAD: There is diffuse cortical atrophy. There are bilateral hygromas without evidence of acute hemorrhage. There is a focal area of encephalomalacia along the left high parietal cortex. Ventricles are not dilated. Basal cisterns are clear. Mastoid air cells are well-aerated and clear. There is a retention cyst in the left maxillary sinus. No bony lesion. IMPRESSION: Focal cystic area of high parietal region on the left. This is nonspecific in nature and could not exclude metastatic lesion with patient's history. Would consider additional imaging with IV contrast. CERVICAL SPINE: Sagittal and coronal reformatted images. Good alignment of vertebral bodies. The atlantoaxial joint is in good alignment. There is advanced diffuse degenerative disease involving the atlantoaxial joint as well as C5-C6 and C6-C7 discs. No evidence of destructive bony lesion. IMPRESSION: Rather severe cervical spondylosis with no findings to indicate metastatic disease of the neck. Dictated by: Dictated on workstation # [id number]
--- NOTE | 2021-05-29 13:38 | Occupational Therapy Eval ---
OT Evaluation-General/PLF Medical Diagnosis Admission Date May 28, 2021 at 15:03 Medical Diagnosis: small cell lung cancer Onset Date: May 23, 2021 Therapy Diagnosis Therapy Diagnosis: debility, decreased ADL Status. Precautions Precautions/Isolations: Fall Prevention, Standard Precautions Referral Physician: Piedad Moon Reason: Evaluation/Treatment Medical History Pertinent Medical History: COPD, GERD, Smoking Additional Medical History empysema, small cell lung cancer, Bilateral carpal tunnel. Current History Admit [facility] 05/28/21 Social History Home: Single Level Current Living Status: Other Family ADL-Prior Level of Function SCALE: Activities may be completed with or without assistive devices. 4-Amjlxfperv-hnywttc completes the activity by him/herself with no assistance from a helper. 5-Set-up or Clean-up Assistance-helper sets up or cleans up; patient completes activity. [place] assists only prior to or following the activity. 4-Supervision or Touching Assistance-helper provides verbal cues and/or touching/steadying and/or contact guard assistance as patient completes activity. Assistance may be provided throughout the activity or intermittently. 3-Partial/Moderate Assistance-helper does LESS THAN HALF the effort. [place] lifts, holds or supports trunk or limbs, but provides less than half the effort. 2-Substantial/Maximal Assistance-helper does MORE THAN HALF the effort. [place] lifts or holds trunk or limbs and provides more than half the effort. 8-Vrtamdntk-kakyco does ALL the effort. Patient does none of the effort to complete the activity. Or, the assistance of 2 or more helpers is required for the patient to complete the activity. If activity was not attempted, code reason: 7-Patient Refused. 9-Not Applicable-not attempted and the patient did not perform the activity before the current illness, exacerbation or injury. 10-Not Attempted due to Environmental Limitations-(lack of equipment, weather restraints, etc.). 88-Not Attempted due to Medical Conditions or Safety Concerns. ADL PLOF Comments Pt reports requiring assistance with all ADLs for the past few months as she became sicker/weaker. Prior to initial hospitalizations/sickness, she was independent with all ADLs and functional mobility (~4 months ago). Pt is currently living with her granddaughter, has good family support that assist with bathing/dressing/toileting. The house she is currently in has a tub/shower with sliding glass doors, she has been completing sponge baths as she hasn't been able to get into the tub. Pt's daughter's house has a walk in shower that pt could use once pt is strong enough to get out of the house and into her daughters house. Self Care: Needed Some Help DME/Equipment: Tub/Shower DME/Equipment Comments 4WW OT Current Status Subjective Pt laying in bed, states she is tired and weak today. Daughter at bedside. Mental Status/Objective Patient Orientation: Person, Place, Situation ADL-Treatment Eating (QC): 5 (Assist cutting food, pt able to use utensils in L hand and bring food to her mouth.) Oral Hygiene (QC): 4 (Per clincial judgement, SBA) Shower/Bathe Self (QC): 1 (Per clincial judgment, assist x2 required.) Upper Body Dressing (QC): 88 Lower Body Dressing (QC): 1 (Per clincial judgment, total assist with task.) On/Off Footwear (QC): 1 (per clincial judgment, total assist. ) Toileting Hygiene (QC): 1 (Per clincial judgment, assist x2 ) Other Treatments Pt laying in bed, agreeable to OT Tx. Pt's lunch just arriving to her room. OT a ssisted pt with repositioning in bed, assist to bend legs and cues for UE placement in order to boost herself up in bed. Min A to scoot up towards HOB. HOB elevated, OT encouraged pt to feed herself and do as much as she can by herself. Pt states she does, but pt's daughter cuts up pt's food and places utensils in pt's hand without pt asking for assistance. Pt able to use utensils to bring food to her mouth after set up. Pt declines other ADLs at this time, as she is too tired. OT provided pt with light resistance kit assembler sponge, pt able to complete x3 reps with LUE. OT educated pt on purpose and benefit of the sponge, encouraging her to increase reps as tolerated, she verbalized understanding. Post tx, pt in bed, call light in reach and all needs met. Pt still eating lunch. Education OT Patient Education: Correct positioning, Modified ADL techniques, Progress toward Goal/Update tx plan, Purpose of tx/functional activities, Rehab process Teaching Recipient: Patient, Family Teaching Methods: Discussion Response to Teaching: Verbalize Understanding OT Short Term Goals Short Term Goals Time Frame: Jun 08, 2021 Toileting hygiene: 2 Shower/bathe self: 2 Lower body dressin Putting on/taking off footwear: 2 OT Detention Goals Cpc Coder Goals Time Frame: Jun 22, 2021 Eating (QC): 5 Oral Hygiene (QC): 5 Toileting Hygiene (QC): 4 Shower/Bathe Self (QC): 3 Upper Body Dressing (QC): 4 Lower Body Dressing (QC): 3 On/Off Footwear (QC): 3 Additional Goals: 1-Demonstrate ADL Tasks, 2-Verbalize Understanding, 3- ImproveStrength/Vel[place] 1=Demonstrate adherence to instructed precautions during ADL tasks. 2=Patient will verbalize/demonstrate understanding of assistive devices/modifications for ADL. 3=Patient will improve strength/tolerance for activity to enable patient to perform ADL's. OT Education/Plan Problem List/Assessment Assessment: Decreased Activ Tolerance, Decreased UE Strength, Impaired Bed Mobility, Impaired Coordination, Impaired Funct Balance, Impaired I ADL's, Impaired Self-Care Skills, Restricted Funct UE ROM Discharge Recommendations Plan/Recommendations: Continue POC Treatment Plan/Plan of Care Patient would benefit from OT for education, treatment and training to promote independence in ADL's, mobility, safety and/or upper extremity function for ADL's. Plan of Care: ADL Retraining, Functional Mobility, UE Funct Exercise/Act Treatment Duration: Jun 22, 2021 Frequency: 5 times per week Estimated Hrs Per Day: .25 hour per day Rehab Potential: Guarded Time/GCodes Start Time: 13:10 Stop Time: 13:35 Total Time Billed (hr/min): 25 Billed Treatment Time 1, EVM (10'), ADL (15') MAYRA GUZMAN OT May 29, 2021 13:38
[2021-05-29] MEDS ORDERED: CARBOPLATIN IV SCH (16:30)
[2021-05-29] MEDS ORDERED: FAMOTIDINE 20MG/2ML IV (CANCER CTR) IV SCH (16:30)
[2021-05-29] MEDS ORDERED: diphenhydrAMINE 25 MG TAB (BENADRYL) CANCER CENTER PO SCH (16:30)
[2021-05-29] MEDS ORDERED: FOSAPREPITANT (CANCER CENTER) 150 MG in NS (IVPB) CANCER CENTER ONLY 150 ML IV SCH (16:30)
[2021-05-29] MEDS ORDERED: D5W IV SCH (16:30)
--- NOTE | 2021-05-29 16:33 | Progress Note ---
Progress Note Assessment/Plan Date Seen by Provider: May 29, 2021 Time Seen by Provider: 16:32 Events since last exam Pt is ready for chemo tomorrow. Chemo teaching set up for 05/30/2021 8:15am followed by chemo infusion for about 2 hrs. She will need total of 3 days chemo infusion Fri to Fri this cycle. Cycle repeat in [address] of the head and neck without contrast today showed no mets. Labs from yesterday looked good. She had a port. Assessment/Plan A/P: 1. Small cell lung cancer extensive disease, multiple liver mets. Recent respiratory failure and off vent now. Pt have all the information of the diagnosis, treatment options and prognosis. She wants to start chemo [facility] 16 tomorrow, 3 days course, and finish by this Friday. 2. Chemo teaching tomorrow at 8:15am 3. Continue physical therapy. 4. Dr. Herbert to decide the discharge plan. Vitals Last set of Vitals Signs Vital Signs Date Time Temp Pulse Resp B/P (MAP) Pulse Ox O2 Delivery O2 Flow Rate FiO2 05/29/21 09:00 92 Room Air 05/29/21 05:25 37.0 87 20 130/74 (92) I&O I&O Intake and Output 05/28/21 23:59 Intake Total 500 ml Output Total 200 ml Balance 300 ml Intake Oral 500 ml Output Urine Total 200 ml BRITTANY JOE MD May 29, 2021 16:33
[2021-05-29 18:13] VITALS: BP 125/70
[2021-05-29] MEDS: ENOXAPARIN 40 MG/0.4 ML (LOVENOX) SYR SC SCH (18:18)
[2021-05-29] MEDS: MONTELUKAST 10 MG (SINGULAIR) TAB PO SCH (21:31)
[2021-05-30 05:55] VITALS: BP 149/79
[2021-05-30] MEDS: ONDANSETRON 4 MG/2 ML (SDV) Z0FRAN IVP PRN (06:12)
[2021-05-30 06:19] LABS: BASOPHILS % (AUTO) 0 % (0-10); EOSINOPHILS % (AUTO) 0 % (0-10); HEMATOCRIT 41 % (35-52); HEMOGLOBIN 13.7 g/dL (11.5-16.0); LYMPHOCYTES # (AUTO) 1.4 10^3/uL (1.0-4.0); LYMPHOCYTES % (AUTO) 14 % (12-44); MEAN CORPUSCULAR HEMOGLOBIN 29 pg (25-34); MEAN CORPUSCULAR HGB CONC 33 g/dL (32-36); MEAN CORPUSCULAR VOLUME 86 fL (80-99); MEAN PLATELET VOLUME 10.5 fL (9.0-12.2); MONOCYTES # (AUTO) 1.2 10^3/uL (0.0-1.0); MONOCYTES % (AUTO) 12 % (0-12); NEUTROPHILS # (AUTO) 7.2 10^3/uL (1.8-7.8); NEUTROPHILS % (AUTO) 73 % (42-75); PLATELET COUNT 165 10^3/uL (130-400); WHITE BLOOD COUNT 9.9 10^3/uL (4.3-11.0)
[2021-05-30 06:48] LABS: ALBUMIN 2.6 GM/DL (3.2-4.5); POTASSIUM 3.4 MMOL/L (3.6-5.0)
[2021-05-30 06:49] LABS: CALCIUM 8.3 MG/DL (8.5-10.1)
[2021-05-30 06:51] LABS: TOTAL PROTEIN 5.3 GM/DL (6.4-8.2)
[2021-05-30 06:53] LABS: BILIRUBIN,TOTAL 1.1 MG/DL (0.1-1.0)
[2021-05-30 06:54] LABS: CREATININE SERUM 0.5 MG/DL (0.60-1.30)
[2021-05-30] MEDS: LORATADINE (CLARITIN) 10 MG TAB PO SCH (08:10)
[2021-05-30] MEDS: SENNA W/DOCUSATE (SENOKOT S) TABLET PO SCH ×2 (08:10→20:51)
[2021-05-30] MEDS: polyethylene glycoL POWDER 17 GM (MIRALAX) PACK PO SCH ×2 (08:10→20:51)
[2021-05-30] MEDS: NS IV 1000 ML (CANCER CTR) IV SCH (09:30)
[2021-05-30] MEDS ORDERED: KCL 10 MEQ TAB (MICRO K) PO ONE (10:00)
[2021-05-30] MEDS: ETOPOSIDE 150 MG in NORMAL SALINE (CANCER CENTER) 500 ML IV SCH (10:10)
--- NOTE | 2021-05-30 10:38 | Progress Note ---
PRAVEEN GRIER MED STUDENT 05/30/21 1038: Subjective Date Seen by a Provider: May 30, 2021 Time Seen by a Provider: 07:50 Subjective/Events-last exam Pt is awake and siting up in chair speaking with daughter this morning. Will be receiving counseling on chemo this morning around 8:15 and is scheduled to begin chemo around 0900. She will receive chemo from fri-fri this week and will receive nausea medication along with it. CT scan of head showed no mets to brain, she is scheduled for another w/ contrast. She denies any pain. Has been eating okay, has had a bit of a problem with a bit of choking. No pain or blood with urine or BM. PT is going well for her. She is seen later during rounds in the chemo room and is currently doing alright while receiving chemo. Review of Systems General: No Chills, No Night Sweats HEENT: No Head Aches, No Visual Changes, No Eye Pain; Dysphasia; No Sore Throat Pulmonary: No Dyspnea, No Cough Cardiovascular: No: Chest Pain, Palpitations, Edema Gastrointestinal: No: Nausea, Vomiting, Abdominal Pain, Diarrhea, Constipation, Melena, Hematochezia Genitourinary: No Dysuria, No Frequency, No Hematuria Musculoskeletal: No: leg pain, foot pain Neurological: Incoordination (Leaning to R side) Objective Exam Last Set of Vital Signs Vital Signs Date Time Temp Pulse Resp B/P (MAP) Pulse Ox O2 Delivery O2 Flow Rate FiO2 05/30/21 09:00 92 Room Air 05/30/21 05:55 36.9 83 20 149/79 (102) Capillary Refill : I&O Intake and Output 05/30/21 00:00 Intake Total 820 ml Output Total 250 ml Balance 570 ml Intake Oral 820 ml Output Urine Total 250 ml # Voids 4 # Bowel Movements 2 General: Alert, Oriented X3, Cooperative, No Acute Distress HEENT: PERRLA Neck: Supple Lungs: Clear to Auscultation, Normal Air Movement Heart: Regular Rate, No Murmurs Abdomen: Normal Bowel Sounds, Soft, No Tenderness Extremities: No Clubbing, No Cyanosis, No Edema, Normal Pulses Skin: No Rashes Neuro: Normal Speech Results Lab Laboratory Tests 05/30/21 06:00: White Blood Count 9.9, Red Blood Count 4.76, Hemoglobin 13.7, Hematocrit 41, Mean Corpuscular Volume 86, Mean Corpuscular Hemoglobin 29, Mean Corpuscular Hemoglobin Concent 33, Red Cell Distribution Width 17.5H, Platelet Count 165, Mean Platelet Volume 10.5, Immature Granulocyte % (Auto) 1, Neutrophils (%) (Auto) 73, Lymphocytes (%) (Auto) 14, Monocytes (%) (Auto) 12, Eosinophils (%) (Auto) 0, Basophils (%) (Auto) 0, Neutrophils # (Auto) 7.2, Lymphocytes # (Auto) 1.4, Monocytes # (Auto) 1.2H, Eosinophils # (Auto) 0.0, Basophils # (Auto) 0.0, Immature Granulocyte # (Auto) 0.1, Sodium Level 135, Potassium Level 3.4L, Chlor lashay Level 96L, Carbon Dioxide Level 30, Anion Gap 9, Blood Urea Nitrogen 10, Creatinine 0.50L, Estimat Glomerular Filtration Rate 120, BUN/Creatinine Ratio 20, Glucose Level 62L, Calcium Level 8.3L, Corrected Calcium 9.4, Magnesium Level 2.0, Total Bilirubin 1.1H, Aspartate Amino Transf (AST/SGOT) 91H, Alanine Aminotransferase (ALT/SGPT) 58H, Alkaline Phosphatase 171H, Total Protein 5.3L, Albumin 2.6L Radiology NAME: [facility] REC#: [id number] PT STATUS: ADM IN : 1945 PHYSICIAN: KATHERINE CHICAS DO ADMIT DATE: 05/28/21 Signed Date of Exam:05/29/21 CT HEAD/CERVICAL SPINE WO PROCEDURE: CT head and CT cervical spine without contrast. TECHNIQUE: Multiple contiguous axial images were obtained through the brain and cervical spine without the use of intravenous contrast. Sagittal and coronal reformations through the cervical spine were then performed. Auto Exposure Controls were utilized during the CT exam to meet ALARA standards for radiation dose reduction. INDICATION: Patient is currently on cancer treatment. Small cell lung cancer. Patient leans to the left now. FINDINGS: CT HEAD: There is diffuse cortical atrophy. There are bilateral hygromas without evidence of acute hemorrhage. There is a focal area of encephalomalacia along the left high parietal cortex. Ventricles are not dilated. Basal cisterns are clear. Mastoid air cells are well-aerated and clear. There is a retention cyst in the left maxillary sinus. No bony lesion. IMPRESSION: Focal cystic area of high parietal region on the left. This is nonspecific in nature and could not exclude metastatic lesion with patient's history. Would consider additional imaging with IV contrast. CERVICAL SPINE: Sagittal and coronal reformatted images. Good alignment of vertebral bodies. The atlantoaxial joint is in good alignment. There is advanced diffuse degenerative disease involving the atlantoaxial joint as well as C5-C6 and C6-C7 discs. No evidence of destructive bony lesion. IMPRESSION: Rather severe cervical spondylosis with no findings to indicate metastatic disease of the neck. Dictated by: Dictated on workstation # [id number] Dict: 05/29/21 1133 Trans: 05/29/21 1624 [facility] [id number] Interpreted by: ANTOINETTE UREÑA MD Electronically signed by: ANTOINETTE UREÑA MD 05/29/21 1624 Assessment/Plan Assessment/Plan Assess & Plan/Chief Complaint SCC of lungs with liver mets -Receiving chemo today through friday -Nausea medication Post-Groshrong port placement Abnormal posture- patient prefer leaning to the left -CT of head did not show mets -Will get CT w/ contrast Asthma -Looking into getting pt back on home inhaler Continue PT Hypokalemia -3.4 -Is receiving KCl Recheck Labs tomorrow Supervisory-Addendum Brief Verification & Attestation Participated in pt care: history, physical Personally performed: exam, history Care discussed with: Medical Student Procedures: n/a n/a KATHERINE CHICAS DO 05/31/21 0520: Subjective Subjective/Events-last exam I saw pt in the chemo room Dr. Longoria evaluated everything and recommended chemotherapy to start Inhaled corticosteroid will be restarted. I will review her home meds Potassium a little bit low at 3.4, will supplement CT scan ordered to evaluate the area of the brain that could be a metastasis Review of Systems General: Fatigue, Malaise Pulmonary: Dyspnea Objective Exam General: Alert, Oriented X3, Cooperative, No Acute Distress Lungs: Other (wheezing noted) Psych/Mental Status: Mental Status NL Assessment/Plan Assessment/Plan Assess & Plan/Chief Complaint Check CT brain with IV contrast Supervisory-Addendum Brief Verification & Attestation Participated in pt care: history, MDM, physical Personally performed: exam, history, MDM, supervision of care Care discussed with: Medical Student Procedures: n/a Results interpretation: Verified all documentation Verification and Attestation of Medical Student E/M Service A medical student performed and documented this service in my presence. I reviewed and verified all information documented by the medical student and made modifications to such information, when appropriate. I personally performed the physical exam and medical decision making. Katherine Chicas, May 31, 2021,05:19 PRAVEEN GRIER MED STUDENT May 30, 2021 10:38 KATHERINE CHICAS DO May 31, 2021 05:20
[2021-05-30] MEDS: CATHETER FLUSH 10 ML SYR IV PRN (12:18)
[2021-05-30] MEDS ORDERED: IOHEXOL 350 MG/ML 100 ML (OMNIPAQUE 350) VIAL IV ONE (12:30)
[2021-05-30] MEDS ORDERED: NS 100 ML (IVPB) BAG IV ONE (12:30)
[2021-05-30] MEDS ORDERED: CATHETER FLUSH 10 ML SYR IV PRN (12:30)
[2021-05-30] MEDS ORDERED: HOLD METFORMIN - RECEIVED CONTRAST 20 ML VIAL IV SCH (12:30)
--- NOTE | 2021-05-30 13:06 | Occ Therapy Progress Note ---
Therapy Progress Note Pt refused OT due to c/o extreme fatigue due to chemo procedure in late am/early pm. Will see pt tomorrow. CAT PHILLIPS May 30, 2021 13:06
--- NOTE | 2021-05-30 13:14 | Diagnostic Imaging Report ---
PROCEDURE: CT head with and without contrast. TECHNIQUE: Multiple contiguous axial images were obtained through the brain before and after the administration of intravenous contrast. Auto Exposure Controls were utilized during the CT exam to meet ALARA standards for radiation dose reduction. INDICATION: Abnormal noncontrast head CT demonstrating a cystic lesion in the left parietal lobe. This study is performed for further evaluation. COMPARISON: Correlation is made with the prior CT from one day earlier. FINDINGS: The ventricular size and sulcal pattern remain stable. Post contrast images demonstrate numerous ring-enhancing lesions in the bilateral cerebral hemispheres. Features are suggestive of intracranial metastatic disease. There is an enhancing lesion in the left frontal lobe measuring 18 mm. This does show some surrounding vasogenic edema. The cystic lesion in the high left parietal lobe does show some peripheral enhancement with surrounding edema. There are smaller enhancing lesions in the high right frontal lobe. There is an area of enhancement in the right thalamus. There are some enhancing lesions in the left cerebellar hemisphere as well as at the pontomedullary junction. No midline shift is identified. There is prominent CSF along the cerebral convexities bilaterally, consistent with subdural effusions or hygromas. IMPRESSION: Numerous enhancing lesions intracranially suggestive of intracranial metastatic disease. Dictated by: Dictated on workstation # [id number]
--- NOTE | 2021-05-30 13:14 | Physical Therapy Progress Note ---
Therapy Progress Note Patient refused treatment this afternoon. She had chemo this morning and says she is too tired to participate. Will check back in the morning. KESHAV ARMENTA PT May 30, 2021 13:14
[2021-05-30 17:00] VITALS: BP 127/73
[2021-05-30] MEDS: ENOXAPARIN 40 MG/0.4 ML (LOVENOX) SYR SC SCH (17:49)
[2021-05-30] MEDS: MONTELUKAST 10 MG (SINGULAIR) TAB PO SCH (20:51)
[2021-05-31 05:30] VITALS: BP 160/65
[2021-05-31 05:56] LABS: BASOPHILS % (AUTO) 0 % (0-10); EOSINOPHILS % (AUTO) 0 % (0-10); HEMATOCRIT 38 % (35-52); HEMOGLOBIN 12.8 g/dL (11.5-16.0); LYMPHOCYTES # (AUTO) 0.6 10^3/uL (1.0-4.0); LYMPHOCYTES % (AUTO) 5 % (12-44); MEAN CORPUSCULAR HEMOGLOBIN 28 pg (25-34); MEAN CORPUSCULAR HGB CONC 33 g/dL (32-36); MEAN CORPUSCULAR VOLUME 85 fL (80-99); MEAN PLATELET VOLUME 10.7 fL (9.0-12.2); MONOCYTES # (AUTO) 1.1 10^3/uL (0.0-1.0); MONOCYTES % (AUTO) 9 % (0-12); NEUTROPHILS # (AUTO) 9.6 10^3/uL (1.8-7.8); NEUTROPHILS % (AUTO) 85 % (42-75); PLATELET COUNT 171 10^3/uL (130-400); WHITE BLOOD COUNT 11.3 10^3/uL (4.3-11.0)
[2021-05-31 06:04] LABS: ALBUMIN 2.6 GM/DL (3.2-4.5); POTASSIUM 3.7 MMOL/L (3.6-5.0)
[2021-05-31 06:06] LABS: CALCIUM 8.4 MG/DL (8.5-10.1)
[2021-05-31 06:07] LABS: TOTAL PROTEIN 5.3 GM/DL (6.4-8.2)
[2021-05-31 06:08] LABS: BILIRUBIN,TOTAL 1.3 MG/DL (0.1-1.0)
[2021-05-31 06:10] LABS: CREATININE SERUM 0.5 MG/DL (0.60-1.30)
[2021-05-31 06:30] LABS: LYMPHOCYTES % (MANUAL) 6 %; MONOCYTES % (MANUAL) 8 %; NEUTROPHILS % (MANUAL) 86 %; RBC MORPH NORMAL
[2021-05-31] MEDS: KCL 10 MEQ TAB (MICRO K) PO SCH (07:25)
[2021-05-31] MEDS ORDERED: MONTELUKAST 10 MG (SINGULAIR) TAB PO SCH (08:00)
[2021-05-31] MEDS: polyethylene glycoL POWDER 17 GM (MIRALAX) PACK PO SCH ×2 (08:05→20:00)
[2021-05-31] MEDS: SENNA W/DOCUSATE (SENOKOT S) TABLET PO SCH ×2 (08:05→20:00)
--- NOTE | 2021-05-31 08:11 | Occupational Ther Daily Note ---
OT Current Status-Daily Note Subjective Pt laying supine in bed, alert. Nrsg tech present in room. No c/o pain. Pt states having nausea and being tired. Pt agrees to therapy. Mental Status/Objective Patient Orientation: Person, Place, Time, Situation Attachments: IV ADL-Treatment Pt declines ADLs today stating that she is tired and has already been to bathroom with nrsg. Therapy Code Descriptions/Definitions Functional [place] Measure: 0=Not Assessed/NA 4=Minimal Assistance 1=Total Assistance 5=Supervision or Setup 2=Maximal Assistance 6=Modified [place] 3=Moderate Assistance 7=Complete IndependenceSCALE: Activities may be completed with or without assistive devices. 2-Sexpdkoshl-wbvxesj completes the activity by him/herself with no assistance from a helper. 5-Set-up or Clean-up Assistance-helper sets up or cleans up; patient completes activity. [place] assists only prior to or following the activity. 4-Supervision or Touching Assistance-helper provides verbal cues and/or touching/steadying and/or contact guard assistance as patient completes activity. Assistance may be provided throughout the activity or intermittently. 3-Partial/Moderate Assistance-helper does LESS THAN HALF the effort. [place] lifts, holds or supports trunk or limbs, but provides less than half the effort. 2-Substantial/Maximal Assistance-helper does MORE THAN HALF the effort. [place] lifts or holds trunk or limbs and provides more than half the effort. 7-Pjvhymtsm-lgoogr does ALL the effort. Patient does none of the effort to complete the activity. Or, the assistance of 2 or more helpers is required for the patient to complete the activity. If activity was not attempted, code reason: 7-Patient Refused. 9-Not Applicable-not attempted and the patient did not perform the activity before the current illness, exacerbation or injury. 10-Not Attempted due to Environmental Limitations-(lack of equipment, weather restraints, etc.). 88-Not Attempted due to Medical Conditions or Safety Concerns. Eating (QC): 7 (Pt refused to eat breakfast due to nausea. ) Oral Hygiene (QC): 7 (Pt refused stating she has already completed.) Other Treatment Pt required 2 person assist to move closer to HOB. Pt educated on energy conservation with pt verbalized understanding and gave personal strategies that is used at home. Skilled instruction and handout given with multiple strategies that pt had not used as of yet. After session, pt supine in bed with call light/phone within reach. All needs met in room. Education OT Patient Education: Energy conservation Teaching Recipient: Patient Teaching Methods: Handout, Discussion Response to Teaching: Verbalize Understanding, Return Demonstration OT Short Term Goals Short Term Goals Time Frame: Jun 08, 2021 Toileting hygiene: 2 Shower/bathe self: 2 Lower body dressin Putting on/taking off footwear: 2 OT Fci Goals Fci Goals Time Frame: Jun 22, 2021 Eating (QC): 5 Oral Hygiene (QC): 5 Toileting Hygiene (QC): 4 Shower/Bathe Self (QC): 3 Upper Body Dressing (QC): 4 Lower Body Dressing (QC): 3 On/Off Footwear (QC): 3 Additional Goals: 1-Demonstrate ADL Tasks, 2-Verbalize Understanding, 3- ImproveStrength/Velasquez 1=Demonstrate adherence to instructed precautions during ADL tasks. 2=Patient will verbalize/demonstrate understanding of assistive devices/modifications for ADL. 3=Patient will improve strength/tolerance for activity to enable patient to perform ADL's. OT Education/Plan Problem List/Assessment Assessment: Decreased Activ Tolerance, Decreased Safety Aware Discharge Recommendations Plan/Recommendations: Continue POC Treatment Plan/Plan of Care Patient would benefit from OT for education, treatment and training to promote independence in ADL's, mobility, safety and/or upper extremity function for ADL's. Plan of Care: ADL Retraining, Functional Mobility, UE Funct Exercise/Act Treatment Duration: Jun 22, 2021 Frequency: 5 times per week Estimated Hrs Per Day: .25 hour per day Rehab Potential: Guarded Time/GCodes Start Time: 07:46 Stop Time: 08:03 Total Time Billed (hr/min): 17 Billed Treatment Time 1 Visit FA (17 min) CAT PHILLIPS May 31, 2021 08:11
[2021-05-31] MEDS: LORATADINE (CLARITIN) 10 MG TAB PO SCH (08:13)
--- NOTE | 2021-05-31 11:12 | Progress Note ---
Progress Note Assessment/Plan Date Seen by Provider: May 31, 2021 Time Seen by Provider: 11:05 Events since last exam Pt had first dose of chemo Carbo+VP16 yesterday and she will have dose 2/3 today and dose 3/3 tomorrow. She is feeling better today and also looked better today than yesterday aft lopez. We will bring chemo to her room and treat her in her room today rather than at the cancer center. CT of the head with contrast showed numerous brain mets consistent with small cell lung cancer brain mets. She got Decadron 10mg yesterday during the chemo. I will continue her Decadron PO 4mg q8hrs along Decadron 10mg IV today and tomorrow. I have notified rad/onc Dr. Matute to see her for cranial radiation, possible next week. She has swing bed status approved to 05/06/2021. I discussed above with patient and her daughter this morning. Assessment/Plan 1. Small cell lung cancer extensive disease, multiple liver mets and numerous brain mets. She started chemo Carbo+CLUB LICENSEE 16 on 05/30/2021, 3 days course, and finish by this Friday06/01/2021 followed by 3 weeks of break. 2. Rad/Onc Dr. Matute consult for possible cranial radiation next week. Continue Decadron 4mg tid po till radiation half way done then decide taper. 3. Continue physical therapy. 4. I discussed with patient and daughter of the CT and brain mets result. Patient and daughter expressed to continue chemo and wants to have radiation treatment. 5. Pepcid to protect GI while on high dose steroid. Vitals Last set of Vitals Signs Vital Signs Date Time Temp Pulse Resp B/P (MAP) Pulse Ox O2 Delivery O2 Flow Rate FiO2 05/31/21 08:41 Room Air 05/31/21 05:30 36.7 74 18 160/65 (96) 92 I&O I&O Intake and Output 05/31/21 00:00 Intake Total 1050 ml Output Total 400 ml Balance 650 ml Intake Oral 1050 ml Output Urine Total 400 ml # Voids 3 # Bowel Movements 3 Labs Laboratory Tests 05/31/21 05:40: White Blood Count 11.3H, Red Blood Count 4.52, Hemoglobin 12.8, Hematocrit 38, Mean Corpuscular Volume 85, Mean Corpuscular Hemoglobin 28, Mean Corpuscular Hemoglobin Concent 33, Red Cell Distribution Width 17.3H, Platelet Count 171, Mean Platelet Volume 10.7, Immature Granulocyte % (Auto) 1, Neutrophils (%) (Auto) 85H, Lymphocytes (%) (Auto) 5L, Monocytes (%) (Auto) 9, Eosinophils (%) (Auto) 0, Basophils (%) (Auto) 0, Neutrophils # (Auto) 9.6H, Lymphocytes # (Auto) 0.6L, Monocytes # (Auto) 1.1H, Eosinophils # (Auto) 0.0, Basophils # (Auto) 0.0, Immature Granulocyte # (Auto) 0.1, Neutrophils % (Manual) 86, Lymphocytes % (Manual) 6, Monocytes % (Manual) 8, Blood Morphology Comment NORMAL, Sodium Level 135, Potassium Level 3.7, Chloride Level 98, Carbon Dioxide Level 27, Anion Gap 10, Blood Urea Nitrogen 11, Creatinine 0.50L, Estimat Glomerular Filtration Rate 120, BUN/Creatinine Ratio 22, Glucose Level 92, Calcium Level 8.4L, Corrected Calcium 9.5, Total Bilirubin 1.3H, Aspartate Amino Transf (AST/SGOT) 87H, Alanine Aminotransferase (ALT/SGPT) 51, Alkaline Phosphatase 157H, Total Protein 5.3L, Albumin 2.6L BRITTANY JOE MD May 31, 2021 11:12
--- NOTE | 2021-05-31 11:14 | Physical Therapy Daily Note ---
PT Daily Note-Current Subjective Patient in bed pre tx, agrees to PT but states she doesn't want to get out of the bed. She says she isn't tired and doesn't have much pain, she just doesn't want to do it. She does agree to exercises in bed. Appearance Patient in bed post tx with nurse call, phone, tray, all needs met. Mental Status Patient Orientation: Person, Place, Situation Transfers SCALE: Activities may be completed with or without assistive devices. 8-Veqafgqytp-wfbtdek completes the activity by him/herself with no assistance from a helper. 5-Set-up or Clean-up Assistance-helper sets up or cleans up; patient completes activity. [place] assists only prior to or following the activity. 4-Supervision or Touching Assistance-helper provides verbal cues and/or touching/steadying and/or contact guard assistance as patient completes activity. Assistance may be provided throughout the activity or intermittently. 3-Partial/Moderate Assistance-helper does LESS THAN HALF the effort. [place] lifts, holds or supports trunk or limbs, but provides less than half the effort. 2-Substantial/Maximal Assistance-helper does MORE THAN HALF the effort. [place] lifts or holds trunk or limbs and provides more than half the effort. 9-Ciwjubpdl-fzcirz does ALL the effort. Patient does none of the effort to complete the activity. Or, the assistance of 2 or more helpers is required for the patient to complete the activity. If activity was not attempted, code reason: 7-Patient Refused. 9-Not Applicable-not attempted and the patient did not perform the activity before the current illness, exacerbation or injury. 10-Not Attempted due to Environmental Limitations-(lack of equipment, weather restraints, etc.). 88-Not Attempted due to Medical Conditions or Safety Concerns. Exercises Supine Ex: Ankle pumps, Quad Set, Glut sets, Heel Slides, Hip abd/add Supine Reps: 20 Treatments LE strengthening Assessment Current Status: Poor Progress Patient refuses OOB activity PT Public Health Sanitarian Technician Goals Public Health Sanitarian Technician Goals PT Public Health Sanitarian Technician Goals Time Frame: Jun 30, 2021 Roll Left & Right (QC): 4 Sit to Lying (QC): 4 Lying-Sitting on Side/Bed(QC): 4 Sit to Stand (QC): 4 Chair/Wgt-cn-Ueyvx Xfer(QC): 4 Toilet Transfer (QC): 4 Car Transfer (QC): 4 Does the Patient Walk: Yes Walk 10 feet (QC): 4 Walk 50ft with 2 Turns (QC): 88 Walk 150 ft (QC): 88 Walking 10ft on Uneven Surface: 88 1 Step (curb) (QC): 88 4 Steps (QC): 9 12 Steps (QC): 9 Picking up an Object (QC): 9 Wheel 50 feet with 2 turns (QC: 3 Type: Manual Wheel 150 feet: 9 PT Plan Problem List Problem List: Activity Tolerance, Functional Strength, Safety, Balance, Gait, Transfer, Bed Mobility, ROM Treatment/Plan Treatment Plan: Continue Plan of Care Treatment Plan: Bed Mobility, Education, Functional Activity Velasquez, Functional Strength, Gait, Safety, Therapeutic Exercise, Transfers Treatment Duration: Jun 30, 2021 Frequency: 6 times per week Estimated Hrs Per Day: .5 hour per day Patient and/or Family Agrees t: Yes Safety Risks/Education Patient Education: Correct Positioning, Safety Issues Teaching Recipient: Patient Teaching Methods: Demonstration, Discussion Response to Teaching: Reinforcement Needed Time/GCodes Time In: 1053 Time Out: 1103 Total Billed Treatment Time: 10 Total Billed Treatment 1 visit EX KESHAV SAN PT May 31, 2021 11:14
--- NOTE | 2021-05-31 11:15 | Progress Note ---
CHERRIEPRAVEEN MED STUDENT 05/31/21 1115: Subjective Date Seen by a Provider: May 31, 2021 Time Seen by a Provider: 08:10 Subjective/Events-last exam Pt is awake and sitting up in bed this morning and eating breakfast. She states that she will be getting chemo again today. She did not really report any nausea or complications from chemo the day before. She states she does not have any pain but has been feeling a bit tired lately. She has not used her inhaler yet this morning but one is ordered for her and she will be getting it. She has been eating and drinking without difficulties. She does not have any pain or blood with BM or urination. She had been having loose stools but had her stool softener held this morning. She does not have any questions or concerns this morning. Review of Systems General: No Chills, No Night Sweats, No Fatigue HEENT: No Head Aches, No Visual Changes, No Ear Pain, No Dysphasia Pulmonary: No Dyspnea, No Cough, No Pleuritic Chest Pain Cardiovascular: No: Chest Pain, Palpitations, Edema Gastrointestinal: Diarrhea (loose stools); No: Nausea, Vomiting, Abdominal Pain, Constipation, Melena, Hematochezia Genitourinary: No Dysuria, No Frequency, No Incontinence, No Hematuria Musculoskeletal: No: leg pain, foot pain Neurological: No: Weakness, Numbness Objective Exam Last Set of Vital Signs Vital Signs Date Time Temp Pulse Resp B/P (MAP) Pulse Ox O2 Delivery O2 Flow Rate FiO2 05/31/21 08:41 Room Air 05/31/21 05:30 36.7 74 18 160/65 (96) 92 Capillary Refill : I&O Intake and Output 05/31/21 00:00 Intake Total 1050 ml Output Total 400 ml Balance 650 ml Intake Oral 1050 ml Output Urine Total 400 ml # Voids 3 # Bowel Movements 3 General: Alert, Oriented X3, Cooperative, No Acute Distress HEENT: PERRLA Neck: Supple Lungs: Clear to Auscultation, Normal Air Movement Heart: Regular Rate, No Murmurs Abdomen: Normal Bowel Sounds, Soft, No Tenderness Extremities: No Clubbing, No Cyanosis, No Edema, Normal Pulses Skin: No Rashes Neuro: Normal Speech Psych/Mental Status: Mental Status NL Results Lab Laboratory Tests 05/31/21 05:40: White Blood Count 11.3H, Red Blood Count 4.52, Hemoglobin 12.8, Hematocrit 38, Mean Corpuscular Volume 85, Mean Corpuscular Hemoglobin 28, Mean Corpuscular Hemoglobin Concent 33, Red Cell Distribution Width 17.3H, Platelet Count 171, Mean Platelet Volume 10.7, Immature Granulocyte % (Auto) 1, Neutrophils (%) (Auto) 85H, Lymphocytes (%) (Auto) 5L, Monocytes (%) (Auto) 9, Eosinophils (%) (Auto) 0, Basophils (%) (Auto) 0, Neutrophils # (Auto) 9.6H, Lymphocytes # (Auto) 0.6L, Monocytes # (Auto) 1.1H, Eosinophils # (Auto) 0.0, Basophils # (Auto) 0.0, Immature Granulocyte # (Auto) 0.1, Neutrophils % (Manual) 86, Lymphocytes % (Manual) 6, Monocytes % (Manual) 8, Blood Morphology Comment NORMAL, Sodium Level 135, Potassium Level 3.7, Chloride Level 98, Carbon Dioxide Level 27, Anion Gap 10, Blood Urea Nitrogen 11, Creatinine 0.50L, Estimat Glomerular Filtration Rate 120, BUN/Creatinine Ratio 22, Glucose Level 92, Calcium Level 8.4L, Corrected Calcium 9.5, Total Bilirubin 1.3H, Aspartate Amino Transf (AST/SGOT) 87H, Alanine Aminotransferase (ALT/SGPT) 51, Alkaline Phosphatase 157H, Total Protein 5.3L, Albumin 2.6L Radiology NAME: [facility] REC#: [id number] PT STATUS: ADM IN : 1945 PHYSICIAN: KATHERINE CHICAS ADMIT DATE: 05/28/21 Signed Date of Exam:05/30/21 CT HEAD W WO PROCEDURE: CT head with and without contrast. TECHNIQUE: Multiple contiguous axial images were obtained through the brain before and after the administration of intravenous contrast. Auto Exposure Controls were utilized during the CT exam to meet ALARA standards for radiation dose reduction. INDICATION: Abnormal noncontrast head CT demonstrating a cystic lesion in the left parietal lobe. This study is performed for further evaluation. COMPARISON: Correlation is made with the prior CT from one day earlier. FINDINGS: The ventricular size and sulcal pattern remain stable. Post contrast images demonstrate numerous ring-enhancing lesions in the bilateral cerebral hemispheres. Features are suggestive of intracranial metastatic disease. There is an enhancing lesion in the left frontal lobe measuring 18 mm. This does show some surrounding vasogenic edema. The cystic lesion in the high left parietal lobe does show some peripheral enhancement with surrounding edema. There are smaller enhancing lesions in the high right frontal lobe. There is an area of enhancement in the right thalamus. There are some enhancing lesions in the left cerebellar hemisphere as well as at the pontomedullary junction. No midline shift is identified. There is prominent CSF along the cerebral convexities bilaterally, consistent with subdural effusions or hygromas. IMPRESSION: Numerous enhancing lesions intracranially suggestive of intracranial metastatic disease. Dictated by: Dictated on workstation # [id number] Dict: 05/30/21 1304 Trans: 05/30/21 1559 [id number] Interpreted by: MEY GUILLERMO MD Electronically signed by: MEY GUILLERMO MD 05/30/21 1559 Assessment/Plan Assessment/Plan Assess & Plan/Chief Complaint SCC of lungs with liver mets -Receiving chemo today through friday -Nausea medication -Pt does not report much nausea today but will continue to monitor Post-Groshrong port placement Abnormal posture- patient prefer leaning to the left -CT with contrast shows probable mets Asthma -Pt received home inhaler this morning Continue PT Hypokalemia -3.7 today -Continue to monitor Recheck Labs tomorrow Supervisory-Addendum Brief Verification & Attestation Participated in pt care: history, physical Personally performed: exam Care discussed with: Medical Student Procedures: n/a n/a KATHERINE CHICAS DO 06/01/21 0525: Subjective Subjective/Events-last exam Patient doing well Inhaled corticosteroid ordered Check meds and labs Chemotherapy going well Review of Systems General: Fatigue, Malaise Objective Exam General: Alert, Oriented X3, Cooperative, No Acute Distress Lungs: Clear to Auscultation, Normal Air Movement Heart: Regular Rate, Normal S1, Normal S2, No Murmurs Psych/Mental Status: Mental Status NL, Mood NL Assessment/Plan Assessment/Plan Assess & Plan/Chief Complaint Chemotherapy Monitor potassium Supervisory-Addendum Brief Verification & Attestation Participated in pt care: history, MDM, physical Personally performed: exam, history, MDM, supervision of care Care discussed with: Medical Student Procedures: n/a Results interpretation: Verified all documentation Verification and Attestation of Medical Student E/M Service A medical student performed and documented this service in my presence. I reviewed and verified all information documented by the medical student and made modifications to such information, when appropriate. I personally performed the physical exam and medical decision making. Katherine Chicas, Jun 01, 2021,05:24 PRAVEEN GRIER MED STUDENT May 31, 2021 11:15 KATHERINE CHICAS DO Jun 01, 2021 05:25
[2021-05-31] MEDS: CATHETER FLUSH 10 ML SYR IV PRN ×2 (15:00→16:11)
[2021-05-31] MEDS: ETOPOSIDE 150 MG in NORMAL SALINE (CANCER CENTER) 500 ML IV SCH (15:11)
[2021-05-31 17:20] VITALS: BP 154/78
[2021-05-31] MEDS: ENOXAPARIN 40 MG/0.4 ML (LOVENOX) SYR SC SCH (17:59)
[2021-05-31] MEDS: RT--FLUTICASONE/SALMETEROL 113-14 (AIRDUO RespiCLICK) IH SCH (19:43)
[2021-05-31] MEDS: FAMOTIDINE 20 MG (PEPCID) TABLET PO SCH (20:00)
[2021-05-31] MEDS: MONTELUKAST 10 MG (SINGULAIR) TAB PO SCH (20:00)
[2021-06-01 02:38] VITALS: BP 162/80
[2021-06-01] MEDS: KCL 10 MEQ TAB (MICRO K) PO SCH ×2 (06:19→06:23)
[2021-06-01 06:37] LABS: HEMATOCRIT 40 % (35-52); HEMOGLOBIN 13.3 g/dL (11.5-16.0); MEAN CORPUSCULAR HEMOGLOBIN 28 pg (25-34); MEAN CORPUSCULAR HGB CONC 33 g/dL (32-36); MEAN CORPUSCULAR VOLUME 85 fL (80-99); MEAN PLATELET VOLUME 10.4 fL (9.0-12.2); PLATELET COUNT 182 10^3/uL (130-400); WHITE BLOOD COUNT 9.3 10^3/uL (4.3-11.0)
[2021-06-01 06:44] LABS: ALBUMIN 2.8 GM/DL (3.2-4.5)
[2021-06-01 06:46] LABS: CALCIUM 8.4 MG/DL (8.5-10.1)
[2021-06-01 06:47] LABS: TOTAL PROTEIN 5.6 GM/DL (6.4-8.2)
[2021-06-01 06:49] LABS: BILIRUBIN,TOTAL 0.9 MG/DL (0.1-1.0)
[2021-06-01 06:51] LABS: CREATININE SERUM 0.5 MG/DL (0.60-1.30)
[2021-06-01] MEDS: RT--FLUTICASONE/SALMETEROL 113-14 (AIRDUO RespiCLICK) IH SCH (09:32)
[2021-06-01] MEDS: polyethylene glycoL POWDER 17 GM (MIRALAX) PACK PO SCH ×2 (10:01→21:40)
[2021-06-01] MEDS: FAMOTIDINE 20 MG (PEPCID) TABLET PO SCH ×2 (10:01→21:40)
[2021-06-01] MEDS: LORATADINE (CLARITIN) 10 MG TAB PO SCH (10:01)
[2021-06-01] MEDS: SENNA W/DOCUSATE (SENOKOT S) TABLET PO SCH ×2 (10:01→21:40)
[2021-06-01] MEDS: NS IV 1000 ML (CANCER CTR) IV SCH (13:12)
--- NOTE | 2021-06-01 13:17 | Occ Therapy Progress Note ---
Therapy Progress Note Pt alert, laying in bed with family in room when OT entered. Pt stated she is getting ready to leave for chemo and come back another time. If free OT will check on pt at a later time. JAMEL HENDRICKSON Jun 01, 2021 13:16
[2021-06-01] MEDS: ETOPOSIDE 150 MG in NORMAL SALINE (CANCER CENTER) 500 ML IV SCH (13:20)
--- NOTE | 2021-06-01 14:19 | Progress Note ---
YIFAN HAAS 06/01/21 1419: Subjective Date Seen by a Provider: Jun 01, 2021 Time Seen by a Provider: 08:00 Subjective/Events-last exam Patient reports feeling about the same as yesterday. States starting last night she has been having problem with vision in her right eye. Feels like there is a gregory "haze" over all visual [place]. Feels her energy levels are stable. Enjoys PT. Set for her third round of chemotherapy today, feels like it has been going well so far. Dr. Longoria was looking in to see if she is a candidate for radiation therapy. Review of Systems General: No Chills, No Fatigue HEENT: No Head Aches; Visual Changes (right) Pulmonary: No Dyspnea Cardiovascular: No: Chest Pain, Palpitations Gastrointestinal: No: Nausea, Vomiting, Abdominal Pain, Diarrhea, Constipation Genitourinary: No Dysuria, No Frequency Focused Exam Respiratory: Chest Non Tender, Lungs Clear, No Accessory Muscle Use, No Respiratory Distress, Decreased Breath Sounds Cardiovascular: Regular Rate, Rhythm, Normal Peripheral Pulses Skin: normal color, warm/dry Objective Exam Last Set of Vital Signs Vital Signs Date Time Temp Pulse Resp B/P (MAP) Pulse Ox O2 Delivery O2 Flow Rate FiO2 06/01/21 09:33 93 Room Air 06/01/21 08:00 36.6 06/01/21 02:38 68 18 162/80 (107) Capillary Refill : I&O Intake and Output 06/01/21 00:00 Intake Total 900 ml Balance 900 ml Intake Oral 900 ml # Voids 3 # Bowel Movements 2 General: Alert, Oriented X3, No Acute Distress HEENT: PERRLA, EOMI Neck: Supple Lungs: Clear to Auscultation Heart: Regular Rate, No Murmurs Extremities: No Cyanosis, No Edema, Normal Pulses Results Lab Laboratory Tests 06/01/21 06:28: White Blood Count 9.3, Red Blood Count 4.69, Hemoglobin 13.3, Hematocrit 40, Mean Corpuscular Volume 85, Mean Corpuscular Hemoglobin 28, Mean Corpuscular Hemoglobin Concent 33, Red Cell Distribution Width 17.3H, Platelet Count 182, Mean Platelet Volume 10.4, Sodium Level 135, Potassium Level 4.0, Chloride Level 98, Carbon Dioxide Level 25, Anion Gap 12, Blood Urea Nitrogen 11, Creatinine 0.50L, Estimat Glomerular Filtration Rate 120, BUN/Creatinine Ratio 22, Glucose Level 96, Calcium Level 8.4L, Corrected Calcium 9.4, Total Bilirubin 0.9, Aspartate Amino Transf (AST/SGOT) 87H, Alanine Aminotransferase (ALT/SGPT) 48, Alkaline Phosphatase 159H, Total Protein 5.6L, Albumin 2.8L Assessment/Plan Assessment/Plan Assess & Plan/Chief Complaint Assessment 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 Third dose today Continue following with Heme/Onc Continue medical management Continue PT/OT Continue IS Monitor potassium RACQUEL CHICAS DO 06/02/21 0551: Subjective Subjective/Events-last exam Patient doing well Chemotherapy tolerated No nausea Trying to eat more Review of Systems General: Fatigue, Malaise Objective Exam General: Alert, Oriented X3, Cooperative, No Acute Distress Lungs: Clear to Auscultation, Normal Air Movement Heart: Regular Rate, Normal S1, Normal S2, No Murmurs Psych/Mental Status: Mental Status NL, Mood NL Assessment/Plan Assessment/Plan Assess & Plan/Chief Complaint Chemotherapy Monitor closely Supervisory-Addendum Brief Verification & Attestation Participated in pt care: history, MDM, physical Personally performed: exam, history, MDM, supervision of care Care discussed with: Medical Student Procedures: n/a Results interpretation: Verified all documentation Verification and Attestation of Medical Student E/M Service A medical student performed and documented this service in my presence. I reviewed and verified all information documented by the medical student and made modifications to such information, when appropriate. I personally performed the physical exam and medical decision making. Racquel Chicas, Jun 02, 2021,05:50 YIFAN HAAS Jun 01, 2021 14:19 RACQUEL CHICAS DO Jun 02, 2021 05:51
[2021-06-01] MEDS: CATHETER FLUSH 10 ML SYR IV PRN (14:20)
--- NOTE | 2021-06-01 14:21 | Physical Therapy Progress Note ---
Therapy Progress Note Attempted to see patient for PT treatment x 2. Once after the patient/family meeting and the patient refused stating she wanted to visit with her family. The second attempt she was finishing Chemo and this PT asked if he could come back after. She states, "Not today, I'll probably just take a nap." Will attempt PT treatment again tomorrow and progress per patient tolerance. ELINA JOHNSON PT Jun 01, 2021 14:21
--- NOTE | 2021-06-01 14:46 | Occ Therapy Progress Note ---
Therapy Progress Note OT visited with pt, she states she had Chemo this afternoon and is very tired. Pt's daughter in room assisting her with eating a little food, then pt would like to rest. Pt declined tx at this time, as she is too tired. OT will attempt tx on next available date. 1, refusal 1435 MAYRA GUZMAN OT Jun 01, 2021 14:46
[2021-06-01] MEDS: ENOXAPARIN 40 MG/0.4 ML (LOVENOX) SYR SC SCH (19:07)
[2021-06-01 19:55] VITALS: BP 159/68
[2021-06-01] MEDS: MONTELUKAST 10 MG (SINGULAIR) TAB PO SCH (21:40)
[2021-06-02] MEDS: KCL 10 MEQ TAB (MICRO K) PO SCH (06:30)
[2021-06-02 07:51] VITALS: BP 173/89
--- NOTE | 2021-06-02 09:55 | Physical Therapy Daily Note ---
PT Daily Note-Current Subjective Pt. says she didn't sleep at all last night, states "I'm cranky today and don't want to do anything." Pt. does agree to leg exercises. Mental Status Patient Orientation: Person, Place, Time, Situation Transfers SCALE: Activities may be completed with or without assistive devices. 6-Wyuaghbtkb-pfqricu completes the activity by him/herself with no assistance from a helper. 5-Set-up or Clean-up Assistance-helper sets up or cleans up; patient completes activity. [place] assists only prior to or following the activity. 4-Supervision or Touching Assistance-helper provides verbal cues and/or touching/steadying and/or contact guard assistance as patient completes activity. Assistance may be provided throughout the activity or intermittently. 3-Partial/Moderate Assistance-helper does LESS THAN HALF the effort. [place] lifts, holds or supports trunk or limbs, but provides less than half the effort. 2-Substantial/Maximal Assistance-helper does MORE THAN HALF the effort. [place] lifts or holds trunk or limbs and provides more than half the effort. 0-Ppffnrnpp-rtjoay does ALL the effort. Patient does none of the effort to complete the activity. Or, the assistance of 2 or more helpers is required for the patient to complete the activity. If activity was not attempted, code reason: 7-Patient Refused. 9-Not Applicable-not attempted and the patient did not perform the activity be fore the current illness, exacerbation or injury. 10-Not Attempted due to Environmental Limitations-(lack of equipment, weather restraints, etc.). 88-Not Attempted due to Medical Conditions or Safety Concerns. Exercises Supine Ex: Ankle pumps, Quad Set, Glut sets, Heel Slides, Straight leg raise, Hip abd/add, Bicep Curls Supine Reps: 10 Treatments bed exercises Assessment Current Status: Fair Progress Pt. does well with exercises but does fatigue and declines out of bed activity today. Pt. in bed post session with call light and all needs met. PT Assistant Professor Of Economics Goals Assistant Professor Of Economics Goals PT Senior Living Goals Time Frame: Jun 30, 2021 Roll Left & Right (QC): 4 Sit to Lying (QC): 4 Lying-Sitting on Side/Bed(QC): 4 Sit to Stand (QC): 4 Chair/Eaw-jc-Gxxun Xfer(QC): 4 Toilet Transfer (QC): 4 Car Transfer (QC): 4 Does the Patient Walk: Yes Walk 10 feet (QC): 4 Walk 50ft with 2 Turns (QC): 88 Walk 150 ft (QC): 88 Walking 10ft on Uneven Surface: 88 1 Step (curb) (QC): 88 4 Steps (QC): 9 12 Steps (QC): 9 Picking up an Object (QC): 9 Wheel 50 feet with 2 turns (QC: 3 Type: Manual Wheel 150 feet: 9 PT Plan Treatment/Plan Treatment Plan: Continue Plan of Care Treatment Plan: Bed Mobility, Education, Functional Activity [place], Functional Strength, Gait, Safety, Therapeutic Exercise, Transfers Treatment Duration: Jun 30, 2021 Frequency: 6 times per week Estimated Hrs Per Day: .5 hour per day Patient and/or Family Agrees t: Yes Time/GCodes Time In: 940 Time Out: 955 Total Billed Treatment Time: 15 Total Billed Treatment 1, Ex 15' JANETH CARRINGTON PT Jun 02, 2021 09:55
[2021-06-02] MEDS: SENNA W/DOCUSATE (SENOKOT S) TABLET PO SCH ×2 (10:43→20:20)
[2021-06-02] MEDS: LORATADINE (CLARITIN) 10 MG TAB PO SCH (10:43)
[2021-06-02] MEDS: polyethylene glycoL POWDER 17 GM (MIRALAX) PACK PO SCH ×2 (10:43→20:19)
[2021-06-02] MEDS: FAMOTIDINE 20 MG (PEPCID) TABLET PO SCH ×2 (10:43→20:20)
[2021-06-02] MEDS: RT--FLUTICASONE/SALMETEROL 113-14 (AIRDUO RespiCLICK) IH SCH ×2 (10:51→19:11)
--- NOTE | 2021-06-02 12:50 | Progress Note ---
Subjective Date Seen by a Provider: Jun 02, 2021 Time Seen by a Provider: 12:00 Subjective/Events-last exam Patient doing ok Resting today BM+ No nausea No pain Chemotherapy tolerated well Very fragile and debilitated Needs NHP at [place] Review of Systems General: Fatigue, Malaise Objective Exam Last Set of Vital Signs Vital Signs Date Time Temp Pulse Resp B/P (MAP) Pulse Ox O2 Delivery O2 Flow Rate FiO2 06/02/21 10:51 95 Room Air 06/02/21 07:51 36.6 72 18 173/89 (117) Capillary Refill : I&O Intake and Output 06/02/21 00:00 Intake Total 900 ml Output Total 2500 ml Balance -1600 ml Intake Oral 900 ml Output Urine Total 2500 ml # Bowel Movements 1 General: Alert, Oriented X3, Cooperative, No Acute Distress Lungs: Clear to Auscultation, Normal Air Movement Heart: Regular Rate, Normal S1, Normal S2, No Murmurs Psych/Mental Status: Mental Status NL, Mood NL Assessment/Plan Assessment/Plan Assess & Plan/Chief Complaint Assessment: Severe weakness and debility 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
[2021-06-02] MEDS: ENOXAPARIN 40 MG/0.4 ML (LOVENOX) SYR SC SCH (18:42)
[2021-06-02 20:00] VITALS: BP 108/70
[2021-06-02] MEDS: MONTELUKAST 10 MG (SINGULAIR) TAB PO SCH (20:20)
[2021-06-03] MEDS: KCL 10 MEQ TAB (MICRO K) PO SCH (05:59)
--- NOTE | 2021-06-03 06:13 | PM&R Progress Note ---
Subjective HPI/CC On Admission Date Seen by Provider: Jun 03, 2021 Objective Exam Vital Signs Vital Signs Date Time Temp Pulse Resp B/P (MAP) Pulse Ox O2 Delivery O2 Flow Rate FiO2 06/02/21 20:00 36.0 66 18 108/70 (83) 95 Room Air Capillary Refill : Respiratory: Chest Non Tender, Lungs Clear, No Accessory Muscle Use, No Respiratory Distress, Decreased Breath Sounds Cardiovascular: Regular Rate, Rhythm, Normal Peripheral Pulses Results/Procedures Lab Patient resulted labs reviewed. [facility]IM Transfers Therapy Code Descriptions/Definitions Functional [place] Measure: 0=Not Assessed/NA 4=Minimal Assistance 1=Total Assistance 5=Supervision or Setup 2=Maximal Assistance 6=Modified [place] 3=Moderate Assistance 7=Complete IndependenceSCALE: Activities may be completed with or without assistive devices. 2-Vnuwbuqsxw-yagehxl completes the activity by him/herself with no assistance from a helper. 5-Set-up or Clean-up Assistance-helper sets up or cleans up; patient completes activity. [place] assists only prior to or following the activity. 4-Supervision or Touching Assistance-helper provides verbal cues and/or touching/steadying and/or contact guard assistance as patient completes activity. Assistance may be provided throughout the activity or intermittently. 3-Partial/Moderate Assistance-helper does LESS THAN HALF the effort. [place] lifts, holds or supports trunk or limbs, but provides less than half the effort. 2-Substantial/Maximal Assistance-helper does MORE THAN HALF the effort. [place] lifts or holds trunk or limbs and provides more than half the effort. 8-Wlubpfpwl-swramp does ALL the effort. Patient does none of the effort to complete the activity. Or, the assistance of 2 or more helpers is required for the patient to complete the activity. If activity was not attempted, code reason: 7-Patient Refused. 9-Not Applicable-not attempted and the patient did not perform the activity before the current illness, exacerbation or injury. 10-Not Attempted due to Environmental Limitations-(lack of equipment, weather restraints, etc.). 88-Not Attempted due to Medical Conditions or Safety Concerns. Roll Left to Right (QC): 2 Sit to Lying (QC): 2 Sit to Stand (QC): 1 (patient did perform sit to stand to FWW x 2 sets with max assist with SBA to CGA of another) Chair/Amu-tf-Iiqvh Xfer(QC): 1 Car Transfer (QC): 88 Gait Training Does the Patient Walk?: No and Walking Goal IS indicated Walk 10 feet (QC): 88 Walk 50 ft with 2 Turns(QC): 88 Walk 150 ft (QC): 88 Walking 10ft/uneven surface-QC: 88 Wheelchair Training Wheel 50 ft with 2 turns (QC): 88 Wheel 150 ft (QC): 88 Stair Training 1 Step (curb) (QC): 88 4 Steps (QC): 88 12 Steps (QC): 88 Balance Picking up an Object (QC): 8 ADL-Treatment Eating (QC): 7 (Pt refused to eat breakfast due to nausea. ) Oral Hygiene (QC): 7 (Pt refused stating she has already completed.) Shower/Bathe Self (QC): 1 (Per clincial judgment, assist x2 required.) Upper Body Dressing (QC): 88 Lower Body Dressing (QC): 1 (Per clincial judgment, total assist with task.) On/Off Footwear (QC): 1 (per clincial judgment, total assist. ) Toileting Hygiene (QC): 1 (Per clincial judgment, assist x2 ) KATHERINE CHICAS DO Jun 03, 2021 06:13
--- NOTE | 2021-06-03 06:13 | Progress Note ---
Subjective Date Seen by a Provider: Jun 03, 2021 Time Seen by a Provider: 11:00 Subjective/Events-last exam Patient doing well No pain reported Increased appetite from steroids No nausea No pain Review of Systems General: Fatigue, Malaise Objective Exam Last Set of Vital Signs Vital Signs Date Time Temp Pulse Resp B/P (MAP) Pulse Ox O2 Delivery O2 Flow Rate FiO2 06/02/21 20:00 36.0 66 18 108/70 (83) 95 Room Air Capillary Refill : I&O l Intake and Output 06/03/21 00:00 Intake Total 890 ml Output Total 1400 ml Balance -510 ml Intake Oral 890 ml Output Urine Total 1400 ml # Bowel Movements 1 General: Alert, Oriented X3, Cooperative, No Acute Distress Lungs: Clear to Auscultation, Normal Air Movement Heart: Regular Rate, Normal S1, Normal S2, No Murmurs Psych/Mental Status: Mental Status NL, Mood NL Assessment/Plan Assessment/Plan Assess & Plan/Chief Complaint Assessment: Severe weakness and debility 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
[2021-06-03] MEDS: RT--FLUTICASONE/SALMETEROL 113-14 (AIRDUO RespiCLICK) IH SCH ×2 (06:50→21:00)
[2021-06-03 07:06] LABS: BASOPHILS % (AUTO) 0 % (0-10); EOSINOPHILS % (AUTO) 0 % (0-10); HEMATOCRIT 41 % (35-52); HEMOGLOBIN 13.8 g/dL (11.5-16.0); LYMPHOCYTES # (AUTO) 0.7 10^3/uL (1.0-4.0); LYMPHOCYTES % (AUTO) 7 % (12-44); MEAN CORPUSCULAR HEMOGLOBIN 29 pg (25-34); MEAN CORPUSCULAR HGB CONC 33 g/dL (32-36); MEAN CORPUSCULAR VOLUME 86 fL (80-99); MEAN PLATELET VOLUME 10.3 fL (9.0-12.2); MONOCYTES # (AUTO) 0.1 10^3/uL (0.0-1.0); MONOCYTES % (AUTO) 1 % (0-12); NEUTROPHILS # (AUTO) 8.4 10^3/uL (1.8-7.8); NEUTROPHILS % (AUTO) 91 % (42-75); PLATELET COUNT 165 10^3/uL (130-400); WHITE BLOOD COUNT 9.3 10^3/uL (4.3-11.0)
[2021-06-03 07:16] LABS: ALBUMIN 2.9 GM/DL (3.2-4.5)
[2021-06-03 07:17] LABS: POTASSIUM 4.7 MMOL/L (3.6-5.0)
[2021-06-03 07:18] LABS: CALCIUM 8.2 MG/DL (8.5-10.1)
[2021-06-03 07:19] LABS: TOTAL PROTEIN 5.7 GM/DL (6.4-8.2)
[2021-06-03 07:22] LABS: CREATININE SERUM 0.49 MG/DL (0.60-1.30)
[2021-06-03 08:04] VITALS: BP 158/92
[2021-06-03] MEDS: LORATADINE (CLARITIN) 10 MG TAB PO SCH (08:19)
[2021-06-03] MEDS: polyethylene glycoL POWDER 17 GM (MIRALAX) PACK PO SCH ×2 (08:19→20:59)
[2021-06-03] MEDS: SENNA W/DOCUSATE (SENOKOT S) TABLET PO SCH ×2 (08:19→20:58)
[2021-06-03] MEDS: FAMOTIDINE 20 MG (PEPCID) TABLET PO SCH ×2 (08:19→20:59)
[2021-06-03] MEDS: ENOXAPARIN 40 MG/0.4 ML (LOVENOX) SYR SC SCH (18:56)
[2021-06-03 19:43] VITALS: BP 105/59
[2021-06-03] MEDS: MONTELUKAST 10 MG (SINGULAIR) TAB PO SCH (20:59)
[2021-06-04] MEDS: KCL 10 MEQ TAB (MICRO K) PO SCH (06:39)
[2021-06-04 08:18] VITALS: BP 113/77
[2021-06-04] MEDS: SENNA W/DOCUSATE (SENOKOT S) TABLET PO SCH ×2 (09:20→20:27)
[2021-06-04] MEDS: polyethylene glycoL POWDER 17 GM (MIRALAX) PACK PO SCH ×2 (09:21→20:27)
[2021-06-04] MEDS: LORATADINE (CLARITIN) 10 MG TAB PO SCH (09:21)
[2021-06-04] MEDS: FAMOTIDINE 20 MG (PEPCID) TABLET PO SCH ×2 (09:21→20:27)
[2021-06-04] MEDS: RT--FLUTICASONE/SALMETEROL 113-14 (AIRDUO RespiCLICK) IH SCH ×2 (09:22→21:05)
--- NOTE | 2021-06-04 11:35 | Physical Therapy Daily Note ---
PT Daily Note-Current Subjective Pt in bed upon arrival and agrees to PT. Denies wanting to ambulate when prompted d/t fatigue. Daughter present. Mental Status Patient Orientation: Normal For Age Transfers SCALE: Activities may be completed with or without assistive devices. 8-Nerdmixmfs-zfudtft completes the activity by him/herself with no assistance from a helper. 5-Set-up or Clean-up Assistance-helper sets up or cleans up; patient completes activity. [place] assists only prior to or following the activity. 4-Supervision or Touching Assistance-helper provides verbal cues and/or touching/steadying and/or contact guard assistance as patient completes act ivity. Assistance may be provided throughout the activity or intermittently. 3-Partial/Moderate Assistance-helper does LESS THAN HALF the effort. [place] lifts, holds or supports trunk or limbs, but provides less than half the effort. 2-Substantial/Maximal Assistance-helper does MORE THAN HALF the effort. [place] lifts or holds trunk or limbs and provides more than half the effort. 4-Sqyfcmmrt-msikdc does ALL the effort. Patient does none of the effort to complete the activity. Or, the assistance of 2 or more helpers is required for the patient to complete the activity. If activity was not attempted, code reason: 7-Patient Refused. 9-Not Applicable-not attempted and the patient did not perform the activity before the current illness, exacerbation or injury. 10-Not Attempted due to Environmental Limitations-(lack of equipment, weather restraints, etc.). 88-Not Attempted due to Medical Conditions or Safety Concerns. Roll Left & Right (QC): 6 Gait Training Does the Patient Walk?: No and Walking Goal IS indicated Exercises Supine Ex: Ankle pumps, Quad Set, Rolling, Glut sets, Heel Slides, Short Arc Quads, Scooting Performs S/L clamshells on BLE Treatments Pt performs all exs in bed and denies ambulation. Able to perform all supine w/ vc's. Pt in bed upon departure all needs met and call light nearby daughter present. Assessment Current Status: Good Progress Required skilled verbal cues for bed mobility and proper execution of exercises. Pt becomes fatigued quickly. PT Assisted Goals Pan Helper Goals PT Assisted Goals Time Frame: Jun 30, 2021 Roll Left & Right (QC): 4 Sit to Lying (QC): 4 Lying-Sitting on Side/Bed(QC): 4 Sit to Stand (QC): 4 Chair/Unq-hx-Fhyfz Xfer(QC): 4 Toilet Transfer (QC): 4 Car Transfer (QC): 4 Does the Patient Walk: Yes Walk 10 feet (QC): 4 Walk 50ft with 2 Turns (QC): 88 Walk 150 ft (QC): 88 Walking 10ft on Uneven Surface: 88 1 Step (curb) (QC): 88 4 Steps (QC): 9 12 Steps (QC): 9 Picking up an Object (QC): 9 Wheel 50 feet with 2 turns (QC: 3 Type: Manual Wheel 150 feet: 9 PT Plan Problem List Problem List: Activity Tolerance, Functional Strength Treatment/Plan Treatment Plan: Continue Plan of Care Treatment Plan: Bed Mobility, Education, Functional Activity Velasquez, Functional Strength, Gait, Safety, Therapeutic Exercise, Transfers Treatment Duration: Jun 30, 2021 Frequency: 6 times per week Estimated Hrs Per Day: .5 hour per day Patient and/or Family Agrees t: Yes Safety Risks/Education Patient Education: Correct Positioning Teaching Recipient: Patient, Family Teaching Methods: Discussion Response to Teaching: Verbalize Understanding, Return Demonstration Time/GCodes Time In: 850 Time Out: 903 Total Billed Treatment Time: 13 Total Billed Treatment 1, EX CHAOBRAULIO WINDMILL TECHNICIAN Jun 04, 2021 11:35
--- NOTE | 2021-06-04 11:51 | Progress Note ---
YFIAN HAAS 06/04/21 1151: Subjective Date Seen by a Provider: Jun 04, 2021 Time Seen by a Provider: 08:35 Subjective/Events-last exam Patient is doing about the same today. Appetite continues to be increased. Patient is scheduled for cranial radiation today. States she is trying to do as much as she can in regards to PT/OT but that sometimes she feels too tired. Denies fever, n/v, pain. Review of Systems General: No Chills HEENT: No Head Aches, No Visual Changes Pulmonary: No Cough Cardiovascular: No: Chest Pain, Palpitations Gastrointestinal: No: Nausea, Vomiting Genitourinary: No Dysuria, No Incontinence Objective Exam Last Set of Vital Signs Vital Signs Date Time Temp Pulse Resp B/P (MAP) Pulse Ox O2 Delivery O2 Flow Rate FiO2 06/04/21 11:28 90 Room Air 06/04/21 08:18 36.5 91 20 113/77 (89) Capillary Refill : I&O Intake and Output 06/04/21 00:00 Intake Total 640 ml Output Total 970 ml Balance -330 ml Intake Oral 640 ml Output Urine Total 970 ml # Voids 2 # Bowel Movements 3 General: Alert, Oriented X3, Cooperative HEENT: PERRLA, EOMI Neck: Supple Lungs: Clear to Auscultation Heart: Regular Rate, No Murmurs Abdomen: Soft, No Tenderness Extremities: No Edema Assessment/Plan Assessment/Plan Assess & Plan/Chief Complaint Assessment 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 Asthma Plan Cranial radiation today Continue following with Heme/Onc SS for placement into [facility] Continue medical management PT/OT IS monitor closely RACQUEL CHICAS DO 06/05/21 0532: Subjective Subjective/Events-last exam Pt doing pretty well Eating a lot more Will need skilled care No pain Lungs remain clear on an inhaled Corticosteroid Review of Systems General: Fatigue, Malaise Objective Exam General: Alert, Oriented X3, Cooperative, No Acute Distress Lungs: Clear to Auscultation Heart: Regular Rate Psych/Mental Status: Mental Status NL Assessment/Plan Assessment/Plan Assess & Plan/Chief Complaint Maintain radiation schedule PT and OT Supervisory-Addendum Brief Verification & Attestation Participated in pt care: history, MDM, physical Personally performed: exam, history, MDM, supervision of care Care discussed with: Medical Student Procedures: n/a Results interpretation: Verified all documentation Verification and Attestation of Medical Student E/M Service A medical student performed and documented this service in my presence. I reviewed and verified all information documented by the medical student and made modifications to such information, when appropriate. I personally performed the physical exam and medical decision making. Racquel Chicas, Jun 05, 2021,05:31 YIFAN HAAS Jun 04, 2021 11:51 RACQUEL CHICAS DO Jun 05, 2021 05:32
--- NOTE | 2021-06-04 14:14 | Occupational Ther Daily Note ---
OT Current Status-Daily Note Subjective Pt alert, lying in bed. Pt grudgingly agrees to therapy. Stating "Do I have to get out of bed?". Pt states that she is tired, to tired to do anything. Mental Status/Objective Patient Orientation: Person, Place, Time, Situation Attachments: IV ADL-Treatment WHEAT asked about brushing teeth, pt stated that she would do that. WHEAT went to gather supplies then pt stated that she was too tired to brush her teeth. WHEAT encouraged pt to just use the toothbrush and not toothpaste. Pt agreed. Pt stated that she was not able to use R hand, WHEAT educated pt on using the light resistance therapy sponge on bedside table and pt said that she had not used it. Pt was encouraged to use it to help her strength and movement return. Pt then attempted to hold toothbrush with R hand and was not able to fully grasp. Will bring built up hands for use with R hand cement despatch operator. Pt then used L hand to brush teeth. After session, pt lying in bed with family present. Call light/phone in reach. All needs met in room. Therapy Code Descriptions/Definitions Functional [place] Measure: 0=Not Assessed/NA 4=Minimal Assistance 1=Total Assistance 5=Supervision or Setup 2=Maximal Assistance 6=Modified [place] 3=Moderate Assistance 7=Complete IndependenceSCALE: Activities may be completed with or without assistive devices. 2-Nczkqqpncr-jmebryr completes the activity by him/herself with no assistance from a helper. 5-Set-up or Clean-up Assistance-helper sets up or cleans up; patient completes activity. [place] assists only prior to or following the activity. 4-Supervision or Touching Assistance-helper provides verbal cues and/or touching/steadying and/or contact guard assistance as patient completes activity. Assistance may be provided throughout the activity or intermittently. 3-Partial/Moderate Assistance-helper does LESS THAN HALF the effort. [place] lifts, holds or supports trunk or limbs, but provides less than half the effort. 2-Substantial/Maximal Assistance-helper does MORE THAN HALF the effort. [place] lifts or holds trunk or limbs and provides more than half the effort. 2-Icacbhvju-kahirh does ALL the effort. Patient does none of the effort to compl ete the activity. Or, the assistance of 2 or more helpers is required for the patient to complete the activity. If activity was not attempted, code reason: 7-Patient Refused. 9-Not Applicable-not attempted and the patient did not perform the activity before the current illness, exacerbation or injury. 10-Not Attempted due to Environmental Limitations-(lack of equipment, weather restraints, etc.). 88-Not Attempted due to Medical Conditions or Safety Concerns. Oral Hygiene (QC): 5 OT Short Term Goals Short Term Goals Time Frame: Jun 08, 2021 Toileting hygiene: 2 Shower/bathe self: 2 Lower body dressin Putting on/taking off footwear: 2 OT Chcf Goals Rn Concurrent Review Goals Time Frame: Jun 22, 2021 Eating (QC): 5 Oral Hygiene (QC): 5 Toileting Hygiene (QC): 4 Shower/Bathe Self (QC): 3 Upper Body Dressing (QC): 4 Lower Body Dressing (QC): 3 On/Off Footwear (QC): 3 Additional Goals: 1-Demonstrate ADL Tasks, 2-Verbalize Understanding, 3- ImproveStrength/Velasquez 1=Demonstrate adherence to instructed precautions during ADL tasks. 2=Patient will verbalize/demonstrate understanding of assistive devices/modifications for ADL. 3=Patient will improve strength/tolerance for activity to enable patient to perform ADL's. OT Education/Plan Problem List/Assessment Assessment: Decreased Activ Tolerance, Decreased UE Strength (R UE), Impaired Self-Care Skills Discharge Recommendations Plan/Recommendations: Continue POC Treatment Plan/Plan of Care Patient would benefit from OT for education, treatment and training to promote independence in ADL's, mobility, safety and/or upper extremity function for ADL's. Plan of Care: ADL Retraining, Functional Mobility, UE Funct Exercise/Act Treatment Duration: Jun 22, 2021 Frequency: 5 times per week Estimated Hrs Per Day: .25 hour per day Rehab Potential: Guarded Time/GCodes Start Time: 13:48 Stop Time: 14:06 Total Time Billed (hr/min): 18 Billed Treatment Time 1 visit-ADL 1 (18 min) CAT PHILLIPS Jun 04, 2021 14:14
[2021-06-04] MEDS: ENOXAPARIN 40 MG/0.4 ML (LOVENOX) SYR SC SCH (18:38)
[2021-06-04 19:46] VITALS: BP 107/57
[2021-06-04] MEDS: MONTELUKAST 10 MG (SINGULAIR) TAB PO SCH (20:27)
[2021-06-05 04:46] LABS: BASOPHILS # (AUTO) 0.1 10^3/uL (0.0-0.1); BASOPHILS % (AUTO) 1 % (0-10); EOSINOPHILS % (AUTO) 0 % (0-10); HEMATOCRIT 39 % (35-52); HEMOGLOBIN 12.9 g/dL (11.5-16.0); LYMPHOCYTES % (AUTO) 15 % (12-44); MEAN CORPUSCULAR HEMOGLOBIN 28 pg (25-34); MEAN CORPUSCULAR HGB CONC 33 g/dL (32-36); MEAN CORPUSCULAR VOLUME 85 fL (80-99); MEAN PLATELET VOLUME 10.6 fL (9.0-12.2); MONOCYTES % (AUTO) 0 % (0-12); NEUTROPHILS # (AUTO) 5.1 10^3/uL (1.8-7.8); NEUTROPHILS % (AUTO) 79 % (42-75); PLATELET COUNT 141 10^3/uL (130-400); WHITE BLOOD COUNT 6.4 10^3/uL (4.3-11.0)
[2021-06-05 04:54] LABS: ALBUMIN 2.8 GM/DL (3.2-4.5)
[2021-06-05 04:55] LABS: POTASSIUM 4.3 MMOL/L (3.6-5.0)
[2021-06-05 04:56] LABS: CALCIUM 8.2 MG/DL (8.5-10.1)
[2021-06-05 04:57] LABS: TOTAL PROTEIN 5.6 GM/DL (6.4-8.2)
[2021-06-05 04:59] LABS: BILIRUBIN,TOTAL 0.7 MG/DL (0.1-1.0)
[2021-06-05 05:01] LABS: CREATININE SERUM 0.51 MG/DL (0.60-1.30)
[2021-06-05] MEDS: KCL 10 MEQ TAB (MICRO K) PO SCH (05:48)
[2021-06-05] MEDS: ONDANSETRON 4 MG/2 ML (SDV) Z0FRAN IVP PRN (05:56)
[2021-06-05 07:54] VITALS: BP 119/78
[2021-06-05] MEDS: FAMOTIDINE 20 MG (PEPCID) TABLET PO SCH ×2 (08:47→19:30)
[2021-06-05] MEDS: LORATADINE (CLARITIN) 10 MG TAB PO SCH (08:47)
[2021-06-05] MEDS: SENNA W/DOCUSATE (SENOKOT S) TABLET PO SCH ×2 (08:48→19:29)
[2021-06-05] MEDS: polyethylene glycoL POWDER 17 GM (MIRALAX) PACK PO SCH ×2 (08:48→19:29)
[2021-06-05] MEDS: RT--FLUTICASONE/SALMETEROL 113-14 (AIRDUO RespiCLICK) IH SCH (09:37)
--- NOTE | 2021-06-05 09:42 | Occupational Ther Daily Note ---
OT Current Status-Daily Note Subjective Pt alert, lying in bed. Pt agrees to therapy after encouragement from WHEAT and daughter. Pt c/o fatigue, no pain. Mental Status/Objective Patient Orientation: Person, Place, Time, Situation Attachments: IV (PICC) ADL-Treatment Verbal cues to modify oral care due to decreased strength in R hand. After gathering supplies and clean up, pt able to complete oral care in bed. Pt has had decreased weakness in R hand for awhile, decreased muscle tone at thenar eminence noted. R thumb movement minimal. Pt does have tendency not to use entire R UE due to weakness in hand. Pt is able to complete full ROM with rest of R UE. Pt given built up handles for utensils to use with R UE. Due to long disuse of R UE, movement is not fluent and will require pt to use R UE during ADLs/IADLs. Pt was able to grasp onto toothbrush with built up handle and bring to mouth then jerkily brush teeth with R UE. After session, pt lying in bed with call light/phone in reach. All needs met in room. Daughter present in room. Therapy Code Descriptions/Definitions Functional [place] Measure: 0=Not Assessed/NA 4=Minimal Assistance 1=Total Assistance 5=Supervision or Setup 2=Maximal Assistance 6=Modified [place] 3=Moderate Assistance 7=Complete IndependenceSCALE: Activities may be completed with or without assistive devices. 4-Kzhracocmf-jfbvnnv completes the activity by him/herself with no assistance from a helper. 5-Set-up or Clean-up Assistance-helper sets up or cleans up; patient completes activity. [place] assists only prior to or following the activity. 4-Supervision or Touching Assistance-helper provides verbal cues and/or touching/steadying and/or contact guard assistance as patient completes activity. Assistance may be provided throughout the activity or intermittently. 3-Partial/Moderate Assistance-helper does LESS THAN HALF the effort. [place] lifts, holds or supports trunk or limbs, but provides less than half the effort. 2-Substantial/Maximal Assistance-helper does MORE THAN HALF the effort. [place] lifts or holds trunk or limbs and provides more than half the effort. 1-Rlicjtliv-xtnxgn does ALL the effort. Patient does none of the effort to complete the activity. Or, the assistance of 2 or more helpers is required for the patient to complete the activity. If activity was not attempted, code reason: 7-Patient Refused. 9-Not Applicable-not attempted and the patient did not perform the activity before the current illness, exacerbation or injury. 10-Not Attempted due to Environmental Limitations-(lack of equipment, weather restraints, etc.). 88-Not Attempted due to Medical Conditions or Safety Concerns. Oral Hygiene (QC): 5 OT Short Term Goals Short Term Goals Time Frame: Jun 08, 2021 Toileting hygiene: 2 Shower/bathe self: 2 Lower body dressin Putting on/taking off footwear: 2 OT Soil Checker Goals Soil Checker Goals Time Frame: Jun 22, 2021 Eating (QC): 5 Oral Hygiene (QC): 5 Toileting Hygiene (QC): 4 Shower/Bathe Self (QC): 3 Upper Body Dressing (QC): 4 Lower Body Dressing (QC): 3 On/Off Footwear (QC): 3 Additional Goals: 1-Demonstrate ADL Tasks, 2-Verbalize Understanding, 3- ImproveStrength/Velasquez 1=Demonstrate adherence to instructed precautions during ADL tasks. 2=Patient will verbalize/demonstrate understanding of assistive devices/modifications for ADL. 3=Patient will improve strength/tolerance for activity to enable patient to perform ADL's. OT Education/Plan Problem List/Assessment Assessment: Decreased Activ Tolerance, Decreased UE Strength, Impaired Self- Care Skills, Restricted Funct UE ROM (R hand) Discharge Recommendations Plan/Recommendations: Continue POC Treatment Plan/Plan of Care Patient would benefit from OT for education, treatment and training to promote independence in ADL's, mobility, safety and/or upper extremity function for ADL's. Plan of Care: ADL Retraining, Functional Mobility, UE Funct Exercise/Act Treatment Duration: Jun 22, 2021 Frequency: 5 times per week Estimated Hrs Per Day: .25 hour per day Rehab Potential: Guarded Time/GCodes Start Time: 08:49 Stop Time: 09:12 Total Time Billed (hr/min): 23 Billed Treatment Time 1 visit-ADL 2 (23 min) CAT PHILLIPS Jun 05, 2021 09:42
--- NOTE | 2021-06-05 10:20 | Physical Therapy Daily Note ---
PT Daily Note-Current Subjective Patient in bed pre tx, agrees to PT but states she is not getting out of her bed. No complaints of pain. Appearance Patient in bed post tx with nurse call, phone, tray, all needs met, heel float on pillow. Mental Status Patient Orientation: Person, Place, Situation Transfers SCALE: Activities may be completed with or without assistive devices. 3-Wrnjwqnuzw-cpfiszm completes the activity by him/herself with no assistance from a helper. 5-Set-up or Clean-up Assistance-helper sets up or cleans up; patient completes activity. [place] assists only prior to or following the activity. 4-Supervision or Touching Assistance-helper provides verbal cues and/or touching/steadying and/or contact guard assistance as patient completes activ ity. Assistance may be provided throughout the activity or intermittently. 3-Partial/Moderate Assistance-helper does LESS THAN HALF the effort. [place] lifts, holds or supports trunk or limbs, but provides less than half the effort. 2-Substantial/Maximal Assistance-helper does MORE THAN HALF the effort. [place] lifts or holds trunk or limbs and provides more than half the effort. 1-Ndvefqyrn-gadonz does ALL the effort. Patient does none of the effort to complete the activity. Or, the assistance of 2 or more helpers is required for the patient to complete the activity. If activity was not attempted, code reason: 7-Patient Refused. 9-Not Applicable-not attempted and the patient did not perform the activity before the current illness, exacerbation or injury. 10-Not Attempted due to Environmental Limitations-(lack of equipment, weather restraints, etc.). 88-Not Attempted due to Medical Conditions or Safety Concerns. Exercises Supine Ex: Ankle pumps, Quad Set, Glut sets, Heel Slides, Short Arc Quads, Straight leg raise, Hip abd/add Supine Reps: 20 Treatments LE strengthening Assessment Current Status: Poor Progress Patient refuses out of bed activity. Patient needed several rest breaks due to fatigue. PT Aluminum Shingle Roofer Goals Retirement Goals PT Retirement Goals Time Frame: Jun 30, 2021 Roll Left & Right (QC): 4 Sit to Lying (QC): 4 Lying-Sitting on Side/Bed(QC): 4 Sit to Stand (QC): 4 Chair/Omc-lu-Esmvj Xfer(QC): 4 Toilet Transfer (QC): 4 Car Transfer (QC): 4 Does the Patient Walk: Yes Walk 10 feet (QC): 4 Walk 50ft with 2 Turns (QC): 88 Walk 150 ft (QC): 88 Walking 10ft on Uneven Surface: 88 1 Step (curb) (QC): 88 4 Steps (QC): 9 12 Steps (QC): 9 Picking up an Object (QC): 9 Wheel 50 feet with 2 turns (QC: 3 Type: Manual Wheel 150 feet: 9 PT Plan Problem List Problem List: Activity Tolerance, Functional Strength, Safety, Balance, Gait, Transfer, Bed Mobility, ROM Treatment/Plan Treatment Plan: Continue Plan of Care Treatment Plan: Bed Mobility, Education, Functional Activity Velasquez, Functional Strength, Gait, Safety, Therapeutic Exercise, Transfers Treatment Duration: Jun 30, 2021 Frequency: 6 times per week Estimated Hrs Per Day: .5 hour per day Patient and/or Family Agrees t: Yes Safety Risks/Education Patient Education: Correct Positioning, Safety Issues Teaching Recipient: Patient Teaching Methods: Demonstration, Discussion Response to Teaching: Reinforcement Needed Time/GCodes Time In: 0959 Time Out: 1014 Total Billed Treatment Time: 15 Total Billed Treatment 1 visit EX Shayna' KESHAV ARMENTA PT Jun 05, 2021 10:20
--- NOTE | 2021-06-05 11:09 | Progress Note ---
YIFAN HAAS 06/05/21 1109: Subjective Date Seen by a Provider: Jun 05, 2021 Time Seen by a Provider: 08:10 Subjective/Events-last exam Patient was eating breakfast when I walked into the room. States she is still "eating like a horse". Was asking for an update on weight. I informed her she h as lost 12 pounds since being admitted to the hospital. Radiation yesterday went okay, waiting for radiation today. Patient asking us to stop bringing her ensure because she doesn't like it. Review of Systems General: No Chills, No Night Sweats HEENT: No Head Aches, No Visual Changes Pulmonary: No Dyspnea, No Cough Cardiovascular: No: Chest Pain, Palpitations Gastrointestinal: No: Nausea, Vomiting Genitourinary: No Dysuria Objective Exam Last Set of Vital Signs Vital Signs Date Time Temp Pulse Resp B/P (MAP) Pulse Ox O2 Delivery O2 Flow Rate FiO2 06/05/21 09:37 94 Room Air 06/05/21 07:54 36.7 94 18 119/78 (92) Capillary Refill : I&O Intake and Output 06/05/21 00:00 Intake Total 590 ml Output Total 300 ml Balance 290 ml Intake Oral 590 ml Output Urine Total 300 ml # Voids 3 General: Alert, Oriented X3 Lungs: Clear to Auscultation Heart: Regular Rate Neuro: Normal Speech Psych/Mental Status: Mental Status NL Results Lab Laboratory Tests 06/05/21 04:30: White Blood Count 6.4, Red Blood Count 4.54, Hemoglobin 12.9, Hematocrit 39, Mean Corpuscular Volume 85, Mean Corpuscular Hemoglobin 28, Mean Corpuscular Hemoglobin Concent 33, Red Cell Distribution Width 17.1H, Platelet Count 141, Mean Platelet Volume 10.6, Immature Granulocyte % (Auto) 5, Neutrophils (%) (Auto) 79H, Lymphocytes (%) (Auto) 15, Monocytes (%) (Auto) 0, Eosinophils (%) (Auto) 0, Basophils (%) (Auto) 1, Neutrophils # (Auto) 5.1, Lymphocytes # (Auto) 1.0, Monocytes # (Auto) 0.0, Eosinophils # (Auto) 0.0, Basophils # (Auto) 0.1, Immature Granulocyte # (Auto) 0.3H, Sodium Level 135, Potassium Level 4.3, Chloride Level 100, Carbon Dioxide Level 25, Anion Gap 10, Blood Urea Nitrogen 15, Creatinine 0.51L, Estimat Glomerular Filtration Rate 118, BUN/Creatinine Ratio 29, Glucose Level 100, Calcium Level 8.2L, Corrected Calcium 9.2, Total Bilirubin 0.7, Aspartate Amino Transf (AST/SGOT) 45H, Alanine Aminotransferase (ALT/SGPT) 37, Alkaline Phosphatase 167H, Total Protein 5.6L, Albumin 2.8L Assessment/Plan Assessment/Plan Assess & Plan/Chief Complaint Assessment 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 Asthma Plan Continue radiation schedule Continue following with Heme/Onc Continue medical management PT/OT IS monitor closely RACQUEL CHICAS DO 06/06/21 0513: Subjective Subjective/Events-last exam Pt doing okay Needs nine more days of radiation treatment Adamant about not going to a fdc She has had a twelve pound weight loss since admitted Checked meds and labs Review of Systems General: Fatigue, Malaise Objective Exam General: Alert, Oriented X3, Cooperative, No Acute Distress Lungs: Clear to Auscultation, Normal Air Movement Heart: Regular Rate, Normal S1, Normal S2, No Murmurs Psych/Mental Status: Mental Status NL, Mood NL Assessment/Plan Assessment/Plan Assess & Plan/Chief Complaint Radiation treatment ICS Supervisory-Addendum Brief Verification & Attestation Participated in pt care: history, MDM, physical Personally performed: exam, history, MDM, supervision of care Care discussed with: Medical Student Procedures: n/a Results interpretation: Verified all documentation Verification and Attestation of Medical Student E/M Service A medical student performed and documented this service in my presence. I reviewed and verified all information documented by the medical student and made modifications to such information, when appropriate. I personally performed the physical exam and medical decision making. Racquel Chicas, Jun 06, 2021,05:13 YIFAN HAAS Jun 05, 2021 11:09 RACQUEL CHICAS DO Jun 06, 2021 05:13
[2021-06-05] MEDS: ACETAMINOPHEN 325 MG TABLET PO PRN (13:38)
[2021-06-05] MEDS: MONTELUKAST 10 MG (SINGULAIR) TAB PO SCH (19:30)
[2021-06-05] MEDS: ENOXAPARIN 40 MG/0.4 ML (LOVENOX) SYR SC SCH (19:30)
[2021-06-05 20:00] VITALS: BP 131/84
[2021-06-05] MEDS: CALCIUM CARBONATE 500 MG (TUMS) TAB.CHEW PO PRN (20:05)
[2021-06-06] MEDS: KCL 10 MEQ TAB (MICRO K) PO SCH (05:46)
[2021-06-06 08:00] VITALS: BP 111/76
[2021-06-06] MEDS: SENNA W/DOCUSATE (SENOKOT S) TABLET PO SCH ×2 (09:00→20:38)
[2021-06-06] MEDS: polyethylene glycoL POWDER 17 GM (MIRALAX) PACK PO SCH ×2 (09:00→20:38)
[2021-06-06] MEDS: LORATADINE (CLARITIN) 10 MG TAB PO SCH (09:15)
[2021-06-06] MEDS: FAMOTIDINE 20 MG (PEPCID) TABLET PO SCH ×2 (09:15→20:37)
[2021-06-06] MEDS: RT--FLUTICASONE/SALMETEROL 113-14 (AIRDUO RespiCLICK) IH SCH ×2 (09:21→20:57)
[2021-06-06 09:29] VITALS: BP 111/76
--- NOTE | 2021-06-06 09:46 | Physical Therapy Daily Note ---
PT Daily Note-Current Subjective Patient in bed pre tx, agrees to PT, has no complaints of pain, agrees to get out of bed. Appearance Patient in recliner post tx with pillow support due to left side leaning, has nurse call, phone, tray, family in room. Mental Status Patient Orientation: Person, Place, Situation Transfers SCALE: Activities may be completed with or without assistive devices. 7-Skqecysgop-xjzuumx completes the activity by him/herself with no assistance from a helper. 5-Set-up or Clean-up Assistance-helper sets up or cleans up; patient completes activity. [place] assists only prior to or following the activity. 4-Supervision or Touching Assistance-helper provides verbal cues and/or touching/steadying and/or contact guard assistance as patient completes activity. Assistance may be provided throughout the activity or intermittently. 3-Partial/Moderate Assistance-helper does LESS THAN HALF the effort. [place] lifts, holds or supports trunk or limbs, but provides less than half the effort. 2-Substantial/Maximal Assistance-helper does MORE THAN HALF the effort. [place] lifts or holds trunk or limbs and provides more than half the effort. 0-Anlwwulxf-fwbmcv does ALL the effort. Patient does none of the effort to complete the activity. Or, the assistance of 2 or more helpers is required for the patient to complete the activity. If activity was not attempted, code reason: 7-Patient Refused. 9-Not Applicable-not attempted and the patient did not perform the activity before the current illness, exacerbation or injury. 10-Not Attempted due to Environmental Limitations-(lack of equipment, weather restraints, etc.). 88-Not Attempted due to Medical Conditions or Safety Concerns. Roll Left & Right (QC): 3 Lying to Sitting/Side of Bed(Q: 3 Sit to Stand (QC): 3 Chair/Gct-gk-Lrvft Xfer(QC): 3 mod assist for supine to sit and sit to stand and stand pivot transfer. Patient leans fairly heavily to the left side. She tried to stand using a rolling walker and was able to stand most of the way but not completely due to her leaning and she twists to the left also. Therapist just had to perform the transfer for her but she assisted with her legs. Exercises Seated Therapy Exercises: Ankle pumps, Long arc quads Seated Reps: 20 Treatments bed mobility and transfers, LE strengthening Assessment Current Status: Poor Progress patient seems to be getting weaker PT Print Production Manager Goals Detention Goals PT Detention Goals Time Frame: Jun 30, 2021 Roll Left & Right (QC): 4 Sit to Lying (QC): 4 Lying-Sitting on Side/Bed(QC): 4 Sit to Stand (QC): 4 Chair/Uvv-df-Yualw Xfer(QC): 4 Toilet Transfer (QC): 4 Car Transfer (QC): 4 Does the Patient Walk: Yes Walk 10 feet (QC): 4 Walk 50ft with 2 Turns (QC): 88 Walk 150 ft (QC): 88 Walking 10ft on Uneven Surface: 88 1 Step (curb) (QC): 88 4 Steps (QC): 9 12 Steps (QC): 9 Picking up an Object (QC): 9 Wheel 50 feet with 2 turns (QC: 3 Type: Manual Wheel 150 feet: 9 PT Plan Problem List Problem List: Activity Tolerance, Functional Strength, Safety, Balance, Gait, Transfer, Bed Mobility, ROM Treatment/Plan Treatment Plan: Continue Plan of Care Treatment Plan: Bed Mobility, Education, Functional Activity Velasquez, Functional Strength, Gait, Safety, Therapeutic Exercise, Transfers Treatment Duration: Jun 30, 2021 Frequency: 6 times per week Estimated Hrs Per Day: .5 hour per day Patient and/or Family Agrees t: Yes Safety Risks/Education Patient Education: Transfer Techniques, Correct Positioning, Safety Issues Teaching Recipient: Patient Teaching Methods: Demonstration, Discussion Response to Teaching: Reinforcement Needed Time/GCodes Time In: 920 Time Out: 931 Total Billed Treatment Time: 11 Total Billed Treatment 1 visit FA KESHAV BAIRES PT Jun 06, 2021 09:45
--- NOTE | 2021-06-06 11:42 | Progress Note ---
YIFAN HAAS 06/06/21 1142: Subjective Date Seen by a Provider: Jun 06, 2021 Time Seen by a Provider: 08:10 Subjective/Events-last exam Patient in a good mood today. Was able to see family and friends yesterday. Slept well. Appetite still up. No N/V, diarrhea, constipation, dysuria, SOB. Review of Systems General: No Chills Cardiovascular: No: Chest Pain, Palpitations Gastrointestinal: No: Nausea, Vomiting, Diarrhea, Constipation Genitourinary: No Dysuria Objective Exam Last Set of Vital Signs Vital Signs Date Time Temp Pulse Resp B/P (MAP) Pulse Ox O2 Delivery O2 Flow Rate FiO2 06/06/21 09:29 35.9 79 16 111/76 (88) 95 Room Air Capillary Refill : I&O Intake and Output 06/06/21 00:00 Intake Total 1600 ml Output Total 2450 ml Balance -850 ml Intake Oral 1000 ml Tube Feeding 600 ml Output Urine Total 2450 ml # Voids 1 # Bowel Movements 2 General: Alert, Oriented X3, Cooperative Lungs: Clear to Auscultation Heart: Regular Rate Neuro: Normal Speech Psych/Mental Status: Mental Status NL Assessment/Plan Assessment/Plan Assess & Plan/Chief Complaint Assessment 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 Plan Continue radiation schedule Continue Inhaler PT/OT IS monitor closely RACQUEL CHICAS DO 06/07/21 0518: Subjective Subjective/Events-last exam Pt doing a little better No major issues Eating and drinking well Bowels are moving Having radiation today at 11:00 Daughter at the bedside Review of Systems General: Fatigue, Malaise Objective Exam General: Alert, Oriented X3, Cooperative, No Acute Distress Lungs: Clear to Auscultation, Normal Air Movement Heart: Regular Rate, Normal S1, Normal S2, No Murmurs Psych/Mental Status: Mental Status NL, Mood NL Assessment/Plan Assessment/Plan Assess & Plan/Chief Complaint Improved status Radiation treatment Supervisory-Addendum Brief Verification & Attestation Participated in pt care: history, MDM, physical Personally performed: exam, history, MDM, supervision of care Care discussed with: Medical Student Procedures: n/a Results interpretation: Verified all documentation Verification and Attestation of Medical Student E/M Service A medical student performed and documented this service in my presence. I reviewed and verified all information documented by the medical student and made modifications to such information, when appropriate. I personally performed the physical exam and medical decision making. Racquel Chicas, Jun 07, 2021,05:18 YIFAN HAAS Jun 06, 2021 11:42 RACQUEL CHICAS DO Jun 07, 2021 05:18
--- NOTE | 2021-06-06 13:31 | Occupational Ther Daily Note ---
OT Current Status-Daily Note Subjective Pt alert, lying in bed. Pt agrees to therapy after encouragement from daughter and WHEAT. C/o fatigue Mental Status/Objective Patient Orientation: Person, Place, Time, Situation ADL-Treatment Pt able to use R hand to feed self cereal using built up hand on spoon 1 bite then went back to using L hand. Pt stated that she has not been able to use R UE for 10 years due to carpal tunnel issue/nerve damage. Pt does demonstrate poor tap puller and WNL AROM for R UE. Set up for oral care. Dependent for bed bath, pt would not attempt to cleanse self requested assist to complete. Assisted with rolling side to side. Nrsg in room and assisted to place pt on L side. After session, pt lying in bed with call light/phone in reach. All needs met in room. Therapy Code Descriptions/Definitions Functional [place] Measure: 0=Not Assessed/NA 4=Minimal Assistance 1=Total Assistance 5=Supervision or Setup 2=Maximal Assistance 6=Modified [place] 3=Moderate Assistance 7=Complete IndependenceSCALE: Activities may be completed with or without assistive devices. 8-Nwdnygsiya-brepeqj completes the activity by him/herself with no assistance from a helper. 5-Set-up or Clean-up Assistance-helper sets up or cleans up; patient completes activity. [place] assists only prior to or following the activity. 4-Supervision or Touching Assistance-helper provides verbal cues and/or touching/steadying and/or contact guard assistance as patient completes activity. Assistance may be provided throughout the activity or intermittently. 3-Partial/Moderate Assistance-helper does LESS THAN HALF the effort. [place] lifts, holds or supports trunk or limbs, but provides less than half the effort. 2-Substantial/Maximal Assistance-helper does MORE THAN HALF the effort. [place] lifts or holds trunk or limbs and provides more than half the effort. 0-Qipivenif-fxmwob does ALL the effort. Patient does none of the effort to complete the activity. Or, the assistance of 2 or more helpers is required for the patient to complete the activity. If activity was not attempted, code reason: 7-Patient Refused. 9-Not Applicable-not attempted and the patient did not perform the activity before the current illness, exacerbation or injury. 10-Not Attempted due to Environmental Limitations-(lack of equipment, weather restraints, etc.). 88-Not Attempted due to Medical Conditions or Safety Concerns. Eating (QC): 5 Oral Hygiene (QC): 5 Shower/Bathe Self (QC): 1 OT Short Term Goals Short Term Goals Time Frame: Jun 08, 2021 Toileting hygiene: 2 Shower/bathe self: 2 Lower body dressin Putting on/taking off footwear: 2 OT Prepared Foods Associate Goals Care Home Goals Time Frame: Jun 22, 2021 Eating (QC): 5 Oral Hygiene (QC): 5 Toileting Hygiene (QC): 4 Shower/Bathe Self (QC): 3 Upper Body Dressing (QC): 4 Lower Body Dressing (QC): 3 On/Off Footwear (QC): 3 Additional Goals: 1-Demonstrate ADL Tasks, 2-Verbalize Understanding, 3-ImproveStrength/Velasquez 1=Demonstrate adherence to instructed precautions during ADL tasks. 2=Patient will verbalize/demonstrate understanding of assistive devices/modifications for ADL. 3=Patient will improve strength/tolerance for activity to enable patient to perform ADL's. OT Education/Plan Problem List/Assessment Assessment: Decreased Activ Tolerance, Decreased UE Strength, Impaired Bed Mobility, Impaired Self-Care Skills, Restricted Funct UE ROM Discharge Recommendations Plan/Recommendations: Continue POC Treatment Plan/Plan of Care Patient would benefit from OT for education, treatment and training to promote independence in ADL's, mobility, safety and/or upper extremity function for ADL's. Plan of Care: ADL Retraining, Functional Mobility, UE Funct Exercise/Act Treatment Duration: Jun 22, 2021 Frequency: 5 times per week Estimated Hrs Per Day: .25 hour per day Rehab Potential: Guarded Time/GCodes Start Time: 08:55 Stop Time: 09:19 Total Time Billed (hr/min): 24 Billed Treatment Time 1 visit-ADL 2 (24 min) CAT PHILLIPS Jun 06, 2021 13:31
--- NOTE | 2021-06-06 14:43 | Progress Note ---
Progress Note Assessment/Plan Date Seen by Provider: Jun 06, 2021 Time Seen by Provider: 14:39 Events since last exam She is feeling better. She is at 3/10 cranial radiation treatment today. No pain. More alert and able to move better. Assessment/Plan Assessment/Plan 1. Small cell lung cancer extensive disease, multiple liver mets and numerous brain mets. She started chemo [facility] [employer] SUPER[employer] 16 on 05/30/2021, 3 days course, and finish by 06/01/2021 followed by 3 weeks of break. She is doing better. 2. Cranial radiation 08/30 treatment now. Will reduce Decadron 4mg tid po to 4mg bid, starting tomorrow. 3. Continue physical therapy. 4. Pepcid to protect GI while on steroid. Vitals Last set of Vitals Signs Vital Signs Date Time Temp Pulse Resp B/P (MAP) Pulse Ox O2 Delivery O2 Flow Rate FiO2 06/06/21 09:29 35.9 79 16 111/76 (88) 95 Room Air I&O I&O Intake and Output 06/06/21 00:00 Intake Total 1600 ml Output Total 2450 ml Balance -850 ml Intake Oral 1000 ml Tube Feeding 600 ml Output Urine Total 2450 ml # Voids 1 # Bowel Movements 2 BRITTANY JOE MD Jun 06, 2021 14:43
[2021-06-06] MEDS: CALCIUM CARBONATE 500 MG (TUMS) TAB.CHEW PO PRN (15:21)
[2021-06-06] MEDS: ENOXAPARIN 40 MG/0.4 ML (LOVENOX) SYR SC SCH (18:44)
[2021-06-06 19:08] VITALS: BP 100/63
[2021-06-06] MEDS: MONTELUKAST 10 MG (SINGULAIR) TAB PO SCH (20:37)
[2021-06-07] MEDS: KCL 10 MEQ TAB (MICRO K) PO SCH (05:57)
[2021-06-07 06:15] LABS: EOSINOPHILS % (AUTO) 0 % (0-10); HEMOGLOBIN 12.8 g/dL (11.5-16.0)
[2021-06-07 06:17] LABS: BASOPHILS % (AUTO) 0 % (0-10); HEMATOCRIT 38 % (35-52); LYMPHOCYTES # (AUTO) 1.2 10^3/uL (1.0-4.0); LYMPHOCYTES % (AUTO) 34 % (12-44); MEAN CORPUSCULAR HEMOGLOBIN 29 pg (25-34); MEAN CORPUSCULAR HGB CONC 33 g/dL (32-36); MEAN CORPUSCULAR VOLUME 86 fL (80-99); MEAN PLATELET VOLUME 10.7 fL (9.0-12.2); MONOCYTES # (AUTO) 0.1 10^3/uL (0.0-1.0); MONOCYTES % (AUTO) 2 % (0-12); NEUTROPHILS # (AUTO) 2.1 10^3/uL (1.8-7.8); NEUTROPHILS % (AUTO) 63 % (42-75); PLATELET COUNT 108 10^3/uL (130-400); WHITE BLOOD COUNT 3.4 10^3/uL (4.3-11.0)
[2021-06-07 06:40] LABS: ALBUMIN 2.9 GM/DL (3.2-4.5); BILIRUBIN,TOTAL 0.7 MG/DL (0.1-1.0); CALCIUM 8.5 MG/DL (8.5-10.1); CREATININE SERUM 0.52 MG/DL (0.60-1.30); POTASSIUM 4.4 MMOL/L (3.6-5.0); TOTAL PROTEIN 5.6 GM/DL (6.4-8.2)
[2021-06-07 08:00] VITALS: BP 101/62
[2021-06-07] MEDS: RT--FLUTICASONE/SALMETEROL 113-14 (AIRDUO RespiCLICK) IH SCH ×2 (08:07→19:13)
[2021-06-07] MEDS: SENNA W/DOCUSATE (SENOKOT S) TABLET PO SCH ×2 (08:51→20:46)
[2021-06-07] MEDS: LORATADINE (CLARITIN) 10 MG TAB PO SCH (08:51)
[2021-06-07] MEDS: FAMOTIDINE 20 MG (PEPCID) TABLET PO SCH ×2 (08:51→20:46)
[2021-06-07] MEDS: polyethylene glycoL POWDER 17 GM (MIRALAX) PACK PO SCH ×2 (08:53→22:30)
--- NOTE | 2021-06-07 09:37 | Physical Therapy Daily Note ---
PT Daily Note-Current Subjective Patient in bed pre tx, agrees to PT but refuses to get out of bed today. Agrees to exercises in bed. Her bed needs to be changed also because it is soiled with urine, will assist nurse aide with this. Appearance Patient in bed post tx with nurse call, phone, tray, all needs met. Mental Status Patient Orientation: Person, Place, Situation Transfers SCALE: Activities may be completed with or without assistive devices. 6-Ecdajkdxpr-gupiffm completes the activity by him/herself with no assistance from a helper. 5-Set-up or Clean-up Assistance-helper sets up or cleans up; patient completes activity. [place] assists only prior to or following the activity. 4-Supervision or Touching Assistance-helper provides verbal cues and/or to uching/steadying and/or contact guard assistance as patient completes activity. Assistance may be provided throughout the activity or intermittently. 3-Partial/Moderate Assistance-helper does LESS THAN HALF the effort. [place] lifts, holds or supports trunk or limbs, but provides less than half the effort. 2-Substantial/Maximal Assistance-helper does MORE THAN HALF the effort. [place] lifts or holds trunk or limbs and provides more than half the effort. 0-Buwzrtqfx-ruhnsj does ALL the effort. Patient does none of the effort to complete the activity. Or, the assistance of 2 or more helpers is required for the patient to complete the activity. If activity was not attempted, code reason: 7-Patient Refused. 9-Not Applicable-not attempted and the patient did not perform the activity before the current illness, exacerbation or injury. 10-Not Attempted due to Environmental Limitations-(lack of equipment, weather restraints, etc.). 88-Not Attempted due to Medical Conditions or Safety Concerns. Roll Left & Right (QC): 3 Patient has to roll from side to side to change sheets and get new gown on, min assist for this. Exercises Supine Ex: Ankle pumps, Quad Set, Glut sets, Heel Slides, Short Arc Quads, Stra ight leg raise, Hip abd/add Supine Reps: 20 cues to stay on task Treatments LE strengthening, rolling Assessment Current Status: Poor Progress no change in mobility PT School Community Relations Coordinator Goals School Community Relations Coordinator Goals PT School Community Relations Coordinator Goals Time Frame: Jun 30, 2021 Roll Left & Right (QC): 4 Sit to Lying (QC): 4 Lying-Sitting on Side/Bed(QC): 4 Sit to Stand (QC): 4 Chair/Dal-nc-Azyly Xfer(QC): 4 Toilet Transfer (QC): 4 Car Transfer (QC): 4 Does the Patient Walk: Yes Walk 10 feet (QC): 4 Walk 50ft with 2 Turns (QC): 88 Walk 150 ft (QC): 88 Walking 10ft on Uneven Surface: 88 1 Step (curb) (QC): 88 4 Steps (QC): 9 12 Steps (QC): 9 Picking up an Object (QC): 9 Wheel 50 feet with 2 turns (QC: 3 Type: Manual Wheel 150 feet: 9 PT Plan Problem List Problem List: Activity Tolerance, Functional Strength, Safety, Balance, Gait, Transfer, Bed Mobility, ROM Treatment/Plan Treatment Plan: Continue Plan of Care Treatment Plan: Bed Mobility, Education, Functional Activity Velasquez, Functional Strength, Gait, Safety, Therapeutic Exercise, Transfers Treatment Duration: Jun 30, 2021 Frequency: 6 times per week Estimated Hrs Per Day: .5 hour per day Patient and/or Family Agrees t: Yes Safety Risks/Education Patient Education: Correct Positioning, Safety Issues Teaching Recipient: Patient Teaching Methods: Demonstration, Discussion Response to Teaching: Reinforcement Needed Time/GCodes Time In: 903 Time Out: 918 Total Billed Treatment Time: 15 Total Billed Treatment 1 visit EX Shayna' KESHAV ARMENTA PT Jun 07, 2021 09:37
--- NOTE | 2021-06-07 11:42 | Occupational Ther Daily Note ---
OT Current Status-Daily Note Subjective Pt alert, laying in bed when OT entered. Pt stated she was tired at this moment but was agreeable to complete therapy. No c/o pain reported at this time. Mental Status/Objective Patient Orientation: Person, Place, Time, Situation ADL-Treatment Pt agreed to complete oral hygiene and grooming task of washing face and brushing hair. After set up of oral hygiene, pt completed while laying in bed with HOB raised. Pt began brushing teeth using BUE but then used L UE. Pt stated she doesn't use her R hand only uses her L. After set up of warm wash cloth, pt washed face while laying in bed with HOB raised. Nursing entered room, pt requested she would liked push up in bed to be more comfortable. Nurse and therapist were able to push pt closer to HOB. After session, pt laying in bed. All needs met and call light in reach. Therapy Code Descriptions/Definitions Functional [place] Measure: 0=Not Assessed/NA 4=Minimal Assistance 1=Total Assistance 5=Supervision or Setup 2=Maximal Assistance 6=Modified [place] 3=Moderate Assistance 7=Complete IndependenceSCALE: Activities may be completed with or without assistive devices. 6-Ebcicnlipd-cdslsga completes the activity by him/herself with no assistance from a helper. 5-Set-up or Clean-up Assistance-helper sets up or cleans up; patient completes activity. [place] assists only prior to or following the activity. 4-Supervision or Touching Assistance-helper provides verbal cues and/or touching/steadying and/or contact guard assistance as patient completes activity. Assistance may be provided throughout the activity or intermittently. 3-Partial/Moderate Assistance-helper does LESS THAN HALF the effort. [place] lifts, holds or supports trunk or limbs, but provides less than half the effort. 2-Substantial/Maximal Assistance-helper does MORE THAN HALF the effort. [place] lifts or holds trunk or limbs and provides more than half the effort. 7-Morzgpklm-tlguma does ALL the effort. Patient does none of the effort to complete the activity. Or, the assistance of 2 or more helpers is required for the patient to complete the activity. If activity was not attempted, code reason: 7-Patient Refused. 9-Not Applicable-not attempted and the patient did not perform the activity before the current illness, exacerbation or injury. 10-Not Attempted due to Environmental Limitations-(lack of equipment, weather restraints, etc.). 88-Not Attempted due to Medical Conditions or Safety Concerns. Education OT Patient Education: Correct positioning, Modified ADL techniques, Progress t lylyard Goal/Update tx plan, Purpose of tx/functional activities Teaching Methods: Demonstration, Discussion Response to Teaching: Verbalize Understanding, Return Demonstration OT Short Term Goals Short Term Goals Time Frame: Jun 08, 2021 Toileting hygiene: 2 Shower/bathe self: 2 Lower body dressin Putting on/taking off footwear: 2 OT Fpc Goals Fpc Goals Time Frame: Jun 22, 2021 Eating (QC): 5 Oral Hygiene (QC): 5 Toileting Hygiene (QC): 4 Shower/Bathe Self (QC): 3 Upper Body Dressing (QC): 4 Lower Body Dressing (QC): 3 On/Off Footwear (QC): 3 Additional Goals: 1-Demonstrate ADL Tasks, 2-Verbalize Understanding, 3- ImproveStrength/Velasquez 1=Demonstrate adherence to instructed precautions during ADL tasks. 2=Patient will verbalize/demonstrate understanding of assistive devices/modifications for ADL. 3=Patient will improve strength/tolerance for activity to enable patient to perform ADL's. OT Education/Plan Problem List/Assessment Assessment: Decreased Activ Tolerance, Decreased UE Strength, Impaired I ADL's, Impaired Self-Care Skills Discharge Recommendations Plan/Recommendations: Continue POC Treatment Plan/Plan of Care Patient would benefit from OT for education, treatment and training to promote independence in ADL's, mobility, safety and/or upper extremity function for ADL's. Plan of Care: ADL Retraining, Functional Mobility, UE Funct Exercise/Act Treatment Duration: Jun 22, 2021 Frequency: 5 times per week Estimated Hrs Per Day: .25 hour per day Rehab Potential: Guarded Time/GCodes Start Time: 11:00 Stop Time: 11:15 Total Time Billed (hr/min): 15 Billed Treatment Time 1 visit- ADL 1 MADHAVIJAMEL TITUS Jun 07, 2021 11:42
--- NOTE | 2021-06-07 12:32 | Progress Note ---
YIFAN HAAS 06/07/21 1232: Subjective Date Seen by a Provider: Jun 07, 2021 Time Seen by a Provider: 08:20 Subjective/Events-last exam Patient had Decadron dose lowered from TID to BID by Dr. Longoria yesterday. Patient states Dr. Longoria told her she gained weight. Patient was also placed on pepcid for GERD prophylaxis. Patient feels good today. Proud of her progress. Bowels are functioning. Denies N/V, SOB, chest pain, palpitations, dysuria. Review of Systems General: No Chills, No Night Sweats HEENT: No Visual Changes Pulmonary: No Dyspnea, No Cough Cardiovascular: No: Chest Pain, Palpitations Gastrointestinal: No: Nausea, Vomiting, Abdominal Pain Genitourinary: No Dysuria Objective Exam Last Set of Vital Signs Vital Signs Date Time Temp Pulse Resp B/P (MAP) Pulse Ox O2 Delivery O2 Flow Rate FiO2 06/07/21 08:07 97 Room Air 06/07/21 08:00 36.4 84 16 101/62 (75) Capillary Refill : I&O Intake and Output 06/07/21 00:00 Intake Total 800 ml Output Total 200 ml Balance 600 ml Intake Oral 800 ml Output Urine Total 200 ml # Voids 2 # Bowel Movements 2 General: Alert, Oriented X3, Cooperative Lungs: Clear to Auscultation, Normal Air Movement Heart: Regular Rate Extremities: No Edema, Normal Pulses Neuro: Normal Gait, Normal Speech Psych/Mental Status: Mental Status NL Results Lab Laboratory Tests 06/07/21 05:57: White Blood Count 3.4L, Red Blood Count 4.47, Hemoglobin 12.8, Hematocrit 38, Mean Corpuscular Volume 86, Mean Corpuscular Hemoglobin 29, Mean Corpuscular Hemoglobin Concent 33, Red Cell Distribution Width 16.9H, Platelet Count 108L, Mean Platelet Volume 10.7, Immature Granulocyte % (Auto) 1, Neutrophils (%) (Auto) 63, Lymphocytes (%) (Auto) 34, Monocytes (%) (Auto) 2, Eosinophils (%) (A uto) 0, Basophils (%) (Auto) 0, Neutrophils # (Auto) 2.1, Lymphocytes # (Auto) 1.2, Monocytes # (Auto) 0.1, Eosinophils # (Auto) 0.0, Basophils # (Auto) 0.0, Immature Granulocyte # (Auto) 0.0, Percent Immature Platelet Fraction 4.2, Sodium Level 135, Potassium Level 4.4, Chloride Level 100, Carbon Dioxide Level 25, Anion Gap 10, Blood Urea Nitrogen 16, Creatinine 0.52L, Estimat Glomerular Filtration Rate 115, BUN/Creatinine Ratio 31, Glucose Level 76, Calcium Level 8.5, Corrected Calcium 9.4, Total Bilirubin 0.7, Aspartate Amino Transf (AST/SGOT) 34, Alanine Aminotransferase (ALT/SGPT) 34, Alkaline Phosphatase 173H , Total Protein 5.6L, Albumin 2.9L Assessment/Plan Assessment/Plan Assess & Plan/Chief Complaint Assessment 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 Longoria and adding Pepcid BID Review of Systems General: Fatigue, Malaise Objective Exam General: Alert, Oriented X3, Cooperative, No Acute Distress Lungs: Clear to Auscultation, Normal Air Movement Heart: Regular Rate, Normal S1, Normal S2, No Murmurs Psych/Mental Status: Mental Status NL, Mood NL Assessment/Plan Assessment/Plan Assess & Plan/Chief Complaint Continue radiation treatments Supervisory-Addendum Brief Verification & Attestation Participated in pt care: history, MDM, physical Personally performed: exam, history, MDM, supervision of care Care discussed with: Medical Student Procedures: n/a Results interpretation: Verified all documentation Verification and Attestation of Medical Student E/M Service A medical student performed and documented this service in my presence. I reviewed and verified all information documented by the medical student and made modifications to such information, when appropriate. I personally performed the physical exam and medical decision making. Racquel Chicas Jun 08, 2021,05:10 YIFAN HAAS Jun 07, 2021 12:32 RACQUEL CHICAS DO Jun 08, 2021 05:10
[2021-06-07] MEDS: ENOXAPARIN 40 MG/0.4 ML (LOVENOX) SYR SC SCH (18:25)
[2021-06-07 19:52] VITALS: BP 115/72
[2021-06-07] MEDS: MONTELUKAST 10 MG (SINGULAIR) TAB PO SCH (20:46)
[2021-06-08] MEDS: KCL 10 MEQ TAB (MICRO K) PO SCH (06:13)
[2021-06-08 08:00] VITALS: BP 101/67
[2021-06-08] MEDS: RT--FLUTICASONE/SALMETEROL 113-14 (AIRDUO RespiCLICK) IH SCH ×2 (08:22→21:02)
[2021-06-08] MEDS: LORATADINE (CLARITIN) 10 MG TAB PO SCH (08:26)
[2021-06-08] MEDS: FAMOTIDINE 20 MG (PEPCID) TABLET PO SCH ×2 (08:26→20:01)
[2021-06-08] MEDS: SENNA W/DOCUSATE (SENOKOT S) TABLET PO SCH ×2 (08:26→20:01)
[2021-06-08] MEDS: polyethylene glycoL POWDER 17 GM (MIRALAX) PACK PO SCH ×3 (10:49→20:01)
--- NOTE | 2021-06-08 10:59 | Physical Therapy Daily Note ---
PT Daily Note-Current Subjective Pt in bed upon arrival and agrees to PT, daughter present. Daughter and DIETARY COOK encourage pt to transfer to recliner for a couple hours before she goes downstairs for testing. Pt declines and says she doesn't want to until after she is done w/ the tests downstairs. Mental Status Patient Orientation: Normal For Age Transfers SCALE: Activities may be completed with or without assistive devices. 0-Mdjtjwcufx-zjazcls completes the activity by him/herself with no assistance from a helper. 5-Set-up or Clean-up Assistance-helper sets up or cleans up; patient completes activity. [place] assists only prior to or following the activity. 4-Supervision or Touching Assistance-helper provides verbal cues and/or touching/steadying and/or contact guard assistance as patient completes activity. Assistance may be provided throughout the activity or intermittently. 3-Partial/Moderate Assistance-helper does LESS THAN HALF the effort. [place] lifts, holds or supports trunk or limbs, but provides less than half the effort. 2-Substantial/Maximal Assistance-helper does MORE THAN HALF the effort. [place] lifts or holds trunk or limbs and provides more than half the effort. 9-Cxdfobkbq-solqhv does ALL the effort. Patient does none of the effort to complete the activity. Or, the assistance of 2 or more helpers is required for the patient to complete the activity. If activity was not attempted, code reason: 7-Patient Refused. 9-Not Applicable-not attempted and the patient did not perform the activity before the current illness, exacerbation or injury. 10-Not Attempted due to Environmental Limitations-(lack of equipment, weather restraints, etc.). 88-Not Attempted due to Medical Conditions or Safety Concerns. Roll Left & Right (QC): 5 Gait Training Does the Patient Walk?: No and Walking Goal IS indicated Exercises Supine Ex: Ankle pumps, Quad Set, Rolling, Glut sets, Heel Slides, Short Arc Quads, Scooting, Straight leg raise, Hip abd/add Supine Reps: 15 Treatments Pt performs LE strengthening exs in bed and bed mobility. Pt in bed upon departure of PT w/ all needs met and call light nearby. Assessment Current Status: Fair Progress Pt declines wanting to get up at this moment. Pt requires cues to stay on task and to perform all exs correctly. Pt fatigues quickly from each exercise. PT Production Operations Inspector Goals Correction Goals PT Correction Goals Time Frame: Jun 30, 2021 Roll Left & Right (QC): 4 Sit to Lying (QC): 4 Lying-Sitting on Side/Bed(QC): 4 Sit to Stand (QC): 4 Chair/Elm-qf-Skhqr Xfer(QC): 4 Toilet Transfer (QC): 4 Car Transfer (QC): 4 Does the Patient Walk: Yes Walk 10 feet (QC): 4 Walk 50ft with 2 Turns (QC): 88 Walk 150 ft (QC): 88 Walking 10ft on Uneven Surface: 88 1 Step (curb) (QC): 88 4 Steps (QC): 9 12 Steps (QC): 9 Picking up an Object (QC): 9 Wheel 50 feet with 2 turns (QC: 3 Type: Manual Wheel 150 feet: 9 PT Plan Problem List Problem List: Activity Tolerance, Functional Strength, Transfer Treatment/Plan Treatment Plan: Continue Plan of Care Treatment Plan: Bed Mobility, Education, Functional Activity [place], Functional Strength, Gait, Safety, Therapeutic Exercise, Transfers Treatment Duration: Jun 30, 2021 Frequency: 6 times per week Estimated Hrs Per Day: .5 hour per day Patient and/or Family Agrees t: Yes Safety Risks/Education Patient Education: Correct Positioning Teaching Recipient: Patient Teaching Methods: Discussion Response to Teaching: Return Demonstration Time/GCodes Time In: 927 Time Out: 941 Total Billed Treatment Time: 14 Total Billed Treatment 1, EX CHAO,BRAULIO DIETARY COOK Jun 08, 2021 10:59
--- NOTE | 2021-06-08 11:43 | Occupational Ther Daily Note ---
OT Current Status-Daily Note Subjective Pt alert, laying in bed when OT entered. Daughter present in room. Pt reluctant to participate in therapy. Extra encouragement provided from daughter to participate. No c/o pain reported Mental Status/Objective Patient Orientation: Person, Place, Time, Situation ADL-Treatment Therapy Code Descriptions/Definitions Functional [place] Measure: 0=Not Assessed/NA 4=Minimal Assistance 1=Total Assistance 5=Supervision or Setup 2=Maximal Assistance 6=Modified [place] 3=Moderate Assistance 7=Complete IndependenceSCALE: Activities may be completed with or without assistive devices. 5-Lbwtmpqqbg-nukgmlh completes the activity by him/herself with no assistance from a helper. 5-Set-up or Clean-up Assistance-helper sets up or cleans up; patient completes activity. [place] assists only prior to or following the activity. 4-Supervision or Touching Assistance-helper provides verbal cues and/or touching/steadying and/or contact guard assistance as patient completes activity. Assistance may be provided throughout the activity or intermittently. 3-Partial/Moderate Assistance-helper does LESS THAN HALF the effort. [place] lifts, holds or supports trunk or limbs, but provides less than half the effort. 2-Substantial/Maximal Assistance-helper does MORE THAN HALF the effort. [place] lifts or holds trunk or limbs and provides more than half the effort. 1-Dkpqavjbo-nrkaod does ALL the effort. Patient does none of the effort to complete the activity. Or, the assistance of 2 or more helpers is required for the patient to complete the activity. If activity was not attempted, code reason: 7-Patient Refused. 9-Not Applicable-not attempted and the patient did not perform the activity before the current illness, exacerbation or injury. 10-Not Attempted due to Environmental Limitations-(lack of equipment, weather restraints, etc.). 88-Not Attempted due to Medical Conditions or Safety Concerns. Other Treatment Skilled instruction provided of BUE exercises for correct completion. Pt completed x2 sets of 10 reps of BUE exercises against gravity to increase BUE ROM for improved independence with ADLs. Pt completed shoulder/flexion, elbow flexion/extension, shoulder shrugs, and wrist flexion/extension. Pt required physical and verbal cues of each exercise. Pt required resting break in between set due to low activty tolerance. After session, pt laying in bed. All needs met and call light in reach. OT Short Term Goals Short Term Goals Time Frame: Jun 08, 2021 Toileting hygiene: 2 Shower/bathe self: 2 Lower body dressin Putting on/taking off footwear: 2 OT Goat Herder Goals Prison Goals Time Frame: Jun 22, 2021 Eating (QC): 5 Oral Hygiene (QC): 5 Toileting Hygiene (QC): 4 Shower/Bathe Self (QC): 3 Upper Body Dressing (QC): 4 Lower Body Dressing (QC): 3 On/Off Footwear (QC): 3 Additional Goals: 1-Demonstrate ADL Tasks, 2-Verbalize Understanding, 3- ImproveStrength/[place] 1=Demonstrate adherence to instructed precautions during ADL tasks. 2=Patient will verbalize/demonstrate understanding of assistive devices/modifications for ADL. 3=Patient will improve strength/tolerance for activity to enable patient to perform ADL's. OT Education/Plan Problem List/Assessment Assessment: Decreased Activ Tolerance, Decreased UE Strength, Impaired I ADL's, Impaired Self-Care Skills Discharge Recommendations Plan/Recommendations: Continue POC Treatment Plan/Plan of Care Patient would benefit from OT for education, treatment and training to promote independence in ADL's, mobility, safety and/or upper extremity function for ADL's. Plan of Care: ADL Retraining, Functional Mobility, UE Funct Exercise/Act Treatment Duration: Jun 22, 2021 Frequency: 5 times per week Estimated Hrs Per Day: .25 hour per day Rehab Potential: Guarded Time/GCodes Start Time: 11:00 Stop Time: 11:15 Total Time Billed (hr/min): 15 Billed Treatment Time 1 visit- EX 1 JAMEL HENDRICKSON Jun 08, 2021 11:43
--- NOTE | 2021-06-08 13:14 | Progress Note ---
YIFAN HAAS 06/08/21 1314: Subjective Date Seen by a Provider: Jun 08, 2021 Time Seen by a Provider: 08:10 Subjective/Events-last exam Patient stating her stool is getting hard, requesting miralax. She has taken this for this issue before. Patient is eating well. States she plans on getting up today. Review of Systems General: No Fatigue HEENT: No Visual Changes Pulmonary: No Cough Cardiovascular: No: Chest Pain, Palpitations Gastrointestinal: No: Nausea, Vomiting Genitourinary: No Dysuria Objective Exam Last Set of Vital Signs Vital Signs Date Time Temp Pulse Resp B/P (MAP) Pulse Ox O2 Delivery O2 Flow Rate FiO2 06/08/21 08:22 96 Room Air 06/08/21 08:00 35.2 80 18 101/67 (78) Capillary Refill : I&O Intake and Output 06/08/21 00:00 Intake Total 1020 ml Output Total 650 ml Balance 370 ml Intake Oral 1020 ml Output Urine Total 650 ml # Voids 3 # Bowel Movements 1 General: Alert, Oriented X3, Cooperative Lungs: Clear to Auscultation Heart: Regular Rate Neuro: Normal Speech Psych/Mental Status: Mental Status NL Assessment/Plan Assessment/Plan Assess & Plan/Chief Complaint Assessment 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 Plan Start Miralax Continue radiation schedule Continue Inhaler PT/OT IS monitor closely RACQUEL CHICAS DO 06/09/21 0619: Subjective Subjective/Events-last exam Pt doing well Wants some Miralax, she does have some constipation Radiation treatment already completed for today Overall denies any new issues Objective Exam General: Alert, Oriented X3, Cooperative, No Acute Distress Lungs: Clear to Auscultation Heart: Regular Rate Psych/Mental Status: Mental Status NL Assessment/Plan Assessment/Plan Assess & Plan/Chief Complaint MiraLAX Radiation treatment Supervisory-Addendum Brief Verification & Attestation Participated in pt care: history, MDM, physical Personally performed: exam, history, MDM, supervision of care Care discussed with: Medical Student Procedures: n/a Results interpretation: Verified all documentation Verification and Attestation of Medical Student E/M Service A medical student performed and documented this service in my presence. I reviewed and verified all information documented by the medical student and made modifications to such information, when appropriate. I personally performed the physical exam and medical decision making. Racquel Chicas Jun 09, 2021,06:19 YIFAN HAAS Jun 08, 2021 13:14 RAQCUEL CHICAS DO Jun 09, 2021 06:19
[2021-06-08] MEDS: ACETAMINOPHEN 325 MG TABLET PO PRN (17:07)
[2021-06-08 20:01] VITALS: BP 115/66
[2021-06-08] MEDS: ENOXAPARIN 40 MG/0.4 ML (LOVENOX) SYR SC SCH (20:01)
[2021-06-08] MEDS: MONTELUKAST 10 MG (SINGULAIR) TAB PO SCH (20:01)
[2021-06-08] MEDS: CATHETER FLUSH 10 ML SYR IV PRN (20:02)
[2021-06-09] MEDS: KCL 10 MEQ TAB (MICRO K) PO SCH (07:01)
[2021-06-09 07:30] VITALS: BP 155/70
[2021-06-09] MEDS: RT--FLUTICASONE/SALMETEROL 113-14 (AIRDUO RespiCLICK) IH SCH ×2 (07:37→21:50)
--- NOTE | 2021-06-09 08:11 | Progress Note ---
Subjective Date Seen by a Provider: Jun 09, 2021 Time Seen by a Provider: 11:30 Subjective/Events-last exam Patient doing well No major issues Check meds and labs Visitors visiting her today Labs reviewed Review of Systems General: Fatigue, Malaise Objective Exam Last Set of Vital Signs Vital Signs Date Time Temp Pulse Resp B/P (MAP) Pulse Ox O2 Delivery O2 Flow Rate FiO2 06/09/21 07:37 96 Room Air 06/09/21 07:30 37.4 95 20 155/70 (98) Capillary Refill : I&O Intake and Output 06/09/21 00:00 Intake Total 515 ml Balance 515 ml Intake Oral 515 ml # Voids 4 # Bowel Movements 4 General: Alert, Oriented X3, Cooperative, No Acute Distress Lungs: Clear to Auscultation, Normal Air Movement Heart: Regular Rate, Normal S1, Normal S2, No Murmurs Psych/Mental Status: Mental Status NL, Mood NL Assessment/Plan Assessment/Plan Assess & Plan/Chief Complaint Assessment: 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
[2021-06-09] MEDS: polyethylene glycoL POWDER 17 GM (MIRALAX) PACK PO SCH ×2 (08:34→20:10)
[2021-06-09] MEDS: SENNA W/DOCUSATE (SENOKOT S) TABLET PO SCH ×2 (08:34→20:10)
[2021-06-09] MEDS: LORATADINE (CLARITIN) 10 MG TAB PO SCH (09:04)
[2021-06-09] MEDS: FAMOTIDINE 20 MG (PEPCID) TABLET PO SCH ×2 (09:04→20:10)
[2021-06-09 09:21] LABS: EOSINOPHILS % (AUTO) 0 % (0-10); HEMOGLOBIN 13.5 g/dL (11.5-16.0); MONOCYTES # (AUTO) 0.1 10^3/uL (0.0-1.0); PLATELET COUNT 74 10^3/uL (130-400)
[2021-06-09 09:22] LABS: BASOPHILS % (AUTO) 0 % (0-10); HEMATOCRIT 40 % (35-52); LYMPHOCYTES # (AUTO) 0.9 10^3/uL (1.0-4.0); LYMPHOCYTES % (AUTO) 53 % (12-44); MEAN CORPUSCULAR HEMOGLOBIN 29 pg (25-34); MEAN CORPUSCULAR HGB CONC 34 g/dL (32-36); MEAN CORPUSCULAR VOLUME 85 fL (80-99); MEAN PLATELET VOLUME 10.8 fL (9.0-12.2); MONOCYTES % (AUTO) 5 % (0-12); NEUTROPHILS # (AUTO) 0.7 10^3/uL (1.8-7.8); NEUTROPHILS % (AUTO) 42 % (42-75); WHITE BLOOD COUNT 1.6 10^3/uL (4.3-11.0)
[2021-06-09 09:27] LABS: ALBUMIN 3.1 GM/DL (3.2-4.5)
[2021-06-09 09:28] LABS: POTASSIUM 3.6 MMOL/L (3.6-5.0)
[2021-06-09 09:29] LABS: CALCIUM 8.5 MG/DL (8.5-10.1)
[2021-06-09 09:30] LABS: TOTAL PROTEIN 6.3 GM/DL (6.4-8.2)
[2021-06-09 09:32] LABS: BILIRUBIN,TOTAL 0.5 MG/DL (0.1-1.0)
[2021-06-09 09:33] LABS: CREATININE SERUM 0.58 MG/DL (0.60-1.30)
--- NOTE | 2021-06-09 10:39 | Physical Therapy Progress Note ---
Therapy Progress Note Patient refuses treatment stating she didn't sleep well last night and she has been up to the toilet this morning. States she is too tired to do anything else right now. Will attempt treatment again at next PT visit. ELINA JOHNSON PT Jun 09, 2021 10:39
[2021-06-09 19:10] VITALS: BP 109/65
[2021-06-09] MEDS: MONTELUKAST 10 MG (SINGULAIR) TAB PO SCH (20:10)
[2021-06-09] MEDS: ENOXAPARIN 40 MG/0.4 ML (LOVENOX) SYR SC SCH (20:10)
[2021-06-10 07:20] VITALS: BP 123/79
[2021-06-10] MEDS: KCL 10 MEQ TAB (MICRO K) PO SCH (07:58)
[2021-06-10] MEDS: FAMOTIDINE 20 MG (PEPCID) TABLET PO SCH ×2 (08:38→19:53)
[2021-06-10] MEDS: LORATADINE (CLARITIN) 10 MG TAB PO SCH (08:38)
[2021-06-10] MEDS: SENNA W/DOCUSATE (SENOKOT S) TABLET PO SCH ×2 (08:39→19:53)
[2021-06-10] MEDS: polyethylene glycoL POWDER 17 GM (MIRALAX) PACK PO SCH ×2 (08:39→19:53)
[2021-06-10] MEDS: RT--FLUTICASONE/SALMETEROL 113-14 (AIRDUO RespiCLICK) IH SCH ×2 (09:19→18:40)
--- NOTE | 2021-06-10 12:26 | Progress Note ---
Subjective Date Seen by a Provider: Jun 10, 2021 Time Seen by a Provider: 12:00 Subjective/Events-last exam Patient doing well Supportive care continues No medication changes Review of Systems General: Fatigue, Malaise Objective Exam Last Set of Vital Signs Vital Signs Date Time Temp Pulse Resp B/P (MAP) Pulse Ox O2 Delivery O2 Flow Rate FiO2 06/10/21 09:20 96 Room Air 06/10/21 07:20 36.2 94 22 123/79 (94) Capillary Refill : I&O Intake and Output 06/10/21 00:00 Intake Total 1100 ml Balance 1100 ml Intake Oral 1100 ml # Voids 3 # Bowel Movements 3 General: Alert, Oriented X3, Cooperative, No Acute Distress Lungs: Clear to Auscultation, Normal Air Movement Heart: Regular Rate, Normal S1, Normal S2, No Murmurs Psych/Mental Status: Mental Status NL, Mood NL Assessment/Plan Assessment/Plan Assess & Plan/Chief Complaint Assessment: 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
[2021-06-10] MEDS: ENOXAPARIN 40 MG/0.4 ML (LOVENOX) SYR SC SCH (18:58)
[2021-06-10] MEDS: MONTELUKAST 10 MG (SINGULAIR) TAB PO SCH (19:53)
[2021-06-10 20:00] VITALS: BP 112/68
[2021-06-11 05:37] LABS: BASOPHILS % (AUTO) 1 % (0-10); EOSINOPHILS % (AUTO) 0 % (0-10); HEMATOCRIT 38 % (35-52); HEMOGLOBIN 12.5 g/dL (11.5-16.0); LYMPHOCYTES # (AUTO) 1.1 10^3/uL (1.0-4.0); LYMPHOCYTES % (AUTO) 69 % (12-44); MEAN CORPUSCULAR HEMOGLOBIN 29 pg (25-34); MEAN CORPUSCULAR HGB CONC 33 g/dL (32-36); MEAN CORPUSCULAR VOLUME 86 fL (80-99); MEAN PLATELET VOLUME 11.1 fL (9.0-12.2); MONOCYTES # (AUTO) 0.2 10^3/uL (0.0-1.0); MONOCYTES % (AUTO) 14 % (0-12); NEUTROPHILS # (AUTO) 0.3 10^3/uL (1.8-7.8); NEUTROPHILS % (AUTO) 16 % (42-75); PLATELET COUNT 81 10^3/uL (130-400); WHITE BLOOD COUNT 1.6 10^3/uL (4.3-11.0)
[2021-06-11 05:49] LABS: POTASSIUM 4.3 MMOL/L (3.6-5.0)
[2021-06-11 05:50] LABS: CALCIUM 8.5 MG/DL (8.5-10.1)
[2021-06-11 05:51] LABS: TOTAL PROTEIN 5.9 GM/DL (6.4-8.2)
[2021-06-11 05:53] LABS: BILIRUBIN,TOTAL 0.6 MG/DL (0.1-1.0)
[2021-06-11 05:55] LABS: CREATININE SERUM 0.5 MG/DL (0.60-1.30)
[2021-06-11] MEDS: KCL 10 MEQ TAB (MICRO K) PO SCH (06:11)
[2021-06-11 08:19] VITALS: BP 111/72
--- NOTE | 2021-06-11 08:57 | Occupational Ther Daily Note ---
OT Current Status-Daily Note Subjective Pt up in recliner, required moderate encouragement to participate in tx, as she has chemo later this AM. Mental Status/Objective Patient Orientation: Normal For Age ADL-Treatment Therapy Code Descriptions/Definitions Functional [place] Measure: 0=Not Assessed/NA 4=Minimal Assistance 1=Total Assistance 5=Supervision or Setup 2=Maximal Assistance 6=Modified [place] 3=Moderate Assistance 7=Complete IndependenceSCALE: Activities may be completed with or without assistive devices. 7-Otbmuwjuqh-zwlomhx completes the activity by him/herself with no assistance from a helper. 5-Set-up or Clean-up Assistance-helper sets up or cleans up; patient completes activity. [place] assists only prior to or following the activity. 4-Supervision or Touching Assistance-helper provides verbal cues and/or touching/steadying and/or contact guard assistance as patient completes activity. Assistance may be provided throughout the activity or intermittently. 3-Partial/Moderate Assistance-helper does LESS THAN HALF the effort. [place] lifts, holds or supports trunk or limbs, but provides less than half the effort. 2-Substantial/Maximal Assistance-helper does MORE THAN HALF the effort. [place] lifts or holds trunk or limbs and provides more than half the effort. 2-Rxynbljuu-jnjchp does ALL the effort. Patient does none of the effort to complete the activity. Or, the assistance of 2 or more helpers is required for the patient to complete the activity. If activity was not attempted, code reason: 7-Patient Refused. 9-Not Applicable-not attempted and the patient did not perform the activity before the current illness, exacerbation or injury. 10-Not Attempted due to Environmental Limitations-(lack of equipment, weather restraints, etc.). 88-Not Attempted due to Medical Conditions or Safety Concerns. Eating (QC): 4 (Pt spilled coffee over tray table and floor.) Other Treatment Pt up in recliner, agreeable to OT tx with some encouragement. Pt declined ADLs due to having Chemo this afternoon. Pt agreeable to UE exercises in order to increase BUE strength and activity tolerance. Pt completed x15 reps each of the following BUE exercises: shoulder flexion, front punch, elbow flexion/extension, rest breaks between exercises. Post tx, pt up in recliner, call light in reach a nd all needs met. Education OT Patient Education: Correct positioning, Energy conservation, Exercise program, Modified ADL techniques, Progress toward Goal/Update tx plan, Purpose of tx/functional activities, Rehab process, Safety issues, Transfer techniques Teaching Recipient: Patient Teaching Methods: Discussion Response to Teaching: Verbalize Understanding OT Short Term Goals Short Term Goals Time Frame: Jun 08, 2021 Toileting hygiene: 2 Shower/bathe self: 2 Lower body dressin Putting on/taking off footwear: 2 OT Cork Insulator Goals Group Home Goals Time Frame: Jun 22, 2021 Eating (QC): 5 Oral Hygiene (QC): 5 Toileting Hygiene (QC): 4 Shower/Bathe Self (QC): 3 Upper Body Dressing (QC): 4 Lower Body Dressing (QC): 3 On/Off Footwear (QC): 3 Additional Goals: 1-Demonstrate ADL Tasks, 2-Verbalize Understanding, 3-I mproveStrength/[place] 1=Demonstrate adherence to instructed precautions during ADL tasks. 2=Patient will verbalize/demonstrate understanding of assistive devices/modifications for ADL. 3=Patient will improve strength/tolerance for activity to enable patient to perform ADL's. OT Education/Plan Problem List/Assessment Assessment: Decreased Activ Tolerance, Decreased UE Strength, Impaired Coordination, Impaired Funct Balance, Impaired I ADL's, Impaired Self-Care Ski lls Discharge Recommendations Plan/Recommendations: Continue POC Treatment Plan/Plan of Care Patient would benefit from OT for education, treatment and training to promote independence in ADL's, mobility, safety and/or upper extremity function for ADL's. Plan of Care: ADL Retraining, Functional Mobility, UE Funct Exercise/Act Treatment Duration: Jun 22, 2021 Frequency: 5 times per week Estimated Hrs Per Day: .25 hour per day Rehab Potential: Guarded Time/GCodes Start Time: 08:23 Stop Time: 08:38 Total Time Billed (hr/min): 15 Billed Treatment Time 1, EX MAYRA GUZMAN OT Jun 11, 2021 08:57
[2021-06-11] MEDS: FAMOTIDINE 20 MG (PEPCID) TABLET PO SCH ×2 (09:18→20:14)
[2021-06-11] MEDS: SENNA W/DOCUSATE (SENOKOT S) TABLET PO SCH ×2 (09:18→20:13)
[2021-06-11] MEDS: polyethylene glycoL POWDER 17 GM (MIRALAX) PACK PO SCH ×2 (09:19→20:14)
[2021-06-11] MEDS: LORATADINE (CLARITIN) 10 MG TAB PO SCH (09:19)
[2021-06-11] MEDS: RT--FLUTICASONE/SALMETEROL 113-14 (AIRDUO RespiCLICK) IH SCH ×2 (09:38→19:46)
--- NOTE | 2021-06-11 09:49 | Physical Therapy Daily Note ---
PT Daily Note-Current Subjective Patient in recliner pre tx, agrees to PT, has no complaints of pain. Appearance Patient in bed post tx with nurse call, phone, tray, all needs met, bed alarm on. Mental Status Patient Orientation: Person, Place, Situation Transfers SCALE: Activities may be completed with or without assistive devices. 6-Vpfwvwwyru-jedxrbr completes the activity by him/herself with no assistance from a helper. 5-Set-up or Clean-up Assistance-helper sets up or cleans up; patient completes activity. [place] assists only prior to or following the activity. 4-Supervision or Touching Assistance-helper provides verbal cues and/or touching/steadying and/or contact guard assistance as patient completes activity. Assistance may be provided throughout the activity or intermittently. 3-Partial/Moderate Assistance-helper does LESS THAN HALF the effort. [place] lifts, holds or supports trunk or limbs, but provides less than half the effort. 2-Substantial/Maximal Assistance-helper does MORE THAN HALF the effort. [place] lifts or holds trunk or limbs and provides more than half the effort. 3-Xirnaluum-iixmxx does ALL the effort. Patient does none of the effort to complete the activity. Or, the assistance of 2 or more helpers is required for the patient to complete the activity. If activity was not attempted, code reason: 7-Patient Refused. 9-Not Applicable-not attempted and the patient did not perform the activity before the current illness, exacerbation or injury. 10-Not Attempted due to Environmental Limitations-(lack of equipment, weather restraints, etc.). 88-Not Attempted due to Medical Conditions or Safety Concerns. Roll Left & Right (QC): 4 Sit to Lying (QC): 2 Sit to Stand (QC): 2 Chair/Hqy-bp-Bjlco Xfer(QC): 2 Patient stands from the recliner once with max assist, refuses to stand again but does LE exercise, patient wants to get into the bed at the end of tx so max assist stand pivot transfer to bed and with cues she can scoot herself up in bed. Exercises Seated Therapy Exercises: Ankle pumps, Long arc quads Seated Reps: 20 Treatments bed mobility and transfers, standing, LE strengthening Assessment Current Status: Poor Progress Patient leans to left side with sitting and standing, she has gotten so weak I don't believe she could stand completely even with therapist assist at this time. PT Home Care Chaplain Goals Home Care Chaplain Goals PT Retirement Goals Time Frame: Jun 30, 2021 Roll Left & Right (QC): 4 Sit to Lying (QC): 4 Lying-Sitting on Side/Bed(QC): 4 Sit to Stand (QC): 4 Chair/Gcx-ks-Sjnuo Xfer(QC): 4 Toilet Transfer (QC): 4 Car Transfer (QC): 4 Does the Patient Walk: Yes Walk 10 feet (QC): 4 Walk 50ft with 2 Turns (QC): 88 Walk 150 ft (QC): 88 Walking 10ft on Uneven Surface: 88 1 Step (curb) (QC): 88 4 Steps (QC): 9 12 Steps (QC): 9 Picking up an Object (QC): 9 Wheel 50 feet with 2 turns (QC: 3 Type: Manual Wheel 150 feet: 9 PT Plan Problem List Problem List: Activity Tolerance, Functional Strength, Safety, Balance, Gait, Transfer, Bed Mobility, ROM Treatment/Plan Treatment Plan: Continue Plan of Care Treatment Plan: Bed Mobility, Education, Functional Activity Velasquez, Functional Strength, Gait, Safety, Therapeutic Exercise, Transfers Treatment Duration: Jun 30, 2021 Frequency: 6 times per week Estimated Hrs Per Day: .5 hour per day Patient and/or Family Agrees t: Yes Safety Risks/Education Patient Education: Transfer Techniques, Correct Positioning, Safety Issues Teaching Recipient: Patient Teaching Methods: Demonstration, Discussion Response to Teaching: Reinforcement Needed Time/GCodes Time In: 917 Time Out: 927 Total Billed Treatment Time: 10 Total Billed Treatment 1 visit FA KESHAV SAN PT Jun 11, 2021 09:49
--- NOTE | 2021-06-11 13:01 | Progress Note ---
YIFAN HAAS 06/11/21 1301: Subjective Date Seen by a Provider: Jun 11, 2021 Time Seen by a Provider: 08:30 Subjective/Events-last exam Patient feeling fine. Continuing to do PT. Wants to go home friday after last radiation treatment. Has no other complaints. Review of Systems Pulmonary: No Dyspnea Cardiovascular: No: Chest Pain, Palpitations Gastrointestinal: No: Nausea, Vomiting Genitourinary: No Dysuria Objective Exam Last Set of Vital Signs Vital Signs Date Time Temp Pulse Resp B/P (MAP) Pulse Ox O2 Delivery O2 Flow Rate FiO2 06/11/21 08:19 37.0 107 20 111/72 (85) 97 Room Air Capillary Refill : I&O Intake and Output 06/11/21 00:00 Intake Total 1070 ml Balance 1070 ml Intake Oral 1070 ml # Voids 5 # Bowel Movements 1 General: Alert, Oriented X3, Cooperative Lungs: Clear to Auscultation Heart: Regular Rate Neuro: Normal Speech Psych/Mental Status: Mental Status NL Results Lab Laboratory Tests 06/11/21 05:29: White Blood Count 1.6L, Red Blood Count 4.38, Hemoglobin 12.5, Hematocrit 38, Mean Corpuscular Volume 86, Mean Corpuscular Hemoglobin 29, Mean Corpuscular Hemoglobin Concent 33, Red Cell Distribution Width 17.0H, Platelet Count 81L, Mean Platelet Volume 11.1, Immature Granulocyte % (Auto) 1, Neutrophils (%) (Auto) 16L, Lymphocytes (%) (Auto) 69H, Monocytes (%) (Auto) 14H, Eosinophils (%) (Auto) 0, Basophils (%) (Auto) 1, Neutrophils # (Auto) 0.3L, Lymphocytes # (Auto) 1.1, Monocytes # (Auto) 0.2, Eosinophils # (Auto) 0.0, Basophils # (Auto) 0.0, Immature Granulocyte # (Auto) 0.0, Sodium Level 134L, Potassium Level 4.3, Chloride Level 101, Carbon Dioxide Level 22, Anion Gap 11, Blood Urea Nitrogen 15, Creatinine 0.50L, Estimat Glomerular Filtration Rate 120, BUN/Creatinine Ratio 30, Glucose Level 93, Calcium Level 8.5, Corrected Calcium 9.3, Total Bilirubin 0.6, Aspartate Amino Transf (AST/SGOT) 28, Alanine Aminotransferase (ALT/SGPT) 27, Alkaline Phosphatase 172H, Total Protein 5.9L, Albumin 3.0L Assessment/Plan Assessment/Plan Assess & Plan/Chief Complaint Assessment 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 Longoria Continue Inhaler PT/OT IS monitor closely RACQUEL CHICAS DO 06/12/21 0548: Subjective Subjective/Events-last exam Pt is doing well WBC is 1.6 and PLTs are 81,000 Discharge on likely on hospice they will have that conversation at 1:00 with social workers Review of Systems General: Fatigue, Malaise Objective Exam General: Alert, Oriented X3, Cooperative, No Acute Distress Lungs: Clear to Auscultation, Normal Air Movement Heart: Regular Rate, Normal S1, Normal S2, No Murmurs Psych/Mental Status: Mental Status NL, Mood NL Assessment/Plan Assessment/Plan Assess & Plan/Chief Complaint Hospice at discharge? Supervisory-Addendum Brief Verification & Attestation Participated in pt care: history, MDM, physical Personally performed: exam, history, MDM, supervision of care Care discussed with: Medical Student Procedures: n/a Results interpretation: Verified all documentation Verification and Attestation of Medical Student E/M Service A medical student performed and documented this service in my presence. I reviewed and verified all information documented by the medical student and made modifications to such information, when appropriate. I personally performed the physical exam and medical decision making. Racquel Chicas, Jun 12, 2021,05:48 YIFAN HAAS Jun 11, 2021 13:01 RACQUEL CHICAS DO Jun 12, 2021 05:48
[2021-06-11] MEDS: ENOXAPARIN 40 MG/0.4 ML (LOVENOX) SYR SC SCH (18:38)
[2021-06-11 20:00] VITALS: BP_SYST 104; BP_SYST 125; BP_DIAS 65; BP_DIAS 82
[2021-06-11] MEDS: MONTELUKAST 10 MG (SINGULAIR) TAB PO SCH (20:14)
[2021-06-12] MEDS: KCL 10 MEQ TAB (MICRO K) PO SCH (05:34)
[2021-06-12 06:36] LABS: BASOPHILS % (AUTO) 0 % (0-10); EOSINOPHILS % (AUTO) 0 % (0-10); HEMATOCRIT 38 % (35-52); HEMOGLOBIN 12.6 g/dL (11.5-16.0); LYMPHOCYTES # (AUTO) 1.3 10^3/uL (1.0-4.0); LYMPHOCYTES % (AUTO) 72 % (12-44); MEAN CORPUSCULAR HEMOGLOBIN 29 pg (25-34); MEAN CORPUSCULAR HGB CONC 33 g/dL (32-36); MEAN CORPUSCULAR VOLUME 87 fL (80-99); MEAN PLATELET VOLUME 11.1 fL (9.0-12.2); MONOCYTES # (AUTO) 0.3 10^3/uL (0.0-1.0); MONOCYTES % (AUTO) 16 % (0-12); NEUTROPHILS # (AUTO) 0.2 10^3/uL (1.8-7.8); NEUTROPHILS % (AUTO) 12 % (42-75); PLATELET COUNT 88 10^3/uL (130-400); WHITE BLOOD COUNT 1.7 10^3/uL (4.3-11.0)
[2021-06-12 06:48] LABS: ALBUMIN 2.9 GM/DL (3.2-4.5)
[2021-06-12 06:49] LABS: POTASSIUM 4.3 MMOL/L (3.6-5.0)
[2021-06-12 06:50] LABS: CALCIUM 8.5 MG/DL (8.5-10.1)
[2021-06-12 06:53] LABS: BILIRUBIN,TOTAL 0.5 MG/DL (0.1-1.0)
[2021-06-12 06:55] LABS: CREATININE SERUM 0.52 MG/DL (0.60-1.30)
[2021-06-12 07:02] LABS: ATYPICAL LYMPHOCYTES 8 %; BAND NEUTROPHILS 3 %; LYMPHOCYTES % (MANUAL) 60 %; MONOCYTES % (MANUAL) 17 %; NEUTROPHILS % (MANUAL) 12 %
[2021-06-12 07:31] VITALS: BP 129/72
--- NOTE | 2021-06-12 09:03 | Physical Therapy Daily Note ---
PT Daily Note-Current Subjective Patient in bed pre tx, agrees to PT, has no complaints of pain. Appearance Patient in recliner post tx with nurse call, phone, tray, all needs met. Mental Status Patient Orientation: Person, Place, Situation Transfers SCALE: Activities may be completed with or without assistive devices. 8-Kihzsogoic-egvpwmx completes the activity by him/herself with no assistance from a helper. 5-Set-up or Clean-up Assistance-helper sets up or cleans up; patient completes activity. [place] assists only prior to or following the activity. 4-Supervision or Touching Assistance-helper provides verbal cues and/or touching /steadying and/or contact guard assistance as patient completes activity. Assistance may be provided throughout the activity or intermittently. 3-Partial/Moderate Assistance-helper does LESS THAN HALF the effort. [place] lifts, holds or supports trunk or limbs, but provides less than half the effort. 2-Substantial/Maximal Assistance-helper does MORE THAN HALF the effort. [place] lifts or holds trunk or limbs and provides more than half the effort. 8-Osjhlanba-gaauvu does ALL the effort. Patient does none of the effort to complete the activity. Or, the assistance of 2 or more helpers is required for the patient to complete the activity. If activity was not attempted, code reason: 7-Patient Refused. 9-Not Applicable-not attempted and the patient did not perform the activity before the current illness, exacerbation or injury. 10-Not Attempted due to Environmental Limitations-(lack of equipment, weather restraints, etc.). 88-Not Attempted due to Medical Conditions or Safety Concerns. Roll Left & Right (QC): 4 Lying to Sitting/Side of Bed(Q: 4 Sit to Stand (QC): 2 Chair/Kzh-rk-Rximj Xfer(QC): 2 Patient stands once with max assist to clean her bottom (WHEAT does this) and then sits, then stands again with max assist and transfers to recliner with max assist. Exercises Seated Therapy Exercises: Ankle pumps, Long arc quads Seated Reps: 20 Treatments bed mobility and transfers, LE strengthening Assessment Current Status: Poor Progress Patient leans heavily to the left side with sitting and standing PT Snf Goals Snf Goals PT Snf Goals Time Frame: Jun 30, 2021 Roll Left & Right (QC): 4 Sit to Lying (QC): 4 Lying-Sitting on Side/Bed(QC): 4 Sit to Stand (QC): 4 Chair/Cgd-mv-Pekwr Xfer(QC): 4 Toilet Transfer (QC): 4 Car Transfer (QC): 4 Does the Patient Walk: Yes Walk 10 feet (QC): 4 Walk 50ft with 2 Turns (QC): 88 Walk 150 ft (QC): 88 Walking 10ft on Uneven Surface: 88 1 Step (curb) (QC): 88 4 Steps (QC): 9 12 Steps (QC): 9 Picking up an Object (QC): 9 Wheel 50 feet with 2 turns (QC: 3 Type: Manual Wheel 150 feet: 9 PT Plan Problem List Problem List: Activity Tolerance, Functional Strength, Safety, Balance, Gait, Transfer, Bed Mobility, ROM Treatment/Plan Treatment Plan: Continue Plan of Care Treatment Plan: Bed Mobility, Education, Functional Activity Velasquez, Functional Strength, Gait, Safety, Therapeutic Exercise, Transfers Treatment Duration: Jun 30, 2021 Frequency: 6 times per week Estimated Hrs Per Day: .5 hour per day Patient and/or Family Agrees t: Yes Safety Risks/Education Patient Education: Transfer Techniques, Correct Positioning, Safety Issues Teaching Recipient: Patient Teaching Methods: Demonstration, Discussion Response to Teaching: Reinforcement Needed Time/GCodes Time In: 0837 Time Out: 0847 Total Billed Treatment Time: 10 Total Billed Treatment 1 visit FA KESHAV SAN PT Jun 12, 2021 09:03
[2021-06-12] MEDS: SENNA W/DOCUSATE (SENOKOT S) TABLET PO SCH ×2 (09:41→19:56)
[2021-06-12] MEDS: LORATADINE (CLARITIN) 10 MG TAB PO SCH (09:41)
[2021-06-12] MEDS: polyethylene glycoL POWDER 17 GM (MIRALAX) PACK PO SCH ×2 (09:41→21:00)
[2021-06-12] MEDS: FAMOTIDINE 20 MG (PEPCID) TABLET PO SCH ×2 (09:41→19:56)
[2021-06-12] MEDS: RT--FLUTICASONE/SALMETEROL 113-14 (AIRDUO RespiCLICK) IH SCH ×2 (10:12→18:46)
--- NOTE | 2021-06-12 10:23 | Occupational Ther Daily Note ---
OT Current Status-Daily Note Subjective Pt alert, lying in bed. Pt agrees to therapy. Pt c/o fatigue and dizziness, place cool cloth on forehead and sat EOB until subsided. Mental Status/Objective Patient Orientation: Person, Place, Time, Situation ADL-Treatment Therapy Code Descriptions/Definitions Functional Bandana Measure: 0=Not Assessed/NA 4=Minimal Assistance 1=Total Assistance 5=Supervision or Setup 2=Maximal Assistance 6=Modified Bandana 3=Moderate Assistance 7=Complete IndependenceSCALE: Activities may be completed with or without assistive devices. 5-Fnpcvxryua-ittlprn completes the activity by him/herself with no assistance from a helper. 5-Set-up or Clean-up Assistance-helper sets up or cleans up; patient completes activity. [place] assists only prior to or following the activity. 4-Supervision or Touching Assistance-helper provides verbal cues and/or touching/steadying and/or contact guard assistance as patient completes activity . Assistance may be provided throughout the activity or intermittently. 3-Partial/Moderate Assistance-helper does LESS THAN HALF the effort. [place] lifts, holds or supports trunk or limbs, but provides less than half the effort. 2-Substantial/Maximal Assistance-helper does MORE THAN HALF the effort. [place] lifts or holds trunk or limbs and provides more than half the effort. 8-Utldarqss-ednbdx does ALL the effort. Patient does none of the effort to complete the activity. Or, the assistance of 2 or more helpers is required for the patient to complete the activity. If activity was not attempted, code reason: 7-Patient Refused. 9-Not Applicable-not attempted and the patient did not perform the activity before the current illness, exacerbation or injury. 10-Not Attempted due to Environmental Limitations-(lack of equipment, weather restraints, etc.). 88-Not Attempted due to Medical Conditions or Safety Concerns. Toileting Hygiene (QC): 1 Other Treatment Supine to EOB independent with HOB raised. Pt initially sat upright EOB then began to lean toward L and required verbal and physical cues to sit upright. Pt stood upright for short time with PT while OT assisted with cleansing buttocks and corry area. Pt requested to sit down on EOB prior to transferring into recliner. Pt then required max A to SPT from EOB to recliner. After session, pt sitting in recliner with call light/phone in reach. All needs met in room. Daughter present in room. OT Short Term Goals Short Term Goals Time Frame: Jun 08, 2021 Toileting hygiene: 2 Shower/bathe self: 2 Lower body dressin Putting on/taking off footwear: 2 OT Senior Living Goals Cannery Tender Engineer Goals Time Frame: Jun 22, 2021 Eating (QC): 5 Oral Hygiene (QC): 5 Toileting Hygiene (QC): 4 Shower/Bathe Self (QC): 3 Upper Body Dressing (QC): 4 Lower Body Dressing (QC): 3 On/Off Footwear (QC): 3 Additional Goals: 1-Demonstrate ADL Tasks, 2-Verbalize Understanding, 3- ImproveStrength/Velasquez 1=Demonstrate adherence to instructed precautions during ADL tasks. 2=Patient will verbalize/demonstrate understanding of assistive devices/modifications for ADL. 3=Patient will improve strength/tolerance for activity to enable patient to perform ADL's. OT Education/Plan Problem List/Assessment Assessment: Decreased Activ Tolerance, Decreased UE Strength, Impaired Funct Balance, Impaired Self-Care Skills, Restricted Funct UE ROM Discharge Recommendations Plan/Recommendations: Continue POC Treatment Plan/Plan of Care Patient would benefit from OT for education, treatment and training to promote independence in ADL's, mobility, safety and/or upper extremity function for ADL's. Plan of Care: ADL Retraining, Functional Mobility, UE Funct Exercise/Act Treatment Duration: Jun 22, 2021 Frequency: 5 times per week Estimated Hrs Per Day: .25 hour per day Rehab Potential: Guarded Time/GCodes Start Time: 08:20 Stop Time: 08:46 Total Time Billed (hr/min): 26 Billed Treatment Time 1 visit-FA 1 (13 min) ADL 1 (13 min) CAT PHILLIPS Jun 12, 2021 10:23
--- NOTE | 2021-06-12 10:58 | Progress Note ---
YIFAN HAAS 06/12/21 1058: Subjective Date Seen by a Provider: Jun 12, 2021 Time Seen by a Provider: 08:20 Subjective/Events-last exam Feeling good. Slightly more anxious about potential of going home Friday. Has not talked to Dr. Longoria about it yet. Is having a Hospice consult today. Review of Systems Pulmonary: No Dyspnea, No Cough Cardiovascular: No: Chest Pain, Palpitations Gastrointestinal: No: Nausea, Vomiting, Constipation Genitourinary: No Dysuria Objective Exam Last Set of Vital Signs Vital Signs Date Time Temp Pulse Resp B/P (MAP) Pulse Ox O2 Delivery O2 Flow Rate FiO2 06/12/21 10:12 95 Room Air 0.00 06/12/21 07:31 36.3 97 20 129/72 (91) Capillary Refill : I&O Intake and Output 06/12/21 00:00 Intake Total 620 ml Balance 620 ml Intake Oral 620 ml # Voids 3 # Bowel Movements 1 General: Alert, Oriented X3, Cooperative Lungs: Clear to Auscultation Heart: Regular Rate Neuro: Normal Speech Psych/Mental Status: Mental Status NL Results Lab Laboratory Tests 06/12/21 06:32: White Blood Count 1.7L, Red Blood Count 4.37, Hemoglobin 12.6, Hematocrit 38, Mean Corpuscular Volume 87, Mean Corpuscular Hemoglobin 29, Mean Corpuscular Hemoglobin Concent 33, Red Cell Distribution Width 17.2H, Platelet Count 88L, Mean Platelet Volume 11.1, Immature Granulocyte % (Auto) 0, Neutrophils (%) (Auto) 12L, Lymphocytes (%) (Auto) 72H, Monocytes (%) (Auto) 16H, Eosinophils (%) (Auto) 0, Basophils (%) (Auto) 0, Neutrophils # (Auto) 0.2L, Lymphocytes # (Auto) 1.3, Monocytes # (Auto) 0.3, Eosinophils # (Auto) 0.0, Basophils # (Auto) 0.0, Immature Granulocyte # (Auto) 0.0, Neutrophils % (Manual) 12, Lymphocytes % (Manual) 60, Monocytes % (Manual) 17, Band Neutrophils 3, Atypical Lymphocytes 8, Percent Immature Platelet Fraction 6.0, Sodium Level 138, Potassium Level 4.3, Chloride Level 104, Carbon Dioxide Level 23, Anion Gap 11, Blood Urea Nitrogen 14, Creatinine 0.52L, Estimat Glomerular Filtration Rate 115, BUN/Creatinine Ratio 27, Glucose Level 82, Calcium Level 8.5, Corrected Calcium 9.4, Total Bilirubin 0.5, Aspartate Amino Transf (AST/SGOT) 26, Alanine Aminotransferase (ALT/SGPT) 25, Alkaline Phosphatase 186H, Total Protein 6.0L, Albumin 2.9L Assessment/Plan Assessment/Plan Assess & Plan/Chief Complaint Assessment 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 Longoria Continue Inhaler PT/OT IS monitor closely Hospice consult today RACQUEL CHICAS DO 06/13/21 0607: Subjective Subjective/Events-last exam Pt doing well DC on hospice on Radiation treatment will be done at that time Checked meds and labs No concerns at this time Review of Systems General: Fatigue, Malaise Objective Exam General: Alert, Oriented X3, Cooperative, No Acute Distress Lungs: Clear to Auscultation, Normal Air Movement Heart: Regular Rate, Normal S1, Normal S2, No Murmurs Psych/Mental Status: Mental Status NL, Mood NL Assessment/Plan Assessment/Plan Assess & Plan/Chief Complaint Discharge home hospice Supervisory-Addendum Brief Verification & Attestation Participated in pt care: history, MDM, physical Personally performed: exam, history, MDM, supervision of care Care discussed with: Medical Student Procedures: n/a Results interpretation: Verified all documentation Verification and Attestation of Medical Student E/M Service A medical student performed and documented this service in my presence. I reviewed and verified all information documented by the medical student and made modifications to such information, when appropriate. I personally performed the physical exam and medical decision making. Racquel Chicas Jun 13, 2021,06:06 YIFAN HAAS Jun 12, 2021 10:58 RACQUEL CHICAS DO Jun 13, 2021 06:07
[2021-06-12] MEDS: ENOXAPARIN 40 MG/0.4 ML (LOVENOX) SYR SC SCH (18:11)
[2021-06-12] MEDS: MONTELUKAST 10 MG (SINGULAIR) TAB PO SCH (19:56)
[2021-06-12 20:00] VITALS: BP 111/60
[2021-06-13] MEDS: KCL 10 MEQ TAB (MICRO K) PO SCH (06:11)
--- NOTE | 2021-06-13 06:50 | Progress Note ---
Subjective Date Seen by a Provider: Jun 13, 2021 Time Seen by a Provider: 09:30 Subjective/Events-last exam Pt doing well Discharge tomorrow on hospice We will continue to monitor for her for any pain and she will complete her radiation treatment Review of Systems General: Fatigue, Malaise Objective Exam Last Set of Vital Signs Vital Signs Date Time Temp Pulse Resp B/P (MAP) Pulse Ox O2 Delivery O2 Flow Rate FiO2 06/12/21 20:00 Room Air 06/12/21 20:00 36.9 96 18 111/60 (77) 94 06/12/21 18:46 0.00 Capillary Refill : I&O Intake and Output 06/13/21 00:00 Intake Total 980 ml Output Total 350 ml Balance 630 ml Intake Oral 980 ml Output Urine Total 350 ml # Voids 2 # Bowel Movements 2 General: Alert, Oriented X3, Cooperative, No Acute Distress Lungs: Clear to Auscultation, Normal Air Movement Heart: Regular Rate, Normal S1, Normal S2, No Murmurs Psych/Mental Status: Mental Status NL, Mood NL Assessment/Plan Assessment/Plan Assess & Plan/Chief Complaint Assessment: 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
[2021-06-13 08:10] VITALS: BP 107/74
[2021-06-13] MEDS: LORATADINE (CLARITIN) 10 MG TAB PO SCH (08:33)
[2021-06-13] MEDS: SENNA W/DOCUSATE (SENOKOT S) TABLET PO SCH ×2 (08:33→20:05)
[2021-06-13] MEDS: FAMOTIDINE 20 MG (PEPCID) TABLET PO SCH ×2 (08:33→20:05)
[2021-06-13] MEDS: polyethylene glycoL POWDER 17 GM (MIRALAX) PACK PO SCH ×2 (08:33→20:06)
[2021-06-13] MEDS: RT--FLUTICASONE/SALMETEROL 113-14 (AIRDUO RespiCLICK) IH SCH ×2 (09:17→21:35)
--- NOTE | 2021-06-13 10:21 | Occ Therapy Progress Note ---
Therapy Progress Note OT tx attempted, pt states she is tired as she had her cancer treatment this morning. Pt did not want to participate in ADL session or complete UE exercises. Pt declined all txs at this time, even after education provided. OT will attempt again at next available time. 1, refusal 0950 MAYRA GUZMAN OT Jun 13, 2021 10:21
--- NOTE | 2021-06-13 11:05 | Physical Therapy Daily Note ---
PT Daily Note-Current Subjective Patient in bed pre tx, she refuses to get out of bed but does agree to LE exercises, she has no complaints of pain. Appearance Patient in bed post tx with nurse call, phone, tray, all needs met, family in room. Mental Status Patient Orientation: Person, Place, Situation Transfers SCALE: Activities may be completed with or without assistive devices. 4-Rshxqscsys-uqbewun completes the activity by him/herself with no assistance from a helper. 5-Set-up or Clean-up Assistance-helper sets up or cleans up; patient completes activity. [place] assists only prior to or following the activity. 4-Supervision or Touching Assistance-helper provides verbal cues and/or touching/steadying and/or contact guard assistance as patient completes a ctivity. Assistance may be provided throughout the activity or intermittently. 3-Partial/Moderate Assistance-helper does LESS THAN HALF the effort. [place] lifts, holds or supports trunk or limbs, but provides less than half the effort. 2-Substantial/Maximal Assistance-helper does MORE THAN HALF the effort. [place] lifts or holds trunk or limbs and provides more than half the effort. 7-Ovobmlnqy-oofcvx does ALL the effort. Patient does none of the effort to complete the activity. Or, the assistance of 2 or more helpers is required for the patient to complete the activity. If activity was not attempted, code reason: 7-Patient Refused. 9-Not Applicable-not attempted and the patient did not perform the activity before the current illness, exacerbation or injury. 10-Not Attempted due to Environmental Limitations-(lack of equipment, weather restraints, etc.). 88-Not Attempted due to Medical Conditions or Safety Concerns. Exercises Supine Ex: Ankle pumps, Quad Set, Glut sets, Heel Slides, Short Arc Quads, Straight leg raise, Hip abd/add Supine Reps: 20 (AAROM with SLR) Treatments LE strengthening Assessment Current Status: Poor Progress Patient refuses OOB activity a lot, LE exercises are not enough to improve strength and functional mobility. PT Shelter Goals Shelter Goals PT Shelter Goals Time Frame: Jun 30, 2021 Roll Left & Right (QC): 4 Sit to Lying (QC): 4 Lying-Sitting on Side/Bed(QC): 4 Sit to Stand (QC): 4 Chair/Dov-zp-Idxln Xfer(QC): 4 Toilet Transfer (QC): 4 Car Transfer (QC): 4 Does the Patient Walk: Yes Walk 10 feet (QC): 4 Walk 50ft with 2 Turns (QC): 88 Walk 150 ft (QC): 88 Walking 10ft on Uneven Surface: 88 1 Step (curb) (QC): 88 4 Steps (QC): 9 12 Steps (QC): 9 Picking up an Object (QC): 9 Wheel 50 feet with 2 turns (QC: 3 Type: Manual Wheel 150 feet: 9 PT Plan Problem List Problem List: Activity Tolerance, Functional Strength, Safety, Balance, Gait, Transfer, Bed Mobility, ROM Treatment/Plan Treatment Plan: Continue Plan of Care Treatment Plan: Bed Mobility, Education, Functional Activity Velasquez, Functional Strength, Gait, Safety, Therapeutic Exercise, Transfers Treatment Duration: Jun 30, 2021 Frequency: 6 times per week Estimated Hrs Per Day: .5 hour per day Patient and/or Family Agrees t: Yes Safety Risks/Education Patient Education: Correct Positioning, Safety Issues Teaching Recipient: Patient Teaching Methods: Demonstration, Discussion Response to Teaching: Reinforcement Needed Time/GCodes Time In: 1045 Time Out: 1100 Total Billed Treatment Time: 15 Total Billed Treatment 1 visit EX 15' KESHAV ARMENTA PT Jun 13, 2021 11:05
--- NOTE | 2021-06-13 13:08 | Occupational Ther Daily Note ---
OT Current Status-Daily Note Subjective Pt alert, lying in bed. Pt reluctantly agrees to therapy. C/o fatigue. Mental Status/Objective Patient Orientation: Person, Place, Time, Situation Attachments: IV ADL-Treatment Therapy Code Descriptions/Definitions Functional [place] Measure: 0=Not Assessed/NA 4=Minimal Assistance 1=Total Assistance 5=Supervision or Setup 2=Maximal Assistance 6=Modified [place] 3=Moderate Assistance 7=Complete IndependenceSCALE: Activities may be completed with or without assistive devices. 9-Leiuvanwli-jbwdtlq completes the activity by him/herself with no assistance from a helper. 5-Set-up or Clean-up Assistance-helper sets up or cleans up; patient completes activity. [place] assists only prior to or following the activity. 4-Supervision or Touching Assistance-helper provides verbal cues and/or touching/steadying and/or contact guard assistance as patient completes activity. Assistance may be provided throughout the activity or intermittently. 3-Partial/Moderate Assistance-helper does LESS THAN HALF the effort. [place] lifts, holds or supports trunk or limbs, but provides less than half the effort. 2-Substantial/Maximal Assistance-helper does MORE THAN HALF the effort. [place] lifts or holds trunk or limbs and provides more than half the effort. 0-Ztpdokarr-hrykwn does ALL the effort. Patient does none of the effort to complete the activity. Or, the assistance of 2 or more helpers is required for the patient to complete the activity. If activity was not attempted, code reason: 7-Patient Refused. 9-Not Applicable-not attempted and the patient did not perform the activity before the current illness, exacerbation or injury. 10-Not Attempted due to Environmental Limitations-(lack of equipment, weather restraints, etc.). 88-Not Attempted due to Medical Conditions or Safety Concerns. Other Treatment Pt able to reach over head with B UE, grasp bed rails and pull with B UE, push with B LE to scoot self up in bed. 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 Pt stated that she was not going to take a shower/sponge bath until after tomorrow's radiation treatment. After therapy, pt lying in bed with call light/phone in reach. All needs met in room. OT Short Term Goals Short Term Goals Time Frame: Jun 08, 2021 Toileting hygiene: 2 Shower/bathe self: 2 Lower body dressin Putting on/taking off footwear: 2 OT Senior Care Goals Senior Care Goals Time Frame: Jun 22, 2021 Eating (QC): 5 Oral Hygiene (QC): 5 Toileting Hygiene (QC): 4 Shower/Bathe Self (QC): 3 Upper Body Dressing (QC): 4 Lower Body Dressing (QC): 3 On/Off Footwear (QC): 3 Additional Goals: 1-Demonstrate ADL Tasks, 2-Verbalize Understanding, 3- ImproveStrength/Velasquez 1=Demonstrate adherence to instructed precautions during ADL tasks. 2=Patient will verbalize/demonstrate understanding of assistive devices/modifications for ADL. 3=Patient will improve strength/tolerance for activity to enable patient to perform ADL's. OT Education/Plan Problem List/Assessment Assessment: Decreased Activ Tolerance, Impaired Self-Care Skills Discharge Recommendations Plan/Recommendations: Continue POC Treatment Plan/Plan of Care Patient would benefit from OT for education, treatment and training to promote independence in ADL's, mobility, safety and/or upper extremity function for ADL's. Plan of Care: ADL Retraining, Functional Mobility, UE Funct Exercise/Act Treatment Duration: Jun 22, 2021 Frequency: 5 times per week Estimated Hrs Per Day: .25 hour per day Rehab Potential: Guarded Time/GCodes Start Time: 12:40 Stop Time: 12:55 Total Time Billed (hr/min): 15 Billed Treatment Time 1 visit-FA 1 (15 min) CAT PHILLIPS Jun 13, 2021 13:08
[2021-06-13] MEDS: ENOXAPARIN 40 MG/0.4 ML (LOVENOX) SYR SC SCH (18:22)
[2021-06-13 19:02] VITALS: BP 123/64
[2021-06-13] MEDS: MONTELUKAST 10 MG (SINGULAIR) TAB PO SCH (20:05)
[2021-06-14] VITALS: BP 146/79
[2021-06-14 03:21] VITALS: BP 117/68
[2021-06-14] MEDS: KCL 10 MEQ TAB (MICRO K) PO SCH (06:18)
[2021-06-14] MEDS ORDERED: LEVE500T6 PO (06:36)
[2021-06-14] MEDS ORDERED: TRM50T PO (06:36)
[2021-06-14] MEDS ORDERED: MONT-40 PO (06:36)
[2021-06-14] MEDS ORDERED: FLUT1AER4 IH (06:36)
[2021-06-14] MEDS ORDERED: DEXA4TAB PO (06:36)
--- NOTE | 2021-06-14 06:37 | Discharge Summary ---
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 Penicillins (Verified Allergy, Mild, HIVES, 11/05/19) Vitals & I&Os Vital Signs Date Time Temp Pulse Resp B/P (MAP) Pulse Ox O2 Delivery O2 Flow Rate FiO2 06/14/21 11:35 06/14/21 08:00 Room Air 06/14/21 07:42 36.4 72 16 93 06/13/21 21:35 0.00 General Appearance: Alert, Oriented X3, Cooperative Respiratory: Clear to Auscultation Cardiovascular: Regular Rate Hospital Course Was the Problem List Reviewed?: Yes Hospital Course: Pt had a lengthy hospital course for 18 days when she was placed on swingbed for radiation treatment and chemotherapy palliative type for small cell lung cancer with widespread metastasis. She tolerated everything well. She had no significant problems during the hospital course and was discharged on [facility] at home Labs (last 24 hrs) Laboratory Tests 05/30/21 06:00: White Blood Count 9.9, Red Blood Count 4.76, Hemoglobin 13.7, Hematocrit 41, Mean Corpuscular Volume 86, Mean Corpuscular Hemoglobin 29, Mean Corpuscular Hemoglobin Concent 33, Red Cell Distribution Width 17.5H, Platelet Count 165, Mean Platelet Volume 10.5, Immature Granulocyte % (Auto) 1, Neutrophils (%) (Auto) 73, Lymphocytes (%) (Auto) 14, Monocytes (%) (Auto) 12, Eosinophils (%) (Auto) 0, Basophils (%) (Auto) 0, Neutrophils # (Auto) 7.2, Lymphocytes # (Auto) 1.4, Monocytes # (Auto) 1.2H, Eosinophils # (Auto) 0.0, Basophils # (Auto) 0.0, Immature Granulocyte # (Auto) 0.1, Sodium Level 135, Potassium Level 3.4L, Chloride Level 96L, Carbon Dioxide Level 30, Anion Gap 9, Blood Urea Nitrogen 10, Creatinine 0.50L, Estimat Glomerular Filtration Rate 120, BUN/Creatinine Ratio 20, Glucose Level 62L, Calcium Level 8.3L, Corrected Calcium 9.4, Magnesium Level 2.0, Total Bilirubin 1.1H, Aspartate Amino Transf (AST/SGOT) 91H , Alanine Aminotransferase (ALT/SGPT) 58H, Alkaline Phosphatase 171H, Total Protein 5.3L, Albumin 2.6L 05/31/21 05:40: White Blood Count 11.3H, Red Blood Count 4.52, Hemoglobin 12.8, Hematocrit 38, Mean Corpuscular Volume 85, Mean Corpuscular Hemoglobin 28, Mean Corpuscular Hemoglobin Concent 33, Red Cell Distribution Width 17.3H, Platelet Count 171, Mean Platelet Volume 10.7, Immature Granulocyte % (Auto) 1, Neutrophils (%) (Auto) 85H, Lymphocytes (%) (Auto) 5L, Monocytes (%) (Auto) 9, Eosinophils (%) (Auto) 0, Basophils (%) (Auto) 0, Neutrophils # (Auto) 9.6H, Lymphocytes # (Auto) 0.6L, Monocytes # (Auto) 1.1H, Eosinophils # (Auto) 0.0, Basophils # (Auto) 0.0, Immature Granulocyte # (Auto) 0.1, Sodium Level 135, Potassium Level 3.7, Chloride Level 98, Carbon Dioxide Level 27, Anion Gap 10, Blood Urea Nitrogen 11, Creatinine 0.50L, Estimat Glomerular Filtration Rate 120, BUN/Creatinine Ratio 22, Glucose Level 92, Calcium Level 8.4L, Corrected Calcium 9.5, Total Bilirubin 1.3H, Aspartate Amino Transf (AST/SGOT) 87H, Alanine Aminotransferase (ALT/SGPT) 51, Alkaline Phosphatase 157H, Total Protein 5.3L, Albumin 2.6L, Neutrophils % (Manual) 86, Lymphocytes % (Manual) 6, Monocytes % (Manual) 8, Blood Morphology Comment NORMAL 06/01/21 06:28: White Blood Count 9.3, Red Blood Count 4.69, Hemoglobin 13.3, Hematocrit 40, Mean Corpuscular Volume 85, Mean Corpuscular Hemoglobin 28, Mean Corpuscular Hemoglobin Concent 33, Red Cell Distribution Width 17.3H, Platelet Count 182, Mean Platelet Volume 10.4, Sodium Level 135, Potassium Level 4.0, Chloride Level 98, Carbon Dioxide Level 25, Anion Gap 12, Blood Urea Nitrogen 11, Creatinine 0.50L, Estimat Glomerular Filtration Rate 120, BUN/Creatinine Ratio 22, Glucose Level 96, Calcium Level 8.4L, Corrected Calcium 9.4, Total Bilirubin 0.9, Aspartate Amino Transf (AST/SGOT) 87H, Alanine Aminotransferase (ALT/SGPT) 48, Alkaline Phosphatase 159H, Total Protein 5.6L, Albumin 2.8L 06/03/21 06:55: White Blood Count 9.3, Red Blood Count 4.81, Hemoglobin 13.8, Hematocrit 41, Mean Corpuscular Volume 86, Mean Corpuscular Hemoglobin 29, Mean Corpuscular H emoglobin Concent 33, Red Cell Distribution Width 17.5H, Platelet Count 165, Mean Platelet Volume 10.3, Immature Granulocyte % (Auto) 1, Neutrophils (%) (Auto) 91H, Lymphocytes (%) (Auto) 7L, Monocytes (%) (Auto) 1, Eosinophils (%) (Auto) 0, Basophils (%) (Auto) 0, Neutrophils # (Auto) 8.4H, Lymphocytes # (Auto) 0.7L, Monocytes # (Auto) 0.1, Eosinophils # (Auto) 0.0, Basophils # (Auto) 0.0, Immature Granulocyte # (Auto) 0.1, Sodium Level 131L, Potassium Level 4.7, Chloride Level 97L, Carbon Dioxide Level 25, Anion Gap 9, Blood Urea Nitrogen 16, Creatinine 0.49L, Estimat Glomerular Filtration Rate 123, BUN/Creatinine Ratio 33, Glucose Level 89, Calcium Level 8.2L, Corrected Calcium 9.1, Total Bilirubin 1.0, Aspartate Amino Transf (AST/SGOT) 66H, Alanine Aminotransferase (ALT/SGPT) 41, Alkaline Phosphatase 175H, Total Protein 5.7L, Albumin 2.9L 06/05/21 04:30: White Blood Count 6.4, Red Blood Count 4.54, Hemoglobin 12.9, Hematocrit 39, Mean Corpuscular Volume 85, Mean Corpuscular Hemoglobin 28, Mean Corpuscular Hemoglobin Concent 33, Red Cell Distribution Width 17.1H, Platelet Count 141, Mean Platelet Volume 10.6, Immature Granulocyte % (Auto) 5, Neutrophils (%) (Auto) 79H, Lymphocytes (%) (Auto) 15, Monocytes (%) (Auto) 0, Eosinophils (%) (Auto) 0, Basophils (%) (Auto) 1, Neutrophils # (Auto) 5.1, Lymphocytes # (Auto) 1.0, Monocytes # (Auto) 0.0, Eosinophils # (Auto) 0.0, Basophils # (Auto) 0.1, Immature Granulocyte # (Auto) 0.3H, Sodium Level 135, Potassium Level 4.3, Chloride Level 100, Carbon Dioxide Level 25, Anion Gap 10, Blood Urea Nitrogen 15, Creatinine 0.51L, Estimat Glomerular Filtration Rate 118, BUN/Creatinine Ratio 29, Glucose Level 100, Calcium Level 8.2L, Corrected Calcium 9.2, Total Bilirubin 0.7, Aspartate Amino Transf (AST/SGOT) 45H, Alanine Aminotransferase (ALT/SGPT) 37, Alkaline Phosphatase 167H, Total Protein 5.6L, Albumin 2.8L 06/07/21 05:57: White Blood Count 3.4L, Red Blood Count 4.47, Hemoglobin 12.8, Hematocrit 38, Mean Corpuscular Volume 86, Mean Corpuscular Hemoglobin 29, Mean Corpuscular Hemoglobin Concent 33, Red Cell Distribution Width 16.9H, Platelet Count 108L, Mean Platelet Volume 10.7, Immature Granulocyte % (Auto) 1, Neutrophils (%) (Auto) 63, Lymphocytes (%) (Auto) 34, Monocytes (%) (Auto) 2, Eosinophils (%) (Auto) 0, Basophils (%) (Auto) 0, Neutrophils # (Auto) 2.1, Lymphocytes # (Auto) 1.2, Monocytes # (Auto) 0.1, Eosinophils # (Auto) 0.0, Basophils # (Auto) 0.0, Immature Granulocyte # (Auto) 0.0, Sodium Level 135, Potassium Level 4.4, Chloride Level 100, Carbon Dioxide Level 25, Anion Gap 10, Blood Urea Nitrogen 16, Creatinine 0.52L, Estimat Glomerular Filtration Rate 115, BUN/Creatinine Ratio 31, Glucose Level 76, Calcium Level 8.5, Corrected Calcium 9.4, Total Bilirubin 0.7, Aspartate Amino Transf (AST/SGOT) 34, Alanine Aminotransferase (ALT/SGPT) 34, Alkaline Phosphatase 173H, Total Protein 5.6L, Albumin 2.9L, Percent Immature Platelet Fraction 4.2 06/09/21 08:50: White Blood Count 1.6L, Red Blood Count 4.70, Hemoglobin 13.5, Hematocrit 40, Mean Corpuscular Volume 85, Mean Corpuscular Hemoglobin 29, Mean Corpuscular Hemoglobin Concent 34, Red Cell Distribution Width 16.6H, Platelet Count 74L, Mean Platelet Volume 10.8, Immature Granulocyte % (Auto) 0, Neutrophils (%) (Auto) 42, Lymphocytes (%) (Auto) 53H, Monocytes (%) (Auto) 5, Eosinophils (%) (Auto) 0, Basophils (%) (Auto) 0, Neutrophils # (Auto) 0.7L, Lymphocytes # (Auto) 0.9L, Monocytes # (Auto) 0.1, Eosinophils # (Auto) 0.0, Basophils # (Auto) 0.0, Immature Granulocyte # (Auto) 0.0, Sodium Level 134L, Potassium Level 3.6, Chloride Level 100, Carbon Dioxide Level 23, Anion Gap 11, Blood Urea Nitrogen 14, Creatinine 0.58L, Estimat Glomerular Filtration Rate 101, BUN/Creatinine Ratio 24, Glucose Level 155H, Calcium Level 8.5, Corrected Calcium 9.2, Total Bilirubin 0.5, Aspartate Amino Transf (AST/SGOT) 34, Alanine Aminotransferase (ALT/SGPT) 35, Alkaline Phosphatase 193H, Total Protein 6.3L, Albumin 3.1L, Percent Immature Platelet Fraction 6.1 06/11/21 05:29: White Blood Count 1.6L, Red Blood Count 4.38, Hemoglobin 12.5, Hematocrit 38, Mean Corpuscular Volume 86, Mean Corpuscular Hemoglobin 29, Mean Corpuscular Hemoglobin Concent 33, Red Cell Distribution Width 17.0H, Platelet Count 81L, Mean Platelet Volume 11.1, Immature Granulocyte % (Auto) 1, Neutrophils (%) (Auto) 16L, Lymphocytes (%) (Auto) 69H, Monocytes (%) (Auto) 14H, Eosinophils (%) (Auto) 0, Basophils (%) (Auto) 1, Neutrophils # (Auto) 0.3L, Lymphocytes # (Auto) 1.1, Monocytes # (Auto) 0.2, Eosinophils # (Auto) 0.0, Basophils # (Auto) 0.0, Immature Granulocyte # (Auto) 0.0, Sodium Level 134L, Potassium Level 4.3, Chloride Level 101, Carbon Dioxide Level 22, Anion Gap 11, Blood Urea Nitrogen 15, Creatinine 0.50L, Estimat Glomerular Filtration Rate 120, BUN/Creatinine Ratio 30, Glucose Level 93, Calcium Level 8.5, Corrected Calcium 9.3, Total Bilirubin 0.6, Aspartate Amino Transf (AST/SGOT) 28, Alanine Aminotransferase (ALT/SGPT) 27, Alkaline Phosphatase 172H, Total Protein 5.9L, Albumin 3.0L 06/12/21 06:32: White Blood Count 1.7L, Red Blood Count 4.37, Hemoglobin 12.6, Hematocrit 38, Mean Corpuscular Volume 87, Mean Corpuscular Hemoglobin 29, Mean Corpuscular Hemoglobin Concent 33, Red Cell Distribution Width 17.2H, Platelet Count 88L, Mean Platelet Volume 11.1, Immature Granulocyte % (Auto) 0, Neutrophils (%) (Auto) 12L, Lymphocytes (%) (Auto) 72H, Monocytes (%) (Auto) 16H, Eosinophils (%) (Auto) 0, Basophils (%) (Auto) 0, Neutrophils # (Auto) 0.2L, Lymphocytes # (Auto) 1.3, Monocytes # (Auto) 0.3, Eosinophils # (Auto) 0.0, Basophils # (Auto) 0.0, Immature Granulocyte # (Auto) 0.0, Neutrophils % (Manual) 12, Lymphocytes % (Manual) 60, Monocytes % (Manual) 17, Band Neutrophils 3, Atypical Lymphocytes 8, Percent Immature Platelet Fraction 6.0, Sodium Level 138, Potassium Level 4.3, Chloride Level 104, Carbon Dioxide Level 23, Anion Gap 11, Blood Urea Nitrogen 14, Creatinine 0.52L, Estimat Glomerular Filtration Rate 115, BUN/Creatinine Ratio 27, Glucose Level 82, Calcium Level 8.5, Corrected Calcium 9.4, Total Bilirubin 0.5, Aspartate Amino Transf (AST/SGOT) 26, Alanine Aminotransferase (ALT/SGPT) 25, Alkaline Phosphatase 186H, Total Protein 6.0L, Albumin 2.9L Pending Labs Laboratory Tests 05/30/21 06:00: White Blood Count 9.9, Red Blood Count 4.76, Hemoglobin 13.7, Hematocrit 41, Mean Corpuscular Volume 86, Mean Corpuscular Hemoglobin 29, Mean Corpuscular Hemoglobin Concent 33, Red Cell Distribution Width 17.5, Platelet Count 165, Mean Platelet Volume 10.5, Immature Granulocyte % (Auto) 1, Neutrophils (%) (Au to) 73, Lymphocytes (%) (Auto) 14, Monocytes (%) (Auto) 12, Eosinophils (%) (Auto) 0, Basophils (%) (Auto) 0, Neutrophils # (Auto) 7.2, Lymphocytes # (Auto) 1.4, Monocytes # (Auto) 1.2, Eosinophils # (Auto) 0.0, Basophils # (Auto) 0.0, Immature Granulocyte # (Auto) 0.1, Sodium Level 135, Potassium Level 3.4, Chloride Level 96, Carbon Dioxide Level 30, Anion Gap 9, Blood Urea Nitrogen 10, Creatinine 0.50, Estimat Glomerular Filtration Rate 120, BUN/Creatinine Ratio 20, Glucose Level 62, Calcium Level 8.3, Corrected Calcium 9.4, Magnesium Level 2.0, Total Bilirubin 1.1, Aspartate Amino Transf (AST/SGOT) 91, Alanine Aminotransferase (ALT/SGPT) 58, Alkaline Phosphatase 171, Total Protein 5.3, Albumin 2.6 05/31/21 05:40: White Blood Count 11.3, Red Blood Count 4.52, Hemoglobin 12.8, Hematocrit 38, Mean Corpuscular Volume 85, Mean Corpuscular Hemoglobin 28, Mean Corpuscular Hemoglobin Concent 33, Red Cell Distribution Width 17.3, Platelet Count 171, Mean Platelet Volume 10.7, Immature Granulocyte % (Auto) 1, Neutrophils (%) (Auto) 85, Lymphocytes (%) (Auto) 5, Monocytes (%) (Auto) 9, Eosinophils (%) (Auto) 0, Basophils (%) (Auto) 0, Neutrophils # (Auto) 9.6, Lymphocytes # (Auto) 0.6, Monocytes # (Auto) 1.1, Eosinophils # (Auto) 0.0, Basophils # (Auto) 0.0, Immature Granulocyte # (Auto) 0.1, Sodium Level 135, Potassium Level 3.7, Chloride Level 98, Carbon Dioxide Level 27, Anion Gap 10, Blood Urea Nitrogen 11, Creatinine 0.50, Estimat Glomerular Filtration Rate 120, BUN/Creatinine Ratio 22, Glucose Level 92, Calcium Level 8.4, Corrected Calcium 9.5, Total Bilirubin 1.3, Aspartate Amino Transf (AST/SGOT) 87, Alanine Aminotransferase (ALT/SGPT) 51, Alkaline Phosphatase 157, Total Protein 5.3, Albumin 2.6, Neutrophils % (Manual) 86, Lymphocytes % (Manual) 6, Monocytes % (Manual) 8, Blood Morphology Comment NORMAL 06/01/21 06:28: White Blood Count 9.3, Red Blood Count 4.69, Hemoglobin 13.3, Hematocrit 40, Mean Corpuscular Volume 85, Mean Corpuscular Hemoglobin 28, Mean Corpuscular Hemoglobin Concent 33, Red Cell Distribution Width 17.3, Platelet Count 182, Mean Platelet Volume 10.4, Sodium Level 135, Potassium Level 4.0, Chloride Level 98, Carbon Dioxide Level 25, Anion Gap 12, Blood Urea Nitrogen 11, Creatinine 0.50, Estimat Glomerular Filtration Rate 120, BUN/Creatinine Ratio 22, Glucose Level 96, Calcium Level 8.4, Corrected Calcium 9.4, Total Bilirubin 0.9, Aspartate Amino Transf (AST/SGOT) 87, Alanine Aminotransferase (ALT/SGPT) 48, Alkaline Phosphatase 159, Total Protein 5.6, Albumin 2.8 06/03/21 06:55: White Blood Count 9.3, Red Blood Count 4.81, Hemoglobin 13.8, Hematocrit 41, Me an Corpuscular Volume 86, Mean Corpuscular Hemoglobin 29, Mean Corpuscular Hemoglobin Concent 33, Red Cell Distribution Width 17.5, Platelet Count 165, Mean Platelet Volume 10.3, Immature Granulocyte % (Auto) 1, Neutrophils (%) (Auto) 91, Lymphocytes (%) (Auto) 7, Monocytes (%) (Auto) 1, Eosinophils (%) (Auto) 0, Basophils (%) (Auto) 0, Neutrophils # (Auto) 8.4, Lymphocytes # (Auto) 0.7, Monocytes # (Auto) 0.1, Eosinophils # (Auto) 0.0, Basophils # (Auto) 0.0, Immature Granulocyte # (Auto) 0.1, Sodium Level 131, Potassium Level 4.7, Chloride Level 97, Carbon Dioxide Level 25, Anion Gap 9, Blood Urea Nitrogen 16, Creatinine 0.49, Estimat Glomerular Filtration Rate 123, BUN/Creatinine Ratio 33, Glucose Level 89, Calcium Level 8.2, Corrected Calcium 9.1, Total Bilirubin 1.0, Aspartate Amino Transf (AST/SGOT) 66, Alanine Aminotransferase (ALT/SGPT) 41, Alkaline Phosphatase 175, Total Protein 5.7, Albumin 2.9 06/05/21 04:30: White Blood Count 6.4, Red Blood Count 4.54, Hemoglobin 12.9, Hematocrit 39, Mean Corpuscular Volume 85, Mean Corpuscular Hemoglobin 28, Mean Corpuscular Hemoglobin Concent 33, Red Cell Distribution Width 17.1, Platelet Count 141, Mean Platelet Volume 10.6, Immature Granulocyte % (Auto) 5, Neutrophils (%) (Auto) 79, Lymphocytes (%) (Auto) 15, Monocytes (%) (Auto) 0, Eosinophils (%) (Auto) 0, Basophils (%) (Auto) 1, Neutrophils # (Auto) 5.1, Lymphocytes # (Auto) 1.0, Monocytes # (Auto) 0.0, Eosinophils # (Auto) 0.0, Basophils # (Auto) 0.1, Immature Granulocyte # (Auto) 0.3, Sodium Level 135, Potassium Level 4.3, Chloride Level 100, Carbon Dioxide Level 25, Anion Gap 10, Blood Urea Nitrogen 15, Creatinine 0.51, Estimat Glomerular Filtration Rate 118, BUN/Creatinine Ratio 29, Glucose Level 100, Calcium Level 8.2, Corrected Calcium 9.2, Total Bilirubin 0.7, Aspartate Amino Transf (AST/SGOT) 45, Alanine Aminotransferase (ALT/SGPT) 37, Alkaline Phosphatase 167, Total Protein 5.6, Albumin 2.8 06/07/21 05:57: White Blood Count 3.4, Red Blood Count 4.47, Hemoglobin 12.8, Hematocrit 38, Mean Corpuscular Volume 86, Mean Corpuscular Hemoglobin 29, Mean Corpuscular Hemoglobin Concent 33, Red Cell Distribution Width 16.9, Platelet Count 108, Mean Platelet Volume 10.7, Immature Granulocyte % (Auto) 1, Neutrophils (%) (A uto) 63, Lymphocytes (%) (Auto) 34, Monocytes (%) (Auto) 2, Eosinophils (%) (Auto) 0, Basophils (%) (Auto) 0, Neutrophils # (Auto) 2.1, Lymphocytes # (Auto) 1.2, Monocytes # (Auto) 0.1, Eosinophils # (Auto) 0.0, Basophils # (Auto) 0.0, Immature Granulocyte # (Auto) 0.0, Sodium Level 135, Potassium Level 4.4, Chloride Level 100, Carbon Dioxide Level 25, Anion Gap 10, Blood Urea Nitrogen 16, Creatinine 0.52, Estimat Glomerular Filtration Rate 115, BUN/Creatinine Ratio 31, Glucose Level 76, Calcium Level 8.5, Corrected Calcium 9.4, Total Bilirubin 0.7, Aspartate Amino Transf (AST/SGOT) 34, Alanine Aminotransferase (ALT/SGPT) 34, Alkaline Phosphatase 173, Total Protein 5.6, Albumin 2.9, Percent Immature Platelet Fraction 4.2 06/09/21 08:50: White Blood Count 1.6, Red Blood Count 4.70, Hemoglobin 13.5, Hematocrit 40, Mean Corpuscular Volume 85, Mean Corpuscular Hemoglobin 29, Mean Corpuscular Hemoglobin Concent 34, Red Cell Distribution Width 16.6, Platelet Count 74, Mean Platelet Volume 10.8, Immature Granulocyte % (Auto) 0, Neutrophils (%) (Auto) 42, Lymphocytes (%) (Auto) 53, Monocytes (%) (Auto) 5, Eosinophils (%) (Auto) 0, Basophils (%) (Auto) 0, Neutrophils # (Auto) 0.7, Lymphocytes # (Auto) 0.9, Monocytes # (Auto) 0.1, Eosinophils # (Auto) 0.0, Basophils # (Auto) 0.0, Immature Granulocyte # (Auto) 0.0, Sodium Level 134, Potassium Level 3.6, Chloride Level 100, Carbon Dioxide Level 23, Anion Gap 11, Blood Urea Nitrogen 14, Creatinine 0.58, Estimat Glomerular Filtration Rate 101, BUN/Creatinine Ratio 24, Glucose Level 155, Calcium Level 8.5, Corrected Calcium 9.2, Total Bilirubin 0.5, Aspartate Amino Transf (AST/SGOT) 34, Alanine Aminotransferase (ALT/SGPT) 35, Alkaline Phosphatase 193, Total Protein 6.3, Albumin 3.1, Percent Immature Platelet Fraction 6.1 06/11/21 05:29: White Blood Count 1.6, Red Blood Count 4.38, Hemoglobin 12.5, Hematocrit 38, Mean Corpuscular Volume 86, Mean Corpuscular Hemoglobin 29, Mean Corpuscular Hemoglobin Concent 33, Red Cell Distribution Width 17.0, Platelet Count 81, Mean Platelet Volume 11.1, Immature Granulocyte % (Auto) 1, Neutrophils (%) (Auto) 16, Lymphocytes (%) (Auto) 69, Monocytes (%) (Auto) 14, Eosinophils (%) (Auto) 0, Basophils (%) (Auto) 1, Neutrophils # (Auto) 0.3, Lymphocytes # (Auto) 1.1, Monocytes # (Auto) 0.2, Eosinophils # (Auto) 0.0, Basophils # (Auto) 0.0, Immature Granulocyte # (Auto) 0.0, Sodium Level 134, Potassium Level 4.3, Chloride Level 101, Carbon Dioxide Level 22, Anion Gap 11, Blood Urea Nitrogen 15, Creatinine 0.50, Estimat Glomerular Filtration Rate 120, BUN/Creatinine Ratio 30, Glucose Level 93, Calcium Level 8.5, Corrected Calcium 9.3, Total Bilirubin 0.6, Aspartate Amino Transf (AST/SGOT) 28, Alanine Aminotransferase (ALT/SGPT) 27, Alkaline Phosphatase 172, Total Protein 5.9, Albumin 3.0 06/12/21 06:32: White Blood Count 1.7, Red Blood Count 4.37, Hemoglobin 12.6, Hematocrit 38, Mean Corpuscular Volume 87, Mean Corpuscular Hemoglobin 29, Mean Corpuscular Hemoglobin Concent 33, Red Cell Distribution Width 17.2, Platelet Count 88, Mean Platelet Volume 11.1, Immature Granulocyte % (Auto) 0, Neutrophils (%) (Auto) 12 , Lymphocytes (%) (Auto) 72, Monocytes (%) (Auto) 16, Eosinophils (%) (Auto) 0, Basophils (%) (Auto) 0, Neutrophils # (Auto) 0.2, Lymphocytes # (Auto) 1.3, Monocytes # (Auto) 0.3, Eosinophils # (Auto) 0.0, Basophils # (Auto) 0.0, Immature Granulocyte # (Auto) 0.0, Neutrophils % (Manual) 12, Lymphocytes % (Manual) 60, Monocytes % (Manual) 17, Band Neutrophils 3, Atypical Lymphocytes 8, Percent Immature Platelet Fraction 6.0, Sodium Level 138, Potassium Level 4.3, Chloride Level 104, Carbon Dioxide Level 23, Anion Gap 11, Blood Urea Nitrogen 14, Creatinine 0.52, Estimat Glomerular Filtration Rate 115, BUN/Creatinine Ratio 27, Glucose Level 82, Calcium Level 8.5, Corrected Calcium 9.4, Total Bilirubin 0.5, Aspartate Amino Transf (AST/SGOT) 26, Alanine Aminotransferase (ALT/SGPT) 25, Alkaline Phosphatase 186, Total Protein 6.0, Albumin 2.9 Discharge Home Medications: Active Scripts Active Dexamethasone 4 Mg Tablet 4 Mg PO BID Montelukast Sodium 10 Mg Tablet 10 Mg PO HS Fluticasone-Salmeterol 113-14 (Fluticasone/Salmeterol) 1 Each Aer.pow.ba 0 Each IH RTBID Levetiracetam 500 Mg Tablet 500 Mg PO BID Tramadol HCl 50 Mg Tablet 50 Mg PO TID PRN Reported Laxative (Bisacodyl) 5 Mg Tablet.dr 5 Mg PO BID PRN Iprat-Albut 0.5-3(2.5) mg/3 ml (Ipratropium/Albuterol Sulfate) 3 Ml Ampul.neb 3 Ml IH Q6H PRN Ondansetron Odt (Ondansetron) 8 Mg Tab.rapdis 8 Mg PO Q6H PRN Pantoprazole Sodium 40 Mg Tablet.dr 40 Mg PO DAILY Acid Bin Piler (FAMOTIDINE) (Famotidine) 20 Mg Tablet 20 Mg PO DAILY Instructions to patient/family Please see electronic discharge instructions given to patient. KATHERINE CHICAS DO Jun 14, 2021 06:37
[2021-06-14] MEDS: RT--FLUTICASONE/SALMETEROL 113-14 (AIRDUO RespiCLICK) IH SCH (07:18)
--- NOTE | 2021-06-14 07:40 | Therapy Team Discharge Summary ---
Therapy Discharge Summary Discharge Recommendations Date of Discharge Physical Therapy Patient seen by skilled PT to address functional strength and mobility to improve LOF. Patient participated with therapy,however, will dismiss to home on hospice and family. Goals address but not attained. Occupational Therapy Decreased Activ Tolerance, Impaired Self-Care Skills PT Card Dealer Goals Card Dealer Goals PT Nursing Home Goals Time Frame: Jun 30, 2021 Roll Left to Right (QC): 4 Sit to Lying (QC): 4 Lying-Sitting on Side/Bed(QC): 4 Sit to Stand (QC): 4 Chair/Tiv-cy-Gxcms Xfer(QC): 4 Car Transfer (QC): 4 Does the Patient Walk: Yes Walk 10 feet (QC): 4 Walk 10ft-Uneven Surface(QC): 88 Walk 50ft with 2 Turns (QC): 88 Walk 150 ft (QC): 88 Wheel 50 feet with 2 turns (QC: 3 1 Step (curb) (QC): 88 4 Steps (QC): 9 12 Steps (QC): 9 Picking up an Object (QC): 9 OT Nursing Home Goals Card Dealer Goals Time Frame: Jun 22, 2021 Eating (QC): 5 Oral Hygiene (QC): 5 Shower/Bathe Self (QC): 3 Upper Body Dressing (QC): 4 Lower Body Dressing (QC): 3 On/Off Footwear (QC): 3 Toileting Hygiene (QC): 4 Toilet/Commode Transfer (QC): 4 Additional Goals: 1-Demonstrate ADL Tasks, 2-Verbalize Understanding, 3-Imp roveStrength/Velasquez 1=Demonstrate adherence to instructed precautions during ADL tasks. 2=Patient will verbalize/demonstrate understanding of assistive devices/modifications for ADL. 3=Patient will improve strength/tolerance for activity to enable patient to perform ADL's. LLOYD FLOYD PT Jun 14, 2021 07:40
[2021-06-14 07:42] VITALS: BP 141/61
--- NOTE | 2021-06-14 08:25 | Occ Therapy Progress Note ---
Therapy Progress Note Pt in bed, waiting on her radiation treatment so she can discharge home later today. Pt declined OT tx, as she would like to save her energy. OT educated pt on purpose and benefit of therapy, but she continued to decline. 1, refusal [phone] MAYRA GUZMAN OT Jun 14, 2021 08:24
--- NOTE | 2021-06-14 08:30 | Therapy Team Discharge Summary ---
Therapy Discharge Summary Discharge Recommendations Date of Discharge Occupational Therapy Pt admitted to [facility] with small cell lung cancer. Pt has required assistance with ADLs for ~3 months, but was independent with ADLs ~4 months ago. Upon initial evaluation, pt required set up assistance with eating, SBA oral care, total assist showering, lower body dressing, footwear and toileting. OT tx focused on increasing BUE strength and activity tolerance, and increasing independence with ADLs. At discharge, pt required set up assistance with eating and oral care, total assistance with showering and toileting. Pt attained LTGs for eating and oral care, other goals addressed but not attained. Pt to discharge from hospital on this date with hospice. D/C from OT. Decreased Activ Tolerance, Impaired Self-Care Skills PT Retirement Goals Tapper Supervisor Goals PT Tapper Supervisor Goals Time Frame: Jun 30, 2021 Roll Left to Right (QC): 4 Sit to Lying (QC): 4 Lying-Sitting on Side/Bed(QC): 4 Sit to Stand (QC): 4 Chair/Tdo-lt-Qhxea Xfer(QC): 4 Car Transfer (QC): 4 Does the Patient Walk: Yes Walk 10 feet (QC): 4 Walk 10ft-Uneven Surface(QC): 88 Walk 50ft with 2 Turns (QC): 88 Walk 150 ft (QC): 88 Wheel 50 feet with 2 turns (QC: 3 1 Step (curb) (QC): 88 4 Steps (QC): 9 12 Steps (QC): 9 Picking up an Object (QC): 9 OT Retirement Goals Retirement Goals Time Frame: Jun 22, 2021 Eating (QC): 5 (met) Oral Hygiene (QC): 5 (met) Shower/Bathe Self (QC): 3 (not met) Upper Body Dressing (QC): 4 (not met) Lower Body Dressing (QC): 3 (not met) On/Off Footwear (QC): 3 (not met) Toileting Hygiene (QC): 4 (not met) Toilet/Commode Transfer (QC): 4 (not met) Additional Goals: 1-Demonstrate ADL Tasks, 2-Verbalize Understanding, 3-ImproveStrength/Velasquez 1=Demonstrate adherence to instructed precautions during ADL tasks. 2=Patient will verbalize/demonstrate understanding of assistive devices/modifications for ADL. 3=Patient will improve strength/tolerance for activity to enable patient to perform ADL's. MAYRA GUZMAN OT Jun 14, 2021 08:30
[2021-06-14] MEDS: polyethylene glycoL POWDER 17 GM (MIRALAX) PACK PO SCH (10:18)
[2021-06-14] MEDS: LORATADINE (CLARITIN) 10 MG TAB PO SCH (10:18)
[2021-06-14] MEDS: FAMOTIDINE 20 MG (PEPCID) TABLET PO SCH (10:18)
[2021-06-14] MEDS: SENNA W/DOCUSATE (SENOKOT S) TABLET PO SCH (10:18)
== END 2021-06-14 11:20 | disposition hospice, home (50) | DRG 181 ==
LOC: 4TH 15:03
PROVIDERS: ADMIT Internal Medicine; ATTEND Internal Medicine
DX: C34.90 Malignant neoplasm of unspecified part of unspecified bronchus or lung (principal); C78.7 Secondary malignant neoplasm of liver and intrahepatic bile duct; C79.31 Secondary malignant neoplasm of brain; Z92.21 Personal history of antineoplastic chemotherapy; E86.0 Dehydration; J40 Bronchitis, not specified as acute or chronic; E87.6 Hypokalemia; Z87.891 Personal history of nicotine dependence; R53.81 Other malaise; R19.7 Diarrhea, unspecified; R63.4 Abnormal weight loss; Z68.21 Body mass index [BMI] 21.0-21.9, adult; R53.1 Weakness; Z51.5 Encounter for palliative care; Z92.3 Personal history of irradiation
CPT/HCPCS: 36415; 70450; 70470; 72125; 77280; 77290; 77295; 77300; 77334; 77417; 80053; 83735; 85007; 85025; 85027; 94640; 94760

== ENCOUNTER 2021-06-01 13:05 | Outpatient (RCR) | payer MEDICARE ==
[~2021-06-01 13:05] MED LIST changes: +FAMOTIDINE 20MG/2ML IV (CANCER CTR) ONE; +NS IV 1000 ML (CANCER CTR) 1,000 ML ONE; +diphenhydrAMINE 25 MG TAB (BENADRYL) CANCER CENTER PO ONE
[2021-06-14] MEDS ORDERED: TRM50T PO (06:36)
[2021-06-14] MEDS ORDERED: FLUT1AER4 IH (06:36)
[2021-06-14] MEDS ORDERED: LEVE500T6 PO (06:36)
[2021-06-14] MEDS ORDERED: DEXA4TAB PO (06:36)
[2021-06-14] MEDS ORDERED: MONT-40 PO (06:36)
== END 2021-06-22 ==
LOC: ONC 13:05
PROVIDERS: ATTEND Internal Medicine Hematology & Oncology
DX: Z51.11 Encounter for antineoplastic chemotherapy (principal); Z45.2 Encounter for adjustment and management of vascular access device
CPT/HCPCS: 96367; 96375; 96413; 96417